=== PATIENT | male | born 1945 | race Caucasian/White ===

== ENCOUNTER → 2024-09-01 15:45 | Outpatient (REF) | payer OTHER, SELFPAY | LOC: RAD 15:45 | PROVIDERS: ATTENDING PHYSICIAN Family Medicine | DX: D47.2 Monoclonal gammopathy (principal); R59.0 Localized enlarged lymph nodes | CPT/HCPCS: 70492; Q9967 ==

== ENCOUNTER → 2024-09-09 10:27 | Outpatient (REF) | payer OTHER, SELFPAY | LOC: RAD 10:27 | PROVIDERS: ATTENDING PHYSICIAN Internal Medicine Hematology & Oncology; FAMILY PHYSICIAN Family Medicine | DX: C90.00 Multiple myeloma not having achieved remission (principal); D68.00 Von Willebrand disease, unspecified; D47.2 Monoclonal gammopathy | CPT/HCPCS: 71260; 74177; Q9967 ==

== ENCOUNTER → 2024-10-01 10:03 | Outpatient (REF) | payer OTHER, SELFPAY | LOC: PET 10:03 | PROVIDERS: ATTENDING PHYSICIAN Internal Medicine Hematology & Oncology | DX: C90.00 Multiple myeloma not having achieved remission (principal); R91.1 Solitary pulmonary nodule | CPT/HCPCS: 78816; A9552 ==

== ENCOUNTER 2024-10-03 20:55 | Inpatient (IN) | payer OTHER, SELFPAY ==
[2024-10-03] VITALS (7 sets, daily range): BP systolic 125–148; BP diastolic 70–89; BMI 28.6
--- NOTE | 2024-10-03 17:17 | ED.GENMED ---
History of Present Illness
General
Chief Complaint: Swelling
Source: patient and family
Exam Limitations: none
Time Seen by Provider: 10/03/24 16:44
Nursing documentation reviewed up to this point in time: agreed with
History of Present Illness
History of Present Illness:
Patient with history of multiple myeloma, receiving treatment as outpatient, currently being evaluated for neck swelling along with pulmonary nodule, presents to ED secondary to progressively worsening generalized weakness over the past 1 month.
Weakness has reached to a point where, patient is unable to support his weight and ambulate. Denies fever or chills. Denies coughing. Denies vomiting or diarrhea. Denies abdominal pain. Denies loss of appetite. Denies weight loss. Denies leg
pain. Denies headache. Denies dizziness. Denies difficulty with speech. 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
Review of Systems
Review of Systems
Allergies reviewed?: Yes
All Other Systems: ROS reviewed and negative except as documented in HPI and ROS
Constitutional: Reports no symptoms; Denies fever
Respiratory: Reports no symptoms; Denies cough
Cardiac: Reports no symptoms
ABD/GI: Reports no symptoms; Denies vomiting or diarrhea
Musculoskeletal: Reports no symptoms
Skin: Reports no symptoms
Neurological: Reports weakness; Denies dizzy or headache
Phy Exam
Physical Exam
Physical Exam:
Physical Exam
General: no apparent distress, not acutely ill. afebrile
Head: nc/at. eomi
Neck: supple. normal range of motion.
Heart: s1/s2 regular rate and rhythm
Lungs: no acute respiratory distress. clear bilaterally
Abdomen: normal bowel sounds. not tender.
Neuro: alert and oriented x 3. no focal neurological deficits
Skin: no rash
Psychiatric: well kept. interactive and cooperative
Extremities: LE b/l nonpitting edema. no calf tenderness.
Scores
Heart Failure Risk
Heart Failure Risk Score: Not Applicable
Course
Orders/Labs/Results
Orders:
Orders
10/03/24 Breakfast
Regular
Fluid Restriction: 1440 mL/day (48 oz)
10/03/24 16:10
ECG [Electrocardiogram (*1)] Urgent
Reason for Study: Fatigue / Weakness
10/03/24 16:11
EKG- Treatment ONCE
10/03/24 17:37
Complete Blood Count/With Diff Urgent
Comprehensive Metabolic Panel Urgent
D-Dimer Urgent
Free T4 Urgent
Comment: ADD ON
Glycohemoglobin (HgbA1c) Urgent
Magnesium Urgent
NT-proBNP Urgent
Serum Osmolality Urgent
Comment: ADD ON
TSH Urgent
10/03/24 18:28
Add On- LAB Urgent
Tests Added?: serum osm
10/03/24 18:33
CT Head W/o Iv Contrast Urgent
Comment:
Reason For Exam: weakness w ataxia
10/03/24 18:59
Add On- LAB Urgent
Tests Added?: Free T4
10/03/24 19:19
Periph Venous Lwr Ext Left US [US Periph Venous LOWER Ext LT] Urgent
Comment:
Reason For Exam: leg swelling w elevated d-dimer
10/03/24 20:13
Admit/Transfer Patient As Directed
Co-Sign Provider:
Level of Care: Inpatient admission
Assign to:: IMU- Intermediate Care
Physician / Group: Guy
Diagnosis: Hypothyroidism, Weakness
Reason for Hospitalization: Hypothyroidism, Weakness
Expected length of stay greater than two midnights?: Yes
ELOS- Estimated Length of Stay in days: 3
I certify the patient meets the requirements for IP care: Yes
PRN Pain Medication Management As Directed
May give lesser potent ordered pain med per pt: Yes
preference::
Protocol:: Medication orders for pain may be administered in a
manner that supports deferring to patient preference
when the pt is:
- Requesting an ordered lesser potent pain medication.
Least to most potent pain medications are defined
as: acetaminophen < NSAID < tramadol < opioids
(morphine, oxycodone, hydromorphone).
- Requesting a lesser dose of the same medication IF
ORDERED.
- Requesting a less intrusive route of administration
if both routes are prescribed by the provider (PO <
IV).
10/03/24 20:14
Code Status As Directed
Resuscitation Status: Full Code
10/03/24 20:19
Osmolality, Random Urine Urgent
Date Specimen was Collected: 10/03/24
Time Specimen was Collected: 18:30
Urinalysis Reflex To Culture Urgent
Date Specimen was Collected: 10/03/24
Time Specimen was Collected: 18:30
Urine Sodium Urgent
Date Specimen was Collected: 10/03/24
Time Specimen was Collected: 18:30
10/03/24 20:58
COVID-19 Antigen Urgent
Source: Nasal Swab
Blood Culture Q30M
CANDIS Source: Blood/Venous
Specimen Description:
10/03/24 21:18
Blood Culture Q30M
CANDIS Source: Blood/Venous
Specimen Description:
10/03/24 23:08
Acetaminophen [Tylenol] 650 mg PO Q4HPRN PRN
Albuterol Nebs [Ventolin Nebules] 2.5 mg INH R Q4HPRN PRN
Doxazosin Mesylate [Cardura] 2 mg PO HS
10/03/24 23:08
Echo 2D MMode Doppler [Echo 2D MMode Color/Doppler] Routine
Reason for Study: Edema, Weakness
VTE Contraindication Routine
VTE Mechanical Device Contraindication: Suspected DVT
Pharmocologic Contraindication: Low platelet count
Activity As Directed
Activity Level: Ambulate
With Assistance
EKG with chest pain [ECG as needed] As Directed
ECG as needed for:: Chest Pain
I/O [Intake/ Output] As Directed
Frequency: Per unit guidelines
Neurological Checks As Directed
Frequency: q4h
Records Request [Obtain Records] As Directed
Dates of Information to be Released: Most Recent
Type of Information Requested: Progress Notes
Obtain Records from: [facility] - Dr. Potts
Vital Signs As Directed
Frequency: Per unit guidelines
Weight As Directed
Frequency: Daily
Oxygen Therapy [O2 Therapy] [RESP] Routine
Titrate/Wean O2 to maintain O2 sat greater than (%): 94
Ot Eval And Treat Routine
PT Consult [Pt Eval And Treat] Routine
Activity Level: Ambulate
With Assistance
10/03/24 23:30
Levothyroxine [Levothroid] 100 mcg IV ONCE ONE
Patient requires IV dosing to begin now?: Yes
Reason to begin IV dosing now:: TSH greater than 10
10/04/24 00:00
CefTRIAXone [Rocephin] 1,000 mg IV Q24H
10/04/24 06:00
Basic Metabolic Panel IN AM
Cardiovascular Evaluation IN AM
Complete Blood Count/No Diff IN AM
Cortisol, Random IN AM
Magnesium IN AM
Phosphorus IN AM
MR Brain W/o & With Contrast IN AM
Comment:
Reason For Exam: L Weakness, Malignancy History
Recent pill cam endoscopy?: No
Levothyroxine [Synthroid] 200 mcg PO DAILY @ 0600
10/04/24 08:00
Amlodipine [Norvasc] 5 mg PO DAILY
Doxycycline [Vibramycin] 100 mg PO Q12
Pantoprazole [Protonix] 40 mg PO DAILY
Abnormal Lab Results
10/03/24
17:37
RBC 4.14 L 10^6/uL
(4.70-6.10)
Hct 38.9 L %
(39.0-52.0)
MCH 34.1 H pg
(27.0-31.0)
RDW 15.4 H %
(11.5-14.5)
Plt Count 109 L 10^3/uL
(130-400)
Abs Immat Gran (auto) 0.1 H 10^3/uL
(0-0.05)
Absolute Lymphs (auto) 1.0 L 10^3/uL
(1.2-3.4)
Immature Gran % 1.6 H %
(0-0.5)
Neutrophils % 75.4 H %
(42.2-75.2)
Lymphocytes % 14.6 L %
(20.5-51.1)
D-Dimer 1.30 H ug/mlFEU
(0.00-0.50)
Sodium 131 L mmol/L
(135-145)
Glucose 145 H mg/dl
(70-99)
Calcium 8.2 L mg/dl
(8.4-10.2)
Total Bilirubin 1.4 H mg/dl
(0.2-1.3)
TSH 16.80 H uIU/ml
(0.47-4.68)
Free T4 0.39 L ng/dl
(0.78-2.19)
10/03/24 17:37
10/03/24 17:37
Vital Signs
Initial and Last Documented VS:
Initial Vital Signs
Temp Pulse Resp BP Pulse Ox
99.4 F 98 19 135/82 96
10/03/24 16:08 10/03/24 16:08 10/03/24 16:08 10/03/24 16:08 10/03/24 16:08
Last Documented Vital Signs
Temp Pulse Resp BP Pulse Ox
99.4 F 90 30 125/84 91
10/03/24 16:08 10/03/24 22:30 10/03/24 22:30 10/03/24 22:01 10/03/24 22:30
MDM/Problems Addressed
MDM/Problems Addressed:
Blood work significant for hyponatremia. In addition, when ambulating, patient noted to be ataxic with unsteady gait, raising concern for potential fall/injury. As such, patient will be admitted for further evaluation and treatment.
*Pulse Oximetry
SaO2: 96
Oxygen Mode of Delivery: Room air
Patient hypoxic: no
*Critical Care Note
Total Time (30-74mins, 75-104mins- exclusive of procedures): Not Applicable
ED Attending Note
-
Portions of this chart may have been created with voice recognition software.� Occasional wrong word or��sound alike� substitutions may have occurred due to the inherent limitations of voice recognition software.
Discharge Plan
Departure
Patient Disposition: Admit
Date of Disposition: 10/03/24
Time of Disposition: 19:34
Admit to: Med/Surg
Presentation/result/management discussed w/ accepting MD/DO: Hospitalist
Discharge Problem:
Weakness, Hyponatremia
Interventions
Interventions:
*Risk Screen - Suicide Last Done: 10/03/24 16:08
*General Assessment Last Done: 10/03/24 17:34
*Neglect/Abuse Screening Last Done: 10/03/24 16:08
*ED- Fall Risk Assessment Last Done: 10/03/24 17:34
*ED COVID-19 Vaccine History Last Done: 10/03/24 17:34
ED- Cardiac Assessment Last Done: 10/03/24 17:34
ED- Pulmonary Assessment Last Done: 10/03/24 17:34
ED-Skin Assessment Last Done: 10/03/24 17:34
[2024-10-03 17:50] LABS: Hematocrit 38.9 % (39.0-52.0); Hemoglobin 14.1 g/dL (13.0-18.0); Mean Corp Hgb Conc. 36.2 g/dL (33.0-37.0); Mean Corpuscular Volume 94.0 fL (80.0-94.0); Nucleated Red Blood Cells % 0.3 % (-); Platelet Count 109 10^3/uL (130-400); Red Cell Dist. Width 15.4 % (11.5-14.5)
[2024-10-03 18:04] LABS: D-Dimer 1.30 ug/mlFEU (0.00-0.50)
[2024-10-03 18:06] LABS: ALT (SGPT) 37 U/L (0-50); AST (SGOT) 28 U/L (17-59); Albumin 3.6 g/dl (3.5-5.0); Alkaline Phosphatase 62 U/L (38-126); Blood Urea Nitrogen 16 mg/dl (9-20); Calcium 8.2 mg/dl (8.4-10.2); Carbon Dioxide 23 mmol/L (22-30); Chloride 104 mmol/L (98-107); Estimated Creatinine Clearance 83 ml/min; Glucose 145 mg/dl (70-99); Magnesium 1.8 mg/dl (1.6-2.3); Potassium 3.7 mmol/L (3.5-5.1); Sodium 131 mmol/L (135-145); Total Protein 6.5 g/dl (6.3-8.2); eGFR > 60.00
[2024-10-03 18:47] LABS: TSH 16.80 uIU/ml (0.47-4.68)
--- NOTE | 2024-10-03 20:28 | HPS.HSE ---
Family Physician
-
Family Physician: Beronica Cantu
Chief Complaint
-
Weakness, Ataxia
History of Present Illness
Patient is an 79y M with PMH significant for hypothyroidism, hypertension and von Willebrand's disease who presents to ED complaining of weakness. History obtained from patient and his family at the bedside. Patient was in his usual states of
good health until about 3-4 weeks ago when he began to become more weak / fatigued. He was still able to complete his ADLs until this past 24-48 hours when his symptoms markedly worsened. Patient is followed by [facility] for vWF. He
receives monthly IVIG. There is some question of multiple myeloma - though history there is not clear and patient does not appear to be on any treatment for this.
Patient developed fullness / swelling in the throat several weeks ago. He was evaluated by ENT. CT scan showed tonsillar hypertrophy but was otherwise unremarkable.
He was treated briefly with antifungal medication - but this was stopped after fungal smear was negative.
CT neck also showed incidental RUL nodule and patient has had CT C/A/P and PET-CT since that time for further evaluation. These revealed mildly FDG-avid (3.3) KADEN nodule (1.6cm). No other areas of FDG-avidity. No other abnormal findings.
Over the past 48 hours, patient has remained seated at home and has not left his chair. He reports shaking chills. He denies sore throat, cough or SOB.
Family has noted swelling in the legs - L > R - which is unusual for him.
He had gross hematuria on Friday - but this cleared by the next AM. No further hematuria noted. No dysuria, frequency or incontinence.
Family noted that he seemed somewhat confused as well. 911 was called to the home this afternoon when patient was unable to get up. He decline ED evaluation at that time.
Later in the afternoon family convinced him to present to the ED for further evaluation.
Patient is quiet unsteady on his feet here in the ED.
He drove himself to his radiology appointments as recently as 2 days ago and had no significant issues.
Medical History
Past Medical History
Past Medical History: Reports Other
Additional Past Medical History:
von Willebrand's Disease
Hypertension
Hypothyroidism
Obesity
Dyslipidemia
Past Surgical History: Reports Other
Additional Past Surgical History:
Hemorrhoidectomy
Social History
Tobacco: Former Smoker (Quit smoking 40 years ago. Approx 20 pack years total use.)
Alcohol: None
Drug: None
Living: With Family
Family History
Family History: Other (Father: Prostate Cancer)
Allergies / Home Medications
Allergies reflects when Allergies were last updated in [facility].
Home Medications with original date entered in [facility]
Allergy/Medication List:
Allergies
Allergy/AdvReac Type Severity Reaction Status Date / Time
Penicillins Allergy Unknown Verified 10/03/24 16:07
Home Medications
Ivig 1 dose SC MONTHLY 10/03/24
amlodipine 5 mg tablet 5 mg PO DAILY 10/03/24
doxazosin 2 mg tablet 2 mg PO HS 10/03/24
levothyroxine 125 mcg tablet (Synthroid) 125 mcg PO DAILY 10/03/24
metoprolol succinate 25 mg tablet,extended release 24 hr (Toprol XL) 25 mg PO DAILY 10/03/24
pantoprazole 40 mg tablet,delayed release (Protonix) 40 mg PO DAILY 10/03/24
therapeutic multivitamin 1 tab PO DAILY 10/03/24
zolpidem 10 mg tablet (Ambien) 10 mg PO HSPRN PRN sleep 10/03/24
Review of Systems
-
History Source: Patient and Family
A 12 point ROS was completed and negative except as noted: Yes
Constitutional: Reports Fatigue and Chills; Denies Fever
EENT: Reports Other (Neck swelling / fullness.); Denies Sore Throat
Respiratory: Denies Cough or Trouble Breathing
Cardiac: Denies Chest Pain or Palpitations
Abdomen/GI: Denies Abdominal Pain, Nausea, Vomiting, Diarrhea, Bloody Stools or Black Stools
: Reports Bleeding; Denies Dysuria, Frequency or Flank Pain
Musculoskeletal: Reports Edema; Denies Joint Pain
Neurological: Reports Weakness; Denies Dizzy, Headache or Numbness
Psych: Denies Depression or Anxiety
Physical Exam
Vital Signs
Vital Signs
Temp Pulse Resp BP Pulse Ox
99.4 F 98 19 135/82 96
10/03/24 16:08 10/03/24 16:08 10/03/24 16:08 10/03/24 16:08 10/03/24 17:17
Physical Exam
General: Other (79y M in no acute distress. Somewhat sluggish - but answers all questions / follows commands / etc.)
HEENT: Other (Thick neck. Not tender, no induration, erythema, palpable masses, etc. Fullness is new per patient / family.)
Respiratory: Other (Expiratory squeaks / wheezes scattered throughout - more prominent in KADEN.)
Cardiac: S1/S2 and Regular Rhythm; No Murmur
GI: Soft, Non Tender, Non Distended, Normal Bowel Sounds and Other (Obese.)
Musculoskeletal: No Clubbing, No Cyanosis and Other (2+ pitting edema b/l LEs - L/R. No calf tenderness / cords.)
Neuro: AO x 3 and Other (Mild L sided weakness in the UE and LE. Finger to nose is intact.)
Laboratory Results
-
10/03/24 17:37
10/03/24 17:37
Laboratory Results
Total Bilirubin 1.4 mg/dl (0.2-1.3) H 10/03/24 17:37
AST 28 U/L (17-59) 10/03/24 17:37
ALT 37 U/L (0-50) 10/03/24 17:37
Alkaline Phosphatase 62 U/L (38-126) 10/03/24 17:37
Impression/Plan
-
A/P: Patient is an 79y M with PMH significant for vWF, hypertension and hypothyroidism who presents to ED for evaluation of weakness and unsteady gait.
Weakness / Ataxia / Confusion
- Admit for further evaluation and treatment.
- Differential is extensive at this time and includes hypothyroidism, infectious process, stroke, etc.
- Address individual issues below and follow for any new / worsening symptoms.
- CT head in the ED was unremarkable.
- Check MRI brain in the AM for further evaluation.
- PT / OT evaluations.
Symptomatic Hypothyroidism
- Significantly under-replaced T4 with TSH = 16.8 and Free T4 = 0.39.
- Some confusion, weakness, ataxia, edema, etc - possible early myxedema. Not somnolent, hypothermic, hypoglycemic, etc.
- Give IV dose of levothyroxine now and increased PO dose in AM to 200mcg daily.
- Check cortisol to rule out component of adrenal insufficiency.
- Follow for clinical improvement and change / continue IV replacement if any new or worsening symptoms.
Pulmonary Nodule
- 1.6cm KADEN nodule seen on multiple recent images. Mildly FDG-avid without significant delayed uptake.
- Possible infectious component with 'low-grade' temp (99 here in the ED), chills, etc.
- Cover with abx for now with ceftriaxone / doxycycline.
- Check cultures, COVID assay, etc.
- Follow temperature curve and monitor for any new / worsening symptoms.
- May benefit from biopsy for further evaluation if no improvement / resolution with antibiotics.
Mild Hyponatremia
- Na = 131. Possibly secondary to hypothyroidism (see above) or SIADH due to pulmonary nodule.
- Fluid restriction for now. Correct hypothyroidism / check cortisol.
- Follow for improvement.
Benign Hypertension
- Stable. Hold metoprolol acutely to avoid exacerbating hypothyroidism symptoms.
- Continue other medications with holding parameters.
vonWillebrand's Disease
- Stable. Patient maintained on IVIG monthly - last injection was last Friday.
- Patient / family unclear on multiple myeloma history - not clear if this is formal diagnosis.
- Family notes that he is being treated for vWF to 'prevent multiple myeloma'.
- Not on any specific agents other than IVIG.
- Note that recent PET-CT was entirely unremarkable excepting KADEN nodule.
- Will obtain outpatient records from [facility] / Dr. Potts for clarification.
Edema
- LE swelling is likely due to hypothyroidism, immobility x 48 hours, etc.
- US ordered to rule out DVT.
DVT Prophylaxis
- No pharmacologic prophylaxis given vWF.
- Can use SCDs after LE dopplers completed / normal.
Code Status: Full
[2024-10-03 21:26] LABS: COVID-19 Antigen Negative (Negative)
[2024-10-03] MEDS: VENTOLIN NEBULES 2.5 MG INH (23:38)
[2024-10-04] VITALS (13 sets, daily range): BP systolic 91–140; BP diastolic 51–86; BMI 28.6
[2024-10-04] MEDS: CARDURA 2 MG PO (00:04)
[2024-10-04] MEDS: ROCEPHIN 1000 MG IV (00:04)
[2024-10-04] MEDS: STERILE WATER FOR INJECTION 10 ML IV (00:04)
[2024-10-04] MEDS: LEVOTHROID 100 MCG IV (00:05)
--- NOTE | 2024-10-04 01:07 | PTCARENOTE ---
Received verbal report from YIN Carson. Pt arrived to floor via stretcher. Pt ox3, forgetful and [place]. neuro checks ongoing q4 (see worklist). NSR on monitor with PACs. 96% on 4L NC. Pt was 87% on RA when he first arrived to floor. Pt denies SOB.
Expiratory wheezing auscultated and RT notified. Pt received nebulizer tx. Admission completed. Vitals and assessment as documented. Pt resting in bed with daughter at bedside, bed alarm on and cell topete in reach.
[2024-10-04] MEDS: SYNTHROID 200 MCG PO (05:33)
[2024-10-04 05:57] LABS: Hematocrit 35.6 % (39.0-52.0); Hemoglobin 13.1 g/dL (13.0-18.0); Mean Corp Hgb Conc. 36.8 g/dL (33.0-37.0); Mean Corpuscular Volume 94.2 fL (80.0-94.0); Platelet Count 85 10^3/uL (130-400); Red Cell Dist. Width 15.2 % (11.5-14.5)
[2024-10-04 06:13] LABS: Blood Urea Nitrogen 16 mg/dl (9-20); Calcium 8.1 mg/dl (8.4-10.2); Carbon Dioxide 22 mmol/L (22-30); Chloride 103 mmol/L (98-107); Estimated Creatinine Clearance 84 ml/min; Glucose 136 mg/dl (70-99); HDL Cholesterol 57 mg/dl; LDL Cholesterol, Calculated 148 mg/dl; Magnesium 1.8 mg/dl (1.6-2.3); Potassium 3.7 mmol/L (3.5-5.1); Sodium 129 mmol/L (135-145); Very Low Density Lipoprotein 31 mg/dl (0-30); eGFR > 60.00
[2024-10-04 06:41] LABS: Cortisol, Random 26.7 ug/dl
[2024-10-04] MEDS: VENTOLIN NEBULES 2.5 MG INH (06:44)
--- NOTE | 2024-10-04 07:05 | W.PN.UPDATE ---
Update Note
Progress Note Update
~0645 pt with complaints of coarseness and dyspnea this morning. recently increased to 4L NC from RA on arrival to the floor.- moist nonproductive cough noted. on assessment lung sounds are course throughout with ex. wheezing scattered. PRN Neb
given. CXR ordered. Mucinex and acapella ordered.�BNP was only 428 on admission.
--- NOTE | 2024-10-04 07:23 | W.PN.HOSP.TC ---
Today's Communication/Plan
-
See plan
Assessment / Plan
Assessment / Plan
Physical Exam
General: Other (79y M in no acute distress. Somewhat sluggish - but answers all questions / follows commands / etc.)
HEENT: Other (Thick neck. Not tender, no induration, erythema, palpable masses, etc. Fullness is new per patient / family.)
Respiratory: Other (Expiratory squeaks / wheezes scattered throughout - more prominent in KADEN.)
Cardiac: S1/S2 and Regular Rhythm; No Murmur
GI: Soft, Tender, Non Distended, Normal Bowel Sounds and Other (Obese.)
Musculoskeletal: No Clubbing, No Cyanosis and Other (2+ pitting edema b/l LEs - L/R. No calf tenderness / cords.)
Neuro: AO x 3 and Other (Mild L sided weakness in the UE and LE. Finger to nose is intact.)
Assessment/Plan
79y M with PMH significant for hypothyroidism, hypertension and von Willebrand's disease who presents to ED complaining of weakness. History obtained from patient and his family at the bedside. Patient was in his usual states of good health
until about 3-4 weeks ago when he began to become more weak / fatigued. He was still able to complete his ADLs until this past 24-48 hours when his symptoms markedly worsened. Patient is followed by [facility] for v[facility]. He receives monthly
IVIG (last dose 09/29). There is some question of multiple myeloma - though history there is not clear and patient does not appear to be on any treatment for this (records show MGUS). Patient developed fullness / swelling in the throat several
weeks ago. He was evaluated by ENT in their office Dr. Hicks. CT scan showed tonsillar hypertrophy but was otherwise unremarkable. He was treated briefly with antifungal medication for thrush (patient was having a sore throat) - but this was
stopped after fungal smear was negative. CT neck also showed incidental RUL nodule and patient has had CT C/A/P and PET-CT since that time for further evaluation. These revealed mildly FDG-avid (3.3) KADEN nodule (1.6cm). No other areas of
FDG-avidity. No other abnormal findings. Over the 48 hours prior to presentation, patient remained seated at home and has not left his chair. He reports shaking chills.
Family has noted swelling in the legs - L > R - which is unusual for him. Family noted that he seemed somewhat confused as well since 10/02/24 evening. 911 was called to the home this afternoon when patient was unable to get up. He decline ED
evaluation at that time. Later in the afternoon family convinced him to present to the ED for further evaluation. Patient was noted to be quite unsteady on his feet in the emergency department. He drove himself to his radiology appointments as
recently as 2 days ago and had no significant issues.
Weakness / Ataxia / Confusion -- suspected Acute Toxic Metabolic Encephalopathy
- Differential is extensive at this time and includes hypothyroidism, infectious process, stroke, etc.
- Address individual issues below and follow for any new / worsening symptoms.
- CT head in the ED was unremarkable.
- MRI brain pending
- PT / OT evaluations.
- Appreciate neurology
Diarrhea, Abdominal Pain and Nausea reported on 10/04/24 morning
Mild fluid right inguinal canal -- postsurgical change versus incarcerated/strangulated hernia? -- seen on CT Imaging
-Stool studies
-Requested surgery evaluation since patient is symptomatic, appreciate surgery evaluation
Gross Hematuria
-Significant blood in urine on 09/24/24 -- self resolved
Symptomatic Hypothyroidism
- Significantly under-replaced T4 with TSH = 16.8 and Free T4 = 0.39.
- Some confusion, weakness, ataxia, edema, etc - possible early myxedema. Not somnolent, hypothermic, hypoglycemic, etc.
- IV dose of levothyroxine given.
- PO Levothyroxine dose increased in AM to 175 mcg daily.
- Cortisol level 26.7
- Follow for clinical improvement and change / continue IV replacement if any new or worsening symptoms.
Acute Hypoxic Respiratory Insufficiency
Cough Again on 10/04/24
Mild left lower lobe airspace disease suggesting pneumonia
-Continue Rocephin and Doxycycline
-Pulmonary toilet
-Follow cultures
Right Upper Lobe Pulmonary Nodule
- Saw Dr. Rider outpatient
- 1.6cm KADEN nodule seen on multiple recent images. Mildly FDG-avid without significant delayed uptake.
- Possible infectious component with 'low-grade' temp (99 here in the ED), chills, etc.
- Cover with antibiotics for now with ceftriaxone / doxycycline.
- Follow temperature curve and monitor for any new / worsening symptoms.
- May benefit from biopsy for further evaluation if no improvement / resolution with antibiotics.
Mild Hyponatremia
- Na = 131. Possibly secondary to hypothyroidism (see above) or SIADH due to pulmonary nodule.
- Fluid restriction for now. Correct hypothyroidism -- home Synthroid dose increased.
- Cortisol 26.7
- Follow for improvement.
Benign Hypertension
- Stable. Hold metoprolol acutely to avoid exacerbating hypothyroidism symptoms.
- Continue other medications with holding parameters.
Acquired vonWillebrand's Disease (started at age 49 y/o)
- Stable. Patient maintained on IVIG monthly - last injection was 09/29/24.
- Patient / family unclear on multiple myeloma history - not clear if this is formal diagnosis - was taking radioactive med per family until 6 months ago
- Family noted that he is being treated for vWF to 'prevent multiple myeloma'.
- Not on any specific agents other than IVIG.
- Note that recent PET-CT was entirely unremarkable excepting KADEN nodule.
- Consulted hematology since patient getting IVIG, question of whether patient's IVIG treatment and vonWillebrand's related to this
Edema
- LE swelling is likely due to hypothyroidism, immobility x 48 hours, etc.
- No DVT on LLE or RLE
Tiny Pericardial Effusion on CT Imaging
-Check echocardiogram
Tiny Bilateral Pleural Effusions on CT Imaging
Moderate prostate hypertrophy on CT Imaging
-Continue bladder scans protocol
Simple bilateral renal cysts
Appendicoliths
DVT Prophylaxis: No pharmacologic prophylaxis given vWF; use SCDs
Code Status: Full Code
On 10/04/24, I spoke with patient's daughter Jacqueline and answered all her questions and concerns to satisfaction.
Anticipated Discharge: > 48 hours
Subjective/Interval History
-
Date of Service: October 04, 2024
Patient was seen and examined. He reported not feeling well, cough, abdominal pain and nausea.
Objective Data
-
Labs:
Laboratory Results
10/04/24
05:43
WBC 5.6
Hgb 13.1
Hct 35.6 L
Plt Count 85 L D
Sodium 129 L
Potassium 3.7
Chloride 103
Carbon Dioxide 22
BUN 16
Creatinine 0.7
Glucose 136 H
Calcium 8.1 L
Vital Signs:
Vital Signs
Temp Pulse Resp BP Pulse Ox
100.1 F 86 15 116/69 92
10/04/24 04:10 10/04/24 06:46 10/04/24 06:46 10/04/24 04:00 10/04/24 06:46
--- NOTE | 2024-10-04 07:26 | PTCARENOTE ---
Pt with new onset of coarse crackles throughout lungs. Pt 94% on 4L NC. Pt c/o SOB. AYSHA Tenorio notified. CXR ordered. RT notified and pt received neb tx.
[2024-10-04 07:57] LABS: Glycohemoglobin (HgbA1c) 7.6 % (4.0-5.6)
[2024-10-04] MEDS: STERILE WATER FOR INJECTION IV (08:04)
[2024-10-04] MEDS: NORVASC 5 MG PO (08:07)
[2024-10-04] MEDS: VIBRAMYCIN 100 MG PO ×2 (08:08→21:07)
[2024-10-04] MEDS: PROTONIX 40 MG PO (08:08)
[2024-10-04] MEDS: MUCINEX 600 MG PO ×2 (08:08→21:07)
[2024-10-04] MEDS: TYLENOL 650 MG PO ×2 (08:08→12:14)
[2024-10-04 09:35] LABS: Urine Character Cloudy (Clear)
[2024-10-04 09:47] LABS: B.E. 0 mmol/L; HCO3 23.8 mmol/L (21-28); O2 Saturation % 98.6 % (94-98); PCO2 35 mmHg (35-48); PO2 84 mmHg (83-108)
[2024-10-04 09:47] LABS: Urine Squamous Cell 0-2 /LPF (Few)
[2024-10-04 09:48] LABS: Urine Red Blood Cell >100 /HPF (0-2)
[2024-10-04] MEDS: OMNIPAQUE 50 ML PO (10:45)
[2024-10-04] MEDS: ZOFRAN 4 MG IV ×2 (10:45→17:54)
--- NOTE | 2024-10-04 13:10 | CON.NEURO ---
Neuro Assessment/Plan
Assessment
head CT imgs rev'd, NAD, moderate atrophy, white matter changes
toxic metabolic encephalopathy, in the setting of abdominal pain/nausea. also found to have hypothyroid, pulmonary nodule, mild hyponatremia.
does not appear any focal neuro findings, agree brain MRI but doubt it'll be revealing
Consultation
Order
Date of Consultation: 10/04/24
Requesting Provider: Rafiq Weber
Reason for Consult: weakness
Subjective/Objective
Subjective Data
Date of Service: October 04, 2024
from h&p:
Patient is an 79y M with PMH significant for hypothyroidism, hypertension and von Willebrand's disease who presents to ED complaining of weakness. History obtained from patient and his family at the bedside. Patient was in his usual states of
good health until about 3-4 weeks ago when he began to become more weak / fatigued. He was still able to complete his ADLs until this past 24-48 hours when his symptoms markedly worsened. Patient is followed by [facility] for vWF. He
receives monthly IVIG. There is some question of multiple myeloma - though history there is not clear and patient does not appear to be on any treatment for this.
Patient developed fullness / swelling in the throat several weeks ago. He was evaluated by ENT. CT scan showed tonsillar hypertrophy but was otherwise unremarkable.
He was treated briefly with antifungal medication - but this was stopped after fungal smear was negative.
CT neck also showed incidental RUL nodule and patient has had CT C/A/P and PET-CT since that time for further evaluation. These revealed mildly FDG-avid (3.3) KADEN nodule (1.6cm). No other areas of FDG-avidity. No other abnormal findings.
Over the past 48 hours, patient has remained seated at home and has not left his chair. He reports shaking chills. He denies sore throat, cough or SOB.
Family has noted swelling in the legs - L > R - which is unusual for him.
He had gross hematuria on Ean - but this cleared by the next AM. No further hematuria noted. No dysuria, frequency or incontinence.
Family noted that he seemed somewhat confused as well. 911 was called to the home this afternoon when patient was unable to get up. He decline ED evaluation at that time.
Later in the afternoon family convinced him to present to the ED for further evaluation.
Patient is quiet unsteady on his feet here in the ED.
He drove himself to his radiology appointments as recently as 2 days ago and had no significant issues.
spoke with Dtr who confirms the above, clarifies h/o acquired/autoimmune von Willebrand's disease presented in his 50s, was getting IVIG before surgery/dental procedures; 1 year ago intraocular hemorrhage prompted monthly IVIG and intravitreal
injections.
Today patient complaining of abdominal pain and nausea worse than yesterday. Dtr feels mentation improving compared to yesterday though not back to baseline, and persisting weakness
Objective Data
Vital Signs
Temp Pulse Resp BP Pulse Ox
37.2 C 90 15 115/59 95
10/04/24 07:05 10/04/24 08:07 10/04/24 06:46 10/04/24 08:07 10/04/24 08:39
Lab Results
10/04/24 05:43
10/04/24 05:43
Sodium 129 mmol/L (135-145) L 10/04/24 05:43
Potassium 3.7 mmol/L (3.5-5.1) 10/04/24 05:43
BUN 16 mg/dl (9-20) 10/04/24 05:43
Glucose 136 mg/dl (70-99) H 10/04/24 05:43
Calcium 8.1 mg/dl (8.4-10.2) L 10/04/24 05:43
Phosphorus 3.2 mg/dl (2.5-4.5) 10/04/24 05:43
Kiz-J-Twpnvyzfual Pept 428 pg/ml 10/03/24 17:37
LDL Cholesterol, Calc 148 mg/dl 10/04/24 05:43
Patient Allergies
Penicillins Allergy (Verified 10/04/24 10:57)
Unknown- tolerated ceftriaxone 09/2024
Physical Exam
-
Awake and alert, oriented to age, place but not month/date; slow to process, difficulty comprehending simple commands, cooperative
VFF, EOMI, face symmetric
grossly full strength b/l UE, b/l LE some antigravity
left leg edema
coordination distal 1/3 dysmetria bilateral
Medications
-
Active Medications
Generic Name Dose Route Start Last Admin
Trade Name Freq PRN Reason Stop Dose Admin
Acetaminophen 650 mg 10/03/24 23:08 10/04/24 12:14
Acetaminophen 325 Mg Tablet PO 10/31/24 23:07 650 mg
Q4HPRN PRN Administration
Mild Pain / Temp > 101
Albuterol Sulfate 2.5 mg 10/03/24 23:08 10/04/24 06:44
Albuterol Nebs 2.5 Mg/3 Ml Ampul INH 2.5 mg
R Q4HPRN PRN Administration
SOB
Protocol
Amlodipine Besylate 5 mg 10/04/24 08:00 10/04/24 08:07
Amlodipine 5 Mg Tablet PO 11/01/24 07:59 5 mg
DAILY SHEREE Administration
Ceftriaxone Sodium 1,000 mg 10/04/24 00:00 10/04/24 00:04
Ceftriaxone 1000 Mg / 10 Ml Vial IV 1,000 mg
Q24H SHEREE Administration
Doxazosin Mesylate 2 mg 10/03/24 23:08 10/04/24 00:04
Doxazosin 2 Mg Tablet PO 10/31/24 23:07 2 mg
HS SHEREE Administration
Doxycycline Hyclate 100 mg 10/04/24 08:00 10/04/24 08:08
Doxycycline 100 Mg Capsule PO 100 mg
Q12 SHEREE Administration
Guaifenesin 600 mg 10/04/24 08:00 10/04/24 08:08
Guaifenesin 600 Mg Extended Release Tablet PO 11/01/24 07:59 600 mg
Q12 SHEREE Administration
Levothyroxine Sodium 200 mcg 10/04/24 06:00 10/04/24 05:33
Levothyroxine 200 Mcg Tablet PO 11/01/24 05:59 200 mcg
DAILY @ 0600 SHEREE Administration
Ondansetron HCl 4 mg 10/04/24 09:19 10/04/24 10:45
Ondansetron 4 Mg/2 Ml Vial IV 4 mg
Q6HPRN PRN Administration
NAUSEA/VOMITING
Pantoprazole Sodium 40 mg 10/04/24 08:00 10/04/24 08:08
Pantoprazole 40 Mg Delayed Release Tablet PO 11/01/24 07:59 40 mg
DAILY SHEREE Administration
Sodium Chloride 0 flush 10/03/24 22:00
Sodium Chloride 0.9% (Flush) Syringe IV 10/31/24 21:59
PER PROTOCOL SHEREE
Sterile Water 10 ml 10/03/24 05:00 10/04/24 08:04
Sterile Water For Injection 10 Ml Vial IV 10/31/24 04:59 Not Given
Q24H SHEREE
Home Medications
�Medication �Instructions �Recorded
Ivig 1 dose SC MONTHLY hematologic 10/03/24
condition
amlodipine 5 mg tablet 5 mg PO DAILY Blood Pressure 10/03/24
doxazosin 2 mg tablet 2 mg PO HS Blood Pressure 10/03/24
levothyroxine 125 mcg tablet 125 mcg PO DAILY Thyroid 10/03/24
(Synthroid)
metoprolol succinate 25 mg 25 mg PO DAILY Blood Pressure 10/03/24
tablet,extended release 24 hr
(Toprol XL)
pantoprazole 40 mg tablet,delayed 40 mg PO DAILY Gastrointestinal 10/03/24
release (Protonix) Issue
therapeutic multivitamin 1 tab PO DAILY Supplement 10/03/24
zolpidem 10 mg tablet (Ambien) 10 mg PO HSPRN PRN sleep 10/03/24
--- NOTE | 2024-10-04 14:00 | PTCARENOTE ---
Assumed care of pt from sand cleaning machine operator RN. AAOx3. Pt is forgetful and CANTWELL. Bed alarm in place. NSR on tele, HRs 90s. SpO2 93% on 2L NC. Assessment documented. Pt off floor for MRI at this time.
--- NOTE | 2024-10-04 14:02 | CON.ONC ---
Consultation
-
Date Consultation Requested: 10/04/24
Date Consultation Performed: 10/04/24
Performing Provider: Dr. Miryam Alvarez
Impression
Impression
Patient is an 79 year old male with PMH of HTN, GERD, hypothyroidism who is followed for history of IgG kappa monoclonal gammopathy diagnosed in 2006 and acquired von Willebrand disorder who presented to the ED with weakness and ataxia.
Weakness / Ataxia / Confusion
- Etiology unclear
- Addressing individual issues including symptomatic hypothyroidism, hyponatremia
Pulmonary Nodule
- 1.6cm KADEN nodule seen on multiple recent images. Mildly FDG-avid without significant delayed uptake.
Acquired vonWillebrand's Disease
- Patient maintained on IVIG and Darzalex monthly - last injection was 09/22/2024
- Last coagulation panel was normal, last von Willebrand panel was in February 2024
Plan
Plan
Reviewed Merkel notes and labs from Dr. Potts. Patient appears to be stable from a hematologic standpoint. It is unlikely that the patient's current symptoms are from the IVIG or the Darzalex. Will continue to follow at this time.
Patient History
History of Present Illness
Patient is an 79 year old male with PMH of HTN, GERD, hypothyroidism who is followed for history of IgG kappa monoclonal gammopathy diagnosed in 2006 and acquired von Willebrand disorder who presented to the ED with weakness and ataxia.
Patient was in usual state of health until August when the patient started feeling fatigued and noticed swelling in his neck. Patient was worked up for pneumonia at which point he was treated with doxycycline and an antifungal for what was believed to
be thrush. He also saw ENT Dr. Hicks who completed a CT of neck 09/01/2024 that revealed significant symmetric enlargement of bilateral tonsillar tissue. A CT CAP 09/09/2024 showed a posteromedial right apex pulmonary nodule measuring 1.6cm. Patient
then followed up with pulmonology. Patient has continued to feel weaker and fatigued. This weekend the patients family members found him on the couch, having urinated and defecated on himself, very confused with limited ability to communicate.
Family also noted swelling in b/l lower extremities L > R, which is abnormal for him. Patient noted that he had gross hematuria last week, but only noticed one time.
Family convinced him to present to the ED for further evaluation.
In the ED, CT head was unremarkable, CT abdomen unremarkable. Abnormal labs seen below. Notably, TSH elevated at 16.80, Na 129, Ca 8.1. Platelets were 109 at admission and 85 on repeat draw.
Patient is followed by [facility] for MGUS and acquired von Willebrand disorder, and gets monthly IVIG. Patient was first diagnosed in 2006 after experiencing hemorrhaging due to hemorrhoidectomy. Work up at that time confirmed von Willebrand
disorder type II-B. Patient subsequently failed a trial of DDAVP. Patient has no family history of von Willebrand disorder. Patient denies history of bleeding or diathesis when he was younger, indicating a possible acquired von Willebrand disorder.
Patient also reported night sweats and constitutional symptoms. A work up for plasma dyscrasia showed IgG kappa monoclonal protein measuring 0.8g/dL. Patient also has a history of autoimmune thyroiditis. In 2009, patient was treated for a possible
autoimmune etiology of von Willebrand disorder with prednisone, with no improvement.
His IgG kappa monoclonal gammopathy remained stable under surveillance.
In May 2019, patient was offered a trial of IVIG. Treatment led to improvement of factor VIII levels. After 90 days, levels returned to baseline. Patient was given another round of IVIG in April of 2022 with good response. In June 2022,
decision was made to treat his MGUS with a myeloma regimen with goal of achieving remission. Patient was initiated treatment directed at plasma cell dyscrasia with induction therapy daratumumab, bortezomib, Revlimid plus Decadron. He had significant
issue with Revlimid which was held after the first cycle. Bone marrow biopsy on 02/28/23 showed normocellular marrow (30%) with trilineage hematopoiesis. No evidence of plasma cell neoplasm. Patient has continued on Darzalex and IVIG, most recent
doses on 09/22/2024.
Patient has had mild headaches for the last two months. Patient has had one episode of watery diarrhea today. Patient states that his abdomen is distended more than normal. Patient states that the swelling in his neck and legs are worse than normal.
Patient states that he is not as his baseline for walking or getting around. Patient notes increase in urinary frequency.
Patient denies changes in vision, dizziness, chest pain or cough.
Past-Medical/Surgical History
Past Medical History
von Willebrand's Disease
Hypertension
Hypothyroidism
Obesity
Dyslipidemia
Past Surgical History
Hemorrhoidectomy
Patient Medication
�Medication �Instructions �Recorded �Confirmed �Last Taken �Type
Ivig 1 dose SC MONTHLY hematologic 10/03/24 10/03/24 Unknown History
condition
amlodipine 5 mg tablet 5 mg PO DAILY Blood Pressure 10/03/24 10/03/24 10/03/24 History
doxazosin 2 mg tablet 2 mg PO HS Blood Pressure 10/03/24 10/03/24 10/02/24 History
levothyroxine 125 mcg tablet 125 mcg PO DAILY Thyroid 10/03/24 10/03/24 10/03/24 History
(Synthroid)
metoprolol succinate 25 mg 25 mg PO DAILY Blood Pressure 10/03/24 10/03/24 10/03/24 History
tablet,extended release 24 hr
(Toprol XL)
pantoprazole 40 mg tablet,delayed 40 mg PO DAILY Gastrointestinal 10/03/24 10/03/24 10/02/24 History
release (Protonix) Issue
therapeutic multivitamin 1 tab PO DAILY Supplement 10/03/24 10/03/24 10/03/24 History
zolpidem 10 mg tablet (Ambien) 10 mg PO HSPRN PRN sleep 10/03/24 10/03/24 Unknown History
Active Medications
Generic Name Dose Route Start Last Admin
Trade Name Freq PRN Reason Stop Dose Admin
Acetaminophen 650 mg 10/03/24 23:08 10/04/24 12:14
Acetaminophen 325 Mg Tablet PO 10/31/24 23:07 650 mg
Q4HPRN PRN Administration
Mild Pain / Temp > 101
Albuterol Sulfate 2.5 mg 10/03/24 23:08 10/04/24 06:44
Albuterol Nebs 2.5 Mg/3 Ml Ampul INH 2.5 mg
R Q4HPRN PRN Administration
SOB
Protocol
Amlodipine Besylate 5 mg 10/04/24 08:00 10/04/24 08:07
Amlodipine 5 Mg Tablet PO 11/01/24 07:59 5 mg
DAILY SHEREE Administration
Ceftriaxone Sodium 1,000 mg 10/04/24 00:00 10/04/24 00:04
Ceftriaxone 1000 Mg / 10 Ml Vial IV 1,000 mg
Q24H SHEREE Administration
Doxazosin Mesylate 2 mg 10/03/24 23:08 10/04/24 00:04
Doxazosin 2 Mg Tablet PO 10/31/24 23:07 2 mg
HS SHEREE Administration
Doxycycline Hyclate 100 mg 10/04/24 08:00 10/04/24 08:08
Doxycycline 100 Mg Capsule PO 100 mg
Q12 SHEREE Administration
Guaifenesin 600 mg 10/04/24 08:00 10/04/24 08:08
Guaifenesin 600 Mg Extended Release Tablet PO 11/01/24 07:59 600 mg
Q12 SHEREE Administration
Levothyroxine Sodium 200 mcg 10/04/24 06:00 10/04/24 05:33
Levothyroxine 200 Mcg Tablet PO 11/01/24 05:59 200 mcg
DAILY @ 0600 SHEREE Administration
Ondansetron HCl 4 mg 10/04/24 09:19 10/04/24 10:45
Ondansetron 4 Mg/2 Ml Vial IV 4 mg
Q6HPRN PRN Administration
NAUSEA/VOMITING
Pantoprazole Sodium 40 mg 10/04/24 08:00 10/04/24 08:08
Pantoprazole 40 Mg Delayed Release Tablet PO 11/01/24 07:59 40 mg
DAILY SHEREE Administration
Sodium Chloride 0 flush 10/03/24 22:00
Sodium Chloride 0.9% (Flush) Syringe IV 10/31/24 21:59
PER PROTOCOL SHEREE
Sterile Water 10 ml 10/03/24 05:00 10/04/24 08:04
Sterile Water For Injection 10 Ml Vial IV 10/31/24 04:59 Not Given
Q24H SHEREE
Review of Systems
-
History Source: Patient and Family (at the bedside)
Constitutional: Reports Fatigue and Weakness
EENT: Reports Sore Throat and Other (neck swelling)
Respiratory: Reports No Symptoms
Cardiac: Reports No Symptoms
GI: Reports Nausea and Diarrhea
: Reports Frequency and Bleeding
Musculoskeletal: Reports Edema (b/l lower extremeties L>R)
Skin: Reports No Symptoms
Neuro: Reports Headache (mild, whole head)
Physical Exam
-
General: No Apparent Distress and Comfortable
Cardiology: Normal Sinus Rhythm
Pulmonary: Clear
GI: Distended and Other (tender to palpation in all four quadrants)
Musculoskeletal: Edema, Left Lower Extrem (edema appreciated in left foot, wearing bilateral SCDs)
Extremities: Pulses Present
Neurology: Non Focal
Skin: Warm and Dry
Psych: Calm
Labs
Lab Results
WBC 5.6 10^3/uL (4.8-10.8) 10/04/24 05:43
RBC 3.78 10^6/uL (4.70-6.10) L 10/04/24 05:43
Hgb 13.1 g/dL (13.0-18.0) 10/04/24 05:43
Hct 35.6 % (39.0-52.0) L 10/04/24 05:43
MCV 94.2 fL (80.0-94.0) H 10/04/24 05:43
MCH 34.7 pg (27.0-31.0) H 10/04/24 05:43
MCHC 36.8 g/dL (33.0-37.0) 10/04/24 05:43
RDW 15.2 % (11.5-14.5) H 10/04/24 05:43
Plt Count 85 10^3/uL (130-400) L D 10/04/24 05:43
MPV 9.0 fL (7.4-10.4) 10/04/24 05:43
Abs Immat Gran (auto) 0.1 10^3/uL (0-0.05) H 10/03/24 17:37
Absolute Neuts (auto) 5.3 10^3/uL (1.4-6.5) 10/03/24 17:37
Absolute Lymphs (auto) 1.0 10^3/uL (1.2-3.4) L 10/03/24 17:37
Absolute Monos (auto) 0.6 10^3/uL (0.1-0.6) 10/03/24 17:37
Absolute Eos (auto) 0.0 10^3/uL (0-0.7) 10/03/24 17:37
Absolute Basos (auto) 0.0 10^3/uL (0-0.2) 10/03/24 17:37
Immature Gran % 1.6 % (0-0.5) H 10/03/24 17:37
Neutrophils % 75.4 % (42.2-75.2) H 10/03/24 17:37
Lymphocytes % 14.6 % (20.5-51.1) L 10/03/24 17:37
Monocytes % 8.3 % (1.7-9.3) 10/03/24 17:37
Eosinophils % 0.0 % (0-6) 10/03/24 17:37
Basophils % 0.1 % (0-2) 10/03/24 17:37
Creatinine 0.7 mg/dL (0.7-1.3) 10/04/24 05:43
Vital Signs
Vital Signs
Temp Pulse Resp BP Pulse Ox
99 F 91 21 120/71 92
10/04/24 07:05 10/04/24 12:00 10/04/24 12:00 10/04/24 12:00 10/04/24 12:00
--- NOTE | 2024-10-04 16:27 | CM ---
Patient with Hx von Willebrand's disease on IVIG with Dx Weakness / Ataxia / Confusion. MRI Brain, Peripheral Vasc U/S, Abd xray & CT Abd/pelvis today. O2 4L. Receiving IV & PO Abx. Per nurse; forgetful. PT/OT Evals pending.
Spoke with patient's daughter Jacqueline;
the patient resides with his daughter Jacqueline, son in law & grand-daughter in a 3 story townhouse with 6 + 6 steps to enter, and 2 flights stairs up to bedroom.
The patient was independent in ADLs and ambulation without any assistive device, was active, driving, running 3 miles/day and went to the [employer] on Sat 10/02.
Daughter says patient was on the couch for 1 1/2 days before coming to the hospital. He was seen by family on Sat around 5pm and was ok, then at 1am was very confused, incontinent bowel & bladder, unable to walk and initially refused to go to
hospital.
The patient has no DME, no prior VN or SNF.
PCP - Beronica Cantu
Pharmacy - [facility]
Plan follow up after seen by PT/OT.
--- NOTE | 2024-10-04 17:11 | CON.GS ---
Addendum entered and electronically signed by Gavin Craven MD 10/04/24 17:36:
I saw and examined the patient independently.
The resident's documentation was reviewed and I agree with the note, assessment and plan except where noted below.
Comment: See separately dictated update note.
Original Note:
Consultation
-
Date/Time Consultation Requested: 10/04/24, 4:15pm
Date/Time Consultation Performed: 10/04/24, 4:35pm
Requesting Provider: Rafiq Weber
Performing Provider: Gavin Craven
Reason for Consultation: eval for R inguinal hernia identified on axial CT
Medical History
-
Chief Complaint: Presenting complaint general weakness; current complaint abdominal pain
History of Present Illness:
Patient is an 79y M with PMH significant for bilateral inguinal hernias (repaired in childhood), hypothyroidism, hypertension, & von Willebrand's disease who presented on 10/03 with generalized weakness, now being worked up for hyponatremia, with
incidental finding c/f right inguinal hernia on 10/04 axial abdominal/pelvic CT scan. Surgical team consulted on on 10/04 for eval of potential right inguinal hernia. Patient not complaining of any pain or discomfort in R inguinal region. Patient
endorses prior bilateral inguinal hernia repair during childhood, no issues since then. No nausea or vomiting. Endorses moderate diffuse abdominal pain and distention.
Past Medical History
Past Medical History: HTN, Hypothyroidism and Other (history of bilateral inguinal hernias in childhood; Von Willebrand disease)
Past Surgical History: Hernia Repair (bilateral inguinal hernia repair in childhood) and Other (hemorrhoidectomy)
Social History
Tobacco: Former Smoker
Alcohol: None
Drug: None
Living: With Family
Family History
Family History: Reviewed & Not Pertinent
Allergies / Home Medications
Allergy/AdvReac Type Severity Reaction Status Date / Time
Penicillins Allergy Unknown- Verified 10/04/24 10:57
tolerated
ceftriaxone
09/2024
�Medication �Instructions �Recorded �Confirmed �Type
Ivig 1 dose SC MONTHLY hematologic 10/03/24 10/03/24 History
condition
amlodipine 5 mg tablet 5 mg PO DAILY Blood Pressure 10/03/24 10/03/24 History
doxazosin 2 mg tablet 2 mg PO HS Blood Pressure 10/03/24 10/03/24 History
levothyroxine 125 mcg tablet 125 mcg PO DAILY Thyroid 10/03/24 10/03/24 History
(Synthroid)
metoprolol succinate 25 mg 25 mg PO DAILY Blood Pressure 10/03/24 10/03/24 History
tablet,extended release 24 hr
(Toprol XL)
pantoprazole 40 mg tablet,delayed 40 mg PO DAILY Gastrointestinal 10/03/24 10/03/24 History
release (Protonix) Issue
therapeutic multivitamin 1 tab PO DAILY Supplement 10/03/24 10/03/24 History
zolpidem 10 mg tablet (Ambien) 10 mg PO HSPRN PRN sleep 10/03/24 10/03/24 History
Review of Systems
-
History Source: Patient and Family (daughter at bedside)
Constitutional: Other (weakness)
Abdomen/GI: Abdominal Pain (generalized abdominal pain)
: Other (reports difficulty urinating; denies inguinal pain)
A 10 point review of systems was completed, and was negative except as per HPI.
Physical Exam
Vital Signs
Temp Pulse Resp BP Pulse Ox
99 F 84 30 120/74 93
10/04/24 07:05 10/04/24 16:00 10/04/24 16:00 10/04/24 16:00 10/04/24 16:00
10/03/24 10/04/24 10/05/24
06:59 06:59 06:59
Actual Weight 87.7 kg
Body Mass Index (BMI) 28.6
Lab Results
10/04/24 05:43
10/04/24 05:43
WBC 5.6 10^3/uL (4.8-10.8) 10/04/24 05:43
Hgb 13.1 g/dL (13.0-18.0) 10/04/24 05:43
Hct 35.6 % (39.0-52.0) L 10/04/24 05:43
Plt Count 85 10^3/uL (130-400) L D 10/04/24 05:43
Abs Immat Gran (auto) 0.1 10^3/uL (0-0.05) H 10/03/24 17:37
Neutrophils % 75.4 % (42.2-75.2) H 10/03/24 17:37
Physical Exam
General: Well Nourished, No Apparent Distress and Other (mild swelling of face/neck)
HEENT: Normocephalic and Atraumatic
Respiratory: Non Labored Respirations
GI: Soft, Tender (mild generalized tenderness to palpation, no rebound or focal tenderness) and Distended
Genito-urinary: Inguinal Hernia (small palpable R inguinal hernia, reducible, non-tender; bilateral scars from prior inguinal hernia repairs)
Neuro: Awake and Other (mild confusion)
Psych: Calm
Data Reviewed
-
CT Scan: Image Personally Visualized and interpreted, Report Reviewed by me, Discussed with Physician, Discussed with Patient and Discussed with Family
Ultrasound: Image Personally Visualized and interpreted and Report Reviewed by me
Critical Care Time (in minutes): 50
Total Time Spent with Patient (in minutes): 15
Assessment / Plan
-
Patient is an 79y M with PMH significant for bilateral inguinal hernias (repaired in childhood), hypothyroidism, hypertension, & von Willebrand's disease who presented on 10/03 with generalized weakness, now being worked up for hyponatremia, seen by
general surgery team to evaluate incidental finding c/f right inguinal hernia on axial abdominal/pelvic CT scan.
Assessment:
Patient exam consistent with recurrent R inguinal hernia without involvement of intestine and with mild amt fluid. Supported by CT scan on 10/04 demonstrating no bowel distention or decompression. Pt asymptomatic, no pain on exam, no overlying
erythema, & small size of reducible hernia r/o c/f strangulation or incarceration. Given this, no need for intervention at this point in time.
Plan:
- Do not recommend surgical intervention for R inguinal hernia at this point in time
- Continue recs per primary team & external consultants; surgical team signing off
--- NOTE | 2024-10-04 17:13 | W.PN.UPDATE ---
Update Note
Progress Note Update
Brief General Surgery note:
Full H&P to follow
This is an 79-year-old male who presents with abdominal pain and altered mental status of unclear etiology. CT scan demonstrated a fluid-filled right inguinal hernia for which general surgery was consulted. Patient reports no pain in this area.
He did have bilateral open inguinal hernia repairs as a child. Reviewed his CT scan which does demonstrate bilateral fat-containing inguinal hernias right greater than left and there is fluid in the right, which appears to be slightly increased
compared to his CT scan from earlier this month. No other gross abnormalities noted. His exam is completely benign from an abdominal perspective.
No acute surgical intervention warranted at this time.
Patient can follow-up as an outpatient.
Surgery will sign off, please call with any questions or concerns.
[2024-10-04] MEDS: DUONEB 3 ML INH (19:28)
[2024-10-04] MEDS: CARDURA PO (21:08)
[2024-10-04 22:10] LABS: INR 0.98; PT 13.3 Sec (11.4-14.6)
[2024-10-04 22:11] LABS: APTT 31.0 Sec (23.4-35.0)
--- NOTE | 2024-10-04 23:32 | PTCARENOTE ---
Assumed care for patient overnight, received report from dayshift RN. Pt able to answer all orientation questions correctly, however slow to answer and is confused at times. Pt is forgetful. Q4H neurochecks. No notable deficits. PERRLA. Pt slightly
agitated and states 'I would rather be at home'. Son present at the bedside. NSR on the monitor w/ PVCs. Pt on 2L NC SpO2 94%. Pt denies any SOB or increase WOB. Pt has a non-productive moist cough. Coarse b/l and fine crackles at the L base. Pt
appears to be resting comfortably, call topete within reach.
[2024-10-05] VITALS (16 sets, daily range): BP systolic 93–135; BP diastolic 54–74; PULSE 96–105; O2SAT 93; BMI 28.7
[2024-10-05] MEDS: ROCEPHIN 1000 MG IV (01:01)
[2024-10-05] MEDS: STERILE WATER FOR INJECTION 10 ML IV (01:01)
--- NOTE | 2024-10-05 04:46 | PTCARENOTE ---
Patient woke up very confused, was taking of his gown, and attempting to get his legs off the bed. Pt disoriented to place saying he is 'in the apartment'. Pt oriented to time and person. With some redirection and reassurance pt laying comfortably
back in bed.
[2024-10-05 04:48] LABS: INR 1.01; PT 13.7 Sec (11.4-14.6)
[2024-10-05 04:49] LABS: APTT 32.2 Sec (23.4-35.0)
[2024-10-05 04:50] LABS: Hematocrit 33.1 % (39.0-52.0); Hemoglobin 11.9 g/dL (13.0-18.0); Mean Corp Hgb Conc. 36.0 g/dL (33.0-37.0); Mean Corpuscular Volume 94.3 fL (80.0-94.0); Nucleated Red Blood Cells % 0 % (-); Platelet Count 78 10^3/uL (130-400); Red Cell Dist. Width 14.6 % (11.5-14.5)
[2024-10-05 05:01] LABS: ALT (SGPT) 29 U/L (0-50); AST (SGOT) 23 U/L (17-59); Albumin 3.3 g/dl (3.5-5.0); Alkaline Phosphatase 57 U/L (38-126); Blood Urea Nitrogen 16 mg/dl (9-20); Calcium 8.0 mg/dl (8.4-10.2); Carbon Dioxide 27 mmol/L (22-30); Chloride 98 mmol/L (98-107); Estimated Creatinine Clearance 84 ml/min; Glucose 120 mg/dl (70-99); Magnesium 1.8 mg/dl (1.6-2.3); Potassium 3.5 mmol/L (3.5-5.1); Sodium 129 mmol/L (135-145); Total Protein 6.1 g/dl (6.3-8.2); eGFR > 60.00
[2024-10-05] MEDS: SYNTHROID 175 MCG PO (06:24)
[2024-10-05] MEDS: DUONEB 3 ML INH ×3 (08:10→15:22)
--- NOTE | 2024-10-05 08:15 | W.PN.HOSP.TC ---
Today's Communication/Plan
-
IR consult for LP given suspected encephalitis
Acyclovir
Antibiotics
Assessment / Plan
Assessment / Plan
Physical Exam
General: Other (79y M in no acute distress. Somewhat sluggish - but answers all questions / follows commands / etc.)
HEENT: Other (Thick neck. Not tender, no induration, erythema, palpable masses, etc. Fullness is new per patient / family.)
Respiratory: Other (Expiratory squeaks / wheezes scattered throughout - more prominent in KADEN.)
Cardiac: S1/S2 and Regular Rhythm; No Murmur
GI: Soft, Mildly Tender, Non Distended, Normal Bowel Sounds and Other (Obese.)
Musculoskeletal: No Clubbing, No Cyanosis and Other (2+ pitting edema b/l LEs - L/R. No calf tenderness / cords.)
Neuro: AO x 3 and Other (Mild L sided weakness in the UE and LE. Finger to nose is intact.)
Assessment/Plan
79y M with PMH significant for hypothyroidism, hypertension and von Willebrand's disease who presents to ED complaining of weakness. History obtained from patient and his family at the bedside. Patient was in his usual states of good health
until about 3-4 weeks ago when he began to become more weak / fatigued. He was still able to complete his ADLs until this past 24-48 hours when his symptoms markedly worsened. Patient is followed by Nicko Mims for vWF. He receives monthly
IVIG (last dose 09/29). There is some question of multiple myeloma - though history there is not clear and patient does not appear to be on any treatment for this (records show MGUS). Patient developed fullness / swelling in the throat several
weeks ago. He was evaluated by ENT in their office Dr. Hicks. CT scan showed tonsillar hypertrophy but was otherwise unremarkable. He was treated briefly with antifungal medication for thrush (patient was having a sore throat) - but this was
stopped after fungal smear was negative. CT neck also showed incidental RUL nodule and patient has had CT C/A/P and PET-CT since that time for further evaluation. These revealed mildly FDG-avid (3.3) KADEN nodule (1.6cm). No other areas of
FDG-avidity. No other abnormal findings. Over the 48 hours prior to presentation, patient remained seated at home and has not left his chair. He reports shaking chills.
Family has noted swelling in the legs - L > R - which is unusual for him. Family noted that he seemed somewhat confused as well since 10/02/24 evening. 911 was called to the home this afternoon when patient was unable to get up. He decline ED
evaluation at that time. Later in the afternoon family convinced him to present to the ED for further evaluation. Patient was noted to be quite unsteady on his feet in the emergency department. He drove himself to his radiology appointments as
recently as 2 days ago and had no significant issues.
Weakness / Ataxia / Confusion -- suspected Acute Toxic Metabolic Encephalopathy
Suspected Encephalitis
- Differential is extensive at this time and includes hypothyroidism, infectious process, stroke, etc.
- Address individual issues below and follow for any new / worsening symptoms.
- CT head in the ED was unremarkable.
- MRI brain with suspected encephalitis, with infectious encephalitis being in the differential -- consulted ID, appreciate their evaluation and recommendations
- IR consult for LP
- Start empiric Acyclovir
- Check EBV serology panel, HIV and Syphilis
- PT / OT evaluations.
- Appreciate neurology
Diarrhea, Abdominal Pain and Nausea
Mild fluid right inguinal canal -- postsurgical change versus incarcerated/strangulated hernia? -- seen on CT Imaging
-Stool studies
-Requested surgery evaluation since patient is symptomatic, appreciate surgery evaluation -- no concerns from their standpoint
Gross Hematuria
-Significant blood in urine on 09/24/24 -- self resolved
Symptomatic Hypothyroidism
- Significantly under-replaced T4 with TSH = 16.8 and Free T4 = 0.39.
- I spoke with patient's PCP, Dr. Cantu, who said that patient's TFTs on 09/05/24 were: TSH = 10 and Free T4 = 0.58
- Some confusion, weakness, ataxia, edema, etc - hypothyroidism contributing? Not somnolent, hypothermic, hypoglycemic, etc.
- IV dose of levothyroxine given.
- PO Levothyroxine dose increased in AM to 150 mcg daily (not drastic increase from previous dose given patient's CAD).
- Cortisol level 26.7
- Follow for clinical improvement and change / continue IV replacement if any new or worsening symptoms.
Acute Hypoxic Respiratory Insufficiency
Cough Again on 10/04/24
History of Recurrent Colds
Mild left lower lobe airspace disease suggesting pneumonia
History of Recent Pneumonia on CT Neck (treated outpatient with PCP in late August 2024 to early September 2024)
-Continue Rocephin and Doxycycline
-ID onboard
-Pulmonary toilet
-Follow cultures
Recent Tonsillar Hypertrophy
Recent Thrush
-Was seen outpatient by Dr. Anna Hicks (ENT) -- I communicated on 10/05/[address] via [facility] Text with [address] Anna Hicks who reported that she saw patient around mid to late September 2024, and at that time, patient had returned back to normal according to Dr.
Kurt
Right Upper Lobe Pulmonary Nodule
- Saw Dr. Rider outpatient
- 1.6cm KADEN nodule seen on multiple recent images. Mildly FDG-avid without significant delayed uptake.
- Possible infectious component with 'low-grade' temp (99 here in the ED), chills, etc.
- Cover with antibiotics for now with ceftriaxone / doxycycline.
- Follow temperature curve and monitor for any new / worsening symptoms.
- May benefit from biopsy for further evaluation if no improvement / resolution with antibiotics.
Mild Hyponatremia
- Secondary to significant SIADH state based on lab results and clinical picture
- Oral fluid restriction for now.
- Cortisol 26.7
- Follow for improvement.
- Consulted nephrology for consideration of Samsca, but they recommended holding off for now given patient's mental status
Benign Hypertension
- Stable. Hold metoprolol acutely to avoid exacerbating hypothyroidism symptoms.
- Continue other medications with holding parameters.
Acquired vonWillebrand's Disease (started at age 49 y/o)
- Stable. Patient maintained on IVIG monthly - last injection was 09/29/24.
- Patient / family unclear on multiple myeloma history - not clear if this is formal diagnosis - was taking radioactive med per family until 6 months ago
- Family noted that he is being treated for vWF to 'prevent multiple myeloma'.
- Not on any specific agents other than IVIG.
- Note that recent PET-CT was entirely unremarkable excepting KADEN nodule.
- Consulted hematology since patient getting IVIG, question of whether patient's IVIG treatment and vonWillebrand's related to this
MGUS
- Has been on Decadron, Darzalex, and IVIG -- sees Dr. Lucio
Edema
- LE swelling is likely due to hypothyroidism, immobility x 48 hours, etc.
- No DVT on LLE or RLE
Tiny Pericardial Effusion on CT Imaging
-Check echocardiogram
Tiny Bilateral Pleural Effusions on CT Imaging
Moderate prostate hypertrophy on CT Imaging
-Continue bladder scans protocol
Coronary Artery Disease
-Per Dr. Beronica Cantu
Simple bilateral renal cysts
Appendicoliths
Speech/Diet: Speech evaluation completed on this patient. Recommended to downgrade to IDDSI level four (puree) and thin liquids. Significant pocketing of food. Also completed cognitive evaluation with score of 7/30 on [facility] mental
status (SLUMS) examination.
DVT Prophylaxis: No pharmacologic prophylaxis given vWF; use SCDs
Code Status: Full Code
On 10/04/24, I spoke with patient's daughter Jacqueline and answered all her questions and concerns to satisfaction.
Anticipated Discharge: > 48 hours
Subjective/Interval History
-
Date of Service: October 05, 2024
Patient was seen and examined. Overnight he was more confused, daughter reported he is not doing well.
Objective Data
-
Labs:
Laboratory Results
10/04/24 10/05/24
21:53 04:24
WBC 5.2
Hgb 11.9 L
Hct 33.1 L
Plt Count 78 L
PT 13.3 13.7
INR 0.98 1.01
APTT 31.0 32.2
Sodium 129 L
Potassium 3.5
Chloride 98
Carbon Dioxide 27
BUN 16
Creatinine 0.7
Glucose 120 H
Calcium 8.0 L
Total Bilirubin 1.1
AST 23
ALT 29
Alkaline Phosphatase 57
Vital Signs:
Vital Signs
Temp Pulse Resp BP Pulse Ox
98.1 F 83 19 122/68 94
10/05/24 03:19 10/05/24 06:30 10/05/24 06:30 10/05/24 06:30 10/05/24 06:30
I&O
10/04/24 10/05/24 10/06/24
06:59 06:59 06:59
Intake Total 360 / 360
Output Total 870 / 870
Balance -510 / -510
[2024-10-05] MEDS: NORVASC 5 MG PO (08:49)
[2024-10-05] MEDS: VIBRAMYCIN 100 MG PO ×2 (08:49→20:50)
[2024-10-05] MEDS: MUCINEX 600 MG PO ×2 (08:49→20:50)
[2024-10-05] MEDS: PROTONIX 40 MG PO (08:50)
--- NOTE | 2024-10-05 09:00 | PTCARENOTE ---
Assumed care of pt from nightshift RN. Pt answering all orientation questions appropriately however, offers poor insight as to why hospitalized. Pt needs frequent reminders regarding plan of care including that he is unable to go home at this time.
Daughter is at bedside. Q4 neurochecks completed as ordered. Pt incontinent of bowel and bladder. While completing assessment, pt eating breakfast and noted to have pocketing of food in left cheek. Speech to see patient. Pt able to take all oral
medications however whole w/ water. Suction available at bedside d/t pocketing. Pt w/ non productive moist cough occasionally. Bed alarm activated for pt safety, call topete within reach.
--- NOTE | 2024-10-05 10:08 | CON.ID ---
Consultation
-
Date/Time Consultation Requested: October 05, 2024 0839
Date/Time Consultation Performed: October 05, 2024 1010
Requesting Provider: Dr. Rafiq Weber
Performing Provider: Dr. Melani Rossi
Reason for Consultation: Thrombocytopenia on ceftriaxone and doxycycline
Chief Complaint / Past History
Chief Complaint
Weakness
History of Present Illness
History obtained from daughter at bedside and from the patient. He is an 79-year-old male with history of acquired von Willebrand's disease on monthly IVIG and Darzalex who presented to the hospital October 03 due to weakness and change in mental
status. Patient was doing well until approximately 8 weeks ago when he developed significant neck swelling and throat pain. He saw his PCP and was tested negative for group A strep. PCP prescribed steroid and an antibiotic. 09/01 CT of the neck
showed significant enlargement of bilateral tonsillar soft tissue with secondary narrowing of the oropharynx and hypopharynx, incidental finding of 1.6 cm solid pulmonary nodule right upper lobe, bilateral pulmonary parenchymal opacities. He was
referred to ENT and was told he had Liyah esophagitis. He was treated with 2 courses of fluconazole x 16 days each. He states that he had follow-up with ENT which showed resolution of the candidiasis. His throat pain also resolved. However he
continues to have neck swelling to the state. In the meantime he underwent CAT scan of the chest abdomen and pelvis which was unremarkable except for the right upper lobe nodule. PET scan on October 01 showed mild activity of the right upper lobe
nodule. Since neck swelling, patient has slowly declined per daughter. He was getting weaker. He also has been having chills for the past month despite it being very hot outside. Temps in the 99's. He had an episode of gross hematuria which he
did not tell his doctor. Positive mild headache for about a week. On Friday, October 02, patient acute acutely confused, found sitting on his own feces. When EMT arrived, patient refused going to the ER. Patient continued to feel weak with ataxia
and finally agreed to come to the ER on October 03. Afebrile. Platelet count low 109. Had episode of gross hematuria yesterday. Also diarrhea rat yesterday. Stool for C. difficile negative. Patient complaining of lower abdominal pain. CT of the
chest abdomen pelvis showed left lower lobe pneumonia. MRI of the brain showed changes concerning for infectious/inflammatory encephalitis, status epilepticus or acute infarct. Patient has been on ceftriaxone and doxycycline. He reports mild
cough, nonproductive. No odynophagia or dysphagia. No sinus congestion. No visual changes. No nausea or vomiting. Appetite is poor. No dysuria or urinary urgency. No flank pain. He had history of cold sores. No ill contacts. However
granddaughter who lives with him, did have sore throat after the patient's neck swelling. No travel history. No known tick exposure. He does not bishop. Per daughter, he remains intermittently confused.
Past History
Additional Past Medical History:
Hypertension
Hypothyroidism
HLD
Acquired Von Willebrand's disease on monthly IVIG and Darzalex
Additional Past Surgical History:
Hemorrhoidectomy
Bilateral hernia repair, childhood
Allergy History:
Penicillins Allergy (Verified 10/04/24 10:57)
Unknown- tolerated ceftriaxone 09/2024
Medications Reviewed: Yes
Current Antibiotics:
Ceftriaxone day 3
Doxycycline day 2
Social History
Tobacco: Non-Smoker
Alcohol: None
Drug: None
Living: With Family (grand-daughter)
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
Family History
Family History: Not Pertinent
Review of Systems
Review of Systems
General: Change in Appetite
HEENT: Headache and Other (enlarged neck )
Cardiovascular: Edema; Negative Chest Pain
Respiratory: Cough (Mild)
Gasteroenterology: Diarrhea; Negative Nausea or Vomiting
Genital / Urological: Negative Dysuria or Flank Pain
Endocrine: Weakness and Fatigue
Musculoskeletal: Negative Arthralgias
Skin / Hair / Nails: Negative Rash
Neurological: Negative Dizziness
All systems: All other systems were reviewed and were negative
Vital Signs
Temp Pulse Resp BP Pulse Ox
98.5 F 84 18 122/68 92
10/05/24 07:51 10/05/24 08:15 10/05/24 08:15 10/05/24 06:30 10/05/24 08:51
Physical Exam
Physical Exam
Constitutional: Comfortable and Non-toxic
Head: Other (No frontal or max or sinus tenderness)
Eyes: No Conjunctival Hemorrhage and Sclera Anicteric
Pharynx: Other (Unable to visualize posterior pharynx )
Oral: No Thrush and No Ulcers
Lymph Nodes: Other (Enlarged bilateral tonsils, nontender, with enlarged neck swelling)
Cardiovascular: Regular Rate and S1/S2
Pulmonary: Rales (Bibasilar)
Gastrointestinal: Soft, Non Tender, Non Distended and Normal Bowel Sounds
Genito-Urinary: Negron and Clear Urine; Negative CVA Tenderness
Extremities: Edema (2+ BLE)
Musculoskeletal: Negative Spinal Tenderness
Neurological: Awake and Alert
Lab / Diagnostic Study Results
10/05/24 04:24
10/05/24 04:24
Abs Immat Gran (auto) 0.1 10^3/uL (0-0.05) H 10/05/24 04:24
Absolute Neuts (auto) 4.4 10^3/uL (1.4-6.5) 10/05/24 04:24
Absolute Lymphs (auto) 0.5 10^3/uL (1.2-3.4) L 10/05/24 04:24
Absolute Monos (auto) 0.3 10^3/uL (0.1-0.6) 10/05/24 04:24
Absolute Basos (auto) 0.0 10^3/uL (0-0.2) 10/05/24 04:24
Immature Gran % 1.3 % (0-0.5) H 10/05/24 04:24
Neutrophils % 83.7 % (42.2-75.2) H 10/05/24 04:24
Lymphocytes % 9.2 % (20.5-51.1) L 10/05/24 04:24
Monocytes % 5.6 % (1.7-9.3) 10/05/24 04:24
Eosinophils % 0.0 % (0-6) 10/05/24 04:24
Basophils % 0.2 % (0-2) 10/05/24 04:24
PT 13.7 Sec (11.4-14.6) 10/05/24 04:24
INR 1.01 10/05/24 04:24
Ur Squamous Epith Cells 0-2 /LPF (Few) 10/04/24 09:20
Microbiology Results
Micro:
10/03/24 21:18 Blood Culture - Preliminary
Blood/Venous No Growth in 24 hours- Final report to follow
10/03/24 20:58 Blood Culture - Preliminary
Blood/Venous No Growth in 24 hours- Final report to follow
10/04/24 17:36 Influenza Types A & B (RADHA) - Final
Nasal Swab Negative for Influenza A & B, NAAT
Negative results must be combined with clinical observations
and patient history.
Nucleic Acid Amplification test (NAAT)performed on the
[employer] platform.
10/04/24 17:36 Legionella Urinary Antigen - Final
Urine Negative for Legionella pneumophila Serogroup 1 antigen.
A negative result does not rule out the possiblity of
Legionella infection due to other serogroups or species of
Legionella. Clinical correlation is recommended.
Streptococcus pneumoniae Antigen (M - Final
Negative for Streptococcus pneumoniae antigen.
A negative result does not exclude infection with
Streptococcus pneumoniae. Clinical correlation is
recommended.
10/04/24 08:16 - Final
Feces/Stool Negative for Norovirus GI and GII.
10/04/24 09:20 Urine Culture - Pending
Urine
10/04/24 09:20 MRSA Screen - Pending
Nose
10/04/24 08:16 Salmonella/Shigella Culture - Pending
Feces/Stool Campylobacter Culture - Pending
Shiga Toxin Test - Pending
Stool Leukocytes - Final
10/04/24 08:16 C. difficile GDH Antigen & Toxins - Final
Feces/Stool Negative for toxigenic C.difficile
10/04/24 Brain MRI: There is predominant cortical restricted diffusion involving the anterior right frontal lobe extending into the hippocampus and right insular cortex. There is additional foci of diffusion hyperintense signal within the posterior
aspect of the right thalamus. This constellation of findings can be seen in encephalitis (herpes or limbic), status epilepticus or acute infarction. Additionally Creutzfeld Christiano disease is considered unlikely, however cannot be excluded. Consider
correlation with CSF studies.
10/04/24 CXR: New minimal left lower lobe atelectasis versus scarring
10/04/24 CT Pe/abd/pel W: Mild left lower lobe airspace disease suggesting pneumonia. New
No acute pathology of the abdomen or pelvis identified
10/01/24 PET: Stable solitary right upper lobe pulmonary nodule which demonstrates mild FDG activity (with only minimal further increase on delayed imaging). This remains indeterminate with differential including infectious/inflammatory nodule or low
metabolic rate neoplasm.
09/01/[address]: Significant symmetric enlargement of the bilateral tonsillar soft tissues, which could be secondary to tonsillar hypertrophy or tonsillitis, with secondary narrowing of the oropharynx and hypopharynx. Bilateral pulmonary parenchymal
opacities suggesting pneumonia. 1.6 cm solid pulmonary nodule in the right upper lobe.
Assessment / Plan
# Acute Mental status change
# Probable LLL PNA
# Thrombocytopenia
# Persistent neck swelling/enlarged tonsils since 09/01, (recently tx'd with 30d Fluconazole)
# Von Willibrand's disease on IVIG, Darzalex
# RUL lung nodule, indeterminate PET scan
- Blood cx's neg to date
- C. diff neg
- CT a/p unremarkable
-MRI brain: cortical restricted diffusion involving the anterior right frontal lobe extending into the hippocampus and right insular cortex. There is additional foci of diffusion hyperintense signal within the posterior aspect of the right thalamus
- Recommend LP
From ID standpoint: check cell count with diff, glu, protein, meningitis panel, VDRL, culture, fungal cx, cryptococcus antigen, CMV PCR (Darzalex risk) -> Orders placed.
- Start empiric Acyclovir 700mg IV q8h to cover for possible herpes encephalitis, pending CSF reult.
- Continue ceftriaxone and doxycycline for CAP.
Thrombocytopenia may be due to Darzalex.
Monitor plt count.
- Check EBV serology panel (enlarged tonsils and fatigue)
- Pt agreeable to HIV and syphilis screen.
Care Review
Plan reviewed with: Physician (Dr. Weber)
--- NOTE | 2024-10-05 11:05 | PTOTSP ---
Speech Language Pathology
Pt seen for cognitive-linguistic evaluation via the [facility] Mental Status ([facility]) Examination. Pt with a score of 7/30 where normal range is 27-30. When asked to point to the largest of a group of objects, pt pointed to a blank part
of page. He denied any double or blurry vision. Daughter reported he appeared to be hallucinating yesterday.
Pt also seen for clinical bedside swallow evaluation. Pt has full upper denture plate, location currently unknown. Lower partial in place. P.O. trials of puree, regular solids, minced/moist solids, and thin liquids provided. With regular solids,
minimal actual mastication noted with pt sucking on bolus. Oral holding noted at times with verbal cueing to clear oral cavity. Pocketing noted on L with minced/moist solids. Trace diffuse oral residue with puree. Residue suctioned from oral
cavity by LUGGAGE [employer]ER. No overt signs of aspiration.
Recommend:
(1) Downgrade to IDDSI Level 4 (Puree) and thin liquids
(2) Aspiration precautions: suction oral cavity post P.O. intake, partial supervision, slow rate
(3) Meds as best tolerated
(4) [employer] to continue to follow for cognitive and dysphagia tx
[2024-10-05] MEDS: DUONEB INH (11:18)
--- NOTE | 2024-10-05 12:18 | PTCARENOTE ---
seen by speech, SLT updated RN on pt continuing to pocket food, subsequently diet is to be changed to pureed.
--- NOTE | 2024-10-05 12:27 | W.PN.ONC ---
Today's Communication / Plan
-
Coagulation panel is within normal limits
vonWillebrand factor antigen pending
Will continue to follow
Impression
Impression
Patient is an 79 year old male with PMH of HTN, GERD, hypothyroidism who is followed for history of IgG kappa monoclonal gammopathy diagnosed in 2006 and acquired von Willebrand disorder who presented to the ED with weakness and ataxia.
Weakness / Ataxia / Confusion
- Etiology unclear, likely of neuro origin
- Primary team addressing individual issues including symptomatic hypothyroidism, hyponatremia
Pulmonary Nodule
- 1.6cm KADEN nodule seen on multiple recent images. Mildly FDG-avid without significant delayed uptake.
Acquired vonWillebrand's Disease
- Patient maintained on IVIG and Darzalex monthly - last injection was 09/22/2024
- Coagulation panel within normal range, last von Willebrand panel was in January 2024
Plan
Plan
Given normal coag panel patient appears to be stable from a hematologic standpoint. It is unlikely that the patient's current symptoms are from the IVIG or the Darzalex. Will continue to follow at this time.
Subjective/Objective
Subjective/Objective
Patient seen at bedside with the daughter present. Patient is more confused than yesterday, knowing his name and that he's in the hospital, but asking his daughter to get him cereal from the kitchen and to put on the [employer] game. Overnight patient
had another episode of gross hematuria. Patient still is having some abdominal discomfort and distention. Last bowel movement was yesterday. Patient denies headaches, sore throat, SOB, chest pain, dysuria.
Physical Exam:
General: not in acute distress
HEENT: appreciable swelling in the neck, no palpable LNs or masses
Cardiovascular: regular rate and rhythm
Respiratory: Normal breath sounds
Abdomen: mildly tender in all four quadrants, distended
Extremities: Lower extremity swelling resolving, SCDs on b/l
Vital Signs:
Vital Signs
Temp Pulse Resp BP Pulse Ox
98.5 F 92 20 97/66 90
10/05/24 07:51 10/05/24 11:45 10/05/24 11:45 10/05/24 10:00 10/05/24 11:45
Lab Results:
Laboratory Data
WBC 5.2 10^3/uL (4.8-10.8) 10/05/24 04:24
Hgb 11.9 g/dL (13.0-18.0) L 10/05/24 04:24
Plt Count 78 10^3/uL (130-400) L 10/05/24 04:24
PT 13.7 Sec (11.4-14.6) 10/05/24 04:24
INR 1.01 10/05/24 04:24
APTT 32.2 Sec (23.4-35.0) 10/05/24 04:24
eGFR > 60.00 10/05/24 04:24
--- NOTE | 2024-10-05 13:12 | RESPNOTE ---
discussed with Dr. Weber via TT regarding SPO2 when napping/sleeping, SpO2 dips below 88% on RA. nocturnal trending ordering for tonight.
[2024-10-05 13:14] LABS: Uric Acid 2.3 mg/dl (3.5-8.5)
--- NOTE | 2024-10-05 13:34 | W.CON.NEPH ---
Consultation
-
Date/Time Consultation Requested: 10/05/2024 10 AM
Date/Time Consultation Performed: 10/05/2024 1 PM
Requesting Provider: Dr. Weber
Performing Provider: Dr. Wise
Reason for Consultation: Hyponatremia
Medical History
-
Chief Complaint: Hyponatremia
History of Present Illness:
This is an 79-year-old gentleman who has acquired von Willebrand's disease for 18 years. He has failed DDAVP in the past. He is currently treated with routine monthly infusions of IVIG, Octagam. His last infusion was on September 22. He also receives
Darzalex for MGUS. He has hypothyroidism on Synthroid therapy which based on more recent results he still remains hypothyroid. He has hypertension controlled on a multidrug regimen. According to his daughter he had developed facial and neck
swelling 2 months ago. This had persisted and he had seen his primary care physician at the end of August. Blood work was performed at that time was unremarkable. He was initially treated with antibiotics and steroids but then saw ENT who noticed
thrush. His regimen was changed to an antifungal regimen. Imaging study for the swelling disclosed an incidental right upper lobe pulmonary nodule. According to the daughter he has been eating and drinking well and taking his medications without
problems. This changed 3 days prior to admission when he became increasingly confused with hallucinations. He stopped eating and drinking as well. He then developed severe nausea and abdominal discomfort. He had refused EMT taking him to the ""hospital and so the daughter had the patient's son (her brother), to take the patient to the emergency room.
Also the daughter reports that the patient told her he had gross hematuria prior to admission. Negron catheter now placed shows clear urine.
The daughter does believe that he may have had some confusion beginning at least 2 months ago.
Past Medical History
von Willebrand's Disease, acquired
Hypertension
Hypothyroidism
Obesity
Dyslipidemia
pulmonary nodule
Hemorrhoidectomy
Social History
Tobacco: Former Smoker
Alcohol: None
Family History
Family History: Not Pertinent
Allergies / Home Medications
Allergy/AdvReac Type Severity Reaction Status Date / Time
Penicillins Allergy Unknown- Verified 10/04/24 10:57
tolerated
ceftriaxone
09/2024
�Medication �Instructions �Recorded �Confirmed �Type
Ivig 1 dose SC MONTHLY hematologic 10/03/24 10/03/24 History
condition
amlodipine 5 mg tablet 5 mg PO DAILY Blood Pressure 10/03/24 10/03/24 History
doxazosin 2 mg tablet 2 mg PO HS Blood Pressure 10/03/24 10/03/24 History
levothyroxine 125 mcg tablet 125 mcg PO DAILY Thyroid 10/03/24 10/03/24 History
(Synthroid)
metoprolol succinate 25 mg 25 mg PO DAILY Blood Pressure 10/03/24 10/03/24 History
tablet,extended release 24 hr
(Toprol XL)
pantoprazole 40 mg tablet,delayed 40 mg PO DAILY Gastrointestinal 10/03/24 10/03/24 History
release (Protonix) Issue
therapeutic multivitamin 1 tab PO DAILY Supplement 10/03/24 10/03/24 History
zolpidem 10 mg tablet (Ambien) 10 mg PO HSPRN PRN sleep 10/03/24 10/03/24 History
Review of Systems
-
Nausea improved, no current pain. No hunger or thirst. Hematuria reported by family. No diarrhea. Poor appetite since Friday
All other systems: Negative unless noted
Physical Exam
Vital Signs
Vital Signs
Temp Pulse Resp BP Pulse Ox
97.7 F 92 20 97/66 90
10/05/24 11:10 10/05/24 11:45 10/05/24 11:45 10/05/24 10:00 10/05/24 11:45
Lab Results
WBC 5.2 10^3/uL (4.8-10.8) 10/05/24 04:24
RBC 3.51 10^6/uL (4.70-6.10) L 10/05/24 04:24
Hgb 11.9 g/dL (13.0-18.0) L 10/05/24 04:24
Hct 33.1 % (39.0-52.0) L 10/05/24 04:24
Plt Count 78 10^3/uL (130-400) L 10/05/24 04:24
Sodium 129 mmol/L (135-145) L 10/05/24 04:24
Potassium 3.5 mmol/L (3.5-5.1) 10/05/24 04:24
Chloride 98 mmol/L (98-107) 10/05/24 04:24
Carbon Dioxide 27 mmol/L (22-30) 10/05/24 04:24
BUN 16 mg/dl (9-20) 10/05/24 04:24
Creatinine 0.7 mg/dL (0.7-1.3) 10/05/24 04:24
eGFR > 60.00 10/05/24 04:24
Glucose 120 mg/dl (70-99) H 10/05/24 04:24
Calcium 8.0 mg/dl (8.4-10.2) L 10/05/24 04:24
Phosphorus 3.2 mg/dl (2.5-4.5) 10/04/24 05:43
Guf-V-Vqqkjbucgxm Pept 428 pg/ml 10/03/24 17:37
Albumin 3.3 g/dl (3.5-5.0) L 10/05/24 04:24
brain MRI 10/04/2024
IMPRESSION:
There is predominant cortical restricted diffusion involving the anterior right frontal lobe extending into the hippocampus and right insular cortex. There is additional foci of diffusion hyperintense signal within the posterior aspect of the right
thalamus. This constellation of findings can be seen in encephalitis (herpes or limbic), status epilepticus or acute infarction. Additionally Creutzfeld Christiano disease is considered unlikely, however cannot be excluded. Consider correlation with CSF
studies.
CT abdomen pelvis with and without oral/IV contrast
IMPRESSION:
Mild left lower lobe airspace disease suggesting pneumonia. New
No pulmonary embolus.
Tiny bilateral pleural effusions. Stable
Tiny pericardial effusion. Stable
Right upper lobe pulmonary nodule. Stable. Indeterminate by PET imaging.
Older laboratory values
04/24/2023 sodium 142
04/29/2024 Sodium 144
08/31/2024 sodium 136, creatinine 1.1, bicarbonate 17, potassium 4.4, TSH 10.6, free T40.58
Physical Exam
Patient is awake alert oriented and in no distress. Mood and affect were pleasant, insight and judgment were poor. Pupils are equal round and reactive to light, extraocular movements are intact, sclera were anicteric. Hearing was normal, ears and
nose are intact. Oropharynx was clear. Neck was supple with trachea midline and no thyromegaly. Heart was regular rate and rhythm without rubs. Lower extremities without edema. Lungs were clear to auscultation bilaterally and with normal
excursion. Abdomen was soft, nontender, with normal active bowel sounds, and no hepatosplenomegaly. Skin was without rash and with normal turgor.
Data Reviewed
-
Radiology: Image Personally Visualized and interpreted (Chest x-ray 10/04/2024 by my reading shows left lower lobe atelectasis)
CT Scan: Report Reviewed by me
MRI: Report Reviewed by me
Medical Tests (Nuc Med, Echo etc): Image Personally Visualized and interpreted (EKG 10/03/2024 by my reading normal sinus rhythm left axis deviation) and Report Reviewed by me (Echocardiogram 10/04/2024 EF 65% no valvular disease)
Labs: Labs Reviewed by me
Old Records: Reviewed
Assessment/Plan
-
Assessment
Von Willebrand's disease, acquired
Nausea
Right upper lobe pulmonary nodule
Hyponatremia acute
Hypertension
Confusion
MGUS
Possible encephalitis
Plan
His presentation is suggestive of excess ADH state, given the high urine osmolality as well as MRI brain findings and severe nausea. However, the serum osmolality is normal.
I would repeat his labs at this time.
No intervention will be performed currently for his hyponatremia and is otherwise mild and stable.
If the serum sodium drops further, hypertonic saline may be considered pending his repeat urine osmolality. Tolvaptan could be considered if his urine osmolality remains quite elevated with dropping serum sodium, but his mental state is otherwise
unreliable and this would make use of tolvaptan challenging.
Neurologic evaluation pending, including spinal tap
Fluid restriction at this time
Discussed with daughter
[2024-10-05] MEDS: ZOVIRAX INJECTION 264 MG IV ×2 (14:24→22:23)
[2024-10-05] MEDS: TYLENOL 650 MG PO (16:54)
--- NOTE | 2024-10-05 16:57 | EEG.RPT ---
Electroencephalogram Report
Recording
Date of EE10/05/24
Type of EEG: Routine
Length of EEG recordin mins
Patient Status: Inpatient
Recording Conditions: Awake, Confused and Combative
Hyperventilation Performed: No
Photic Stimulation Performed: Yes
Report
Clinical Background:�Altered mental status, concern for encephalitis
Introduction: A routine bedside EEG was done using International 10-20 electrode placement protocol.
Background: In the most alert state, there is continuous generalized slowing polymorphic delta and theta activity. There is spontaneous variability and reactivity.�patient agitated/constantly moving/turning head resulting in excessive muscle
artifact which obscures much of the record
Sleep: No sleep is seen.�
Focal/epileptiform: lateralized periodic discharges F8 max negativity with a field, every 1-1.5 seconds abundantly. No clinical or electrographic seizures occurred during this recording.
Photic stimulation: resulted in no background change. There was no photo myogenic or photoparoxysmal response.�
Impression: Lateralized periodic discharge right hemisphere
Clinical correlation: highly epileptogenic focus in the right hemisphere
--- NOTE | 2024-10-05 18:34 | W.PN.NEURO.1 ---
Today's Communication / Plan
-
agree LP
Neuro Assessment/Plan
Assessment
head CT imgs rev'd, NAD, moderate atrophy, white matter changes
brain MRI 10/04 imgs rev'd with patient/family cortical ribbon diffusion restriction anterior right frontal/hippocampus/insular cortex, posterior right thalamus. no contrast enhancement agree most likely viral encephalitis given the apparent rapid
cognitive decline; autoimmune encephalitis and CJD being less likely
EEG 10/05 showing LPD right hemisphere indicating the above area highly epileptogenic
agree with ID that he needs LP, with testing for viral/atypical infections and acyclovir. will hold off on testing for autoimmune encephalitis and CJD pending initial CSF studies
with MRI and EEG finding, suspect index event was a seizure, will start Keppra 500 BID
Subjective/Objective
Subjective Data
Date of Service: October 05, 2024
spoke with patient, dtr. overnight confused, wanted to leave the hospital. mentation substantially worsened compared to yesterday. visual hallucination new today of a cat on his bed.
they clarify that when he was found, he was unresponsive, appeared 'catatonic'
Objective Data
Vital Signs
Temp Pulse Resp BP Pulse Ox
36.8 C 106 20 132/73 93
10/05/24 15:05 10/05/24 15:26 10/05/24 15:26 10/05/24 12:14 10/05/24 15:26
Lab Results
10/05/24 04:24
10/05/24 04:24
PT 13.7 Sec (11.4-14.6) 10/05/24 04:24
INR 1.01 10/05/24 04:24
APTT 32.2 Sec (23.4-35.0) 10/05/24 04:24
Sodium 129 mmol/L (135-145) L 10/05/24 04:24
Potassium 3.5 mmol/L (3.5-5.1) 10/05/24 04:24
BUN 16 mg/dl (9-20) 10/05/24 04:24
Glucose 120 mg/dl (70-99) H 10/05/24 04:24
Calcium 8.0 mg/dl (8.4-10.2) L 10/05/24 04:24
Phosphorus 3.2 mg/dl (2.5-4.5) 10/04/24 05:43
Ixq-F-Rlzqzzizkpd Pept 428 pg/ml 10/03/24 17:37
LDL Cholesterol, Calc 148 mg/dl 10/04/24 05:43
Patient Allergies
Penicillins Allergy (Verified 10/04/24 10:57)
Unknown- tolerated ceftriaxone 09/2024
[2024-10-05] MEDS: VENTOLIN NEBULES 1.25 MG INH (20:02)
[2024-10-05] MEDS: KEPPRA 500 MG PO (20:50)
[2024-10-05] MEDS: CARDURA PO (22:23)
--- NOTE | 2024-10-05 22:30 | RESPNOTE ---
PT was ordered to have a Nocturnal Pulse Oximetry test, and it was started at this time. The test is being started on room air, will continue to monitor to see if the PT needs to be placed on oxygen. HR-88/RR-18/SpO2-90%.
[2024-10-06] VITALS (15 sets, daily range): BP systolic 94–141; BP diastolic 52–96; BMI 28.9
--- NOTE | 2024-10-06 03:57 | PTCARENOTE ---
Assumed care for patient overnight. Pt oriented to time and person but disoriented to place. Pt states 'I am at home, I need to go upstairs'. Pt much more drowsy than the night prior. Pt started on PO Keppra see JUN. Q4H neurochecks see worklist. RT
doing nocturnal O2 study. SpO2 90% on room air. NSR to ST on the monitor. IV acyclovir. Call topete is within reach, bed alarm is on.
[2024-10-06] MEDS: ZOVIRAX INJECTION 264 MG IV ×2 (05:01→18:01)
[2024-10-06] MEDS: VENTOLIN NEBULES 2.5 MG INH (05:12)
[2024-10-06 05:31] LABS: Hematocrit 30.4 % (39.0-52.0); Hemoglobin 11.1 g/dL (13.0-18.0); Mean Corp Hgb Conc. 36.5 g/dL (33.0-37.0); Mean Corpuscular Volume 91.8 fL (80.0-94.0); Nucleated Red Blood Cells % 0 % (-); Platelet Count 79 10^3/uL (130-400); Red Cell Dist. Width 14.7 % (11.5-14.5)
[2024-10-06] MEDS: SYNTHROID 150 MCG PO (05:32)
[2024-10-06 05:50] LABS: ALT (SGPT) 23 U/L (0-50); AST (SGOT) 29 U/L (17-59); Albumin 2.9 g/dl (3.5-5.0); Alkaline Phosphatase 53 U/L (38-126); Blood Urea Nitrogen 19 mg/dl (9-20); Calcium 8.0 mg/dl (8.4-10.2); Carbon Dioxide 27 mmol/L (22-30); Chloride 100 mmol/L (98-107); Estimated Creatinine Clearance 37 ml/min; Glucose 113 mg/dl (70-99); Magnesium 1.6 mg/dl (1.6-2.3); Potassium 3.5 mmol/L (3.5-5.1); Sodium 127 mmol/L (135-145); Total Protein 5.4 g/dl (6.3-8.2); eGFR 43.29
[2024-10-06] MEDS: VENTOLIN NEBULES 1.25 MG INH ×2 (07:10→11:43)
--- NOTE | 2024-10-06 07:44 | W.PN.HOSP.TC ---
Today's Communication/Plan
-
See plan
Assessment / Plan
Assessment / Plan
Physical Exam
General: Other (79y M in no acute distress. Somewhat sluggish - but answers all questions / follows commands / etc.)
HEENT: Other (Thick neck. Not tender, no induration, erythema, palpable masses, etc. Fullness is new per patient / family.)
Respiratory: Other (Expiratory squeaks / wheezes scattered throughout - more prominent in KADEN.)
Cardiac: S1/S2 and Regular Rhythm; No Murmur
GI: Soft, Mildly Tender, Non Distended, Normal Bowel Sounds and Other (Obese.)
Musculoskeletal: No Clubbing, No Cyanosis and Other (2+ pitting edema b/l LEs - L/R. No calf tenderness / cords.)
Neuro: AO x 3 and Other (Mild L sided weakness in the UE and LE. Finger to nose is intact.)
Assessment/Plan
79y M with PMH significant for hypothyroidism, hypertension and von Willebrand's disease who presents to ED complaining of weakness. History obtained from patient and his family at the bedside. Patient was in his usual states of good health
until about 3-4 weeks ago when he began to become more weak / fatigued. He was still able to complete his ADLs until this past 24-48 hours when his symptoms markedly worsened. Patient is followed by Nicko Mims for vWF. He receives monthly
IVIG (last dose 09/29). There is some question of multiple myeloma - though history there is not clear and patient does not appear to be on any treatment for this (records show MGUS). Patient developed fullness / swelling in the throat several
weeks ago. He was evaluated by ENT in their office Dr. Hicks. CT scan showed tonsillar hypertrophy but was otherwise unremarkable. He was treated briefly with antifungal medication for thrush (patient was having a sore throat) - but this was
stopped after fungal smear was negative. CT neck also showed incidental RUL nodule and patient has had CT C/A/P and PET-CT since that time for further evaluation. These revealed mildly FDG-avid (3.3) KADEN nodule (1.6cm). No other areas of
FDG-avidity. No other abnormal findings. Over the 48 hours prior to presentation, patient remained seated at home and has not left his chair. He reported shaking chills. Family has noted swelling in the legs - L > R - which is unusual for him.
Family noted that he seemed somewhat confused as well since 10/02/24 evening. 911 was called to the home this afternoon when patient was unable to get up. He decline ED evaluation at that time. Later in the afternoon family convinced him to
present to the ED for further evaluation. Patient was noted to be quite unsteady on his feet in the emergency department. He drove himself to his radiology appointments as recently as 2 days ago and had no significant issues.
Weakness / Ataxia / Confusion
Acute Toxic Metabolic Encephalopathy Likely Secondary to Encephalitis and Possibly Pneumonia
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
- Differential is extensive at this time and includes hypothyroidism, infectious process, stroke, etc.
- Address individual issues below and follow for any new / worsening symptoms.
- CT head in the ED was unremarkable.
- MRI brain with suspected encephalitis, with infectious encephalitis being in the differential -- consulted ID, appreciate their evaluation and recommendations
- IR consult for LP -- performed on 10/06/24 -- high protein, low glucose
- Continue Keppra -- newly started this admission
- Continue empiric Acyclovir -- monitor renal function closely
- Since patient's Darzalex can be associated with CMV infection; CMV PCR included in meningitis/encephalitis PCR panel.
- Check EBV serology panel (he has had recently enlarged tonsils+fatigue)
- HIV and Syphilis
- PT / OT evaluations.
- Appreciate neurology
Diarrhea, Abdominal Pain and Nausea
Mild fluid right inguinal canal -- postsurgical change versus incarcerated/strangulated hernia? -- seen on CT Imaging
-Stool studies
-Requested surgery evaluation since patient is symptomatic, appreciate surgery evaluation -- no concerns from their standpoint
Gross Hematuria
-Significant blood in urine on 09/24/24 -- self resolved
-Recurrence during this hospitalization
-Continue to monitor; urology evaluation inpatient vs. outpatient
Symptomatic Hypothyroidism
- Significantly under-replaced T4 with TSH = 16.8 and Free T4 = 0.39 this hospitalization
- I spoke on 10/05/24 with patient's PCP, Dr. Cantu, who said that patient's TFTs on 09/05/24 were: TSH = 10 and Free T4 = 0.58
- Some confusion, weakness, ataxia, edema, etc - hypothyroidism contributing?
- IV dose of levothyroxine given initially
- PO Levothyroxine dose increased in AM to 150 mcg daily (not drastic increase from previous dose of 125 mcg daily, given patient's CAD).
- Cortisol level 26.7
- Follow for clinical improvement and change
Acute Hypoxic Respiratory Insufficiency - RESOLVED
Likely LLL Pneumonia
Nocturnal O2 Desaturation (see nocturnal O2 saturation report from 10/06/24 morning)
Cough Again on 10/04/24
History of Recurrent Colds
History of Recent Pneumonia on CT Neck (treated outpatient with PCP in late August 2024 to early September 2024)
-Continue Rocephin and Doxycycline
-ID onboard
-Pulmonary toilet -- but stop Duonebs since patient is sensitive to albuterol with symptomatic mild tachycardia and cannot tolerate it
-Changed bronchodilators to Atrovent PRN given intolerance to Albuterol
-Repeat CXR tomorrow AM
-Follow cultures
Persistent neck swelling/enlarged tonsils since 09/01/24, (recently treated with 30 day course of Fluconazole)
Recent Tonsillar Hypertrophy
Recent Thrush
-Was seen outpatient by Dr. Anna Hicks (ENT) -- I communicated on 10/05/[address] [facility] Text [address] Anna Hicks who reported that she saw patient around mid to late September 2024, and at that time, patient had returned back to normal according to Dr.
Kurt
-Checking EBV panel as above
Right Upper Lobe Pulmonary Nodule -- indeterminate PET scan
- Saw Dr. Rider outpatient
- 1.6cm KADEN nodule seen on multiple recent images. Mildly FDG-avid without significant delayed uptake.
- Possible infectious component with 'low-grade' temp (99 here in the ED), chills, etc.
- Cover with antibiotics for now with ceftriaxone / doxycycline.
- Follow temperature curve and monitor for any new / worsening symptoms.
- May benefit from biopsy for further evaluation if no improvement / resolution with antibiotics.
- Will Nemo Text Dr. Rider
Mild Hyponatremia
- Secondary to significant SIADH state based on lab results and clinical picture
- Oral fluid restriction for now.
- Cortisol 26.7
- Follow for improvement.
- 3% Saline as per nephrology
Acute Kidney Injury
- IV fluids with 3% saline as per nephrology
- Recheck BMP
- Continue to monitor renal function given patient is on Acyclovir
Hypertension
- Stable. Hold metoprolol acutely to avoid exacerbating hypothyroidism symptoms.
- Continue other medications with holding parameters.
Acquired vonWillebrand's Disease (started at age 49 y/o) on monthly IVIG, Darzalex
- Stable. Patient maintained on IVIG monthly - last injection was 09/29/24.
- Patient / family unclear on multiple myeloma history - not clear if this is formal diagnosis - was taking radioactive med per family until 6 months ago
- Family noted that he is being treated for vWF to 'prevent multiple myeloma'.
- Consulted hematology since patient getting IVIG, question of whether patient's IVIG treatment related to this
- Coagulation panel within normal limits, last von Willebrand panel was in January 2024
MGUS
- Has been on Decadron, Darzalex, and IVIG -- sees Dr. Lucio outpatient
Thrombocytopenia
- possibly due to Darzalex
Edema
- LE swelling is likely due to hypothyroidism, immobility x 48 hours, etc.
- Now improved
- No DVT on LLE or RLE on imaging
Tiny Pericardial Effusion on CT Imaging
-On echo, there is no pericardial effusion
Tiny Bilateral Pleural Effusions on CT Imaging
-But on echo study, there was no pericardial effusion
Moderate prostate hypertrophy on CT Imaging
-Continue bladder scans protocol
Coronary Artery Disease
-Per Dr. Beronica Cantu and patient's daughter, patient has a history of this
Simple bilateral renal cysts
Appendicoliths
Speech/Diet: Speech evaluation completed on this patient. Recommended to downgrade to IDDSI level four (puree) and thin liquids. Significant pocketing of food. Also completed cognitive evaluation with score of 11/03 on [facility] mental
status (SLUMS) examination.
DVT Prophylaxis: No pharmacologic prophylaxis given vWF; use SCDs
Code Status: Full Code
On 10/04/24, 10/05/24 and 10/06/24, I spoke with patient's daughter Jacqueline and answered all her questions and concerns to satisfaction.
Encephalitis, vonWillebrands Disease, hyponatremia and MAGNOLIA is a high risk encounter. Total time spent today on caring for patient including speaking with patient's daughter was 55 minutes.
Anticipated Discharge: > 48 hours
Subjective/Interval History
-
Date of Service: October 06, 2024
Objective Data
-
Labs:
Laboratory Results
10/06/24
04:55
WBC 4.1 L
Hgb 11.1 L
Hct 30.4 L
Plt Count 79 L
Sodium 127 L
Potassium 3.5
Chloride 100
Carbon Dioxide 27
BUN 19
Creatinine 1.6 H
Glucose 113 H
Calcium 8.0 L
Total Bilirubin 0.9
AST 29
ALT 23
Alkaline Phosphatase 53
Vital Signs:
Vital Signs
Temp Pulse Resp BP Pulse Ox
98.5 F 90 17 101/62 92
10/06/24 02:54 10/06/24 07:12 10/06/24 07:12 10/06/24 04:00 10/06/24 07:12
I&O
10/05/24 10/06/24 10/07/24
06:59 06:59 06:59
Intake Total 360 / 360 980 / 980
Output Total 870 / 870 550 / 550
Balance -510 / -510 430 / 430
[2024-10-06] MEDS: ROCEPHIN 2000 MG IV (08:22)
[2024-10-06] MEDS: KEPPRA 500 MG PO ×2 (08:25→20:57)
[2024-10-06] MEDS: PROTONIX 40 MG PO (08:25)
[2024-10-06] MEDS: MUCINEX 600 MG PO ×2 (08:25→20:57)
[2024-10-06] MEDS: NORVASC 5 MG PO (08:25)
[2024-10-06] MEDS: STERILE WATER FOR INJECTION 20 ML IV (08:25)
[2024-10-06] MEDS: VIBRAMYCIN 100 MG PO ×2 (08:25→20:57)
--- NOTE | 2024-10-06 11:38 | W.PN.ID1 ---
Date of Service
Date of Service: October 06, 2024
Today's Communication
For LP.
Continue Acyclovir.
Assessment / Plan
# Acute Mental status change
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
# Probable LLL PNA
# Persistent neck swelling/enlarged tonsils since 09/01, (recently tx'd with 30d Fluconazole)
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
# Thrombocytopenia stable, possibly due to Darzalex
# Recent finding of RUL lung nodule, indeterminate PET scan
- Blood cx's neg to date
- C. diff neg, stool cx neg
- CT a/p unremarkable
-MRI brain: cortical restricted diffusion involving the anterior right frontal lobe extending into the hippocampus and right insular cortex. There is additional foci of diffusion hyperintense signal within the posterior aspect of the right thalamus
- 10/05 EEG: EEG 10/05 showing epileptogenic right frontal lobe
-For LP
Check cell count with diff, glu, protein, meningitis/encephaltis panel, VDRL, culture, fungal cx, cryptococcus antigen,-> Orders placed.
Of note, darzalex can be associated with CMV infection. CMV PCR included in meningitis/encephalitis PCR panel.
---- Continue empiric Acyclovir 700mg IV q8h (d2) to cover for probable herpes encephalitis. Monitor renal function closely.
---- Continue ceftriaxone and doxycycline for CAP.
- EBV serology panel (enlarged tonsils and fatigue)
- Pt agreeable to HIV and syphilis screen, pending
Chief Complaint
-: Other (Change in mental status)
Subjective / Review of Systems
daughter a bedside.
Pt still confused today and more agitated.
Vital Signs / Physical Exam
Vital Signs
Vital Signs
Temp Pulse Resp BP Pulse Ox
99.6 F 92 23 113/67 89
10/06/24 07:10 10/06/24 08:25 10/06/24 08:00 10/06/24 08:25 10/06/24 08:00
Physical Exam
Constitutional: Acutely Ill
Head: Other (No frontal or maxillary sinus tenderness.)
Eyes: No Conjunctival Hemorrhage and Sclera Anicteric
Lymph Nodes: Other (Bilateral enlarged tonsils)
Cardiovascular: Regular Rate and S1/S2
Pulmonary: Rales (bibase)
Gastrointestinal: Soft, Non Tender, Non Distended and Normal Bowel Sounds
Genito-Urinary: Negron and Clear Urine
Extremities: Edema
Neurological: Other (Lethargic); Negative Meningeal Signs
Objective Data
Lab Data
Lab Results
10/06/24 04:55
10/06/24 04:55
PT 13.7 Sec (11.4-14.6) 10/05/24 04:24
INR 1.01 10/05/24 04:24
APTT 32.2 Sec (23.4-35.0) 10/05/24 04:24
Estimated Creat Clear 37 ml/min 10/06/24 04:55
Total Bilirubin 0.9 mg/dl (0.2-1.3) 10/06/24 04:55
AST 29 U/L (17-59) 10/06/24 04:55
ALT 23 U/L (0-50) 10/06/24 04:55
Alkaline Phosphatase 53 U/L (38-126) 10/06/24 04:55
Most recent labs reviewed.
Micro Results:
10/03/24 21:18 Blood Culture - Preliminary
Blood/Venous No Growth in 48 hours- Final report to follow
10/03/24 20:58 Blood Culture - Preliminary
Blood/Venous No Growth in 48 hours- Final report to follow
10/04/24 09:20 MRSA Screen - Final
Nose No Methicillin Resistant Staphylococcus aureus isolated.
10/04/24 08:16 Salmonella/Shigella Culture - Preliminary
Feces/Stool Culture in Progress
Campylobacter Culture - Preliminary
Culture in Progress
Shiga Toxin Test - Pending
Stool Leukocytes - Final
10/04/24 09:20 Urine Culture - Final
Urine NO GROWTH
10/04/24 17:36 Influenza Types A & B (RADHA) - Final
Nasal Swab Negative for Influenza A & B, NAAT
Negative results must be combined with clinical observations
and patient history.
Nucleic Acid Amplification test (NAAT)performed on the
APJeT platform.
10/04/24 17:36 Legionella Urinary Antigen - Final
Urine Negative for Legionella pneumophila Serogroup 1 antigen.
A negative result does not rule out the possiblity of
Legionella infection due to other serogroups or species of
Legionella. Clinical correlation is recommended.
Streptococcus pneumoniae Antigen (M - Final
Negative for Streptococcus pneumoniae antigen.
A negative result does not exclude infection with
Streptococcus pneumoniae. Clinical correlation is
recommended.
10/04/24 08:16 - Final
Feces/Stool Negative for Norovirus GI and GII.
10/04/24 08:16 C. difficile GDH Antigen & Toxins - Final
Feces/Stool Negative for toxigenic C.difficile
10/04/24 Brain MRI: There is predominant cortical restricted diffusion involving the anterior right frontal lobe extending into the hippocampus and right insular cortex. There is additional foci of diffusion hyperintense signal within the posterior
aspect of the right thalamus. This constellation of findings can be seen in encephalitis (herpes or limbic), status epilepticus or acute infarction. Additionally Creutzfeld Christiano disease is considered unlikely, however cannot be excluded. Consider
correlation with CSF studies.
10/04/24 CXR: New minimal left lower lobe atelectasis versus scarring
10/04/24 CT Pe/abd/pel W: Mild left lower lobe airspace disease suggesting pneumonia. New
No acute pathology of the abdomen or pelvis identified
10/01/24 PET: Stable solitary right upper lobe pulmonary nodule which demonstrates mild FDG activity (with only minimal further increase on delayed imaging). This remains indeterminate with differential including infectious/inflammatory nodule or low
metabolic rate neoplasm.
09/01/[address]: Significant symmetric enlargement of the bilateral tonsillar soft tissues, which could be secondary to tonsillar hypertrophy or tonsillitis, with secondary narrowing of the oropharynx and hypopharynx. Bilateral pulmonary parenchymal
opacities suggesting pneumonia. 1.6 cm solid pulmonary nodule in the right upper lobe.
Care Review
Plan reviewed with: Physician (Dr. Weber)
--- NOTE | 2024-10-06 11:42 | W.PN.NEPH.PH ---
Today's Communication / Plan
-
3% saline
Assessment/Plan
-
Assessment
Von Willebrand's disease, acquired
Nausea
Right upper lobe pulmonary nodule
Hyponatremia acute
Hypertension
Confusion
MGUS
Possible encephalitis
Plan
His presentation is suggestive of excess ADH state, given the high urine osmolality as well as MRI brain findings and severe nausea. However, the serum osmolality is normal.
Sodium down to 127 with MAGNOLIA creatinine 1.6 with episodes of hypotension
CAT scan on 10/04 no obstructive pathology though normal creatinine
check bladder scan
Recheck urine studies
LP pending
Will start on 3% saline
-
-
Date of Service: October 06, 2024
CC / HPI / ROS
-
Chief Complaint:
Altered mental status
History of Present Illness:
Presents with altered mental status hyponatremia
Review of Systems:
Patient remains altered mental status
Complaining of abdominal pain
No shortness of breath
Labs
-
Labs:
WBC 4.1 10^3/uL (4.8-10.8) L 10/06/24 04:55
RBC 3.31 10^6/uL (4.70-6.10) L 10/06/24 04:55
Hgb 11.1 g/dL (13.0-18.0) L 10/06/24 04:55
Hct 30.4 % (39.0-52.0) L 10/06/24 04:55
Plt Count 79 10^3/uL (130-400) L 10/06/24 04:55
Sodium 127 mmol/L (135-145) L 10/06/24 04:55
Potassium 3.5 mmol/L (3.5-5.1) 10/06/24 04:55
Chloride 100 mmol/L (98-107) 10/06/24 04:55
Carbon Dioxide 27 mmol/L (22-30) 10/06/24 04:55
BUN 19 mg/dl (9-20) 10/06/24 04:55
Creatinine 1.6 mg/dL (0.7-1.3) H 10/06/24 04:55
eGFR 43.29 10/06/24 04:55
Glucose 113 mg/dl (70-99) H 10/06/24 04:55
Calcium 8.0 mg/dl (8.4-10.2) L 10/06/24 04:55
Phosphorus 3.2 mg/dl (2.5-4.5) 10/04/24 05:43
Msb-C-Mcoxpozqhqq Pept 428 pg/ml 10/03/24 17:37
Albumin 2.9 g/dl (3.5-5.0) L 10/06/24 04:55
Physical Exam
-
Vital Signs:
Vital Signs
Temp Pulse Resp BP Pulse Ox
99.6 F 92 23 113/67 89
10/06/24 07:10 10/06/24 08:25 10/06/24 08:00 10/06/24 08:25 10/06/24 08:00
Respiratory:: Bilateral: Coarse
Lung Excursion:: Normal
Abdomen:: Distended
Bowel Sounds:: Normal
Extremity Edema:: None: Bilateral:
Negron Catheter: No
--- NOTE | 2024-10-06 12:25 | PTCARENOTE ---
During neb treatment, pt became agitated, anxious, yelling out that he was dying, saying he felt his heart slowing down and that he would be soon. RN notified MD who arrived at bedside to assess pt. Pt now tells MD that the feeling has passed.
Remains confused.
--- NOTE | 2024-10-06 13:18 | W.PN.ONC ---
Documented by User: Kyara Rodriguez DO, Resident 10/06/24 13:29
Today's Communication / Plan
-
Coagulation panel is within normal limits
vonWillebrand factor antigen pending
Will continue to follow
Await further input from ID and neuro
Impression
Impression
Patient is an 79 year old male with PMH of HTN, GERD, hypothyroidism who is followed for history of IgG kappa monoclonal gammopathy diagnosed in 2006 and acquired von Willebrand disorder who presented to the ED with weakness and ataxia.
Weakness / Ataxia / Confusion
- Etiology unclear, likely of neuro origin
- Primary team addressing individual issues including symptomatic hypothyroidism, hyponatremia
Pulmonary Nodule
- 1.6cm KADEN nodule seen on multiple recent images. Mildly FDG-avid without significant delayed uptake.
Acquired vonWillebrand's Disease
- Patient maintained on IVIG and Darzalex monthly - last injection was 09/22/2024
- Coagulation panel within normal limits, last von Willebrand panel was in January 2024
Plan
Plan
Given normal coag panel patient appears to be stable from a hematologic standpoint. It is unlikely that the patient's current symptoms are from the IVIG or the Darzalex. Will continue to follow at this time.
Subjective/Objective
Subjective/Objective
Patient was seen at the bedside with daughter present. Patient seemed more confused today. Patient still is having some abdominal discomfort and distention. Patient also notes headaches. Patient denies sore throat, SOB, chest pain, dysuria.
Physical Exam:
General: Not in acute distress
HEENT: appreciable swelling around the neck
Abdomen: mildly tender in all four quadrants, distended
Extremities: Lower extremity swelling resolving, SCDs on b/l
Vital Signs:
Vital Signs
Temp Pulse Resp BP Pulse Ox
97.6 F 97 18 116/74 92
10/06/24 11:11 10/06/24 12:00 10/06/24 12:00 10/06/24 12:00 10/06/24 12:00
Lab Results:
Laboratory Data
WBC 4.1 10^3/uL (4.8-10.8) L 10/06/24 04:55
Hgb 11.1 g/dL (13.0-18.0) L 10/06/24 04:55
Plt Count 79 10^3/uL (130-400) L 10/06/24 04:55
PT 13.7 Sec (11.4-14.6) 10/05/24 04:24
INR 1.01 10/05/24 04:24
APTT 32.2 Sec (23.4-35.0) 10/05/24 04:24
eGFR 43.29 10/06/24 04:55

Documented by User: Chucky Bryan MD 10/06/24 13:55
Plan
Plan
Given normal coag panel patient appears to be stable from a hematologic standpoint. Will continue to follow at this time.
Hematology Addendum:
Patient seen and evaluated and agree w/ resident note and plan as outlined
-IgG kappa monoclonal gammopathy w/ acquired von Willebrands disease - followed by Dr. Potts
-now w/ acute mental status changes - possible encephalitis on MRI
-neurology following w/ w/u ongoing - for LP
-ID following viral titers/ studies pending
-had been on Darzalex /IVIG w/ Dr. Potts - last 09/22
-darzalex has been rarely associated w/ leukoencephalitis - which per case studies has had some variable response to steroids as well as IVIG
-will discuss w/ neurology
Will continue to follow with you.
--- NOTE | 2024-10-06 13:19 | PTCARENOTE ---
Pt transported to [facility] for LP
[2024-10-06] MEDS: SODIUM CHLORIDE 3% 250 IV (14:40)
[2024-10-06 14:45] LABS: CSF Color Colorless; CSF Tube # Clarity Clear
[2024-10-06 15:15] LABS: Red Cell Count/CSF 14 mm^3; White Blood Cell Count/CSF 4 mm^3 (0-5)
--- NOTE | 2024-10-06 18:16 | PTCARENOTE ---
Pt remains disoriented. daughter at bedside. vital signs stable.
[2024-10-06] MEDS: CARDURA 2 MG PO (20:57)
[2024-10-07] VITALS (12 sets, daily range): BP systolic 98–153; BP diastolic 61–95; BMI 29.3
--- NOTE | 2024-10-07 02:08 | PTCARENOTE ---
assumed care of pt from love RN. Pt aaox3 but frequently forgetful. Pt 95% RA. NSR on monitor. Hygiene completed. condom cath in place draining christiane urine, hematuria at times. Pt resting in bed with bed alarm on and call topete in reach.
[2024-10-07] MEDS: SYNTHROID 150 MCG PO (04:21)
[2024-10-07 04:43] LABS: Hematocrit 30.8 % (39.0-52.0); Hemoglobin 11.6 g/dL (13.0-18.0); Mean Corp Hgb Conc. 37.7 g/dL (33.0-37.0); Mean Corpuscular Volume 91.1 fL (80.0-94.0); Nucleated Red Blood Cells % 0.5 % (-); Platelet Count 87 10^3/uL (130-400); Red Cell Dist. Width 15.1 % (11.5-14.5)
[2024-10-07 05:04] LABS: ALT (SGPT) 23 U/L (0-50); AST (SGOT) 35 U/L (17-59); Albumin 2.7 g/dl (3.5-5.0); Alkaline Phosphatase 56 U/L (38-126); Blood Urea Nitrogen 23 mg/dl (9-20); Calcium 7.7 mg/dl (8.4-10.2); Carbon Dioxide 21 mmol/L (22-30); Chloride 104 mmol/L (98-107); Estimated Creatinine Clearance 27 ml/min; Glucose 120 mg/dl (70-99); Magnesium 1.7 mg/dl (1.6-2.3); Potassium 3.1 mmol/L (3.5-5.1); Sodium 128 mmol/L (135-145); Total Protein 5.1 g/dl (6.3-8.2); eGFR 29.54
[2024-10-07] MEDS: ZOVIRAX INJECTION 264 MG IV ×2 (05:11→18:08)
--- NOTE | 2024-10-07 05:38 | PTCARENOTE ---
Patient's K is 3.1 and AYSHA Candelario made aware. Rx received for IV KCl (see MAR).
[2024-10-07] MEDS: KCL 270 MEQ IV (05:58)
--- NOTE | 2024-10-07 07:27 | W.PN.HOSP.TC ---
Today's Communication/Plan
-
See plan
Assessment / Plan
Assessment / Plan
Physical Exam
General: Not in acute distress
HEENT: Thick neck. Not tender, no induration, erythema, palpable masses, etc. Fullness is new per patient / family.
Respiratory: CTAB with some decreased lower left sided breath sounds
Cardiac: S1/S2 and Regular Rhythm
GI: Soft, Mildly Tender, Non Distended, Normal Bowel Sounds and Other (Obese.)
Musculoskeletal: No Cyanosis and Other (Trace pitting edema at the bilateral lower extremities)
Neuro: AAO x 3 and Other (Mild left-sided weakness in the UE and LE. Finger to nose is intact.)
Assessment/Plan
79y M with PMH significant for hypothyroidism, hypertension and von Willebrand's disease who presents to ED complaining of weakness. History obtained from patient and his family at the bedside. Patient was in his usual states of good health
until about 3-4 weeks ago when he began to become more weak / fatigued. He was still able to complete his ADLs until this past 24-48 hours when his symptoms markedly worsened. Patient is followed by Nicko Mims for vWF. He receives monthly
IVIG (last dose 09/29). There is some question of multiple myeloma - though history there is not clear and patient does not appear to be on any treatment for this (records show MGUS). Patient developed fullness / swelling in the throat several
weeks ago. He was evaluated by ENT in their office Dr. Hicks. CT scan showed tonsillar hypertrophy but was otherwise unremarkable. He was treated briefly with antifungal medication for thrush (patient was having a sore throat) - but this was
stopped after fungal smear was negative. CT neck also showed incidental RUL nodule and patient has had CT C/A/P and PET-CT since that time for further evaluation. These revealed mildly FDG-avid (3.3) KADEN nodule (1.6cm). No other areas of
FDG-avidity. No other abnormal findings. Over the 48 hours prior to presentation, patient remained seated at home and has not left his chair. He reported shaking chills. Family has noted swelling in the legs - L > R - which is unusual for him.
Family noted that he seemed somewhat confused as well since 10/02/24 evening. 911 was called to the home this afternoon when patient was unable to get up. He decline ED evaluation at that time. Later in the afternoon family convinced him to
present to the ED for further evaluation. Patient was noted to be quite unsteady on his feet in the emergency department. He drove himself to his radiology appointments as recently as 2 days ago and had no significant issues.
Weakness / Ataxia / Confusion
Acute Toxic Metabolic Encephalopathy Likely Secondary to Encephalitis and Possibly Pneumonia
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
Likely immunosuppressed from Daratumumab and Dex
- Differential is extensive at this time and includes hypothyroidism, infectious process, stroke, etc.
- Address individual issues below and follow for any new / worsening symptoms.
- CT head in the ED was unremarkable.
- MRI brain with suspected encephalitis, with infectious encephalitis being in the differential -- consulted ID, appreciate their evaluation and recommendations
- IR consult for LP -- performed on 10/06/24 -- high protein, low glucose
- Continue Keppra -- newly started this admission
- Continue Acyclovir -- monitor renal function closely
- Since patient's Darzalex can be associated with CMV infection; CMV PCR included in meningitis/encephalitis PCR panel.
- Check EBV serology panel (he has had recently enlarged tonsils+fatigue)
- HIV negative
- Syphilis pending
- PT / OT evaluations.
- Appreciate neurology
Diarrhea, Abdominal Pain and Nausea
Mild fluid right inguinal canal -- postsurgical change versus incarcerated/strangulated hernia? -- seen on CT Imaging
-Stool studies
-Requested surgery evaluation since patient is symptomatic, appreciate surgery evaluation -- no concerns from their standpoint
Gross Hematuria
Urinary Retention
-Significant blood in urine on 09/24/24 -- self resolved
-Recurrence during this hospitalization
-Patient still having frequent hematuria
-CT without contrast with no obstructive uropathy or stones
-Consulted urology -- recommendation to continue bladder scans -- if PVR rising significantly, then place beltre
Concern for Symptomatic Hypothyroidism
- Significantly under-replaced T4 with TSH = 16.8 and Free T4 = 0.39 this hospitalization
- I spoke on 10/05/24 with patient's PCP, Dr. Cantu, who said that patient's TFTs on 09/05/24 were: TSH = 10 and Free T4 = 0.58
- Some confusion, weakness, ataxia, edema, etc - hypothyroidism contributing?
- IV dose of levothyroxine given initially
- PO Levothyroxine dose increased in AM to 150 mcg daily (not drastic increase from previous dose of 125 mcg daily, given patient's CAD).
- Cortisol level 26.7
- Follow for clinical improvement and change
Acute Hypoxic Respiratory Insufficiency - RESOLVED
Likely LLL Pneumonia
Nocturnal O2 Desaturation (see nocturnal O2 saturation report from 10/06/24 morning)
Cough Again on 10/04/24
History of Recurrent Colds
History of Recent Pneumonia on CT Neck (treated outpatient with PCP in late August 2024 to early September 2024)
-Continue Rocephin and Doxycycline
-ID onboard
-Pulmonary toilet -- but stopped Duonebs since patient is sensitive to albuterol with symptomatic mild tachycardia and cannot tolerate it
-Changed bronchodilators to Atrovent PRN given intolerance to Albuterol
-CT Abdomen/Pelvis from 10/07/24 showed bibasilar opacification -- most likely representing subsegmental atelectasis as well as tiny bilateral pleural effusions, left greater than right
-Follow cultures
Persistent neck swelling/enlarged tonsils since 09/01/24, (recently treated with 30 day course of Fluconazole)
Recent Tonsillar Hypertrophy
Recent Thrush
-Was seen outpatient by Dr. Anna Hicks (ENT) -- I communicated on 10/05/[address] [place] Text [address] Anna Hicks who reported that she saw patient around mid to late September 2024, and at that time, patient had returned back
to normal according to Dr. Hicks
-Checking EBV panel as above
Right Upper Lobe Pulmonary Nodule -- indeterminate PET scan
- Saw Dr. Rider outpatient
- 1.6cm KADEN nodule seen on multiple recent images. Mildly FDG-avid without significant delayed uptake.
- Possible infectious component with 'low-grade' temp (99 here in the ED), chills, etc.
- Cover with antibiotics for now with ceftriaxone / doxycycline.
- Follow temperature curve and monitor for any new / worsening symptoms.
- May benefit from biopsy for further evaluation if no improvement / resolution with antibiotics.
- Will [place] Text Dr. Rider
Mild Hyponatremia
- Secondary to significant SIADH state based on lab results and clinical picture
- Oral fluid restriction for now.
- Cortisol 26.7
- Follow for improvement.
- 3% Saline with no significant improvement in sodium from 10/06/24 to 10/07/24
- Start Normal Saline IV Fluids 150 cc/h on 10/07/24 as per nephrology
Acute Kidney Injury
- IV fluids with Normal Saline IV Fluids 150 cc/h as per nephrology
- Recheck BMP
- Continue to monitor renal function given patient is on Acyclovir
- CT Abdomen Pelvis 10/07/24 with no stone or obstructive process
Hypokalemia
- Replaced
- Monitor BMP
Mild Bilateral Perinephric Stranding on CT Imaging
Hypertension
- Stable. Hold metoprolol acutely to avoid exacerbating hypothyroidism symptoms.
- Continue other medications with holding parameters.
Acquired vonWillebrand's Disease (started at age 49 y/o) on monthly IVIG, Darzalex
- Stable. Patient maintained on IVIG monthly - last injection was 09/29/24.
- Patient / family unclear on multiple myeloma history - not clear if this is formal diagnosis - was taking radioactive med per family until 6 months ago
- Family noted that he is being treated for vWF to 'prevent multiple myeloma'.
- Consulted hematology since patient getting IVIG, question of whether patient's IVIG treatment related to this
- Coagulation panel within normal limits, last von Willebrand panel was in January 2024 -- current vonWillebrand panel is pending
MGUS
- Has been on Decadron, Darzalex, and IVIG -- sees Dr. Lucio outpatient
Thrombocytopenia
- Improving
- possibly due to Darzalex
Edema
- LE swelling is likely due to hypothyroidism, immobility x 48 hours, etc.
- Now improved
- No DVT on LLE or RLE on imaging
Tiny Pericardial Effusion on CT Imaging
-On echo, there is no pericardial effusion
Tiny Bilateral Pleural Effusions on CT Imaging
-But on echo study, there was no pericardial effusion
Moderate prostate hypertrophy on CT Imaging
-Continue bladder scans protocol
Coronary Artery Disease
-Per Dr. Beronica Cantu and patient's daughter, patient has a history of this
Simple bilateral renal cysts
Appendicoliths
Speech/Diet: Speech evaluation completed on this patient. Recommended to downgrade to IDDSI level four (puree) and thin liquids. Significant pocketing of food. Also completed cognitive evaluation with score of 7/[address] [facility] mental
status (SLUMS) examination.
Morning. Just saw this pt. He looks worse than 2 days ago. L facial droop now with dysarthria. Decreased orientation. Resident (on this thread) noted decreased offender employment specialist strength on . Also had a cough x1 with P.O. intake. I wasn't concerned for
aspiration on Friday (more oral issues), but now will monitor for that as well. He just went off floor for CT of abdomen/pelvis.
DVT Prophylaxis: No pharmacologic prophylaxis given vWF; use SCDs
Code Status: Full Code
On 10/04/24, 10/05/24 and 10/06/24, I spoke with patient's daughter Jacqueline and answered all her questions and concerns to satisfaction.
Encephalitis, vonWillebrands Disease, hyponatremia and MAGNOLIA is a high risk encounter. Total time spent today on caring for patient including speaking with patient's daughter was 51 minutes.
Anticipated Discharge: > 48 hours
Subjective/Interval History
-
Date of Service: October 07, 2024
Patient was seen and examined. He remained with episodes of confusion.
Objective Data
-
Labs:
Laboratory Results
10/07/24
04:19
WBC 4.4 L
Hgb 11.6 L
Hct 30.8 L
Plt Count 87 L
Sodium 128 L
Potassium 3.1 L
Chloride 104
Carbon Dioxide 21 L
BUN 23 H
Creatinine 2.2 H
Glucose 120 H
Calcium 7.7 L
Total Bilirubin 0.8
AST 35
ALT 23
Alkaline Phosphatase 56
Vital Signs:
Vital Signs
Temp Pulse Resp BP Pulse Ox
97.9 F 96 26 118/77 97
10/07/24 04:18 10/07/24 06:00 10/07/24 06:00 10/07/24 06:00 10/07/24 02:02
I&O
10/06/24 10/07/24 10/08/24
06:59 06:59 06:59
Intake Total 980 / 980
Output Total 550 / 550 600 / 600
Balance 430 / 430 -600 / -600
--- NOTE | 2024-10-07 08:45 | PTOTSP ---
Speech Language Pathology
Pt seen for cognitive-linguistic tx. New L facial droop and dysarthria noted this date. Medical team notified. Slow and incoordinated diadochokinetic (DDK) rates noted. Decreased respiration phonation coordination also noted and pt appeared to
have increased WOB although Sp02 stable and pt denied any increased WOB. Pt oriented to name, , and being in hospital. Not oriented to which hospital given 2 options or the month, stating it was April. Able to recall correct location and
month after a 3 minute delay. Flat affect continues with poor awareness of deficits/situation.
Pt also seen for dysphagia tx. Daughter fed pt breakfast prior to PUBLIC ADMINISTRATION PROFESSOR arrival, and pt ate 100%. Daughter stated wet cough with last bite of breakfast, but no other coughing noted. She also reported trace residue, which would clear with a liquid
wash. Seen with med pass with meds whole in puree with RN. Able to swallow effectively this way. Given sip of water following with wet cough noted. Question aspiration. No other coughing noted with 3 other sips of thin liquid. Pt declined any
further P.O. trials.
Recommend:
(1) Continue IDDSI Level 4 (Puree) and thin liquids
(2) Aspiration precautions: suction oral cavity post P.O. intake, partial supervision, slow rate
(3) Meds as best tolerated
(4) PUBLIC ADMINISTRATION PROFESSOR to continue to follow for cognitive and dysphagia tx
[2024-10-07] MEDS: KEPPRA 500 MG PO ×2 (08:49→20:50)
[2024-10-07] MEDS: STERILE WATER FOR INJECTION 20 ML IV (08:49)
[2024-10-07] MEDS: ROCEPHIN 2000 MG IV (08:49)
[2024-10-07] MEDS: MUCINEX 600 MG PO ×2 (08:49→20:50)
[2024-10-07] MEDS: PROTONIX 40 MG PO (08:49)
[2024-10-07] MEDS: VIBRAMYCIN 100 MG PO ×2 (08:49→20:50)
[2024-10-07] MEDS: FLUSH (NSS) 1 FLUSH IV (08:50)
[2024-10-07] MEDS: NORVASC 5 MG PO (08:50)
--- NOTE | 2024-10-07 09:33 | W.PN.ONC ---
Today's Communication / Plan
-
Given normal coagulation panel patient appears to be stable from a hematologic standpoint.
Will continue to follow at this time.
Impression
Impression
Patient is an 79 year old male with PMH of HTN, GERD, hypothyroidism who is followed for history of IgG kappa monoclonal gammopathy diagnosed in 2006 and acquired von Willebrand disorder who presented to the ED with weakness and ataxia.
Weakness / Ataxia / Confusion
- Etiology unclear, likely of neuro origin - CSF detected HSV 1 on preliminary report
- Primary team addressing individual issues including symptomatic hypothyroidism, hyponatremia
Pulmonary Nodule
- 1.6cm KADEN nodule seen on multiple recent images. Mildly FDG-avid without significant delayed uptake.
Acquired vonWillebrand's Disease
- Patient maintained on IVIG and Darzalex monthly - last injection was 09/22/2024
- Coagulation panel within normal limits, last von Willebrand panel was in January 2024
Plan
Plan
Given normal coag panel patient appears to be stable from a hematologic standpoint. Will continue to follow at this time.
Will continue to follow
Subjective/Objective
Subjective/Objective
Patient seen lying in bed with daughter at the bedside. Speech present. Patient was not very talkative today and seemed very disorientated. Speech seems to be worse than yesterday. Trouble following commands. New left facial droop noted, primary
team aware. Daughter denies gross hematuria over night.
General: disoriented
HEENT: appreciable swelling still present, slight L facial droop appreciated
Cardio: RRR
Respiratory: normal breath sounds
Vital Signs:
Vital Signs
Temp Pulse Resp BP Pulse Ox
97.7 F 96 26 118/77 97
10/07/24 07:10 10/07/24 06:00 10/07/24 06:00 10/07/24 06:00 10/07/24 02:02
Lab Results:
Laboratory Data
WBC 4.4 10^3/uL (4.8-10.8) L 10/07/24 04:19
Hgb 11.6 g/dL (13.0-18.0) L 10/07/24 04:19
Plt Count 87 10^3/uL (130-400) L 10/07/24 04:19
PT 13.7 Sec (11.4-14.6) 10/05/24 04:24
INR 1.01 10/05/24 04:24
APTT 32.2 Sec (23.4-35.0) 10/05/24 04:24
eGFR 29.54 10/07/24 04:19
--- NOTE | 2024-10-07 10:26 | W.PN.ID1 ---
Date of Service
Date of Service: October 07, 2024
Today's Communication
Current antibiotics.
Assessment / Plan
# Acute Mental status change
# HSV-1 encephalitis
# Probable LLL PNA
# Persistent neck swelling/enlarged tonsils since 09/01, (recently tx'd with 30d Fluconazole)
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
# Thrombocytopenia stable, possibly due to Darzalex
# Recent finding of RUL lung nodule, indeterminate PET scan
- Blood cx's neg to date
- C. diff neg, stool cx neg
- CT a/p unremarkable
-MRI brain: cortical restricted diffusion involving the anterior right frontal lobe extending into the hippocampus and right insular cortex. There is additional foci of diffusion hyperintense signal within the posterior aspect of the right thalamus
- 10/05 EEG: EEG 10/05 showing epileptogenic right frontal lobe
Continue Acyclovir 700mg IV q8h (d#3)
- Monitor renal function closely.
Continue ceftriaxone and doxycycline for CAP.
- EBV serology panel (enlarged tonsils and fatigue)
- HIV negative. Syphilis screen : pending
Chief Complaint
-: Other (Change in mental status; HSV 1 encephalitis)
Subjective / Review of Systems
Patient denies pain.
Review of Systems: No Fever
Vital Signs / Physical Exam
Vital Signs
Vital Signs
Temp Pulse Resp BP Pulse Ox
97.7 F 96 26 118/77 97
10/07/24 07:10 10/07/24 06:00 10/07/24 06:00 10/07/24 06:00 10/07/24 02:02
Physical Exam
Constitutional: Acutely Ill
Head: Other (No frontal or maxillary sinus tenderness.)
Eyes: No Conjunctival Hemorrhage and Sclera Anicteric
Cardiovascular: Regular Rate and S1/S2
Pulmonary: Rales (bibase)
Gastrointestinal: Soft, Non Tender, Non Distended and Normal Bowel Sounds
Genito-Urinary: Negron and Clear Urine
Extremities: Edema
Neurological: Other (Lethargic but arousable. Answers simple questions appropriately.); Negative Meningeal Signs (No nuchal rigidity)
Psychological: Calm
Objective Data
Lab Data
Lab Results
10/07/24 04:19
10/07/24 04:19
PT 13.7 Sec (11.4-14.6) 10/05/24 04:24
INR 1.01 10/05/24 04:24
APTT 32.2 Sec (23.4-35.0) 10/05/24 04:24
Estimated Creat Clear 27 ml/min 10/07/24 04:19
Total Bilirubin 0.8 mg/dl (0.2-1.3) 10/07/24 04:19
AST 35 U/L (17-59) 10/07/24 04:19
ALT 23 U/L (0-50) 10/07/24 04:19
Alkaline Phosphatase 56 U/L (38-126) 10/07/24 04:19
Most recent labs reviewed.
Micro Results:
10/04/24 08:16 Salmonella/Shigella Culture - Final
Feces/Stool No Salmonella, Shigella, Aeromonas or Plesiomonas species
isolated.
Campylobacter Culture - Final
No Campylobacter species isolated.
Shiga Toxin Test - Final
No E. coli Shiga Toxin 1 or 2 detected.
Stool Leukocytes - Final
10/06/24 14:08 CSF Culture - Preliminary
Csf No Growth After 18-24 Hours
Gram Stain - Preliminary
10/03/24 21:18 Blood Culture - Preliminary
Blood/Venous No Growth in 72 hours- Final report to follow
10/03/24 20:58 Blood Culture - Preliminary
Blood/Venous No Growth in 72 hours- Final report to follow
10/06/24 14:08 Meningitis/Encephalitis Panel (PCR) - Final
Csf
10/06/24 14:08 Fungal Smear - Pending
Csf Fungal Culture - Preliminary
Culture in progress.
Positive cultures are reported as soon as detected.
Final report to follow in four to five weeks.
10/04/24 09:20 MRSA Screen - Final
Nose No Methicillin Resistant Staphylococcus aureus isolated.
10/04/24 09:20 Urine Culture - Final
Urine NO GROWTH
10/04/24 17:36 Influenza Types A & B (RADHA) - Final
Nasal Swab Negative for Influenza A & B, NAAT
Negative results must be combined with clinical observations
and patient history.
Nucleic Acid Amplification test (NAAT)performed on the
[email or web address] platform.
10/04/24 17:36 Legionella Urinary Antigen - Final
Urine Negative for Legionella pneumophila Serogroup 1 antigen.
A negative result does not rule out the possiblity of
Legionella infection due to other serogroups or species of
Legionella. Clinical correlation is recommended.
Streptococcus pneumoniae Antigen (M - Final
Negative for Streptococcus pneumoniae antigen.
A negative result does not exclude infection with
Streptococcus pneumoniae. Clinical correlation is
recommended.
10/04/24 08:16 - Final
Feces/Stool Negative for Norovirus GI and GII.
10/04/24 08:16 C. difficile GDH Antigen & Toxins - Final
Feces/Stool Negative for toxigenic C.difficile
Meningitis Panel, CSF by PCR Final 10/06/24-1609
Escherichia coli K1 Not Detected
Haemophilus influenzae Not Detected
Listeria monocytogenes Not Detected
Neisseria meningitidis Not Detected
Cytomegalovirus (CMV) Not Detected
Streptococcus agalactiae Not Detected
Streptococcus pneumoniae Not Detected
Enterovirus Not Detected
--> Herpes simplex virus 1 DETECTED <--
Herpes simplex virus 2 Not Detected
Human herpesvirus 6 Not Detected
Human parechovirus Not Detected
Varicella zoster virus Not Detected
C. neoformans/gattii Not Detected
10/04/24 Brain MRI: There is predominant cortical restricted diffusion involving the anterior right frontal lobe extending into the hippocampus and right insular cortex. There is additional foci of diffusion hyperintense signal within the posterior
aspect of the right thalamus. This constellation of findings can be seen in encephalitis (herpes or limbic), status epilepticus or acute infarction. Additionally Creutzfeld Christiano disease is considered unlikely, however cannot be excluded. Consider
correlation with CSF studies.
10/04/24 CXR: New minimal left lower lobe atelectasis versus scarring
10/04/24 CT Pe/abd/pel W: Mild left lower lobe airspace disease suggesting pneumonia. New
No acute pathology of the abdomen or pelvis identified
10/01/24 PET: Stable solitary right upper lobe pulmonary nodule which demonstrates mild FDG activity (with only minimal further increase on delayed imaging). This remains indeterminate with differential including infectious/inflammatory nodule or low
metabolic rate neoplasm.
09/01/[address]: Significant symmetric enlargement of the bilateral tonsillar soft tissues, which could be secondary to tonsillar hypertrophy or tonsillitis, with secondary narrowing of the oropharynx and hypopharynx. Bilateral pulmonary parenchymal
opacities suggesting pneumonia. 1.6 cm solid pulmonary nodule in the right upper lobe.
[2024-10-07] MEDS: NSS 1000 IV ×2 (11:24→21:57)
[2024-10-07 12:10] LABS: Urine Character Clear (Clear)
--- NOTE | 2024-10-07 12:49 | W.PN.NEPH.PH ---
Today's Communication / Plan
-
Normal saline
Assessment/Plan
-
Assessment
Von Willebrand's disease, acquired
Nausea
Right upper lobe pulmonary nodule
Hyponatremia acute
Hypertension
Confusion
MGUS
HSV encephalitis
Plan
CAT scan on 10/04 no obstructive pathology though normal creatinine
No residual bladder scan
Negron catheter placed
Status post 3%
Patient not eating or drinking repeat urine shows low sodium despite 3% saline
Will start normal saline 150 cc/h
Hematuria= serologies ordered
Quantify proteinuria
Repeat urinalysis pending
Discussed with his daughter at length

32 minutes critical care time spent
-
-
Date of Service: October 07, 2024
CC / HPI / ROS
-
Chief Complaint:
Altered mental status
History of Present Illness:
Presents with altered mental status hyponatremia
Review of Systems:
Patient remains altered mental status
Decreased p.o. intake
Labs
-
Labs:
WBC 4.4 10^3/uL (4.8-10.8) L 10/07/24 04:19
RBC 3.38 10^6/uL (4.70-6.10) L 10/07/24 04:19
Hgb 11.6 g/dL (13.0-18.0) L 10/07/24 04:19
Hct 30.8 % (39.0-52.0) L 10/07/24 04:19
Plt Count 87 10^3/uL (130-400) L 10/07/24 04:19
Sodium 128 mmol/L (135-145) L 10/07/24 04:19
Potassium 3.1 mmol/L (3.5-5.1) L 10/07/24 04:19
Chloride 104 mmol/L (98-107) 10/07/24 04:19
Carbon Dioxide 21 mmol/L (22-30) L 10/07/24 04:19
BUN 23 mg/dl (9-20) H 10/07/24 04:19
Creatinine 2.2 mg/dL (0.7-1.3) H 10/07/24 04:19
eGFR 29.54 10/07/24 04:19
Glucose 120 mg/dl (70-99) H 10/07/24 04:19
Calcium 7.7 mg/dl (8.4-10.2) L 10/07/24 04:19
Phosphorus 3.2 mg/dl (2.5-4.5) 10/04/24 05:43
Uvs-A-Etapakvjajr Pept 428 pg/ml 10/03/24 17:37
Albumin 2.7 g/dl (3.5-5.0) L 10/07/24 04:19
Physical Exam
-
Vital Signs:
Vital Signs
Temp Pulse Resp BP Pulse Ox
97.2 F 96 26 118/77 97
10/07/24 11:00 10/07/24 06:00 10/07/24 06:00 10/07/24 06:00 10/07/24 02:02
[2024-10-07 12:55] LABS: Urine Red Blood Cell 26-30 /HPF (0-2)
[2024-10-07 14:28] LABS: Syphilis/T. pallidum Ab Reflex Positive (Negative)
--- NOTE | 2024-10-07 15:03 | W.PN.URO.CBU ---
Today's Communication / Plan
-
BLADDER SCAN SAT AM
Assessment / Plan
-
HEMATUER A STOPPED MAGNOLIA POSSIBLE RETETION PVR 250 = 350 NO HYRO BUT RISK OF BLLED WILL OBSRERVE CREARTINIE AN MONITOR PVR IF RISING SIGNIFIANTLY TRHEN RUIZ BUT IF STABLE CHIKI NOT INSTRUMENT
Diagnosis
-
Date of Service: October 07, 2024
-
Patient Diagnosis:HEMATURIA IN PT WITH INCTINCE AND VON WILLEBRANDS AND CREAT 1.6 TO [address]AN WITH AND W/OUT IV CONTAST G PROSTAE NO HYDT=RO N STOES
Post Op Day:
Subjective
-
POOR HISTRIAN NO COLIC FEELS, LIKE VOIDING IS SL IMPAIRED
Objective
-
Vital Signs
Temp Pulse Resp BP Pulse Ox
97.2 F 102 22 142/85 83
10/07/24 11:00 10/07/24 14:00 10/07/24 14:00 10/07/24 14:00 10/07/24 14:00
Intake and Output
10/06/24 10/07/24 10/08/24
06:59 06:59 06:59
Intake Total 980 / 980 270 / 270
Output Total 550 / 550 600 / 600 350 / 350
Balance 430 / 430 -600 / -600 -80 / -80
Intake:
Oral fluids 480 / 480
IV piggybacks 500 / 500 270 / 270
Output:
Urine, Voided 550 / 550 600 / 600 350 / 350
Other:
How many times incontinent 2
SATURATED amount urine
Laboratory Results
10/07/24 04:19
10/07/24 04:19
Review of Systems
-
: Incontinence and Bleeding
Physical Exam
-
General - well developed, well nourished, no acute distress
Chest - clear bilaterally
Abdomen - soft, non-tender, positive bowel sounds, no CVAT, no incisional pain or distention
Genitalia - normal
Rectal - normal
Skin - warm & dry with no rash
Neuro - AOx3, no motor deficits
Extremities - no clubbing, no cyanosis, no edema
Incision - clean, dry
Dressing - clean, dry, intact
Care Review
Data Reviewed
Discussed with: Hospitalist, Nursing and Family ()
CT Scan: Image Pers Reviewed
[2024-10-07 15:19] LABS: RPR, Progressive Reactive (NonReactive)
--- NOTE | 2024-10-07 15:42 | PTCARENOTE ---
Patient drowsy and confused. Daughter in room at bedside assisting in care. Patient is on aspiration precautions, pureed diet. Daughter is feeding him his meals today. Appetite poor. IV fluids ordered today. Monitoring urine output and
residuals as per urology. Patient had hematuria. Urine yellow and clear today. Bed alarm on. VS stable.
--- NOTE | 2024-10-07 15:47 | CM ---
Patient with Hx von Willebrand's disease on IVIG with Dx Acute Mental status change, HSV-1 encephalitis, Probable LLL PNA. Room air. Receiving IV Acyclovir, PO Abx, IVF. ST - Dysphagia diet. PT recommends skilled rehab. OT recommends acute vs
SNF. Per nurse; confused, lethargic.
Spoke with patient' daughter Jacqueline; she has been at bedside for the past few days and is helping feed her father. Daughter expressing distress seeing her father so confused that he does not even recognize her. Offered cushion spring assembler for support and she
declined. She says she would not be able to care for him at home in this condition and is hoping for improvement. Daughter says MD told her patient would need 3 weeks of IV Abx. Discussed that patient may need [facility] vs SNF for rehab when ready for
d/c.
Plan watch for IV Abx needs.
Plan follow patient's mentation, mobility.
Plan TBD.
[2024-10-07] MEDS: CARDURA 2 MG PO (20:50)
[2024-10-08] VITALS (10 sets, daily range): BP systolic 105–140; BP diastolic 63–79; BMI 29.3
--- NOTE | 2024-10-08 01:27 | PTCARENOTE ---
assumed care of pt from dayshift RN. Pt ox3, drowsy, and forgetful. NSR on monitor. Pt is 94% on 2L NC. Hygiene completed. Pt resting in bed with bed alarm on and call topete in reach.
[2024-10-08 04:43] LABS: EBV-EA (D) Ab IgG 10.9 U/mL (0.0-10.9); EBV-NA IgG >600.0 U/mL (0.0-21.9); EBV-VCA IgG Antibodies 411.0 U/mL (0.0-21.9); EBV-VCA IgM Antibodies <10.0 U/mL (0.0-43.9)
[2024-10-08] MEDS: NSS 1000 IV ×2 (05:33→20:40)
[2024-10-08] MEDS: ZOVIRAX INJECTION 264 MG IV ×2 (05:33→17:17)
[2024-10-08] MEDS: SYNTHROID 150 MCG PO (05:33)
[2024-10-08 06:09] LABS: Hematocrit 29.5 % (39.0-52.0); Hemoglobin 10.5 g/dL (13.0-18.0); Mean Corp Hgb Conc. 35.6 g/dL (33.0-37.0); Mean Corpuscular Volume 94.2 fL (80.0-94.0); Nucleated Red Blood Cells % 0 % (-); Platelet Count 88 10^3/uL (130-400); Red Cell Dist. Width 15.6 % (11.5-14.5)
[2024-10-08 06:26] LABS: ALT (SGPT) 20 U/L (0-50); AST (SGOT) 26 U/L (17-59); Albumin 2.5 g/dl (3.5-5.0); Alkaline Phosphatase 54 U/L (38-126); Blood Urea Nitrogen 23 mg/dl (9-20); Calcium 7.8 mg/dl (8.4-10.2); Carbon Dioxide 24 mmol/L (22-30); Chloride 111 mmol/L (98-107); Estimated Creatinine Clearance 39 ml/min; Glucose 100 mg/dl (70-99); Magnesium 1.7 mg/dl (1.6-2.3); Potassium 2.9 mmol/L (3.5-5.1); Sodium 136 mmol/L (135-145); Total Protein 4.9 g/dl (6.3-8.2); eGFR 46.77
--- NOTE | 2024-10-08 07:25 | PTCARENOTE ---
Pt's K 2.9 this am and PATIENT SERVICES REPRESENTATIVE made aware
--- NOTE | 2024-10-08 08:44 | W.PN.ID1 ---
Date of Service
Date of Service: October 08, 2024
Today's Communication
Continue current antibiotics.
Assessment / Plan
# Acute Mental status change
# HSV-1 encephalitis
# Probable LLL PNA
# Persistent neck swelling/enlarged tonsils since 09/01, (recently tx'd with 30d Fluconazole)
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
# Thrombocytopenia stable, possibly due to Darzalex
# Recent finding of RUL lung nodule, indeterminate PET scan
- Blood cx's neg to date
- C. diff neg, stool cx neg
- CT a/p unremarkable
-MRI brain: cortical restricted diffusion involving the anterior right frontal lobe extending into the hippocampus and right insular cortex. There is additional foci of diffusion hyperintense signal within the posterior aspect of the right thalamus
- 10/05 EEG: EEG 10/05 showing epileptogenic right frontal lobe
Continue Acyclovir 700mg IV q8h (d#4)
- Monitor renal function closely. Creatinine = 1.5
Continue ceftriaxone and doxycycline for CAP.
- EBV serology panel (given enlarged tonsils and fatigue) significant for prior infection. No apparent reactivation.
- HIV negative.
Syphilis screen : Positive. RPR 1:256. Pt reports prior Hx of PCN desensitization and treatment at [facility]. Will attempt to get old records. CSF VDRL pending.
Chief Complaint
-: Other (Change in mental status; HSV 1 encephalitis)
Subjective / Review of Systems
Review of Systems: No Fever
Vital Signs / Physical Exam
Vital Signs
Vital Signs
Temp Pulse Resp BP Pulse Ox
97.9 F 84 21 126/72 96
10/08/24 07:27 10/08/24 06:02 10/08/24 06:02 10/08/24 04:00 10/08/24 06:02
Physical Exam
Constitutional: Comfortable and Non-toxic
Cardiovascular: Regular Rate and S1/S2
Pulmonary: Rales (bibase)
Gastrointestinal: Soft, Non Tender, Non Distended and Normal Bowel Sounds
Extremities: Edema
Neurological: Other (Lethargic but arousable.); Negative Meningeal Signs (No nuchal rigidity)
Psychological: Calm
Objective Data
Lab Data
Lab Results
10/08/24 05:34
10/08/24 05:34
PT 13.7 Sec (11.4-14.6) 10/05/24 04:24
INR 1.01 10/05/24 04:24
APTT 32.2 Sec (23.4-35.0) 10/05/24 04:24
Estimated Creat Clear 39 ml/min 10/08/24 05:34
Total Bilirubin 0.6 mg/dl (0.2-1.3) 10/08/24 05:34
AST 26 U/L (17-59) 10/08/24 05:34
ALT 20 U/L (0-50) 10/08/24 05:34
Alkaline Phosphatase 54 U/L (38-126) 10/08/24 05:34
Most recent labs reviewed.
Micro Results:
10/03/24 21:18 Blood Culture - Preliminary
Blood/Venous No Growth in 4 days- Final report to follow
10/03/24 20:58 Blood Culture - Preliminary
Blood/Venous No Growth in 4 days- Final report to follow
10/04/24 08:16 Salmonella/Shigella Culture - Final
Feces/Stool No Salmonella, Shigella, Aeromonas or Plesiomonas species
isolated.
Campylobacter Culture - Final
No Campylobacter species isolated.
Shiga Toxin Test - Final
No E. coli Shiga Toxin 1 or 2 detected.
Stool Leukocytes - Final
10/06/24 14:08 CSF Culture - Preliminary
Csf No Growth After 18-24 Hours
Gram Stain - Preliminary
10/06/24 14:08 Meningitis/Encephalitis Panel (PCR) - Final
Csf
10/06/24 14:08 Fungal Smear - Pending
Csf Fungal Culture - Preliminary
Culture in progress.
Positive cultures are reported as soon as detected.
Final report to follow in four to five weeks.
10/04/24 09:20 MRSA Screen - Final
Nose No Methicillin Resistant Staphylococcus aureus isolated.
10/04/24 09:20 Urine Culture - Final
Urine NO GROWTH
10/04/24 17:36 Influenza Types A & B (RADHA) - Final
Nasal Swab Negative for Influenza A & B, NAAT
Negative results must be combined with clinical observations
and patient history.
Nucleic Acid Amplification test (NAAT)performed on the
[employer] platform.
10/04/24 17:36 Legionella Urinary Antigen - Final
Urine Negative for Legionella pneumophila Serogroup 1 antigen.
A negative result does not rule out the possiblity of
Legionella infection due to other serogroups or species of
Legionella. Clinical correlation is recommended.
Streptococcus pneumoniae Antigen (M - Final
Negative for Streptococcus pneumoniae antigen.
A negative result does not exclude infection with
Streptococcus pneumoniae. Clinical correlation is
recommended.
10/04/24 08:16 - Final
Feces/Stool Negative for Norovirus GI and GII.
10/04/24 08:16 C. difficile GDH Antigen & Toxins - Final
Feces/Stool Negative for toxigenic C.difficile
Meningitis Panel, CSF by PCR Final 10/06/24-1609
Escherichia coli K1 Not Detected
Haemophilus influenzae Not Detected
Listeria monocytogenes Not Detected
Neisseria meningitidis Not Detected
Cytomegalovirus (CMV) Not Detected
Streptococcus agalactiae Not Detected
Streptococcus pneumoniae Not Detected
Enterovirus Not Detected
--> Herpes simplex virus 1 DETECTED <--
Herpes simplex virus 2 Not Detected
Human herpesvirus 6 Not Detected
Human parechovirus Not Detected
Varicella zoster virus Not Detected
C. neoformans/gattii Not Detected
10/04/24 Brain MRI: There is predominant cortical restricted diffusion involving the anterior right frontal lobe extending into the hippocampus and right insular cortex. There is additional foci of diffusion hyperintense signal within the posterior
aspect of the right thalamus. This constellation of findings can be seen in encephalitis (herpes or limbic), status epilepticus or acute infarction. Additionally Creutzfeld Christiano disease is considered unlikely, however cannot be excluded. Consider
correlation with CSF studies.
10/04/24 CXR: New minimal left lower lobe atelectasis versus scarring
10/04/24 CT Pe/abd/pel W: Mild left lower lobe airspace disease suggesting pneumonia. New
No acute pathology of the abdomen or pelvis identified
10/01/24 PET: Stable solitary right upper lobe pulmonary nodule which demonstrates mild FDG activity (with only minimal further increase on delayed imaging). This remains indeterminate with differential including infectious/inflammatory nodule or low
metabolic rate neoplasm.
09/01/[address]: Significant symmetric enlargement of the bilateral tonsillar soft tissues, which could be secondary to tonsillar hypertrophy or tonsillitis, with secondary narrowing of the oropharynx and hypopharynx. Bilateral pulmonary parenchymal
opacities suggesting pneumonia. 1.6 cm solid pulmonary nodule in the right upper lobe.
--- NOTE | 2024-10-08 08:55 | W.PN.HOSP.TC ---
Today's Communication/Plan
-
See plan
Assessment / Plan
Assessment / Plan
Physical Exam
General: Not in acute distress
HEENT: Thick neck. Not tender, no induration, erythema, palpable masses, etc. Fullness is new per patient / family.
Respiratory: CTAB with some decreased lower left sided breath sounds
Cardiac: S1/S2 and Regular Rhythm
GI: Soft, Mildly Tender, Non Distended, Normal Bowel Sounds and Other (Obese.)
Musculoskeletal: No Cyanosis and Other (Trace pitting edema at the bilateral lower extremities)
Neuro: AAO x 3 and Other (Mild left-sided weakness in the UE and LE. Finger to nose is intact.)
Assessment/Plan
79y M with PMH significant for hypothyroidism, hypertension and von Willebrand's disease who presents to ED complaining of weakness. History obtained from patient and his family at the bedside. Patient was in his usual states of good health
until about 3-4 weeks ago when he began to become more weak / fatigued. He was still able to complete his ADLs until this past 24-48 hours when his symptoms markedly worsened. Patient is followed by Nicko Mims for vWF. He receives monthly
IVIG (last dose 09/29). There is some question of multiple myeloma - though history there is not clear and patient does not appear to be on any treatment for this (records show MGUS). Patient developed fullness / swelling in the throat several
weeks ago. He was evaluated by ENT in their office Dr. Hicks. CT scan showed tonsillar hypertrophy but was otherwise unremarkable. He was treated briefly with antifungal medication for thrush (patient was having a sore throat) - but this was
stopped after fungal smear was negative. CT neck also showed incidental RUL nodule and patient has had CT C/A/P and PET-CT since that time for further evaluation. These revealed mildly FDG-avid (3.3) KADEN nodule (1.6cm). No other areas of
FDG-avidity. No other abnormal findings. Over the 48 hours prior to presentation, patient remained seated at home and has not left his chair. He reported shaking chills. Family has noted swelling in the legs - L > R - which is unusual for him.
Family noted that he seemed somewhat confused as well since 10/02/24 evening. 911 was called to the home this afternoon when patient was unable to get up. He decline ED evaluation at that time. Later in the afternoon family convinced him to
present to the ED for further evaluation. Patient was noted to be quite unsteady on his feet in the emergency department. He drove himself to his radiology appointments as recently as 2 days ago and had no significant issues.
Weakness / Ataxia / Confusion
Acute Toxic Metabolic Encephalopathy Likely Secondary to Encephalitis and Possibly Pneumonia
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
Likely immunosuppressed from Daratumumab and Dex
- Differential is extensive at this time and includes hypothyroidism, infectious process, stroke, etc.
- Address individual issues below and follow for any new / worsening symptoms.
- CT head in the ED was unremarkable.
- MRI brain with suspected encephalitis, with infectious encephalitis being in the differential -- consulted ID, appreciate their evaluation and recommendations
- IR consult for LP -- performed on 10/06/24 -- high protein, low glucose
- Continue Keppra -- newly started this admission
- Continue Acyclovir -- monitor renal function closely
- Since patient's Darzalex can be associated with CMV infection; CMV PCR included in meningitis/encephalitis PCR panel.
- Check EBV serology panel (he has had recently enlarged tonsils+fatigue) -- significant for prior infection with no apparent reactivation.
- HIV negative
- Syphilis screen positive
- PT / OT evaluations.
- Appreciate neurology
- Seroquel for agitation
Diarrhea, Abdominal Pain and Nausea
Mild fluid right inguinal canal -- postsurgical change versus incarcerated/strangulated hernia? -- seen on CT Imaging
-Stool studies unremarkable
-Requested surgery evaluation since patient is symptomatic, appreciate surgery evaluation -- no concerns from their standpoint
Gross Hematuria
Urinary Retention
-Significant blood in urine on 09/24/24 -- self resolved
-Recurrence during this hospitalization
-Patient still having frequent hematuria
-CT without contrast with no obstructive uropathy or stones
-Consulted urology -- recommendation to continue bladder scans -- if PVR rising significantly, then place beltre -- but no interventions at this time as per urology
Concern for Symptomatic Hypothyroidism
- Significantly under-replaced T4 with TSH = 16.8 and Free T4 = 0.39 this hospitalization
- I spoke on 10/05/24 with patient's PCP, Dr. Cantu, who said that patient's TFTs on 09/05/24 were: TSH = 10 and Free T4 = 0.58
- Some confusion, weakness, ataxia, edema, etc - hypothyroidism contributing?
- IV dose of levothyroxine given initially
- PO Levothyroxine dose increased in AM to 150 mcg daily (not drastic increase from previous dose of 125 mcg daily, given patient's CAD).
- Cortisol level 26.7
- Follow for clinical improvement and change
Acute Hypoxic Respiratory Insufficiency - RESOLVED
Likely LLL Pneumonia
Nocturnal O2 Desaturation (see nocturnal O2 saturation report from 10/06/24 morning)
Cough Again on 10/04/24
History of Recurrent Colds
History of Recent Pneumonia on CT Neck (treated outpatient with PCP in late August 2024 to early September 2024)
-Continue Rocephin and Doxycycline
-ID onboard
-Pulmonary toilet -- but stopped Duonebs since patient is sensitive to albuterol with symptomatic mild tachycardia and cannot tolerate it
-Changed bronchodilators to Atrovent PRN given intolerance to Albuterol
-CT Abdomen/Pelvis from 10/07/24 showed bibasilar opacification -- most likely representing subsegmental atelectasis as well as tiny bilateral pleural effusions, left greater than right
-Follow cultures
Persistent neck swelling/enlarged tonsils since 09/01/24, (recently treated with 30 day course of Fluconazole)
Recent Tonsillar Hypertrophy
Recent Thrush
-Was seen outpatient by Dr. Anna Hicks (ENT) -- I communicated on 10/05/[address] [facility] [employer] [address] Anna Hicks who reported that she saw patient around mid to late September 2024, and at that time, patient had returned back
to normal according to Dr. Hicks
-Checking EBV panel as above
Right Upper Lobe Pulmonary Nodule -- indeterminate PET scan
- Saw Dr. Rider outpatient
- 1.6cm KADEN nodule seen on multiple recent images. Mildly FDG-avid without significant delayed uptake.
- Possible infectious component with 'low-grade' temp (99 here in the ED), chills, etc.
- Cover with antibiotics for now with ceftriaxone / doxycycline.
- Follow temperature curve and monitor for any new / worsening symptoms.
- May benefit from biopsy for further evaluation if no improvement / resolution with antibiotics.
- Will [place] [employer] Dr. Rider
Mild Hyponatremia
- Secondary to significant SIADH state based on lab results and clinical picture
- Oral fluid restriction for now.
- Cortisol 26.7
- Follow for improvement.
- 3% Saline with no significant improvement in sodium from 10/06/24 to 10/07/24
- Continue current IV fluids
Acute Kidney Injury
- Improving
- IV fluids with Normal Saline IV Fluids 150 cc/h as per nephrology
- Recheck BMP
- Continue to monitor renal function given patient is on Acyclovir
- CT Abdomen Pelvis 10/07/24 with no stone or obstructive process
Hypokalemia
- Replaced
- Monitor BMP
Mild Bilateral Perinephric Stranding on CT Imaging
Hypertension
- Stable. Hold metoprolol acutely to avoid exacerbating hypothyroidism symptoms.
- Continue other medications with holding parameters.
Acquired vonWillebrand's Disease (started at age 49 y/o) on monthly IVIG, Darzalex
- Stable. Patient maintained on IVIG monthly - last injection was 09/29/24.
- Patient / family unclear on multiple myeloma history - not clear if this is formal diagnosis - was taking radioactive med per family until 6 months ago
- Family noted that he is being treated for vWF to 'prevent multiple myeloma'.
- Consulted hematology since patient getting IVIG, question of whether patient's IVIG treatment related to this
- Coagulation panel within normal limits, last von Willebrand panel was in January 2024 -- current vonWillebrand panel is pending
MGUS
- Has been on Decadron, Darzalex, and IVIG -- sees Dr. Lucio outpatient
Thrombocytopenia
- Improving
- possibly due to Darzalex
Edema
- LE swelling is likely due to hypothyroidism, immobility x 48 hours, etc.
- Now improved
- No DVT on LLE or RLE on imaging
Tiny Pericardial Effusion on CT Imaging
-On echo, there is no pericardial effusion
Tiny Bilateral Pleural Effusions on CT Imaging
-But on echo study, there was no pericardial effusion
Moderate prostate hypertrophy on CT Imaging
-Continue bladder scans protocol
Coronary Artery Disease
-Per Dr. Beronica Cantu and patient's daughter, patient has a history of this
Simple bilateral renal cysts
Appendicoliths
Speech/Diet: Speech evaluation completed on this patient. Recommended to downgrade to IDDSI level four (puree) and thin liquids. Significant pocketing of food. Also completed cognitive evaluation with score of 7/30 on [facility] mental
status (SLUMS) examination.
Morning. Just saw this pt. He looks worse than 2 days ago. L facial droop now with dysarthria. Decreased orientation. 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 Also had a cough x1 with P.O. intake. I wasn't concerned for
aspiration on Friday (more oral issues), but now will monitor for that as well. He just went off floor for CT of abdomen/pelvis.
DVT Prophylaxis: No pharmacologic prophylaxis given vWF; use SCDs
Code Status: Full Code
On 10/04/24, 10/05/24 and 10/06/24, I spoke with patient's daughter Jacqueline and answered all her questions and concerns to satisfaction.
Encephalitis, vonWillebrands Disease, hyponatremia and MAGNOLIA is a high risk encounter. Total time spent today on caring for patient including speaking with patient's daughter was 51 minutes.
Anticipated Discharge: > 48 hours
Subjective/Interval History
-
Date of Service: October 08, 2024
Patient was seen and examined. Overnight he took his wires off including pulse oximetry wire connection. He appeared to be sleeping comfortably.
Objective Data
-
Labs:
Laboratory Results
10/08/24
05:34
WBC 4.4 L
Hgb 10.5 L
Hct 29.5 L
Plt Count 88 L
Sodium 136 D
Potassium 2.9 L
Chloride 111 H
Carbon Dioxide 24
BUN 23 H
Creatinine 1.5 H
Glucose 100 H
Calcium 7.8 L
Total Bilirubin 0.6
AST 26
ALT 20
Alkaline Phosphatase 54
Vital Signs:
Vital Signs
Temp Pulse Resp BP Pulse Ox
97.9 F 84 21 126/72 96
10/08/24 07:27 10/08/24 06:02 10/08/24 06:02 10/08/24 04:00 10/08/24 06:02
I&O
10/07/24 10/08/24 10/09/24
06:59 06:59 06:59
Intake Total 4325 / 4325
Output Total 600 / 600 1650 / 1650
Balance -600 / -600 2675 / 2675
[2024-10-08] MEDS: KCL 40 MEQ PO (08:58)
[2024-10-08] MEDS: VIBRAMYCIN 100 MG PO ×2 (08:58→20:40)
[2024-10-08] MEDS: NORVASC 5 MG PO (09:01)
[2024-10-08] MEDS: KEPPRA 500 MG PO ×2 (09:02→20:41)
[2024-10-08] MEDS: PROTONIX 40 MG PO (09:03)
[2024-10-08] MEDS: MUCINEX 600 MG PO ×2 (09:03→20:40)
[2024-10-08] MEDS: ROCEPHIN 2000 MG IV (09:06)
[2024-10-08] MEDS: STERILE WATER FOR INJECTION 20 ML IV (09:07)
[2024-10-08] MEDS: FLUSH (NSS) 1 FLUSH IV (09:08)
[2024-10-08] MEDS: KCL 260 MEQ IV (09:22)
--- NOTE | 2024-10-08 11:04 | PTCARENOTE ---
Patient more alert today. Speech more clear, less garbled. Oriented conversations. Daughter in room at bedside. IV fluids infusing as ordered. SR on monitor with PVC's with HR 70-80's. Sp02 94%-96% on room air. Condom catheter currently in use
urine yellow/christiane. Will monitor.
--- NOTE | 2024-10-08 11:31 | W.PN.URO.CBU ---
Today's Communication / Plan
-
NO PVR NO RUIZ
Assessment / Plan
-
HEMATUURIA PT HAS VON WILEBRANDS BUT NO LESIONS AD CREATINIE RETURNED TO BASELINE NO INTEFRVENTIONS AT THIS TIME
Diagnosis
-
Date of Service: October 08, 2024
-
Patient Diagnosis:
Post Op Day:
Patient Diagnosis:HEMATURIA IN PT WITH INCTINCE AND VON WILLEBRANDS AND CREAT 1.6 TO [address] WITH AND W/OUT IV CONTAST PROSTATE NO HYDRO N STONES
Post Op Day:
Subjective
-
poor historian
Objective
-
Vital Signs
Temp Pulse Resp BP Pulse Ox
98.3 F 101 23 128/79 94
10/08/24 11:10 10/08/24 10:00 10/08/24 10:00 10/08/24 10:00 10/08/24 10:00
Intake and Output
10/07/24 10/08/24 10/09/24
06:59 06:59 06:59
Intake Total 4325 / 4325
Output Total 600 / 600 1650 / 1650
Balance -600 / -600 2675 / 2675
Intake:
Oral fluids 1380 / 1380
IV fluids (Total) 2400 / 2400
IV piggybacks 545 / 545
Output:
Urine, Voided 600 / 600 1650 / 1650
Other:
How many times incontinent 1
MODERATE amount urine
How many times incontinent 1
SATURATED amount urine
Laboratory Results
10/08/24 05:34
Review of Systems
-
: Incontinence
Physical Exam
-
General - well developed, well nourished, no acute distress
Chest - clear bilaterally
Abdomen - soft, non-tender, positive bowel sounds, no CVAT, no incisional pain or distention
Genitalia - normal
Rectal - normal
Skin - warm & dry with no rash
Neuro - AOx3, no motor deficits
Extremities - no clubbing, no cyanosis, no edema
Incision - clean, dry
Dressing - clean, dry, intact
Care Review
Data Reviewed
Discussed with: Nursing
CT Scan: Image Pers Reviewed
[2024-10-08 12:27] LABS: CMV Qnt NAAT Plasma Log IU/mL Not Detected log IU/mL; CMV Quant NAAT Plasma Interp Not Detected (Not Detected); CMV Quant by NAAT Plasma IU/mL Not Detected
--- NOTE | 2024-10-08 15:40 | W.PN.NEPH.PH ---
Today's Communication / Plan
-
Follow BMP
Assessment/Plan
-
Assessment
Von Willebrand's disease, acquired
Nausea
Right upper lobe pulmonary nodule
Hyponatremia acute
Hypertension
Confusion
MGUS
HSV encephalitis
+RPR 1:256 (syphilis)
Plan
Follow BMP
Continue IV fluids, reduce rate
He may not require IV fluids if he has enough oral intake though I suspect this will be variable
Antibiotics for syphilis
Antiviral for HSV encephalitis
Replete potassium follow-up blood work
If sodium falls, repeat urine studies
Discussed with daughter
-
-
Date of Service: October 08, 2024
CC / HPI / ROS
-
Chief Complaint:
Altered mental status
History of Present Illness:
Presents with altered mental status hyponatremia
Remains pancytopenic
Potassium low 2.9
MAGNOLIA/creatinine down to 1.5
BP stable
On acyclovir for HSV encephalitis
Review of Systems:
Patient remains altered mental status
Decreased p.o. intake but will eat if fed
Labs
-
Labs:
WBC 4.4 10^3/uL (4.8-10.8) L 10/08/24 05:34
RBC 3.13 10^6/uL (4.70-6.10) L 10/08/24 05:34
Hgb 10.5 g/dL (13.0-18.0) L 10/08/24 05:34
Hct 29.5 % (39.0-52.0) L 10/08/24 05:34
Plt Count 88 10^3/uL (130-400) L 10/08/24 05:34
eGFR 46.77 10/08/24 05:34
Phosphorus 3.2 mg/dl (2.5-4.5) 10/04/24 05:43
Fft-W-Vkkojievpcp Pept 428 pg/ml 10/03/24 17:37
Albumin 2.5 g/dl (3.5-5.0) L 10/08/24 05:34
Physical Exam
-
Vital Signs:
Vital Signs
Temp Pulse Resp BP Pulse Ox
98.3 F 95 26 128/79 94
10/08/24 11:10 10/08/24 14:00 10/08/24 14:00 10/08/24 10:00 10/08/24 14:00
Cardiovascular:: Regular rate and rhythm
Respiratory:: Bilateral: Coarse
Lung Excursion:: Normal
Abdomen:: Nontender and Soft
Bowel Sounds:: Normal
Extremity Edema:: None: Bilateral:
[2024-10-08] MEDS: NSS IV (17:17)
[2024-10-08] MEDS: SEROQUEL 25 MG PO (20:41)
[2024-10-08] MEDS: CARDURA 2 MG PO (20:42)
[2024-10-08 21:06] LABS: C.neoformans Antigen Negative (Negative)
[2024-10-08 22:01] LABS: Blood Urea Nitrogen 22 mg/dl (9-20); Calcium 8.0 mg/dl (8.4-10.2); Carbon Dioxide 21 mmol/L (22-30); Chloride 113 mmol/L (98-107); Estimated Creatinine Clearance 45 ml/min; Glucose 141 mg/dl (70-99); Potassium 3.4 mmol/L (3.5-5.1); Sodium 136 mmol/L (135-145); eGFR 55.53
[2024-10-09] VITALS (10 sets, daily range): BP systolic 97–148; BP diastolic 55–86; PULSE 108; O2SAT 99; BMI 29.5
[2024-10-09 04:28] LABS: Hematocrit 30.0 % (39.0-52.0); Hemoglobin 10.7 g/dL (13.0-18.0); Mean Corp Hgb Conc. 35.7 g/dL (33.0-37.0); Mean Corpuscular Volume 94.9 fL (80.0-94.0); Platelet Count 105 10^3/uL (130-400); Red Cell Dist. Width 15.8 % (11.5-14.5)
[2024-10-09 04:35] LABS: ALT (SGPT) 19 U/L (0-50); AST (SGOT) 27 U/L (17-59); Albumin 2.7 g/dl (3.5-5.0); Alkaline Phosphatase 52 U/L (38-126); Blood Urea Nitrogen 21 mg/dl (9-20); Calcium 8.0 mg/dl (8.4-10.2); Carbon Dioxide 23 mmol/L (22-30); Chloride 114 mmol/L (98-107); Estimated Creatinine Clearance 49 ml/min; Glucose 90 mg/dl (70-99); Magnesium 1.5 mg/dl (1.6-2.3); Potassium 3.4 mmol/L (3.5-5.1); Sodium 138 mmol/L (135-145); Total Protein 5.1 g/dl (6.3-8.2); eGFR > 60.00
[2024-10-09 05:26] LABS: Nucleated Red Blood Cells % 0.5 % (-)
[2024-10-09] MEDS: NSS 1000 IV ×2 (05:35→20:18)
[2024-10-09] MEDS: KCL 40 MEQ PO ×2 (05:35→22:23)
[2024-10-09] MEDS: SYNTHROID 150 MCG PO (05:35)
[2024-10-09] MEDS: ZOVIRAX INJECTION 264 MG IV (05:35)
[2024-10-09] MEDS: MAGNESIUM SULFATE 102 GRAMS IV (05:46)
--- NOTE | 2024-10-09 06:19 | PTCARENOTE ---
No acute events overnight. Remained on room air. Neuro checks WNL. Drowsy but oriented. Family at bedside. AM k 3.4, mag 1.5. wrist closer provider made aware and ordered repletion.
--- NOTE | 2024-10-09 08:04 | W.PN.HOSP.TC ---
Today's Communication/Plan
-
See plan
Assessment / Plan
Assessment / Plan
Physical Exam
General: Not in acute distress
HEENT: Thick neck. Not tender, no induration, erythema, palpable masses, etc. Fullness is new per patient / family.
Respiratory: CTAB with some decreased lower left sided breath sounds
Cardiac: S1/S2 and Regular Rhythm
GI: Soft, Mildly Tender, Non Distended, Normal Bowel Sounds and Other (Obese.)
Musculoskeletal: No Cyanosis and Other (Trace pitting edema at the bilateral lower extremities)
Neuro: AAO x 3 and Other (Mild left-sided weakness in the UE and LE. Finger to nose is intact.)
Assessment/Plan
79y M with PMH significant for hypothyroidism, hypertension and von Willebrand's disease who presents to ED complaining of weakness. History obtained from patient and his family at the bedside. Patient was in his usual states of good health
until about 3-4 weeks ago when he began to become more weak / fatigued. He was still able to complete his ADLs until this past 24-48 hours when his symptoms markedly worsened. Patient is followed by Nicko Mims for vWF. He receives monthly
IVIG (last dose 09/29). There is some question of multiple myeloma - though history there is not clear and patient does not appear to be on any treatment for this (records show MGUS). Patient developed fullness / swelling in the throat several
weeks ago. He was evaluated by ENT in their office Dr. Hicks. CT scan showed tonsillar hypertrophy but was otherwise unremarkable. He was treated briefly with antifungal medication for thrush (patient was having a sore throat) - but this was
stopped after fungal smear was negative. CT neck also showed incidental RUL nodule and patient has had CT C/A/P and PET-CT since that time for further evaluation. These revealed mildly FDG-avid (3.3) KADEN nodule (1.6cm). No other areas of
FDG-avidity. No other abnormal findings. Over the 48 hours prior to presentation, patient remained seated at home and has not left his chair. He reported shaking chills. Family has noted swelling in the legs - L > R - which is unusual for him.
Family noted that he seemed somewhat confused as well since 10/02/24 evening. 911 was called to the home this afternoon when patient was unable to get up. He decline ED evaluation at that time. Later in the afternoon family convinced him to
present to the ED for further evaluation. Patient was noted to be quite unsteady on his feet in the emergency department. He drove himself to his radiology appointments as recently as 2 days ago and had no significant issues.
Weakness / Ataxia / Confusion
Acute Toxic Metabolic Encephalopathy Likely Secondary to Encephalitis and Possibly Pneumonia
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
Likely immunosuppressed from Daratumumab and Dex
- Differential is extensive at this time and includes hypothyroidism, infectious process, stroke, etc.
- Address individual issues below and follow for any new / worsening symptoms.
- CT head in the ED was unremarkable.
- MRI brain with suspected encephalitis, with infectious encephalitis being in the differential -- consulted ID, appreciate their evaluation and recommendations
- IR consult for LP -- performed on 10/06/24 -- high protein, low glucose
- Continue Keppra -- newly started this admission
- Continue Acyclovir -- monitor renal function closely
- Since patient's Darzalex can be associated with CMV infection; CMV PCR included in meningitis/encephalitis PCR panel.
- Check EBV serology panel (he has had recently enlarged tonsils+fatigue) -- significant for prior infection with no apparent reactivation.
- HIV negative
- Syphilis screen positive
- PT / OT evaluations.
- Appreciate neurology
- Seroquel for agitation
Diarrhea, Abdominal Pain and Nausea
Mild fluid right inguinal canal -- postsurgical change versus incarcerated/strangulated hernia? -- seen on CT Imaging
Constipation
-Stool studies unremarkable
-Requested surgery evaluation since patient is symptomatic, appreciate surgery evaluation -- no concerns from their standpoint
-Initially had diarrhea, but as of 10/09/24, patient had not had a bowel movement for several days; AXR suggests moderate amount of stool within the rectum
-Will start Miralax
Gross Hematuria
Urinary Retention
-Significant blood in urine on 09/24/24 -- self resolved
-Recurrence during this hospitalization
-Patient was still having frequent hematuria -- urology mentions expected with von Willebrands but Hgb stable and vital stable
-CT without contrast with no obstructive uropathy or stones
-Consulted urology -- recommendation to continue bladder scans -- if PVR rising significantly, then place Negron -- but no interventions at this time as per urology
Concern for Symptomatic Hypothyroidism
- Significantly under-replaced T4 with TSH = 16.8 and Free T4 = 0.39 this hospitalization
- I spoke on 10/05/24 with patient's PCP, Dr. Cantu, who said that patient's TFTs on 09/05/24 were: TSH = 10 and Free T4 = 0.58
- Some confusion, weakness, ataxia, edema, etc - hypothyroidism contributing?
- IV dose of levothyroxine given initially
- PO Levothyroxine dose increased in AM to 150 mcg daily (not drastic increase from previous dose of 125 mcg daily, given patient's CAD).
- Cortisol level 26.7
- Follow for clinical improvement and change
Acute Hypoxic Respiratory Insufficiency - RESOLVED
Likely LLL Pneumonia
Small Right Pleural Effusion on AXR from 10/09/24
Nocturnal O2 Desaturation (see nocturnal O2 saturation report from 10/06/24 morning)
Cough Again on 10/04/24
History of Recurrent Colds
History of Recent Pneumonia on CT Neck (treated outpatient with PCP in late August 2024 to early September 2024)
-Continue Rocephin and Doxycycline
-ID onboard
-Pulmonary toilet -- but stopped Duonebs since patient is sensitive to albuterol with symptomatic mild tachycardia and cannot tolerate it
-Changed bronchodilators to Atrovent PRN given intolerance to Albuterol
-CT Abdomen/Pelvis from 10/07/24 showed bibasilar opacification -- most likely representing subsegmental atelectasis as well as tiny bilateral pleural effusions, left greater than right
-Follow cultures
Persistent neck swelling/enlarged tonsils since 09/01/24, (recently treated with 30 day course of Fluconazole)
Recent Tonsillar Hypertrophy
Recent Thrush
-Was seen outpatient by Dr. Anna Hicks (ENT) -- I communicated on 10/05/[address] [facility] Text [address] Anna Hicks who reported that she saw patient around mid to late September 2024, and at that time, patient had returned back
to normal according to Dr. Hicks
-Checking EBV panel as above
Right Upper Lobe Pulmonary Nodule -- indeterminate PET scan
- Saw Dr. Rider outpatient
- 1.6cm KADEN nodule seen on multiple recent images. Mildly FDG-avid without significant delayed uptake.
- Possible infectious component with 'low-grade' temp (99 here in the ED), chills, etc.
- Cover with antibiotics for now with ceftriaxone / doxycycline.
- Follow temperature curve and monitor for any new / worsening symptoms.
- May benefit from biopsy for further evaluation if no improvement / resolution with antibiotics.
- Will [facility] Text Dr. Rider
Mild Hyponatremia
- Secondary to significant SIADH state based on lab results and clinical picture
- Oral fluid restriction for now.
- Cortisol 26.7
- Follow for improvement.
- 3% Saline with no significant improvement in sodium from 10/06/24 to 10/07/24
- Continue current IV fluids
Acute Kidney Injury - RESOLVED
- Improving
- IV fluids with Normal Saline IV Fluids 80 cc/hr as per nephrology
- Recheck BMP
- Continue to monitor renal function given patient is on Acyclovir
- CT Abdomen Pelvis 10/07/24 with no stone or obstructive process
Hypokalemia
- Replaced
- Monitor BMP
Hypomagnesemia
- Replaced
- Monitor Magnesium
Mild Bilateral Perinephric Stranding on CT Imaging
Hypertension
- Stable. Hold metoprolol acutely to avoid exacerbating hypothyroidism symptoms.
- Continue other medications with holding parameters.
Acquired vonWillebrand's Disease (started at age 49 y/o) on monthly IVIG, Darzalex
- Stable. Patient maintained on IVIG monthly - last injection was 09/29/24.
- Patient / family unclear on multiple myeloma history - not clear if this is formal diagnosis - was taking radioactive med per family until 6 months ago
- Family noted that he is being treated for vWF to 'prevent multiple myeloma'.
- Consulted hematology since patient getting IVIG, question of whether patient's IVIG treatment related to this
- Coagulation panel within normal limits, last von Willebrand panel was in January 2024 -- current vonWillebrand panel is pending
MGUS
- Has been on Decadron, Darzalex, and IVIG -- sees Dr. Lucio outpatient
Thrombocytopenia
- Improving
- possibly due to Darzalex
Edema
- LE swelling is likely due to hypothyroidism, immobility x 48 hours, etc.
- Now improved
- No DVT on LLE or RLE on imaging
Tiny Pericardial Effusion on CT Imaging
-On echo, there is no pericardial effusion
Tiny Bilateral Pleural Effusions on CT Imaging
-But on echo study, there was no pericardial effusion
Moderate prostate hypertrophy on CT Imaging
-Continue bladder scans protocol
Coronary Artery Disease
-Per Dr. Beronica Cantu and patient's daughter, patient has a history of this
Simple bilateral renal cysts
Appendicoliths
Speech/Diet: Speech evaluation completed on this patient. Recommended to downgrade to IDDSI level four (puree) and thin liquids. Significant pocketing of food. Also completed cognitive evaluation with score of 7/30 on [facility] mental
status (SLUMS) examination.
Morning. Just saw this pt. He looks worse than 2 days ago. L facial droop now with dysarthria. Decreased orientation. 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 Also had a cough x1 with P.O. intake. I wasn't concerned for
aspiration on Friday (more oral issues), but now will monitor for that as well. He just went off floor for CT of abdomen/pelvis.
DVT Prophylaxis: No pharmacologic prophylaxis given vWF; use SCDs
Code Status: Full Code
On 10/04/24, 10/05/24 and 10/06/24, I spoke with patient's daughter Jacqueline and answered all her questions and concerns to satisfaction.
Anticipated Discharge: > 48 hours
Subjective/Interval History
-
Date of Service: October 09, 2024
Patient was seen and examined. He was lying in bed comfortably.
Objective Data
-
Labs:
Laboratory Results
10/08/24 10/09/24
21:29 03:35
WBC 4.0 L
Hgb 10.7 L
Hct 30.0 L
Plt Count 105 L
Sodium 136 138
Potassium 3.4 L 3.4 L
Chloride 113 H 114 H
Carbon Dioxide 21 L 23
BUN 22 H 21 H
Creatinine 1.3 1.2
Glucose 141 H 90
Calcium 8.0 L 8.0 L
Total Bilirubin 0.6
AST 27
ALT 19
Alkaline Phosphatase 52
Vital Signs:
Vital Signs
Temp Pulse Resp BP Pulse Ox
97.9 F 82 18 125/75 96
10/09/24 07:05 10/09/24 06:02 10/09/24 06:02 10/09/24 06:02 10/09/24 06:02
I&O
10/08/24 10/09/24 10/10/24
06:59 06:59 06:59
Intake Total 4325 / 4325 3465 / 3465
Output Total 1650 / 1650 3490 / 3490
Balance 2675 / 2675 - /
[2024-10-09] MEDS: PROTONIX 40 MG PO (08:54)
[2024-10-09] MEDS: VIBRAMYCIN 100 MG PO ×2 (08:54→20:19)
[2024-10-09] MEDS: KEPPRA 500 MG PO ×2 (08:54→20:19)
[2024-10-09] MEDS: MUCINEX 600 MG PO ×2 (08:54→20:19)
[2024-10-09] MEDS: NORVASC 5 MG PO (08:55)
[2024-10-09] MEDS: STERILE WATER FOR INJECTION 20 ML IV (08:55)
[2024-10-09] MEDS: ROCEPHIN 2000 MG IV (08:56)
--- NOTE | 2024-10-09 09:01 | W.PN.ID1 ---
Date of Service
Date of Service: October 09, 2024
Today's Communication
Continue antibiotics.
Assessment / Plan
# Acute Mental status change
# HSV-1 encephalitis
# Suspected LLL PNA
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
# Persistent neck swelling/enlarged tonsils since 09/01, (recently tx'd with 30d Fluconazole)
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
# Thrombocytopenia stable, possibly due to Darzalex
# Recent finding of RUL lung nodule, indeterminate PET scan
- Blood cx's neg to date
- C. diff neg, stool cx neg
- CT a/p unremarkable
-MRI brain: cortical restricted diffusion involving the anterior right frontal lobe extending into the hippocampus and right insular cortex. There is additional foci of diffusion hyperintense signal within the posterior aspect of the right thalamus
- 10/05 EEG: EEG 10/05 showing epileptogenic right frontal lobe
Renal function improving. Increase acyclovir to 800 mg IV q8h.
- Monitor renal function closely. Creatinine = 1.2
Continue ceftriaxone and doxycycline for CAP.
- EBV serology panel (given enlarged tonsils and fatigue) significant for prior infection. No apparent reactivation.
- HIV negative.
Syphilis screen : Positive. RPR 1:256. Per daughter, reported history of prior PCN desensitization may be an error. CSF VDRL pending.
Chief Complaint
-: Other (Change in mental status; HSV 1 encephalitis; Positive RPR)
Subjective / Review of Systems
Patient seen and examined. Daughter present at bedside. Reports patient is sleeping a lot, but is conversant when awake.
Vital Signs / Physical Exam
Vital Signs
Vital Signs
Temp Pulse Resp BP Pulse Ox
97.9 F 82 18 122/55 96
10/09/24 07:05 10/09/24 06:02 10/09/24 06:02 10/09/24 08:55 10/09/24 06:02
Physical Exam
Constitutional: Comfortable and Non-toxic
Cardiovascular: Regular Rate and S1/S2
Pulmonary: Rales (bibase)
Gastrointestinal: Soft, Non Tender, Non Distended and Normal Bowel Sounds
Extremities: Edema
Neurological: Other (Lethargic but arousable.); Negative Meningeal Signs (No nuchal rigidity)
Psychological: Calm
Objective Data
Lab Data
Lab Results
10/09/24 03:35
10/09/24 03:35
PT 13.7 Sec (11.4-14.6) 10/05/24 04:24
INR 1.01 10/05/24 04:24
APTT 32.2 Sec (23.4-35.0) 10/05/24 04:24
Estimated Creat Clear 49 ml/min 10/09/24 03:35
Total Bilirubin 0.6 mg/dl (0.2-1.3) 10/09/24 03:35
AST 27 U/L (17-59) 10/09/24 03:35
ALT 19 U/L (0-50) 10/09/24 03:35
Alkaline Phosphatase 52 U/L (38-126) 10/09/24 03:35
Most recent labs reviewed.
Micro Results:
10/03/24 21:18 Blood Culture - Final
Blood/Venous No Growth - Final Report
10/03/24 20:58 Blood Culture - Final
Blood/Venous No Growth - Final Report
10/06/24 14:08 CSF Culture - Preliminary
Csf No Growth After 48 Hours
Gram Stain - Preliminary
10/04/24 08:16 Salmonella/Shigella Culture - Final
Feces/Stool No Salmonella, Shigella, Aeromonas or Plesiomonas species
isolated.
Campylobacter Culture - Final
No Campylobacter species isolated.
Shiga Toxin Test - Final
No E. coli Shiga Toxin 1 or 2 detected.
Stool Leukocytes - Final
10/06/24 14:08 Meningitis/Encephalitis Panel (PCR) - Final
Csf
10/06/24 14:08 Fungal Smear - Pending
Csf Fungal Culture - Preliminary
Culture in progress.
Positive cultures are reported as soon as detected.
Final report to follow in four to five weeks.
10/04/24 09:20 MRSA Screen - Final
Nose No Methicillin Resistant Staphylococcus aureus isolated.
10/04/24 09:20 Urine Culture - Final
Urine NO GROWTH
10/04/24 17:36 Influenza Types A & B (RADHA) - Final
Nasal Swab Negative for Influenza A & B, NAAT
Negative results must be combined with clinical observations
and patient history.
Nucleic Acid Amplification test (NAAT)performed on the
[employer] platform.
10/04/24 17:36 Legionella Urinary Antigen - Final
Urine Negative for Legionella pneumophila Serogroup 1 antigen.
A negative result does not rule out the possiblity of
Legionella infection due to other serogroups or species of
Legionella. Clinical correlation is recommended.
Streptococcus pneumoniae Antigen (M - Final
Negative for Streptococcus pneumoniae antigen.
A negative result does not exclude infection with
Streptococcus pneumoniae. Clinical correlation is
recommended.
10/04/24 08:16 - Final
Feces/Stool Negative for Norovirus GI and GII.
10/04/24 08:16 C. difficile GDH Antigen & Toxins - Final
Feces/Stool Negative for toxigenic C.difficile
Meningitis Panel, CSF by PCR Final 10/06/24-1609
Escherichia coli K1 Not Detected
Haemophilus influenzae Not Detected
Listeria monocytogenes Not Detected
Neisseria meningitidis Not Detected
Cytomegalovirus (CMV) Not Detected
Streptococcus agalactiae Not Detected
Streptococcus pneumoniae Not Detected
Enterovirus Not Detected
--> Herpes simplex virus 1 DETECTED <--
Herpes simplex virus 2 Not Detected
Human herpesvirus 6 Not Detected
Human parechovirus Not Detected
Varicella zoster virus Not Detected
C. neoformans/gattii Not Detected
10/04/24 Brain MRI: There is predominant cortical restricted diffusion involving the anterior right frontal lobe extending into the hippocampus and right insular cortex. There is additional foci of diffusion hyperintense signal within the posterior
aspect of the right thalamus. This constellation of findings can be seen in encephalitis (herpes or limbic), status epilepticus or acute infarction. Additionally Creutzfeld Christiano disease is considered unlikely, however cannot be excluded. Consider
correlation with CSF studies.
10/04/24 CXR: New minimal left lower lobe atelectasis versus scarring
10/04/24 CT Pe/abd/pel W: Mild left lower lobe airspace disease suggesting pneumonia. New
No acute pathology of the abdomen or pelvis identified
10/01/24 PET: Stable solitary right upper lobe pulmonary nodule which demonstrates mild FDG activity (with only minimal further increase on delayed imaging). This remains indeterminate with differential including infectious/inflammatory nodule or low
metabolic rate neoplasm.
09/01/[address]: Significant symmetric enlargement of the bilateral tonsillar soft tissues, which could be secondary to tonsillar hypertrophy or tonsillitis, with secondary narrowing of the oropharynx and hypopharynx. Bilateral pulmonary parenchymal
opacities suggesting pneumonia. 1.6 cm solid pulmonary nodule in the right upper lobe.
Care Review
Plan reviewed with: Physician (Nephrology)
--- NOTE | 2024-10-09 09:46 | W.PN.NEPH.PH ---
Today's Communication / Plan
-
IVF
Assessment/Plan
-
Assessment
Von Willebrand's disease, acquired
Nausea
Right upper lobe pulmonary nodule
Hyponatremia acute
Hypertension
Confusion
MGUS
HSV encephalitis
+RPR 1:256 (syphilis)
Plan
Follow BMP
Continue IV fluids
Antibiotics for syphilis, VDRL pending
Antiviral for HSV encephalitis
Replete potassium and magnesium
-
-
Date of Service: October 09, 2024
CC / HPI / ROS
-
Chief Complaint:
Altered mental status
History of Present Illness:
Presents with altered mental status hyponatremia
Remains pancytopenic
Potassium low 3.4
Mag low 1.5
MAGNOLIA/creatinine down to 1.2
BP stable
On acyclovir for HSV encephalitis
Review of Systems:
Patient remains altered mental status
Decreased p.o. intake but will eat if fed by daughter
Labs
-
Labs:
WBC 4.0 10^3/uL (4.8-10.8) L 10/09/24 03:35
RBC 3.16 10^6/uL (4.70-6.10) L 10/09/24 03:35
Hgb 10.7 g/dL (13.0-18.0) L 10/09/24 03:35
Hct 30.0 % (39.0-52.0) L 10/09/24 03:35
Plt Count 105 10^3/uL (130-400) L 10/09/24 03:35
Sodium 138 mmol/L (135-145) 10/09/24 03:35
Potassium 3.4 mmol/L (3.5-5.1) L 10/09/24 03:35
Chloride 114 mmol/L (98-107) H 10/09/24 03:35
Carbon Dioxide 23 mmol/L (22-30) 10/09/24 03:35
BUN 21 mg/dl (9-20) H 10/09/24 03:35
Creatinine 1.2 mg/dL (0.7-1.3) 10/09/24 03:35
eGFR > 60.00 10/09/24 03:35
Glucose 90 mg/dl (70-99) 10/09/24 03:35
Calcium 8.0 mg/dl (8.4-10.2) L 10/09/24 03:35
Phosphorus 3.2 mg/dl (2.5-4.5) 10/04/24 05:43
Ucy-S-Yfglfktfxwt Pept 428 pg/ml 10/03/24 17:37
Albumin 2.7 g/dl (3.5-5.0) L 10/09/24 03:35
Physical Exam
-
Vital Signs:
Vital Signs
Temp Pulse Resp BP Pulse Ox
97.9 F 82 18 122/55 96
10/09/24 07:05 10/09/24 06:02 10/09/24 06:02 10/09/24 08:55 10/09/24 06:02
Cardiovascular:: Regular rate and rhythm
Respiratory:: Bilateral: Coarse
Lung Excursion:: Normal
Abdomen:: Nontender and Soft
Bowel Sounds:: Normal
Extremity Edema:: None: Bilateral:
--- NOTE | 2024-10-09 10:14 | W.PN.URO.CBU ---
Today's Communication / Plan
-
no gu interventions
Assessment / Plan
-
HEMATUURIA PT HAS VON WILEBRANDS BUT NO LESIONS AD CREATINIE RETURNED TO BASELINE NO INTEFRVENTIONS AT THIS TIME
Diagnosis
-
Date of Service: October 09, 2024
-
Patient Diagnosis:
Post Op Day:
Patient Diagnosis:
Post Op Day:
Patient Diagnosis:HEMATURIA IN PT WITH INCTINCE AND VON WILLEBRANDS AND CREAT 1.6 TO [address]AN WITH AND W/OUT IV CONTAST PROSTATE NO HYDRO N STONES
Post Op Day:
Subjective
-
incontinent but no hematuroia
Objective
-
Vital Signs
Temp Pulse Resp BP Pulse Ox
97.9 F 82 18 122/55 96
10/09/24 07:05 10/09/24 06:02 10/09/24 06:02 10/09/24 08:55 10/09/24 06:02
Intake and Output
10/08/24 10/09/24 10/10/24
06:59 06:59 06:59
Intake Total 4325 / 4325 3465 / 3465
Output Total 1650 / 1650 3490 / 3490
Balance 2675 / 2675 -25 / -25
Intake:
Oral fluids 1380 / 1380 900 / 900
IV fluids (Total) 2400 / 2400 1760 / 1760
IV piggybacks 545 / 545 805 / 805
Output:
Urine, Voided 1650 / 1650 3490 / 3490
Other:
How many times incontinent 1
MODERATE amount urine
How many times incontinent 1
SATURATED amount urine
Laboratory Results
10/09/24 03:35
10/09/24 03:35
Review of Systems
-
: Incontinence
Physical Exam
-
General - well developed, well nourished, no acute distress
Chest - clear bilaterally
Abdomen - soft, non-tender, positive bowel sounds, no CVAT, no incisional pain or distention
Genitalia - normal
Rectal - normal
Skin - warm & dry with no rash
Neuro - AOx3, no motor deficits
Extremities - no clubbing, no cyanosis, no edema
Incision - clean, dry
Dressing - clean, dry, intact
Care Review
Data Reviewed
Discussed with: Family
[2024-10-09 11:35] LABS: ANA, IgG Reflex to HEp-2 None Detected (None Detected)
[2024-10-09] MEDS: ZOVIRAX INJECTION 266 MG IV ×2 (14:19→22:23)
--- NOTE | 2024-10-09 16:29 | PTCARENOTE ---
pt noted to have red macular rash to penis when going to apply new condom catheter. aware.
[2024-10-09 16:53] LABS: CSF VDRL (T. pallidum) Non Reactive (Non Reactive)
[2024-10-09] MEDS: SEROQUEL 25 MG PO (20:19)
[2024-10-09] MEDS: CARDURA 2 MG PO (20:19)
[2024-10-09 21:19] LABS: Blood Urea Nitrogen 21 mg/dl (9-20); Calcium 8.3 mg/dl (8.4-10.2); Carbon Dioxide 25 mmol/L (22-30); Chloride 112 mmol/L (98-107); Estimated Creatinine Clearance 54 ml/min; Glucose 127 mg/dl (70-99); Potassium 3.3 mmol/L (3.5-5.1); Sodium 138 mmol/L (135-145); eGFR > 60.00
[2024-10-10] VITALS (12 sets, daily range): BP systolic 115–172; BP diastolic 63–95; BMI 30.2
[2024-10-10 05:26] LABS: Hematocrit 29.0 % (39.0-52.0); Hemoglobin 10.4 g/dL (13.0-18.0); Mean Corp Hgb Conc. 35.9 g/dL (33.0-37.0); Mean Corpuscular Volume 95.1 fL (80.0-94.0); Platelet Count 103 10^3/uL (130-400); Red Cell Dist. Width 15.9 % (11.5-14.5)
[2024-10-10 05:32] LABS: ALT (SGPT) 19 U/L (0-50); AST (SGOT) 27 U/L (17-59); Albumin 2.6 g/dl (3.5-5.0); Alkaline Phosphatase 50 U/L (38-126); Blood Urea Nitrogen 17 mg/dl (9-20); Calcium 8.1 mg/dl (8.4-10.2); Carbon Dioxide 24 mmol/L (22-30); Chloride 115 mmol/L (98-107); Estimated Creatinine Clearance 74 ml/min; Glucose 94 mg/dl (70-99); Magnesium 1.5 mg/dl (1.6-2.3); Potassium 3.7 mmol/L (3.5-5.1); Sodium 139 mmol/L (135-145); Total Protein 4.9 g/dl (6.3-8.2); eGFR > 60.00
[2024-10-10] MEDS: NSS 1000 IV ×2 (05:45→17:28)
[2024-10-10] MEDS: ZOVIRAX INJECTION 266 MG IV ×3 (05:45→21:11)
[2024-10-10] MEDS: SYNTHROID 150 MCG PO (05:45)
--- NOTE | 2024-10-10 06:10 | PTCARENOTE ---
No acute events overnight. Grandson at bedside. Condom cath replaced for HS per daughters request.
[2024-10-10] MEDS: MAGNESIUM SULFATE 102 GRAMS IV (06:27)
--- NOTE | 2024-10-10 07:33 | W.PN.ID1 ---
Date of Service
Date of Service: October 10, 2024
Today's Communication
Continue antibiotics.
Assessment / Plan
# Acute Mental status change
# HSV-1 encephalitis
# Suspected LLL PNA
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
# Persistent neck swelling/enlarged tonsils since 09/01, (recently tx'd with 30d Fluconazole)
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
# Thrombocytopenia stable, possibly due to Darzalex
# Recent finding of RUL lung nodule, indeterminate PET scan
- Blood cx's neg to date
- C. diff neg, stool cx neg
- CT a/p unremarkable
-MRI brain: cortical restricted diffusion involving the anterior right frontal lobe extending into the hippocampus and right insular cortex. There is additional foci of diffusion hyperintense signal within the posterior aspect of the right thalamus
- 10/05 EEG: EEG 10/05 showing epileptogenic right frontal lobe
Renal function improving. Acyclovir increased to 800 mg IV q8h. (d#6)
- Monitor renal function closely. Creatinine = 0.9
Continue ceftriaxone 2 gm IV q24h (d#8) and doxycycline (d#7) for CAP.
- EBV serology panel (given enlarged tonsils and fatigue) significant for prior infection. No apparent reactivation.
- HIV negative.
Syphilis screen : Positive. RPR 1:256. CSF VDRL negative.
- Given reported allergy to penicillin, may be able to complete a 14-day course of ceftriaxone with subsequent following of RPR titer to assess effect.
Chief Complaint
-: Other (Change in mental status; HSV 1 encephalitis; Positive RPR)
Subjective / Review of Systems
Patient seen and examined. No specific complaints overnight. Contacted by nursing late yesterday about penile irritation and rash.
Review of Systems: No Fever and No Chills
Vital Signs / Physical Exam
Vital Signs
Vital Signs
Temp Pulse Resp BP Pulse Ox
97.5 F 86 20 171/91 95
10/10/24 03:00 10/10/24 06:00 10/10/24 06:00 10/10/24 06:00 10/10/24 06:00
Physical Exam
Constitutional: Comfortable and Non-toxic
Cardiovascular: Regular Rate and S1/S2; Negative S3/S4
Pulmonary: Coarse and Non Labored
Gastrointestinal: Soft, Non Tender, Non Distended and Normal Bowel Sounds
Genito-Urinary: Other (Condom catheter in place. No penile rash noted. No lesions.)
Extremities: Edema
Neurological: Awake, Alert, Oriented (Person and place) and Other (Easily arousable.); Negative Meningeal Signs (No nuchal rigidity)
Psychological: Calm
Objective Data
Lab Data
Lab Results
10/10/24 04:44
10/10/24 04:44
PT 13.7 Sec (11.4-14.6) 10/05/24 04:24
INR 1.01 10/05/24 04:24
APTT 32.2 Sec (23.4-35.0) 10/05/24 04:24
Estimated Creat Clear 74 ml/min 10/10/24 04:44
Total Bilirubin 0.6 mg/dl (0.2-1.3) 10/10/24 04:44
AST 27 U/L (17-59) 10/10/24 04:44
ALT 19 U/L (0-50) 10/10/24 04:44
Alkaline Phosphatase 50 U/L (38-126) 10/10/24 04:44
Most recent labs reviewed.
Micro Results:
10/06/24 14:08 CSF Culture - Preliminary
Csf No Growth After 72 Hours
Gram Stain - Preliminary
10/03/24 21:18 Blood Culture - Final
Blood/Venous No Growth - Final Report
10/03/24 20:58 Blood Culture - Final
Blood/Venous No Growth - Final Report
10/04/24 08:16 Salmonella/Shigella Culture - Final
Feces/Stool No Salmonella, Shigella, Aeromonas or Plesiomonas species
isolated.
Campylobacter Culture - Final
No Campylobacter species isolated.
Shiga Toxin Test - Final
No E. coli Shiga Toxin 1 or 2 detected.
Stool Leukocytes - Final
10/06/24 14:08 Meningitis/Encephalitis Panel (PCR) - Final
Csf
10/06/24 14:08 Fungal Smear - Pending
Csf Fungal Culture - Preliminary
Culture in progress.
Positive cultures are reported as soon as detected.
Final report to follow in four to five weeks.
10/04/24 09:20 MRSA Screen - Final
Nose No Methicillin Resistant Staphylococcus aureus isolated.
10/04/24 09:20 Urine Culture - Final
Urine NO GROWTH
10/04/24 17:36 Influenza Types A & B (RADHA) - Final
Nasal Swab Negative for Influenza A & B, NAAT
Negative results must be combined with clinical observations
and patient history.
Nucleic Acid Amplification test (NAAT)performed on the
[employer] platform.
10/04/24 17:36 Legionella Urinary Antigen - Final
Urine Negative for Legionella pneumophila Serogroup 1 antigen.
A negative result does not rule out the possiblity of
Legionella infection due to other serogroups or species of
Legionella. Clinical correlation is recommended.
Streptococcus pneumoniae Antigen (M - Final
Negative for Streptococcus pneumoniae antigen.
A negative result does not exclude infection with
Streptococcus pneumoniae. Clinical correlation is
recommended.
10/04/24 08:16 - Final
Feces/Stool Negative for Norovirus GI and GII.
10/04/24 08:16 C. difficile GDH Antigen & Toxins - Final
Feces/Stool Negative for toxigenic C.difficile
Meningitis Panel, CSF by PCR Final 10/06/24-1609
Escherichia coli K1 Not Detected
Haemophilus influenzae Not Detected
Listeria monocytogenes Not Detected
Neisseria meningitidis Not Detected
Cytomegalovirus (CMV) Not Detected
Streptococcus agalactiae Not Detected
Streptococcus pneumoniae Not Detected
Enterovirus Not Detected
--> Herpes simplex virus 1 DETECTED <--
Herpes simplex virus 2 Not Detected
Human herpesvirus 6 Not Detected
Human parechovirus Not Detected
Varicella zoster virus Not Detected
C. neoformans/gattii Not Detected
CSF
10/06/24 10/06/24
14:08 14:09
CSF Appearance Clear
CSF Color Colorless
CSF WBC 4
CSF RBC 14
CSF Cell Count Tube # 2
CSF Glucose 72 H
CSF Total Protein 217 H
CSF VDRL Non reactive
10/06/24
04:55
Syphilis Serology Positive
RPR Titer 1:256
RPR Reactive
HIV Ag/Ab Combo Qual Negative
10/04/24 Brain MRI: There is predominant cortical restricted diffusion involving the anterior right frontal lobe extending into the hippocampus and right insular cortex. There is additional foci of diffusion hyperintense signal within the posterior
aspect of the right thalamus. This constellation of findings can be seen in encephalitis (herpes or limbic), status epilepticus or acute infarction. Additionally Creutzfeld Christiano disease is considered unlikely, however cannot be excluded. Consider
correlation with CSF studies.
10/04/24 CXR: New minimal left lower lobe atelectasis versus scarring
10/04/24 CT Pe/abd/pel W: Mild left lower lobe airspace disease suggesting pneumonia. New
No acute pathology of the abdomen or pelvis identified
10/01/24 PET: Stable solitary right upper lobe pulmonary nodule which demonstrates mild FDG activity (with only minimal further increase on delayed imaging). This remains indeterminate with differential including infectious/inflammatory nodule or low
metabolic rate neoplasm.
09/01/[address]: Significant symmetric enlargement of the bilateral tonsillar soft tissues, which could be secondary to tonsillar hypertrophy or tonsillitis, with secondary narrowing of the oropharynx and hypopharynx. Bilateral pulmonary parenchymal
opacities suggesting pneumonia. 1.6 cm solid pulmonary nodule in the right upper lobe.
--- NOTE | 2024-10-10 07:42 | W.PN.HOSP.TC ---
Today's Communication/Plan
-
Continue Acyclovir and antibiotics
Bowel regimen
Hold Seroquel given drowsiness
Patient overall has improved, able to ambulate
Transfer to telemetry
Assessment / Plan
Assessment / Plan
Physical Exam
General: Not in acute distress
HEENT: Thick neck. Not tender, no induration, erythema, palpable masses, etc. Fullness is new per patient / family.
Respiratory: CTAB with some decreased lower left sided breath sounds
Cardiac: S1/S2 and Regular Rhythm
GI: Soft, Mildly Tender, Non Distended, Normal Bowel Sounds and Other (Obese.)
Musculoskeletal: No Cyanosis and Other (Trace pitting edema at the bilateral lower extremities)
Neuro: AAO x 3 and Other (Mild left-sided weakness in the UE and LE. Finger to nose is intact.)
Assessment/Plan
79y M with PMH significant for hypothyroidism, hypertension and von Willebrand's disease who presents to ED complaining of weakness. History obtained from patient and his family at the bedside. Patient was in his usual states of good health
until about 3-4 weeks ago when he began to become more weak / fatigued. He was still able to complete his ADLs until this past 24-48 hours when his symptoms markedly worsened. Patient is followed by Nicko Mims for vWF. He receives monthly
IVIG (last dose 09/29). There is some question of multiple myeloma - though history there is not clear and patient does not appear to be on any treatment for this (records show MGUS). Patient developed fullness / swelling in the throat several
weeks ago. He was evaluated by ENT in their office Dr. Hicks. CT scan showed tonsillar hypertrophy but was otherwise unremarkable. He was treated briefly with antifungal medication for thrush (patient was having a sore throat) - but this was
stopped after fungal smear was negative. CT neck also showed incidental RUL nodule and patient has had CT C/A/P and PET-CT since that time for further evaluation. These revealed mildly FDG-avid (3.3) KADEN nodule (1.6cm). No other areas of
FDG-avidity. No other abnormal findings. Over the 48 hours prior to presentation, patient remained seated at home and has not left his chair. He reported shaking chills. Family has noted swelling in the legs - L > R - which is unusual for him.
Family noted that he seemed somewhat confused as well since 10/02/24 evening. 911 was called to the home this afternoon when patient was unable to get up. He decline ED evaluation at that time. Later in the afternoon family convinced him to
present to the ED for further evaluation. Patient was noted to be quite unsteady on his feet in the emergency department. He drove himself to his radiology appointments as recently as 2 days ago and had no significant issues.
Weakness / Ataxia / Confusion
Acute Toxic Metabolic Encephalopathy Likely Secondary to Encephalitis and Possibly From Pneumonia
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
Likely immunosuppressed from Daratumumab and Dex
- Differential is extensive at this time and includes hypothyroidism, infectious process, stroke, etc.
- Address individual issues below and follow for any new / worsening symptoms.
- CT head in the ED was unremarkable.
- MRI brain with suspected encephalitis, with infectious encephalitis being in the differential -- consulted ID, appreciate their evaluation and recommendations
- IR performed LP on 10/06/24 -- high protein, low glucose
- Continue Keppra -- newly started this admission
- Continue Acyclovir -- monitor renal function closely
- Since patient's Darzalex can be associated with CMV infection; CMV PCR included in meningitis/encephalitis PCR panel.
- Check EBV serology panel (he has had recently enlarged tonsils+fatigue) -- significant for prior infection with no apparent reactivation.
- HIV negative
- Syphilis screen positive
- PT / OT evaluations.
- Appreciate neurology
- Patient's agitation behaviors improved with Seroquel -- but today he is drowsy, spoke with daughter who agreed that holding off on Seroquel is a good idea
Syphilis screen : Positive. RPR 1:256. CSF VDRL negative.
- As per ID, given reported allergy to penicillin, may be able to complete a 14-day course of ceftriaxone with subsequent following of RPR titer to assess effect.
Diarrhea, Abdominal Pain and Nausea
Mild fluid right inguinal canal -- postsurgical change versus incarcerated/strangulated hernia? -- seen on CT Imaging
Constipation
-Stool studies unremarkable
-Requested surgery evaluation since patient is symptomatic, appreciate surgery evaluation -- no concerns from their standpoint
-Initially had diarrhea, but as of 10/09/24, patient had not had a bowel movement for several days; AXR suggests moderate amount of stool within the rectum
-Start Miralax and Senokot-S
Gross Hematuria
Urinary Retention
-Recurrence during this hospitalization
-Patient was still having frequent hematuria -- urology mentions expected with von Willebrands but Hgb stable and vital stable
-CT without contrast with no obstructive uropathy or stones
-Consulted urology -- recommendation to continue bladder scans -- if PVR rising significantly, then place Negron -- but no interventions at this time as per urology
Concern for Symptomatic Hypothyroidism
- Significantly under-replaced T4 with TSH = 16.8 and Free T4 = 0.39 this hospitalization
- I spoke on 10/05/24 with patient's PCP, Dr. Cantu, who said that patient's TFTs on 09/05/24 were: TSH = 10 and Free T4 = 0.58
- Some confusion, weakness, ataxia, edema, etc - hypothyroidism contributing?
- IV dose of levothyroxine given initially
- PO Levothyroxine dose increased in AM to 150 mcg daily (not drastic increase from previous dose of 125 mcg daily, given patient's CAD).
- Cortisol level 26.7
- Follow for clinical improvement and change
Acute Hypoxic Respiratory Insufficiency - RESOLVED
Likely LLL Pneumonia
Small Right Pleural Effusion on AXR from 10/09/24
Nocturnal O2 Desaturation (see nocturnal O2 saturation report from 10/06/24 morning)
Cough Again on 10/04/24
History of Recurrent Colds
History of Recent Pneumonia on CT Neck (treated outpatient with PCP in late August 2024 to early September 2024)
-Continue Rocephin and Doxycycline
-ID onboard
-Pulmonary toilet -- but stopped Duonebs since patient is sensitive to albuterol with symptomatic mild tachycardia and cannot tolerate it
-Changed bronchodilators to Atrovent PRN given intolerance to Albuterol
-CT Abdomen/Pelvis from 10/07/24 showed bibasilar opacification -- most likely representing subsegmental atelectasis as well as tiny bilateral pleural effusions, left greater than right
-Follow cultures
Persistent neck swelling/enlarged tonsils since 09/01/24, (recently treated with 30 day course of Fluconazole)
Recent Tonsillar Hypertrophy
Recent Thrush
-Was seen outpatient by Dr. Anna Hicks (ENT) -- I communicated on 10/05/[address] [facility] [employer] with [address] Anna Hicks who reported that she saw patient around mid to late September 2024, and at that time, patient had returned back
to normal according to Dr. Hicks
-EBV serology panel (he has had recently enlarged tonsils+fatigue) -- significant for prior infection with no apparent reactivation.
Right Upper Lobe Pulmonary Nodule -- indeterminate PET scan
- Saw Dr. Rider outpatient
- 1.6cm KADEN nodule seen on multiple recent images. Mildly FDG-avid without significant delayed uptake.
- Possible infectious component with 'low-grade' temp (99 here in the ED), chills, etc.
- Cover with antibiotics for now with ceftriaxone / doxycycline.
- Follow temperature curve and monitor for any new / worsening symptoms.
- May benefit from biopsy for further evaluation if no improvement / resolution with antibiotics.
Mild Hyponatremia
- Secondary to significant SIADH state based on lab results and clinical picture
- Oral fluid restriction for now.
- Cortisol 26.7
- Follow for improvement.
- 3% Saline with no significant improvement in sodium from 10/06/24 to 10/07/24
- Continue current IV fluids
Acute Kidney Injury - RESOLVED
- Improving
- IV fluids with Normal Saline IV Fluids 70 cc/hr as per nephrology
- Recheck BMP
- Continue to monitor renal function given patient is on Acyclovir
- CT Abdomen Pelvis 10/07/24 with no stone or obstructive process
Hypokalemia
- Replaced
- Monitor BMP
Hypomagnesemia
- Replaced
- Monitor Magnesium
Mild Bilateral Perinephric Stranding on CT Imaging
Hypertension
- Stable. Hold metoprolol acutely to avoid exacerbating hypothyroidism symptoms.
- Continue other medications with holding parameters.
Acquired vonWillebrand's Disease (started at age 49 y/o) on monthly IVIG, Darzalex
- Stable. Patient maintained on IVIG monthly - last injection was 09/29/24.
- Patient / family unclear on multiple myeloma history - not clear if this is formal diagnosis - was taking radioactive med per family until 6 months ago
- Family noted that he is being treated for vWF to 'prevent multiple myeloma'.
- Consulted hematology since patient getting IVIG, question of whether patient's IVIG treatment related to this
- Coagulation panel within normal limits, last von Willebrand panel was in January 2024 -- follow-up vonWillebrand panel
MGUS
- Has been on Decadron, Darzalex, and IVIG -- sees Dr. Lucio outpatient
Thrombocytopenia
- Improving
- possibly due to Darzalex
Edema
- LE swelling is likely due to hypothyroidism, immobility x 48 hours, etc.
- Now improved
- No DVT on LLE or RLE on imaging
Tiny Pericardial Effusion on CT Imaging
-On echo, there is no pericardial effusion
Tiny Bilateral Pleural Effusions on CT Imaging
-But on echo study, there was no pericardial effusion
Moderate prostate hypertrophy on CT Imaging
-Continue bladder scans protocol
Coronary Artery Disease
-Per Dr. Beronica Cantu and patient's daughter, patient has a history of this
Simple bilateral renal cysts
Appendicoliths
Speech/Diet: Speech evaluation completed on this patient. Recommended to downgrade to IDDSI level four (puree) and thin liquids. Significant pocketing of food. Also completed cognitive evaluation with score of 7/30 on [facility] mental
status (SLUMS) examination.
DVT Prophylaxis: No pharmacologic prophylaxis given vWF; use SCDs
Code Status: Full Code
I spoke with patient's daughter Jacqueline and answered all her questions and concerns to satisfaction on a daily basis (except on 10/08/24) this past week.
Anticipated Discharge: > 48 hours
Subjective/Interval History
-
Date of Service: October 10, 2024
Patient was seen and examined. He is improving overall, yesterday, he got up and walked around his room pretty well. This morning he seemed sleepy.
Objective Data
-
Labs:
Laboratory Results
10/09/24 10/10/24
20:50 04:44
WBC 3.4 L
Hgb 10.4 L
Hct 29.0 L
Plt Count 103 L
Sodium 138 139
Potassium 3.3 L 3.7
Chloride 112 H 115 H
Carbon Dioxide 25 24
BUN 21 H 17
Creatinine 1.1 0.9
Glucose 127 H 94
Calcium 8.3 L 8.1 L
Total Bilirubin 0.6
AST 27
ALT 19
Alkaline Phosphatase 50
Vital Signs:
Vital Signs
Temp Pulse Resp BP Pulse Ox
97.5 F 86 20 171/91 95
10/10/24 03:00 10/10/24 06:00 10/10/24 06:00 10/10/24 06:00 10/10/24 06:00
I&O
10/09/24 10/10/24 10/11/24
06:59 06:59 06:59
Intake Total 3465 / 3465 2089 / 2089
Output Total 3490 / 3490 2099
Balance -25 / -25 -10 / -10
[2024-10-10 07:54] LABS: Glomerular Base Membrane Ab 0 AU/mL (0-19); Serine Protease-3, IgG 1 AU/mL (0-19)
[2024-10-10 08:40] LABS: Nucleated Red Blood Cells % 0 % (-)
[2024-10-10] MEDS: ROCEPHIN 2000 MG IV (09:04)
[2024-10-10] MEDS: MUCINEX 600 MG PO ×2 (09:04→19:44)
[2024-10-10] MEDS: PROTONIX 40 MG PO (09:04)
[2024-10-10] MEDS: NORVASC 5 MG PO (09:04)
[2024-10-10] MEDS: KEPPRA 500 MG PO ×2 (09:04→19:44)
[2024-10-10] MEDS: VIBRAMYCIN 100 MG PO ×2 (09:04→19:44)
[2024-10-10] MEDS: STERILE WATER FOR INJECTION 20 ML IV (09:05)
--- NOTE | 2024-10-10 10:43 | W.PN.NEPH.PH ---
Today's Communication / Plan
-
reduce IVF
Assessment/Plan
-
Assessment
Von Willebrand's disease, acquired
Nausea
Right upper lobe pulmonary nodule
Hyponatremia acute
Hypertension
Confusion
MGUS
HSV encephalitis
+RPR 1:256 (syphilis)
Plan
Follow BMP
Continue IV fluids, reduce to 70ml/hr
Antibiotics for syphilis, VDRL neg
Antiviral for HSV encephalitis
Replete magnesium
-
-
Date of Service: October 10, 2024
CC / HPI / ROS
-
Chief Complaint:
Altered mental status
History of Present Illness:
Presents with altered mental status hyponatremia
Remains pancytopenic
Potassium normal
Mag low 1.5
MAGNOLIA/creatinine down to 0.9
BP stable
On acyclovir for HSV encephalitis
mental status slightly improved
Review of Systems:
Patient remains altered mental status
Decreased p.o. intake but will eat if fed by daughter
Labs
-
Labs:
WBC 3.4 10^3/uL (4.8-10.8) L 10/10/24 04:44
RBC 3.05 10^6/uL (4.70-6.10) L 10/10/24 04:44
Hgb 10.4 g/dL (13.0-18.0) L 10/10/24 04:44
Hct 29.0 % (39.0-52.0) L 10/10/24 04:44
Plt Count 103 10^3/uL (130-400) L 10/10/24 04:44
Sodium 139 mmol/L (135-145) 10/10/24 04:44
Potassium 3.7 mmol/L (3.5-5.1) 10/10/24 04:44
Chloride 115 mmol/L (98-107) H 10/10/24 04:44
Carbon Dioxide 24 mmol/L (22-30) 10/10/24 04:44
BUN 17 mg/dl (9-20) 10/10/24 04:44
Creatinine 0.9 mg/dL (0.7-1.3) 10/10/24 04:44
eGFR > 60.00 10/10/24 04:44
Glucose 94 mg/dl (70-99) 10/10/24 04:44
Calcium 8.1 mg/dl (8.4-10.2) L 10/10/24 04:44
Phosphorus 3.2 mg/dl (2.5-4.5) 10/04/24 05:43
Mdy-T-Ilcedcrpuch Pept 428 pg/ml 10/03/24 17:37
Albumin 2.6 g/dl (3.5-5.0) L 10/10/24 04:44
Physical Exam
-
Vital Signs:
Vital Signs
Temp Pulse Resp BP Pulse Ox
97.5 F 86 20 171/91 95
10/10/24 03:00 10/10/24 06:00 10/10/24 06:00 10/10/24 06:00 10/10/24 06:00
Cardiovascular:: Regular rate and rhythm
Respiratory:: Bilateral: CTA
Lung Excursion:: Normal
Abdomen:: Nontender and Soft
Bowel Sounds:: Normal
Extremity Edema:: None: Bilateral:
[2024-10-10] MEDS: MAGNESIUM SULFATE 50 IV (11:18)
--- NOTE | 2024-10-10 13:55 | W.PN.URO.CBU ---
Today's Communication / Plan
-
no new gu changes
Assessment / Plan
-
HEMATUURIA PT HAS VON WILEBRANDS BUT NO LESIONS AD CREATINIE RETURNED TO BASELINE NO INTEFRVENTIONS AT THIS TIME
Diagnosis
-
Date of Service: October 10, 2024
-
Patient Diagnosis:
Post Op Day:
Patient Diagnosis:
Post Op Day:
Patient Diagnosis:
Post Op Day:
Patient Diagnosis:HEMATURIA IN PT WITH INCTINCE AND VON WILLEBRANDS AND CREAT 1.6 TO [address]AN WITH AND W/OUT IV CONTAST PROSTATE NO HYDRO N STONES
Post Op Day:
Subjective
-
no new gu sxs
Objective
-
Vital Signs
Temp Pulse Resp BP Pulse Ox
97.5 F 86 20 171/91 95
10/10/24 03:00 10/10/24 06:00 10/10/24 06:00 10/10/24 06:00 10/10/24 06:00
Intake and Output
10/09/24 10/10/24 10/11/24
06:59 06:59 06:59
Intake Total 3465 / 3465 2089
Output Total 3490 / 3490 2099
Balance -25 / -25 -10 / -10
Intake:
Oral fluids 900 / 900 600 / 600
IV fluids (Total) 1760 / 1760 960 / 960
IV piggybacks 805 / 805 530 / 530
Output:
Urine, Voided 3490 / 3490 2099 / 2099
Other:
How many times incontinent 1
SATURATED amount urine
Laboratory Results
10/10/24 04:44
10/10/24 04:44
Review of Systems
-
: Incontinence and Bleeding
Physical Exam
-
General - well developed, well nourished, no acute distress
Chest - clear bilaterally
Abdomen - soft, non-tender, positive bowel sounds, no CVAT, no incisional pain or distention
Genitalia - normal
Rectal - normal
Skin - warm & dry with no rash
Neuro - AOx3, no motor deficits
Extremities - no clubbing, no cyanosis, no edema
Incision - clean, dry
Dressing - clean, dry, intact
Care Review
Data Reviewed
Discussed with: Family
--- NOTE | 2024-10-10 14:15 | PTCARENOTE ---
pt noted to have blister to upper right flank area while completing complete bed bath. Pt does not complain of any discomfort. Silicone boarder foam applied to area.
[2024-10-10] MEDS: MIRALAX PO (17:33)
[2024-10-10] MEDS: SENOKOT-S 1 TABLET PO (19:44)
[2024-10-10] MEDS: CARDURA 2 MG PO (21:13)
[2024-10-11] VITALS (8 sets, daily range): BP systolic 112–157; BP diastolic 64–86; PULSE 87; O2SAT 96; BMI 29.9
[2024-10-11] MEDS: NSS 1000 IV ×2 (04:16→21:28)
[2024-10-11] MEDS: ZOVIRAX INJECTION 266 MG IV ×3 (05:57→22:09)
[2024-10-11] MEDS: SYNTHROID 150 MCG PO (05:57)
--- NOTE | 2024-10-11 07:41 | W.PN.HOSP.TC ---
Today's Communication/Plan
-
see a/p
Assessment / Plan
Assessment / Plan
Physical Exam
General: Not in acute distress, appears comfortable at this time
HEENT: Thick neck. Not tender, no induration, erythema, palpable masses, etc.
Respiratory: CTAB
Cardiac: S1/S2 and Regular Rhythm
GI: Soft, Mildly Tender, Non Distended, Normal Bowel Sounds. Obese
Musculoskeletal: No Cyanosis and Trace pitting edema at the bilateral lower extremities
Neuro: AAO x 3 conversant coherent, Mild left-sided weakness in the UE and LE, Finger to nose is intact. Intact delayed recall and immediate recall
Assessment/Plan
79y M with PMH significant for hypothyroidism, hypertension and von Willebrand's disease who presents to ED complaining of weakness. History obtained from patient and his family at the bedside. Patient was in his usual states of good health
until about 3-4 weeks ago when he began to become more weak / fatigued. He was still able to complete his ADLs until this past 24-48 hours when his symptoms markedly worsened. Patient is followed by Nicko Mims for vWF. He receives monthly
IVIG (last dose 09/29). There is some question of multiple myeloma - though history there is not clear and patient does not appear to be on any treatment for this (records show MGUS). Patient developed fullness / swelling in the throat several
weeks ago. He was evaluated by ENT in their office Dr. Hicks. CT scan showed tonsillar hypertrophy but was otherwise unremarkable. He was treated briefly with antifungal medication for thrush (patient was having a sore throat) - but this was
stopped after fungal smear was negative. CT neck also showed incidental RUL nodule and patient has had CT C/A/P and PET-CT since that time for further evaluation. These revealed mildly FDG-avid (3.3) KADEN nodule (1.6cm). No other areas of
FDG-avidity. No other abnormal findings. Over the 48 hours prior to presentation, patient remained seated at home and has not left his chair. He reported shaking chills. Family has noted swelling in the legs - L > R - which is unusual for him.
Family noted that he seemed somewhat confused as well since 10/02/24 evening. 911 was called to the home this afternoon when patient was unable to get up. He decline ED evaluation at that time. Later in the afternoon family convinced him to
present to the ED for further evaluation. Patient was noted to be quite unsteady on his feet in the emergency department. He drove himself to his radiology appointments as recently as 2 days ago and had no significant issues.
Weakness / Ataxia / Confusion
Acute Toxic Metabolic Encephalopathy Likely Secondary to Encephalitis and Possibly From Pneumonia
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
Likely immunosuppressed from Daratumumab and Dex
- Differential is extensive at this time and includes hypothyroidism, infectious process, stroke, etc.
- Address individual issues below and follow for any new / worsening symptoms.
- CT head in the ED was unremarkable.
- MRI brain with suspected encephalitis, with infectious encephalitis being in the differential -- consulted ID, appreciate their evaluation and recommendations
- IR performed LP on 10/06/24 -- high protein, low glucose
- Continue Keppra -- newly started this admission
- Continue Acyclovir -- monitor renal function closely
- Since patient's Darzalex can be associated with CMV infection; CMV PCR included in meningitis/encephalitis PCR panel.
- Check EBV serology panel (he has had recently enlarged tonsils+fatigue) -- significant for prior infection with no apparent reactivation.
- HIV negative
- Syphilis screen positive
- PT / OT evaluations.
- Appreciate neurology
- Patient's agitation behaviors improved with Seroquel since discontinued d/t sedation
Syphilis screen : Positive. RPR 1:256. CSF VDRL negative.
- As per ID, given reported allergy to penicillin, may be able to complete a 14-day course of ceftriaxone with subsequent following of RPR titer to assess effect.
Diarrhea, Abdominal Pain and Nausea
Mild fluid right inguinal canal -- postsurgical change more likely versus unlikely incarcerated/strangulated hernia, no significant pain at this time -- seen on CT Imaging
Constipation
-Stool studies unremarkable
-Requested surgery evaluation since patient is symptomatic, appreciate surgery evaluation -- no concerns from their standpoint
-Initially had diarrhea, but as of 10/09/24, patient had not had a bowel movement for several days; AXR suggests moderate amount of stool within the rectum
-Start Miralax and Senokot-S
Gross Hematuria
Urinary Retention
-Recurrence during this hospitalization
-Patient was still having frequent hematuria -- urology mentions expected with von Willebrands but Hgb stable and vital stable
-CT without contrast with no obstructive uropathy or stones
-Consulted urology -- recommendation to continue bladder scans -- if PVR rising significantly, then place Negron -- but no interventions at this time as per urology
Concern for Symptomatic Hypothyroidism
- TSH = 16.8 and Free T4 = 0.39 this hospitalization
- Some confusion, weakness, ataxia, edema, questionable contribution hypothyroidism
- IV dose of levothyroxine given initially
- PO Levothyroxine dose increased to 150 mcg daily
- repeat TFTs in 1 month
Acute Hypoxic Respiratory Insufficiency - RESOLVED
Likely LLL Pneumonia
Small Right Pleural Effusion on AXR from 10/09/24
Nocturnal O2 Desaturation (see nocturnal O2 saturation report from 10/06/24 morning)
Cough Again on 10/04/24
History of Recurrent Colds
History of Recent Pneumonia on CT Neck (treated outpatient with PCP in late August 2024 to early September 2024)
-Continue Rocephin and Doxycycline
-ID onboard
-Pulmonary toilet -- but stopped Duonebs since patient is sensitive to albuterol with symptomatic mild tachycardia and cannot tolerate it
-Changed bronchodilators to Atrovent PRN given intolerance to Albuterol
-CT Abdomen/Pelvis from 10/07/24 showed bibasilar opacification -- most likely representing subsegmental atelectasis as well as tiny bilateral pleural effusions, left greater than right
-Follow cultures
Persistent neck swelling/enlarged tonsils since 09/01/24, (recently treated with 30 day course of Fluconazole)
Recent Tonsillar Hypertrophy
Recent Thrush
-Was seen outpatient by Dr. Anna Hicks (ENT) -- I communicated on 10/05/[address] [employer] [employer] [address] Anna Hicks who reported that she saw patient around mid to late September 2024, and at that time, patient had returned back
to normal according to Dr. Hicks
-EBV serology panel (he has had recently enlarged tonsils+fatigue) -- significant for prior infection with no apparent reactivation.
Right Upper Lobe Pulmonary Nodule -- indeterminate PET scan
- Saw Dr. Rider outpatient
- 1.6cm KADEN nodule seen on multiple recent images. Mildly FDG-avid without significant delayed uptake.
- Possible infectious component with 'low-grade' temp (99 here in the ED), chills, etc.
- Cover with antibiotics for now with ceftriaxone / doxycycline.
- Follow temperature curve and monitor for any new / worsening symptoms.
- May benefit from biopsy for further evaluation if no improvement / resolution with antibiotics.
Mild Hyponatremia
- Secondary to significant SIADH state based on lab results and clinical picture
- Oral fluid restriction for now.
- Cortisol 26.7
- Follow for improvement.
- 3% Saline with no significant improvement in sodium from 10/06/24 to 10/07/24
- Continue current IV fluids
Acute Kidney Injury - RESOLVED
- Improving
- IV fluids with Normal Saline IV Fluids 70 cc/hr as per nephrology
- Recheck BMP
- Continue to monitor renal function given patient is on Acyclovir
- CT Abdomen Pelvis 10/07/24 with no stone or obstructive process
Hypokalemia
- Replaced
- Monitor BMP
Hypomagnesemia
- Replaced
- Monitor Magnesium
Mild Bilateral Perinephric Stranding on CT Imaging
Hypertension
- Stable. Hold metoprolol acutely to avoid exacerbating hypothyroidism symptoms.
- Continue other medications with holding parameters.
Acquired vonWillebrand's Disease (started at age 49 y/o) on monthly IVIG, Darzalex
- Stable. Patient maintained on IVIG monthly - last injection was 09/29/24.
- Patient / family unclear on multiple myeloma history - not clear if this is formal diagnosis - was taking radioactive med per family until 6 months ago
- Family noted that he is being treated for vWF to 'prevent multiple myeloma'.
- Consulted hematology since patient getting IVIG, question of whether patient's IVIG treatment related to this
- Coagulation panel within normal limits, last von Willebrand panel was in January 2024 -- follow-up vonWillebrand panel
MGUS
- Has been on Decadron, Darzalex, and IVIG -- sees Dr. Lucio outpatient
Thrombocytopenia
- Improving
- possibly due to Darzalex
Edema
- LE swelling is likely due to hypothyroidism, immobility x 48 hours, etc.
- Now improved
- No DVT on LLE or RLE on imaging
Tiny Pericardial Effusion on CT Imaging
-On echo, there is no pericardial effusion
Tiny Bilateral Pleural Effusions on CT Imaging
-But on echo study, there was no pericardial effusion
Moderate prostate hypertrophy on CT Imaging
-Continue bladder scans protocol
Coronary Artery Disease
-Per Dr. Beronica Cantu and patient's daughter, patient has a history of this
Simple bilateral renal cysts
Appendicoliths
Speech/Diet: Speech evaluation completed on this patient. Recommended to downgrade to IDDSI level four (puree) and thin liquids. Significant pocketing of food. Also completed cognitive evaluation with score of 7/30 on [facility] mental
status (SLUMS) examination.
DVT Prophylaxis: No pharmacologic prophylaxis given vWF; use SCDs
Code Status: Full Code
discussed with patient and patient's daughter Jacqueline
I spent a total of 45 minutes with the patient or on the floor. More than 50% of this time involved counseling and coordination of care.
Anticipated Discharge: 24 - 48 hours
Subjective/Interval History
-
Date of Service: October 11, 2024
No acute distress sitting up comfortably in chair. Daughter Jacqueline present during evaluation. Mental status improving as per family at bedside. AOx3 conversant and coherent.
Objective Data
-
Labs:
Laboratory Results
10/11/24
07:25
WBC Pending
Hgb Pending
Hct Pending
Plt Count Pending
Sodium Pending
Potassium Pending
Chloride Pending
Carbon Dioxide Pending
BUN Pending
Creatinine Pending
Glucose Pending
Calcium Pending
Total Bilirubin Pending
AST Pending
ALT Pending
Alkaline Phosphatase Pending
Vital Signs:
Vital Signs
Temp Pulse Resp BP Pulse Ox
98.1 F 90 17 142/85 95
10/11/24 03:19 10/11/24 03:19 10/11/24 03:19 10/11/24 03:19 10/11/24 03:19
I&O
10/10/24 10/11/24 10/12/24
06:59 06:59 06:59
Intake Total 2089 / 2089 2500 / 2500
Output Total 2099 / 2099 2700 / 2700
Balance -10 / -10 -200 / -200
[2024-10-11 07:59] LABS: Hematocrit 28.7 % (39.0-52.0); Hemoglobin 10.2 g/dL (13.0-18.0); Mean Corp Hgb Conc. 35.5 g/dL (33.0-37.0); Mean Corpuscular Volume 95.7 fL (80.0-94.0); Platelet Count 110 10^3/uL (130-400); Red Cell Dist. Width 15.7 % (11.5-14.5)
[2024-10-11 08:41] LABS: ALT (SGPT) 19 U/L (0-50); AST (SGOT) 28 U/L (17-59); Albumin 2.8 g/dl (3.5-5.0); Alkaline Phosphatase 57 U/L (38-126); Blood Urea Nitrogen 14 mg/dl (9-20); Calcium 8.1 mg/dl (8.4-10.2); Carbon Dioxide 24 mmol/L (22-30); Chloride 111 mmol/L (98-107); Estimated Creatinine Clearance 65 ml/min; Glucose 97 mg/dl (70-99); Magnesium 1.7 mg/dl (1.6-2.3); Potassium 3.4 mmol/L (3.5-5.1); Sodium 137 mmol/L (135-145); Total Protein 5.1 g/dl (6.3-8.2); eGFR > 60.00
[2024-10-11 09:02] LABS: West Nile Virus, IgM, CSF 0.00 IV (<=0.89)
[2024-10-11] MEDS: SENOKOT-S 1 TABLET PO ×2 (09:20→21:05)
[2024-10-11] MEDS: MUCINEX 600 MG PO ×2 (09:21→21:05)
[2024-10-11] MEDS: PROTONIX 40 MG PO (09:21)
[2024-10-11] MEDS: NORVASC 5 MG PO (09:21)
[2024-10-11] MEDS: MIRALAX PO (09:21)
[2024-10-11] MEDS: STERILE WATER FOR INJECTION 20 ML IV (09:21)
[2024-10-11] MEDS: VIBRAMYCIN 100 MG PO ×2 (09:21→21:05)
[2024-10-11] MEDS: ROCEPHIN 2000 MG IV (09:22)
[2024-10-11 09:26] LABS: Nucleated Red Blood Cells % 0 % (-)
[2024-10-11] MEDS: KEPPRA 500 MG PO ×2 (09:32→21:05)
--- NOTE | 2024-10-11 09:32 | W.PN.ONC ---
Today's Communication / Plan
-
Given normal coagulation panel, patient is hematologically stable. von Willebrand panel results still pending. Consult from urology for hematuria stated no further actions at this time.
Will continue to follow
Impression
Impression
Patient is an 79 year old male with PMH of HTN, GERD, hypothyroidism who is followed for history of IgG kappa monoclonal gammopathy diagnosed in 2006 and acquired von Willebrand disorder who presented to the ED with weakness and ataxia.
Weakness / Ataxia / Confusion
- Etiology unclear, likely of neuro origin - CSF detected HSV1, started on acyclovir
- Primary team addressing individual issues including symptomatic hypothyroidism, hyponatremia
Pulmonary Nodule
- 1.6cm KADEN nodule seen on multiple recent images. Mildly FDG-avid without significant delayed uptake.
Acquired vonWillebrand's Disease
- Patient maintained on IVIG and Darzalex monthly - last injection was 09/22/2024
- Coagulation panel within normal limits, last von Willebrand panel was in January 2024, new von Willebrand panel still pending
Plan
Plan
Normal coagulation panel, von Willebrand panel results still pending.
Will continue to follow
Subjective/Objective
Subjective/Objective
Patient seen sitting up in chair this morning with daughter at the bedside. Patient is much more aware and conversational today. Patient states that he 'worked out this morning' with PT and is feeling better. Daughter states that patient was very
forgetful yesterday, not remembering his son staying with him or if he used the bathroom. Negative ROS.
Phyiscal Exam:
General: not in acute distress
HEENT: appreciable neck swelling b/l
Cardiovascularlar: RRR
Respiratory: normal breath sounds
Abdomen: No tenderness, mild distention
Extremeties: No swelling appreciated b/l, not wearing SCDs
Vital Signs:
Vital Signs
Temp Pulse Resp BP Pulse Ox
98.4 F 88 18 142/86 94
10/11/24 07:39 10/11/24 07:39 10/11/24 07:39 10/11/24 07:39 10/11/24 07:39
Lab Results:
Laboratory Data
WBC 4.0 10^3/uL (4.8-10.8) L 10/11/24 07:25
Hgb 10.2 g/dL (13.0-18.0) L 10/11/24 07:25
Plt Count 110 10^3/uL (130-400) L 10/11/24 07:25
PT 13.7 Sec (11.4-14.6) 10/05/24 04:24
INR 1.01 10/05/24 04:24
APTT 32.2 Sec (23.4-35.0) 10/05/24 04:24
eGFR > 60.00 10/11/24 07:25
[2024-10-11] MEDS: KCL 40 MEQ PO (10:28)
[2024-10-11] MEDS: MAGNESIUM SULFATE 50 IV (10:31)
--- NOTE | 2024-10-11 11:06 | W.PN.NEPH.PH ---
Today's Communication / Plan
-
cont IVF while on IV antiviral
could reduce rate to 50cc/hr if needed
Assessment/Plan
-
Assessment
Von Willebrand's disease, acquired
Nausea
Right upper lobe pulmonary nodule
Hyponatremia acute
Hypertension
Confusion
MGUS
HSV encephalitis
+RPR 1:256 (syphilis)
Plan
normal renal function cr at 0.9
replace k
cotn IVF NS while on IV acyclovir
Antibiotics for syphilis, VDRL neg
Antiviral for HSV encephalitis
will s/o call with ?s
-
-
Date of Service: October 11, 2024
CC / HPI / ROS
-
Chief Complaint:
Altered mental status
History of Present Illness:
Presents with altered mental status hyponatremia
Remains pancytopenic
Potassium low a 3.4, sodium normal
Mag better at 1.6
MAGNOLIA/creatinine stbale at 0.9
BP stable
On acyclovir for HSV encephalitis
mental status slightly improved
Review of Systems:
Patient more awake but family reports pt has no recollection of yesterday events
fever last night
non oliguric
Labs
-
Labs:
WBC 4.0 10^3/uL (4.8-10.8) L 10/11/24 07:25
RBC 3.00 10^6/uL (4.70-6.10) L 10/11/24 07:25
Hgb 10.2 g/dL (13.0-18.0) L 10/11/24 07:25
Hct 28.7 % (39.0-52.0) L 10/11/24 07:25
Plt Count 110 10^3/uL (130-400) L 10/11/24 07:25
Sodium 137 mmol/L (135-145) 10/11/24 07:25
Potassium 3.4 mmol/L (3.5-5.1) L 10/11/24 07:25
Chloride 111 mmol/L (98-107) H 10/11/24 07:25
Carbon Dioxide 24 mmol/L (22-30) 10/11/24 07:25
BUN 14 mg/dl (9-20) 10/11/24 07:25
Creatinine 0.9 mg/dL (0.7-1.3) 10/11/24 07:25
eGFR > 60.00 10/11/24 07:25
Glucose 97 mg/dl (70-99) 10/11/24 07:25
Calcium 8.1 mg/dl (8.4-10.2) L 10/11/24 07:25
Phosphorus 3.2 mg/dl (2.5-4.5) 10/04/24 05:43
Wyi-E-Xqapdvtwrys Pept 428 pg/ml 10/03/24 17:37
Albumin 2.8 g/dl (3.5-5.0) L 10/11/24 07:25
Physical Exam
-
Vital Signs:
Vital Signs
Temp Pulse Resp BP Pulse Ox
98.4 F 88 18 142/86 94
10/11/24 07:39 10/11/24 07:39 10/11/24 07:39 10/11/24 09:21 10/11/24 07:39
Cardiovascular:: Regular rate and rhythm
Respiratory:: Bilateral: CTA
Lung Excursion:: Normal
Abdomen:: Nontender and Soft
Bowel Sounds:: Normal
Extremity Edema:: None: Bilateral:
Negron Catheter: No
--- NOTE | 2024-10-11 12:32 | W.PN.ID1 ---
Date of Service
Date of Service: October 11, 2024
Today's Communication
Continue acyclovir and ceftriaxone.
Assessment / Plan
# HSV-1 encephalitis
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
# Possible CAP
# PCN allergy
# Persistent neck swelling/enlarged tonsils since 09/01, (recently tx'd with clotrimazole by ENT)
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
# Thrombocytopenia stable, possibly due to Darzalex
- Blood cx's neg to date
- C. diff neg, stool cx neg
- CT a/p unremarkable
-MRI brain: cortical restricted diffusion involving the anterior right frontal lobe extending into the hippocampus and right insular cortex. There is additional foci of diffusion hyperintense signal within the posterior aspect of the right thalamus
- 10/05 EEG: EEG 10/05 showing epileptogenic right frontal lobe
- Continue Acyclovir 800 mg IV q8h. (d#7 )
- Monitor renal function closely. Creatinine = 0.9
- Syphilis RPR 1:256, Of note RPR negative in 2021 base on review of [facility] labs.
Unlikely neurosyphilis as CSF only 4 WBC. CSF VDRL neg
Continue ceftriaxone 2 gm IV q24h (d#9). Trend RPR titer in 3 months after completion of tx.
- DC doxycycline (d#8) for CAP.
- HIV negative.
Chief Complaint
-: Other (Change in mental status; HSV 1 encephalitis; Positive RPR)
Subjective / Review of Systems
Daughter at bedside. Patient was very confused yesterday. Today, some what better.
Vital Signs / Physical Exam
Vital Signs
Vital Signs
Temp Pulse Resp BP Pulse Ox
97.6 F 91 16 139/85 97
10/11/24 11:10 10/11/24 11:10 10/11/24 11:10 10/11/24 11:10 10/11/24 11:10
Physical Exam
Constitutional: No Acute Distress and Comfortable
Cardiovascular: Regular Rate and S1/S2
Pulmonary: Clear
Gastrointestinal: Soft, Non Tender, Non Distended and Normal Bowel Sounds
Neurological: Other (drowsy)
Objective Data
Lab Data
Lab Results
10/11/24 07:25
10/11/24 07:25
PT 13.7 Sec (11.4-14.6) 10/05/24 04:24
INR 1.01 10/05/24 04:24
APTT 32.2 Sec (23.4-35.0) 10/05/24 04:24
Estimated Creat Clear 65 ml/min 10/11/24 07:25
Total Bilirubin 0.8 mg/dl (0.2-1.3) 10/11/24 07:25
AST 28 U/L (17-59) 10/11/24 07:25
ALT 19 U/L (0-50) 10/11/24 07:25
Alkaline Phosphatase 57 U/L (38-126) 10/11/24 07:25
Most recent labs reviewed.
Micro Results:
10/06/24 14:08 CSF Culture - Final
Csf No Growth After 5 Days - Final Report
Gram Stain - Final
10/03/24 21:18 Blood Culture - Final
Blood/Venous No Growth - Final Report
10/03/24 20:58 Blood Culture - Final
Blood/Venous No Growth - Final Report
10/04/24 08:16 Salmonella/Shigella Culture - Final
Feces/Stool No Salmonella, Shigella, Aeromonas or Plesiomonas species
isolated.
Campylobacter Culture - Final
No Campylobacter species isolated.
Shiga Toxin Test - Final
No E. coli Shiga Toxin 1 or 2 detected.
Stool Leukocytes - Final
10/06/24 14:08 Meningitis/Encephalitis Panel (PCR) - Final
Csf
10/06/24 14:08 Fungal Smear - Pending
Csf Fungal Culture - Preliminary
Culture in progress.
Positive cultures are reported as soon as detected.
Final report to follow in four to five weeks.
10/04/24 09:20 MRSA Screen - Final
Nose No Methicillin Resistant Staphylococcus aureus isolated.
10/04/24 09:20 Urine Culture - Final
Urine NO GROWTH
10/04/24 17:36 Influenza Types A & B (RDAHA) - Final
Nasal Swab Negative for Influenza A & B, NAAT
Negative results must be combined with clinical observations
and patient history.
Nucleic Acid Amplification test (NAAT)performed on the
[employer] platform.
10/04/24 17:36 Legionella Urinary Antigen - Final
Urine Negative for Legionella pneumophila Serogroup 1 antigen.
A negative result does not rule out the possiblity of
Legionella infection due to other serogroups or species of
Legionella. Clinical correlation is recommended.
Streptococcus pneumoniae Antigen (M - Final
Negative for Streptococcus pneumoniae antigen.
A negative result does not exclude infection with
Streptococcus pneumoniae. Clinical correlation is
recommended.
10/04/24 08:16 - Final
Feces/Stool Negative for Norovirus GI and GII.
10/04/24 08:16 C. difficile GDH Antigen & Toxins - Final
Feces/Stool Negative for toxigenic C.difficile
Meningitis Panel, CSF by PCR Final 10/06/24-1609
Escherichia coli K1 Not Detected
Haemophilus influenzae Not Detected
Listeria monocytogenes Not Detected
Neisseria meningitidis Not Detected
Cytomegalovirus (CMV) Not Detected
Streptococcus agalactiae Not Detected
Streptococcus pneumoniae Not Detected
Enterovirus Not Detected
--> Herpes simplex virus 1 DETECTED <--
Herpes simplex virus 2 Not Detected
Human herpesvirus 6 Not Detected
Human parechovirus Not Detected
Varicella zoster virus Not Detected
C. neoformans/gattii Not Detected
CSF
10/06/24 10/06/24
14:08 14:09
CSF Appearance Clear
CSF Color Colorless
CSF WBC 4
CSF RBC 14
CSF Cell Count Tube # 2
CSF Glucose 72 H
CSF Total Protein 217 H
CSF VDRL Non reactive
10/06/24
04:55
Syphilis Serology Positive
RPR Titer 1:256
RPR Reactive
HIV Ag/Ab Combo Qual Negative
10/04/24 Brain MRI: There is predominant cortical restricted diffusion involving the anterior right frontal lobe extending into the hippocampus and right insular cortex. There is additional foci of diffusion hyperintense signal within the posterior
aspect of the right thalamus. This constellation of findings can be seen in encephalitis (herpes or limbic), status epilepticus or acute infarction. Additionally Creutzfeld Christiano disease is considered unlikely, however cannot be excluded. Consider
correlation with CSF studies.
10/04/24 CXR: New minimal left lower lobe atelectasis versus scarring
10/04/24 CT Pe/abd/pel W: Mild left lower lobe airspace disease suggesting pneumonia. New
No acute pathology of the abdomen or pelvis identified
10/01/24 PET: Stable solitary right upper lobe pulmonary nodule which demonstrates mild FDG activity (with only minimal further increase on delayed imaging). This remains indeterminate with differential including infectious/inflammatory nodule or low
metabolic rate neoplasm.
09/01/[address]: Significant symmetric enlargement of the bilateral tonsillar soft tissues, which could be secondary to tonsillar hypertrophy or tonsillitis, with secondary narrowing of the oropharynx and hypopharynx. Bilateral pulmonary parenchymal
opacities suggesting pneumonia. 1.6 cm solid pulmonary nodule in the right upper lobe.
--- NOTE | 2024-10-11 14:50 | PTOTSP ---
Speech Language Pathology
Pt seen for dysphagia tx. Taking meds whole with water per RN without difficulty. Continues on IDDSI Level 4 solids/thin liquids. Daughter present at bedside. She has been feeding pt meals. She denied any coughing or pocketing with meals. Seen
with P.O. trials of puree, regular solids, and thin liquids. Adequate mastication, bolus formation, and A-P transit noted with no pocketing. Only trace residual on lingual surface, which cleared with a liquid wash. No overt signs of aspiration.
Recommend:
(1) Upgrade to regular solids/thin liquids
(2) Aspiration precautions: ensure oral cavity clear post P.O. intake, sit upright, full supervision
(3) Meds as tolerated
(4) ENGINE CLEANER to continue to follow
--- NOTE | 2024-10-11 15:59 | CM ---
CM met with pt and dtr bedside- pt slept through meeting
[place] and pt resides with his granddtr who works out of the home
Acute recs by therapy
Dtr in agreement- PAC lists provided
Referral to [facility] via [facility]
Encouraged dtr to consider SNF backup choices- she will review and provide chooice
Role of PMR and auth reviewed with dtr
Dtr noted pt receives outpt IVIG either Q2 weeks vs monthly through [facility] in [place]?
She will provide further details
PMR eval requested TT/Dr Garza
Discharge Disposition- acute pending auth
[2024-10-11 17:19] LABS: Von Willebrands Factor Antigen 471 % (52-214)
[2024-10-11] MEDS: CARDURA 2 MG PO (22:09)
[2024-10-12] VITALS (7 sets, daily range): BP systolic 112–148; BP diastolic 72–85; BMI 30.2
[2024-10-12] MEDS: SYNTHROID 150 MCG PO (05:09)
[2024-10-12] MEDS: ZOVIRAX INJECTION 266 MG IV ×3 (05:09→21:20)
[2024-10-12 06:56] LABS: Hematocrit 29.1 % (39.0-52.0); Hemoglobin 10.3 g/dL (13.0-18.0); Mean Corp Hgb Conc. 35.4 g/dL (33.0-37.0); Mean Corpuscular Volume 95.7 fL (80.0-94.0); Platelet Count 110 10^3/uL (130-400); Red Cell Dist. Width 15.8 % (11.5-14.5)
[2024-10-12 07:05] LABS: ALT (SGPT) 18 U/L (0-50); AST (SGOT) 26 U/L (17-59); Albumin 2.7 g/dl (3.5-5.0); Alkaline Phosphatase 57 U/L (38-126); Blood Urea Nitrogen 13 mg/dl (9-20); Calcium 8.0 mg/dl (8.4-10.2); Carbon Dioxide 25 mmol/L (22-30); Chloride 109 mmol/L (98-107); Estimated Creatinine Clearance 74 ml/min; Glucose 95 mg/dl (70-99); Potassium 3.5 mmol/L (3.5-5.1); Sodium 135 mmol/L (135-145); Total Protein 5.1 g/dl (6.3-8.2); eGFR > 60.00
[2024-10-12] MEDS: NSS IV (07:33)
[2024-10-12 07:39] LABS: Nucleated Red Blood Cells % 0 % (-)
--- NOTE | 2024-10-12 08:27 | W.PN.UPDATE ---
Update Note
Progress Note Update
von willebrand panel reviewed. Levels above normal (as can be seen in acute inflammation).
Acquired von willebrand disease is fully controlled w/ outpatient treatment, therefore, unrelated to any bleeding issues.
Heme will sign off. Patient will need to f/u with his outpatient [employer].
[2024-10-12] MEDS: VIBRAMYCIN 100 MG PO (08:30)
[2024-10-12] MEDS: MUCINEX 600 MG PO ×2 (08:30→19:47)
[2024-10-12] MEDS: ROCEPHIN 2000 MG IV (08:30)
[2024-10-12] MEDS: SENOKOT-S 1 TABLET PO ×2 (08:30→19:47)
[2024-10-12] MEDS: STERILE WATER FOR INJECTION 20 ML IV (08:30)
[2024-10-12] MEDS: KEPPRA 500 MG PO ×2 (08:31→19:47)
[2024-10-12] MEDS: PROTONIX 40 MG PO (08:31)
[2024-10-12] MEDS: NORVASC 5 MG PO (08:31)
[2024-10-12] MEDS: MIRALAX 17 GRAMS PO (08:32)
--- NOTE | 2024-10-12 09:52 | W.PN.HOSP.TC ---
Today's Communication/Plan
-
cont abx and antiviral
discharge planning Acute Rehab
bowel regimen
PT/OT
Assessment / Plan
Assessment / Plan
Physical Exam
General: Not in acute distress, appears comfortable at this time
HEENT: Thick neck. Not tender, no induration, erythema, palpable masses, etc.
Respiratory: CTAB
Cardiac: S1/S2 and Regular Rhythm
GI: Soft, Mildly Tender, Non Distended, Normal Bowel Sounds. Obese
Musculoskeletal: No Cyanosis and Trace pitting edema at the bilateral lower extremities
Neuro: AAO x 3 conversant coherent
Assessment/Plan
79y M with PMH significant for hypothyroidism, hypertension and von Willebrand's disease who presents to ED complaining of weakness. History obtained from patient and his family at the bedside. Patient was in his usual states of good health
until about 3-4 weeks ago when he began to become more weak / fatigued. He was still able to complete his ADLs until this past 24-48 hours when his symptoms markedly worsened. Patient is followed by Nicko Mims for vWF. He receives monthly
IVIG (last dose 09/29). There is some question of multiple myeloma - though history there is not clear and patient does not appear to be on any treatment for this (records show MGUS). Patient developed fullness / swelling in the throat several
weeks ago. He was evaluated by ENT in their office Dr. Hicks. CT scan showed tonsillar hypertrophy but was otherwise unremarkable. He was treated briefly with antifungal medication for thrush (patient was having a sore throat) - but this was
stopped after fungal smear was negative. CT neck also showed incidental RUL nodule and patient has had CT C/A/P and PET-CT since that time for further evaluation. These revealed mildly FDG-avid (3.3) KADEN nodule (1.6cm). No other areas of
FDG-avidity. No other abnormal findings. Over the 48 hours prior to presentation, patient remained seated at home and has not left his chair. He reported shaking chills. Family has noted swelling in the legs - L > R - which is unusual for him.
Family noted that he seemed somewhat confused as well since 10/02/24 evening. 911 was called to the home this afternoon when patient was unable to get up. He decline ED evaluation at that time. Later in the afternoon family convinced him to
present to the ED for further evaluation. Patient was noted to be quite unsteady on his feet in the emergency department. He drove himself to his radiology appointments as recently as 2 days ago and had no significant issues.
Weakness / Ataxia / Confusion
Acute Toxic Metabolic Encephalopathy Likely Secondary to Encephalitis and Possibly From Pneumonia
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
Likely immunosuppressed from Daratumumab and Dex
- Differential is extensive at this time and includes hypothyroidism, infectious process, stroke, etc.
- Address individual issues below and follow for any new / worsening symptoms.
- CT head in the ED was unremarkable.
- MRI brain with suspected encephalitis, with infectious encephalitis being in the differential -- consulted ID, appreciate their evaluation and recommendations
- IR performed LP on 10/06/24 -- high protein, low glucose
- Continue Keppra -- newly started this admission
- Continue Acyclovir as per ID 21 day course through 10/25/24
- Since patient's Darzalex can be associated with CMV infection; CMV PCR included in meningitis/encephalitis PCR panel.
- Check EBV serology panel (he has had recently enlarged tonsils+fatigue) -- significant for prior infection with no apparent reactivation.
- HIV negative
- Syphilis screen positive
- PT / OT evaluations.
- Appreciate neurology
- Patient's agitation behaviors improved with Seroquel since discontinued d/t sedation, agitation remains resolved at this time
Syphilis screen : Positive. RPR 1:256. CSF VDRL negative.
- As per ID, given reported allergy to penicillin, may be able to complete a 14-day course of ceftriaxone with subsequent following of RPR titer to assess effect.
Diarrhea, Abdominal Pain and Nausea
Mild fluid right inguinal canal -- postsurgical change more likely versus unlikely incarcerated/strangulated hernia, no significant pain at this time -- seen on CT Imaging
Constipation
-Stool studies unremarkable
-Requested surgery evaluation since patient is symptomatic, appreciate surgery evaluation -- no concerns from their standpoint
-Initially had diarrhea, but as of 10/09/24, patient had not had a bowel movement for several days; AXR suggests moderate amount of stool within the rectum
-Start Miralax and Senokot-S
Gross Hematuria
Urinary Retention
-Recurrence during this hospitalization
-Patient was still having frequent hematuria -- urology mentions expected with von Willebrands but Hgb stable and vital stable
-CT without contrast with no obstructive uropathy or stones
-Consulted urology -- recommendation to continue bladder scans -- if PVR rising significantly, then place Negron -- but no interventions at this time as per urology
Concern for Symptomatic Hypothyroidism
- TSH = 16.8 and Free T4 = 0.39 this hospitalization
- Some confusion, weakness, ataxia, edema, questionable contribution hypothyroidism
- IV dose of levothyroxine given initially
- PO Levothyroxine dose increased to 150 mcg daily
- repeat TFTs in 1 month
Acute Hypoxic Respiratory Insufficiency - RESOLVED
Likely LLL Pneumonia
Small Right Pleural Effusion on AXR from 10/09/24
Nocturnal O2 Desaturation (see nocturnal O2 saturation report from 10/06/24 morning)
Cough Again on 10/04/24
History of Recurrent Colds
History of Recent Pneumonia on CT Neck (treated outpatient with PCP in late August 2024 to early September 2024)
-Continue Rocephin and Doxycycline
-ID onboard
-Pulmonary toilet -- but stopped Duonebs since patient is sensitive to albuterol with symptomatic mild tachycardia and cannot tolerate it
-Changed bronchodilators to Atrovent PRN given intolerance to Albuterol
-CT Abdomen/Pelvis from 10/07/24 showed bibasilar opacification -- most likely representing subsegmental atelectasis as well as tiny bilateral pleural effusions, left greater than right
-Follow cultures
Persistent neck swelling/enlarged tonsils since 09/01/24, (recently treated with 30 day course of Fluconazole)
Recent Tonsillar Hypertrophy
Recent Thrush
-Was seen outpatient by Dr. Anna Hicks (ENT) -- I communicated on 10/05/[address] [facility] [employer] [address] Anna Hicks who reported that she saw patient around mid to late September 2024, and at that time, patient had returned back
to normal according to Dr. Hicks
-EBV serology panel (he has had recently enlarged tonsils+fatigue) -- significant for prior infection with no apparent reactivation.
Right Upper Lobe Pulmonary Nodule -- indeterminate PET scan
- follows Dr. Rider outpatient
- 1.6cm KADEN nodule seen on multiple recent images. Mildly FDG-avid without significant delayed uptake.
- Cover with abx ceftriaxone / doxycycline.
- May benefit from biopsy for further evaluation if no improvement / resolution with antibiotics.
Mild Hyponatremia
- fluid restriction
- improved/resolved at this time
Acute Kidney Injury - RESOLVED
- IV fluids with Normal Saline IV Fluids 70 cc/hr as per nephrology
- Continue to monitor renal function given patient is on Acyclovir
- CT Abdomen Pelvis 10/07/24 with no stone or obstructive process
Hypokalemia
Hypomagnesemia
-monitor and replete as necessary
Mild Bilateral Perinephric Stranding on CT Imaging
Hypertension
- Stable
-Cont antihypertensives
Acquired vonWillebrand's Disease (started at age 49 y/o) on monthly IVIG, Darzalex
- Stable. Patient maintained on IVIG monthly - last injection was 09/29/24.
- Hematology eval appreciated Acquired von willebrand disease fully controlled at this time, continued outpt hematology follow up recommended
MGUS
- Has been on Decadron, Darzalex, and IVIG -- sees Dr. Lucio outpatient
Thrombocytopenia
- Mild, stable
Edema
- LE swelling is likely due to hypothyroidism, immobility x 48 hours, etc.
- Improved
- No DVT on LLE or RLE on imaging
Moderate prostate hypertrophy on CT Imaging
-Continue bladder scans protocol
Coronary Artery Disease
Simple bilateral renal cysts
Appendicoliths
Speech/Diet: Speech evaluation completed on this patient. Recommended to downgrade to IDDSI level four (puree) and thin liquids. Significant pocketing of food. Also completed cognitive evaluation with score of 7/30 on [facility] mental
status (SLUMS) examination. Later evaluation noted improvement in swallow, diet since upgraded to regular
DVT Prophylaxis: SCDs
Code Status: Full Code
discussed with patient and patient's daughter Jacqueline
I spent a total of 45 minutes with the patient or on the floor. More than 50% of this time involved counseling and coordination of care.
Anticipated Discharge: 24 - 48 hours
Subjective/Interval History
-
Date of Service: October 12, 2024
Seen and examined at bedside in no acute distress resting comfortably in bed. AOx3 conversant coherent. Endorses fatigue. Daughter Jacqueline at bedside also notes persistent memory issues- not remembering family visiting overnight. Patient also
noted constipation.
Objective Data
-
Labs:
Laboratory Results
10/12/24
06:00
WBC 4.5 L
Hgb 10.3 L
Hct 29.1 L
Plt Count 110 L
Sodium 135
Potassium 3.5
Chloride 109 H
Carbon Dioxide 25
BUN 13
Creatinine 0.9
Glucose 95
Calcium 8.0 L
Total Bilirubin 0.8
AST 26
ALT 18
Alkaline Phosphatase 57
Vital Signs:
Vital Signs
Temp Pulse Resp BP Pulse Ox
97.6 F 87 16 139/85 96
10/12/24 07:45 10/12/24 08:31 10/12/24 07:45 10/12/24 08:31 10/12/24 07:45
I&O
10/11/24 10/12/24 10/13/24
06:59 06:59 06:59
Intake Total 2500 / 2500 3086 / 3086
Output Total 2700 / 2700 2250 / 2250
Balance -200 / -200 836 / 836
[2024-10-12] MEDS: NSS 1000 IV (13:05)
--- NOTE | 2024-10-12 13:44 | W.PN.ID1 ---
Date of Service
Date of Service: October 12, 2024
Today's Communication
See below.
Assessment / Plan
# HSV-1 encephalitis
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
# PCN allergy
# Persistent neck swelling/enlarged tonsils since 09/01, (recently tx'd with clotrimazole by ENT)
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
# Thrombocytopenia stable, possibly due to Darzalex
- Blood cx's neg to date
- C. diff neg, stool cx neg
- CT a/p unremarkable
-MRI brain: cortical restricted diffusion involving the anterior right frontal lobe extending into the hippocampus and right insular cortex. There is additional foci of diffusion hyperintense signal within the posterior aspect of the right thalamus
- 10/05 EEG: EEG 10/05 showing epileptogenic right frontal lobe
- Continue Acyclovir 800 mg IV q8h. (d#8 )
Plan to treat with IV acyclovir x 21d through 10/25/24 as pt mental status slow to improve.
- Monitor renal function 3x/week while in IV acyclovir. Creatinine = 0.9
- Syphilis RPR 1:256.
Of note RPR negative in 2021 base on review of [facility] labs.
Unlikely neurosyphilis as CSF only 4 WBC. CSF VDRL neg
Continue ceftriaxone 2 gm IV q24h (d#9 of ).
Trend RPR titer in 3 months after completion of tx until at least 4 fold decrease in titer.
- HIV negative.
- Infusion sheet submitted to special education case manager.
Chief Complaint
-: Other (Change in mental status; HSV 1 encephalitis; Positive RPR)
Subjective / Review of Systems
Per daughter, patient with poor recall of recent events.
Pt reports feeling better.
Vital Signs / Physical Exam
Vital Signs
Vital Signs
Temp Pulse Resp BP Pulse Ox
98.4 F 84 18 145/85 96
10/12/24 11:35 10/12/24 11:35 10/12/24 11:35 10/12/24 11:35 10/12/24 11:35
Physical Exam
Constitutional: Non-toxic
Eyes: No Conjunctival Hemorrhage and Sclera Anicteric
Cardiovascular: Regular Rate and S1/S2
Pulmonary: Clear
Gastrointestinal: Soft, Non Tender, Non Distended and Normal Bowel Sounds
Neurological: Awake and Alert
Objective Data
Lab Data
Lab Results
10/12/24 06:00
10/12/24 06:00
PT 13.7 Sec (11.4-14.6) 10/05/24 04:24
INR 1.01 10/05/24 04:24
APTT 32.2 Sec (23.4-35.0) 10/05/24 04:24
Estimated Creat Clear 74 ml/min 10/12/24 06:00
Total Bilirubin 0.8 mg/dl (0.2-1.3) 10/12/24 06:00
AST 26 U/L (17-59) 10/12/24 06:00
ALT 18 U/L (0-50) 10/12/24 06:00
Alkaline Phosphatase 57 U/L (38-126) 10/12/24 06:00
Most recent labs reviewed.
Micro Results:
10/06/24 14:08 Fungal Smear - Final
Csf No yeast or fungal elements seen.
Fungal Culture - Preliminary
Culture in progress.
Positive cultures are reported as soon as detected.
Final report to follow in four to five weeks.
10/06/24 14:08 CSF Culture - Final
Csf No Growth After 5 Days - Final Report
Gram Stain - Final
10/03/24 21:18 Blood Culture - Final
Blood/Venous No Growth - Final Report
10/03/24 20:58 Blood Culture - Final
Blood/Venous No Growth - Final Report
10/04/24 08:16 Salmonella/Shigella Culture - Final
Feces/Stool No Salmonella, Shigella, Aeromonas or Plesiomonas species
isolated.
Campylobacter Culture - Final
No Campylobacter species isolated.
Shiga Toxin Test - Final
No E. coli Shiga Toxin 1 or 2 detected.
Stool Leukocytes - Final
10/06/24 14:08 Meningitis/Encephalitis Panel (PCR) - Final
Csf
10/04/24 09:20 MRSA Screen - Final
Nose No Methicillin Resistant Staphylococcus aureus isolated.
10/04/24 09:20 Urine Culture - Final
Urine NO GROWTH
10/04/24 17:36 Influenza Types A & B (RADHA) - Final
Nasal Swab Negative for Influenza A & B, NAAT
Negative results must be combined with clinical observations
and patient history.
Nucleic Acid Amplification test (NAAT)performed on the
[employer] platform.
10/04/24 17:36 Legionella Urinary Antigen - Final
Urine Negative for Legionella pneumophila Serogroup 1 antigen.
A negative result does not rule out the possiblity of
Legionella infection due to other serogroups or species of
Legionella. Clinical correlation is recommended.
Streptococcus pneumoniae Antigen (M - Final
Negative for Streptococcus pneumoniae antigen.
A negative result does not exclude infection with
Streptococcus pneumoniae. Clinical correlation is
recommended.
10/04/24 08:16 - Final
Feces/Stool Negative for Norovirus GI and GII.
10/04/24 08:16 C. difficile GDH Antigen & Toxins - Final
Feces/Stool Negative for toxigenic C.difficile
Meningitis Panel, CSF by PCR Final 10/06/24-1609
Escherichia coli K1 Not Detected
Haemophilus influenzae Not Detected
Listeria monocytogenes Not Detected
Neisseria meningitidis Not Detected
Cytomegalovirus (CMV) Not Detected
Streptococcus agalactiae Not Detected
Streptococcus pneumoniae Not Detected
Enterovirus Not Detected
--> Herpes simplex virus 1 DETECTED <--
Herpes simplex virus 2 Not Detected
Human herpesvirus 6 Not Detected
Human parechovirus Not Detected
Varicella zoster virus Not Detected
C. neoformans/gattii Not Detected
CSF
10/06/24 10/06/24
14:08 14:09
CSF Appearance Clear
CSF Color Colorless
CSF WBC 4
CSF RBC 14
CSF Cell Count Tube # 2
CSF Glucose 72 H
CSF Total Protein 217 H
CSF VDRL Non reactive
10/06/24
04:55
Syphilis Serology Positive
RPR Titer 1:256
RPR Reactive
HIV Ag/Ab Combo Qual Negative
10/04/24 Brain MRI: There is predominant cortical restricted diffusion involving the anterior right frontal lobe extending into the hippocampus and right insular cortex. There is additional foci of diffusion hyperintense signal within the posterior
aspect of the right thalamus. This constellation of findings can be seen in encephalitis (herpes or limbic), status epilepticus or acute infarction. Additionally Creutzfeld Christiano disease is considered unlikely, however cannot be excluded. Consider
correlation with CSF studies.
10/04/24 CXR: New minimal left lower lobe atelectasis versus scarring
10/04/24 CT Pe/abd/pel W: Mild left lower lobe airspace disease suggesting pneumonia. New
No acute pathology of the abdomen or pelvis identified
10/01/24 PET: Stable solitary right upper lobe pulmonary nodule which demonstrates mild FDG activity (with only minimal further increase on delayed imaging). This remains indeterminate with differential including infectious/inflammatory nodule or low
metabolic rate neoplasm.
09/01/[address]: Significant symmetric enlargement of the bilateral tonsillar soft tissues, which could be secondary to tonsillar hypertrophy or tonsillitis, with secondary narrowing of the oropharynx and hypopharynx. Bilateral pulmonary parenchymal
opacities suggesting pneumonia. 1.6 cm solid pulmonary nodule in the right upper lobe.
--- NOTE | 2024-10-12 14:09 | CM ---
Reviewed the chart notes. Script for IV abx received via TT and attached in Care Port. PMR evaluation pending. Referral sent to [facility] via [facility] previously. CM continues to be available to patient/family and is monitoring medical plan for
needs at discharge.
Plan: Discharge to Acute Rehab if appropriate vs SNF.
[2024-10-12] MEDS: CARDURA 2 MG PO (21:20)
[2024-10-13] VITALS (7 sets, daily range): BP systolic 108–152; BP diastolic 50–88; BMI 29.8
[2024-10-13] MEDS: SYNTHROID 150 MCG PO (06:01)
[2024-10-13] MEDS: ZOVIRAX INJECTION 266 MG IV ×3 (06:03→21:51)
[2024-10-13 06:56] LABS: Hematocrit 28.4 % (39.0-52.0); Hemoglobin 10.2 g/dL (13.0-18.0); Mean Corp Hgb Conc. 35.9 g/dL (33.0-37.0); Mean Corpuscular Volume 95.9 fL (80.0-94.0); Platelet Count 114 10^3/uL (130-400); Red Cell Dist. Width 15.6 % (11.5-14.5)
[2024-10-13] MEDS: NSS IV ×2 (07:11→07:26)
[2024-10-13] MEDS: NSS 1000 IV ×2 (07:25→21:51)
[2024-10-13 07:30] LABS: Blood Urea Nitrogen 11 mg/dl (9-20); Estimated Creatinine Clearance 74 ml/min; Glucose 89 mg/dl (70-99)
[2024-10-13 07:31] LABS: Calcium 8.0 mg/dl (8.4-10.2); Carbon Dioxide 25 mmol/L (22-30); Chloride 109 mmol/L (98-107); Magnesium 1.6 mg/dl (1.6-2.3); Potassium 3.8 mmol/L (3.5-5.1); Sodium 134 mmol/L (135-145); eGFR > 60.00
[2024-10-13] MEDS: ROCEPHIN 2000 MG IV (08:33)
[2024-10-13] MEDS: KEPPRA 500 MG PO ×2 (08:34→20:06)
[2024-10-13] MEDS: STERILE WATER FOR INJECTION 20 ML IV (08:34)
[2024-10-13] MEDS: SENOKOT-S 1 TABLET PO ×2 (08:34→20:06)
[2024-10-13] MEDS: MIRALAX 17 GRAMS PO (08:34)
[2024-10-13] MEDS: MUCINEX 600 MG PO ×2 (08:34→20:06)
[2024-10-13] MEDS: NORVASC 5 MG PO (08:34)
[2024-10-13] MEDS: PROTONIX 40 MG PO (08:34)
[2024-10-13] MEDS: TOPROL XL 25 MG PO (08:38)
--- NOTE | 2024-10-13 08:57 | W.PN.HOSP.TC ---
Today's Communication/Plan
-
see a/p
Assessment / Plan
Assessment / Plan
Physical Exam
General: Not in acute distress, appears comfortable at this time
HEENT: Thick neck. Not tender, no induration, erythema, palpable masses, etc.
Respiratory: CTAB
Cardiac: S1/S2 and Regular Rhythm
GI: Soft, Mildly Tender, Non Distended, Normal Bowel Sounds. Obese
Musculoskeletal: No Cyanosis and Trace pitting edema at the bilateral lower extremities
Neuro: AAO x 3 conversant coherent
Psych: flat affect paucity of speech calm
Assessment/Plan
79y M with PMH significant for hypothyroidism, hypertension and von Willebrand's disease who presents to ED complaining of weakness. History obtained from patient and his family at the bedside. Patient was in his usual states of good health
until about 3-4 weeks ago when he began to become more weak / fatigued. He was still able to complete his ADLs until this past 24-48 hours when his symptoms markedly worsened. Patient is followed by Nicko Mims for vWF. He receives monthly
IVIG (last dose 09/29). There is some question of multiple myeloma - though history there is not clear and patient does not appear to be on any treatment for this (records show MGUS). Patient developed fullness / swelling in the throat several
weeks ago. He was evaluated by ENT in their office Dr. Hicks. CT scan showed tonsillar hypertrophy but was otherwise unremarkable. He was treated briefly with antifungal medication for thrush (patient was having a sore throat) - but this was
stopped after fungal smear was negative. CT neck also showed incidental RUL nodule and patient has had CT C/A/P and PET-CT since that time for further evaluation. These revealed mildly FDG-avid (3.3) KADEN nodule (1.6cm). No other areas of
FDG-avidity. No other abnormal findings. Over the 48 hours prior to presentation, patient remained seated at home and has not left his chair. He reported shaking chills. Family has noted swelling in the legs - L > R - which is unusual for him.
Family noted that he seemed somewhat confused as well since 10/02/24 evening. 911 was called to the home this afternoon when patient was unable to get up. He decline ED evaluation at that time. Later in the afternoon family convinced him to
present to the ED for further evaluation. Patient was noted to be quite unsteady on his feet in the emergency department. He drove himself to his radiology appointments as recently as 2 days ago and had no significant issues.
Weakness / Ataxia / Confusion
Acute Toxic Metabolic Encephalopathy Likely Secondary to Encephalitis and Possibly From Pneumonia
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
Likely immunosuppressed from Daratumumab and Dex
- Differential is extensive at this time and includes hypothyroidism, infectious process, stroke, etc.
- Address individual issues below and follow for any new / worsening symptoms.
- CT head in the ED was unremarkable.
- MRI brain with suspected encephalitis, with infectious encephalitis being in the differential -- consulted ID, appreciate their evaluation and recommendations
- IR performed LP on 10/06/24 -- high protein, low glucose
- Continue Keppra -- newly started this admission, neuro re-eval requested question if Keppra contributing to cognitive impairment
- Continue Acyclovir as per ID 21 day course through 10/25/24
- Since patient's Darzalex can be associated with CMV infection; CMV PCR included in meningitis/encephalitis PCR panel.
- Check EBV serology panel (he has had recently enlarged tonsils+fatigue) -- significant for prior infection with no apparent reactivation.
- HIV negative
- Syphilis screen positive
- PT / OT evaluations.
- Appreciate neurology
- Patient's agitation behaviors improved with Seroquel since discontinued d/t sedation, agitation remains resolved at this time
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
Syphilis screen : Positive. RPR 1:256. CSF VDRL negative.
- ID eval appreciated, given reported allergy to penicillin, patient was originally planned for 14-day course of ceftriaxone, however given lack of cognitive improvement, patient planned for PCN challenge and subsequent switch if tolerating 10/13
Diarrhea, Abdominal Pain and Nausea
Mild fluid right inguinal canal -- postsurgical change more likely versus unlikely incarcerated/strangulated hernia, no significant pain at this time -- seen on CT Imaging
Constipation
-Stool studies unremarkable
-Surgery eval appreciated no need for intervention
-Initially had diarrhea, but as of 10/09/24, patient had not had a bowel movement for several days; AXR suggests moderate amount of stool within the rectum
-Start Miralax and Senokot-S
Gross Hematuria
Urinary Retention
-Recurrence during this hospitalization
-urology mentions expected with von Willebrands
-Hgb VSS
-CT without contrast with no obstructive uropathy or stones
-Consulted urology -- recommendation to continue bladder scans -- if PVR rising significantly, then place Negron -- but no interventions at this time as per urology
Concern for Symptomatic Hypothyroidism
- TSH = 16.8 and Free T4 = 0.39 this hospitalization
- Some confusion, weakness, ataxia, edema, questionable contribution hypothyroidism
- IV dose of levothyroxine given initially
- PO Levothyroxine dose increased to 150 mcg daily
- repeat TFTs in 1 month
Acute Hypoxic Respiratory Insufficiency - RESOLVED
Likely LLL Pneumonia
Small Right Pleural Effusion on AXR from 10/09/24
Nocturnal O2 Desaturation (see nocturnal O2 saturation report from 10/06/24 morning)
Cough Again on 10/04/24
History of Recurrent Colds
History of Recent Pneumonia on CT Neck (treated outpatient with PCP in late August 2024 to early September 2024)
-Doxycycline completed
-ID eval appreciated ceftriaxone switched to PCN challenge as above
-Atrovent PRN given intolerance to Albuterol
-CT Abdomen/Pelvis from 10/07/24 showed bibasilar opacification -- most likely representing subsegmental atelectasis as well as tiny bilateral pleural effusions, left greater than right
-Follow cultures
Persistent neck swelling/enlarged tonsils since 09/01/24, (recently treated with 30 day course of Fluconazole)
Recent Tonsillar Hypertrophy
Recent Thrush
-Follows Dr. Anna Hicks (ENT) outpt
-EBV serology panel significant for prior infection with no apparent reactivation.
Right Upper Lobe Pulmonary Nodule -- indeterminate PET scan
- follows Dr. Rider outpatient
- 1.6cm KADEN nodule seen on multiple recent images. Mildly FDG-avid without significant delayed uptake.
- Covered with abx ceftriaxone / doxycycline since completed
- May benefit from biopsy for further evaluation if no improvement / resolution with antibiotics.
Mild Hyponatremia
- fluid restriction
- improved/resolved at this time
Acute Kidney Injury - RESOLVED
- IV fluids with Normal Saline IV Fluids 70 cc/hr as per nephrology
- Continue to monitor renal function given patient is on Acyclovir
- CT Abdomen Pelvis 10/07/24 with no stone or obstructive process
Hypokalemia
Hypomagnesemia
-monitor and replete as necessary
Mild Bilateral Perinephric Stranding on CT Imaging
Hypertension
- Stable
-Cont antihypertensives
Acquired vonWillebrand's Disease (started at age 49 y/o) on monthly IVIG, Darzalex
- Stable. Patient maintained on IVIG monthly - last injection was 09/29/24.
- Hematology eval appreciated Acquired von willebrand disease fully controlled at this time, continued outpt hematology follow up recommended
MGUS
- Has been on Decadron, Darzalex, and IVIG -- sees Dr. Lucio outpatient
Thrombocytopenia
- Mild, stable
Edema
- LE swelling is likely due to hypothyroidism, immobility x 48 hours, etc.
- Improved
- No DVT on LLE or RLE on imaging
Moderate prostate hypertrophy on CT Imaging
-Continue bladder scans protocol
Coronary Artery Disease
Simple bilateral renal cysts
Appendicoliths
Speech/Diet: Speech evaluation completed on this patient. Recommended to downgrade to IDDSI level four (puree) and thin liquids. Significant pocketing of food. Also completed cognitive evaluation with score of 7/30 on [facility] mental
status (SLUMS) examination. Later evaluation noted improvement in swallow, diet since upgraded to regular
DVT Prophylaxis: SCDs
Code Status: Full Code
discussed with patient and patient's daughter Jacqueline
I spent a total of 45 minutes with the patient or on the floor. More than 50% of this time involved counseling and coordination of care.
Anticipated Discharge: 24 - 48 hours
Subjective/Interval History
-
Date of Service: October 13, 2024
Paucity of speech, remains AOx3, though flat affect, memory issues persist, not remembering when family visit night/day prior. Daughter Jacqueline present during evaluation.
Objective Data
-
Labs:
Laboratory Results
10/13/24
06:20
WBC 4.5 L
Hgb 10.2 L
Hct 28.4 L
Plt Count 114 L
Sodium 134 L
Potassium 3.8
Chloride 109 H
Carbon Dioxide 25
BUN 11
Creatinine 0.8
Glucose 89
Calcium 8.0 L
Vital Signs:
Vital Signs
Temp Pulse Resp BP Pulse Ox
97.6 F 92 18 137/80 96
10/13/24 08:37 10/13/24 08:38 10/13/24 08:37 10/13/24 08:38 10/13/24 08:37
I&O
10/12/24 10/13/24 10/14/24
06:59 06:59 06:59
Intake Total 3086 / 3086 2876 / 2876
Output Total 2250 / 2250 2510 / 2510
Balance 836 / 836 366 / 366
[2024-10-13] MEDS: DULCOLAX 10 MG RECTAL (11:05)
[2024-10-13 12:39] LABS: Venous Blood Gas B.E. 0.4 mmol/L (-4 to +4); Venous Blood Gas O2 Sat % 98.7 %
--- NOTE | 2024-10-13 12:44 | W.PN.ID1 ---
Date of Service
Date of Service: October 13, 2024
Today's Communication
Replace ceftriaxone with IC PCN after test dose challenge.
Continue Acyclovir.
Assessment / Plan
# Change in mental status, no significant improvement
# HSV-1 encephalitis
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
# Change in mental status, no significant improvement
# PCN allergy - rash/hives
# Recent neck swelling/enlarged tonsils since 09/01, (recently tx'd with clotrimazole by ENT)
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
# Thrombocytopenia improving
- Blood cx's neg
- C. diff neg, stool cx neg
- CT a/p unremarkable
-MRI brain: cortical restricted diffusion involving the anterior right frontal lobe extending into the hippocampus and right insular cortex. There is additional foci of diffusion hyperintense signal within the posterior aspect of the right thalamus
- 10/05 EEG: EEG 10/05 showing epileptogenic right frontal lobe
- Mental status appears worse, possibly side effects from Keppra as per Dr. Garza
- Continue Acyclovir 800 mg IV q8h. (d#9 )
--> Plan to treat with IV acyclovir x 21d through 10/25/24 as pt mental status slow to improve.
- Monitor renal function 3x/week while in IV acyclovir. Creatinine = 0.9
- Keep well-hydrated.
- Syphilis RPR 1:256.
Of note RPR negative in 2021 base on review of [facility] labs.
Unlikely neurosyphilis as CSF only 4 WBC. CSF VDRL neg (not sensitive test)
However, due to worsening mental status, will challenge patient with IV PCN
--> Plan to replace IV ceftriaxone with PCN-G 24MU over 24h continuous infusion x 14d
- Place double lumen PICC.
- Trend RPR titer in 3 months after completion of tx until at least 4 fold decrease in titer.
- HIV negative.
Chief Complaint
-: Other (Change in mental status; HSV 1 encephalitis; Positive RPR)
Subjective / Review of Systems
Per daughter at bedside, patient today is not talking much. He only answers yes or no.
He is not drinking enough fluids either.
Vital Signs / Physical Exam
Vital Signs
Vital Signs
Temp Pulse Resp BP Pulse Ox
97.6 F 83 17 108/50 97
10/13/24 11:19 10/13/24 11:19 10/13/24 11:19 10/13/24 11:19 10/13/24 11:19
Physical Exam
Constitutional: Acutely Ill
Eyes: Sclera Anicteric
Cardiovascular: Regular Rate and S1/S2
Pulmonary: Clear
Gastrointestinal: Soft, Non Tender and Non Distended
Extremities: Negative Edema
Neurological: Other (lethargic)
Objective Data
Lab Data
Lab Results
10/13/24 06:20
10/13/24 06:20
PT 13.7 Sec (11.4-14.6) 10/05/24 04:24
INR 1.01 10/05/24 04:24
APTT 32.2 Sec (23.4-35.0) 10/05/24 04:24
Estimated Creat Clear 74 ml/min 10/13/24 06:20
Total Bilirubin 0.8 mg/dl (0.2-1.3) 10/12/24 06:00
AST 26 U/L (17-59) 10/12/24 06:00
ALT 18 U/L (0-50) 10/12/24 06:00
Alkaline Phosphatase 57 U/L (38-126) 10/12/24 06:00
Most recent labs reviewed.
Micro Results:
10/06/24 14:08 Fungal Smear - Final
Csf No yeast or fungal elements seen.
Fungal Culture - Preliminary
Culture in progress.
Positive cultures are reported as soon as detected.
Final report to follow in four to five weeks.
10/06/24 14:08 CSF Culture - Final
Csf No Growth After 5 Days - Final Report
Gram Stain - Final
10/03/24 21:18 Blood Culture - Final
Blood/Venous No Growth - Final Report
10/03/24 20:58 Blood Culture - Final
Blood/Venous No Growth - Final Report
10/04/24 08:16 Salmonella/Shigella Culture - Final
Feces/Stool No Salmonella, Shigella, Aeromonas or Plesiomonas species
isolated.
Campylobacter Culture - Final
No Campylobacter species isolated.
Shiga Toxin Test - Final
No E. coli Shiga Toxin 1 or 2 detected.
Stool Leukocytes - Final
10/06/24 14:08 Meningitis/Encephalitis Panel (PCR) - Final
Csf
10/04/24 09:20 MRSA Screen - Final
Nose No Methicillin Resistant Staphylococcus aureus isolated.
10/04/24 09:20 Urine Culture - Final
Urine NO GROWTH
10/04/24 17:36 Influenza Types A & B (RADHA) - Final
Nasal Swab Negative for Influenza A & B, NAAT
Negative results must be combined with clinical observations
and patient history.
Nucleic Acid Amplification test (NAAT)performed on the
[place] platform.
10/04/24 17:36 Legionella Urinary Antigen - Final
Urine Negative for Legionella pneumophila Serogroup 1 antigen.
A negative result does not rule out the possiblity of
Legionella infection due to other serogroups or species of
Legionella. Clinical correlation is recommended.
Streptococcus pneumoniae Antigen (M - Final
Negative for Streptococcus pneumoniae antigen.
A negative result does not exclude infection with
Streptococcus pneumoniae. Clinical correlation is
recommended.
10/04/24 08:16 - Final
Feces/Stool Negative for Norovirus GI and GII.
10/04/24 08:16 C. difficile GDH Antigen & Toxins - Final
Feces/Stool Negative for toxigenic C.difficile
Meningitis Panel, CSF by PCR Final 10/06/24-1609
Escherichia coli K1 Not Detected
Haemophilus influenzae Not Detected
Listeria monocytogenes Not Detected
Neisseria meningitidis Not Detected
Cytomegalovirus (CMV) Not Detected
Streptococcus agalactiae Not Detected
Streptococcus pneumoniae Not Detected
Enterovirus Not Detected
--> Herpes simplex virus 1 DETECTED <--
Herpes simplex virus 2 Not Detected
Human herpesvirus 6 Not Detected
Human parechovirus Not Detected
Varicella zoster virus Not Detected
C. neoformans/gattii Not Detected
CSF
10/06/24 10/06/24
14:08 14:09
CSF Appearance Clear
CSF Color Colorless
CSF WBC 4
CSF RBC 14
CSF Cell Count Tube # 2
CSF Glucose 72 H
CSF Total Protein 217 H
CSF VDRL Non reactive
10/06/24
04:55
Syphilis Serology Positive
RPR Titer 1:256
RPR Reactive
HIV Ag/Ab Combo Qual Negative
10/04/24 Brain MRI: There is predominant cortical restricted diffusion involving the anterior right frontal lobe extending into the hippocampus and right insular cortex. There is additional foci of diffusion hyperintense signal within the posterior
aspect of the right thalamus. This constellation of findings can be seen in encephalitis (herpes or limbic), status epilepticus or acute infarction. Additionally Creutzfeld Christiano disease is considered unlikely, however cannot be excluded. Consider
correlation with CSF studies.
10/04/24 CXR: New minimal left lower lobe atelectasis versus scarring
10/04/24 CT Pe/abd/pel W: Mild left lower lobe airspace disease suggesting pneumonia. New
No acute pathology of the abdomen or pelvis identified
10/01/24 PET: Stable solitary right upper lobe pulmonary nodule which demonstrates mild FDG activity (with only minimal further increase on delayed imaging). This remains indeterminate with differential including infectious/inflammatory nodule or low
metabolic rate neoplasm.
09/01/[address]: Significant symmetric enlargement of the bilateral tonsillar soft tissues, which could be secondary to tonsillar hypertrophy or tonsillitis, with secondary narrowing of the oropharynx and hypopharynx. Bilateral pulmonary parenchymal
opacities suggesting pneumonia. 1.6 cm solid pulmonary nodule in the right upper lobe.
Care Review
Plan reviewed with: Physician (Dr. Garza) and Other (Pharmacist Amaury)
[2024-10-13 13:30] LABS: Iron 59 ug/dl (49-181)
[2024-10-13 13:39] LABS: Total Iron Binding Capacity 172 ug/dl (261-462)
[2024-10-13] MEDS: PENICILLIN 50.02 UNITS IV (13:45)
--- NOTE | 2024-10-13 14:40 | PTCARENOTE ---
Patient completed Penicillin Test dose #1 as ordered. Tolerated well. No s/s of distress noted. Plan of care ongoing. Daughter at bedside.
--- NOTE | 2024-10-13 15:14 | CON.MD ---
Consultation - Medical
-
patient seen chart reviewed. discussed with nursing. daughter at bedside . this consult was done today october 13 2024. the patient is an 79 year old who was in his usual state until a couple of days prior to coming to . he is a very positive active
man according to his d. he has never been depressed or anxious. she does not see him as having any cognitive issues other than what might be expected given his age. 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
[place] only five years ago. he came to er at w complaint of severe weakness shaking chills gross hematuria. he was found to have a number of medical issues including herpes encephalitis, syphilis, hypthyroid ( d says he was rx for this in the
past ) acute hypoxic rf now resolved, neck swelling etiology now known, hyponatremia now 134 giuseppe now resolved w nl bun and cr hypokalemia now 3.8 htn anemia hgb 10.2 noted macrocytoisis with b12 folate pending . he is noted to be rather
lethargic and weak still. daughter tells me he is barely eating or drinking although w iv fluids his electrolytes are normalizing. he is still confused . he could tell me he was in a hospital and the year but not where the hospital was. he could
tell me he voted for velma who is the president. he was very pleasant but did not offer much spontaneously but he did answer all my questions eg about his work, his kids, his grandkids (got their ages wrong and told me he has great grands which he
does not)
past med hx see above in addition to the above patient has mgus syndrome rx with meds similar to rx of multiple myeloma. aslo hld
past psych hx none
fh daughter rx for depression
substance abuse denied
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 has friends and supportive ext family. grew up locally.
mse alert and oriented to 'hospital 2024 and self' quiet pleasant non spontaneous but responded to all my ? briefly and to the point. mood is neutral affect constricted no psychosis intelligenc aver insight lacking judgment fair
dx tme secondary to serious underlying medical illness
recommendations d felt that patient is NOT depressed and that this is secondary to medical illness and i tend to agree with her. 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 i have seen herpes
enceph result in permanent cognitive disability and he will need time to recover from all of his maladies. thyroid and syphilis could also be contributing to his mental state not to mention the electrolyte imbalances which have largely been
corrected and anemia etc. he did not appear depressed to me particularly. he seemed more a bit dazed understandable given medical issues. would monitor. if d who seems to know him well feels he is regressing vis a vis mood would be happy to return
to see him. in the meantime do not feel antidep are necessary . psych signing off.
[2024-10-13 15:56] LABS: Ferritin 519.0 ng/ml (17.9-464.0)
--- NOTE | 2024-10-13 16:13 | CM ---
Reviewed the chart notes and spoke with the patient's daughter at the bedside. Explained that [facility] has not beds until midweek next week. Possible beds at one of the other [facility] re[facility]. Daughter will consider. CM continues to be available to
patient/family and is monitoring medical plan for needs at discharge.
Plan: Discharge to acute rehab once medically stable and bed secured. Auth will be required.
[2024-10-13 16:28] LABS: Folate 18.2 ng/ml (2.76-20); Vitamin B12 640 pg/ml (239-931)
[2024-10-13] MEDS: PENICILLIN 50.8 UNITS IV (16:28)
--- NOTE | 2024-10-13 17:16 | PTCARENOTE ---
Patient completed Penicillin Test dose #2 as ordered. Tolerated well. VS documented in JUN. No s/s of distress noted. Plan of care ongoing. Daughter at bedside.
[2024-10-13] MEDS: PENICILLIN 250 UNITS IV (18:31)
[2024-10-13] MEDS: CARDURA 2 MG PO (21:54)
[2024-10-14 03:33] VITALS: BP 138/88
[2024-10-14] MEDS: ZOVIRAX INJECTION 266 MG IV ×3 (05:34→21:48)
[2024-10-14] MEDS: SYNTHROID 150 MCG PO (05:38)
[2024-10-14 05:44] VITALS: BMI 29.8
[2024-10-14 07:40] VITALS: BP 115/63
[2024-10-14 07:44] LABS: Hematocrit 29.7 % (39.0-52.0); Hemoglobin 10.5 g/dL (13.0-18.0); Mean Corp Hgb Conc. 35.4 g/dL (33.0-37.0); Mean Corpuscular Volume 95.8 fL (80.0-94.0); Platelet Count 115 10^3/uL (130-400); Red Cell Dist. Width 15.8 % (11.5-14.5)
[2024-10-14] MEDS: PENICILLIN 250 UNITS IV ×2 (07:45→19:40)
[2024-10-14] MEDS: STERILE WATER FOR INJECTION 20 ML IV (08:04)
[2024-10-14] MEDS: SENOKOT-S 1 TABLET PO ×2 (08:04→19:40)
[2024-10-14] MEDS: MIRALAX PO (08:04)
[2024-10-14] MEDS: TOPROL XL 25 MG PO (08:04)
[2024-10-14] MEDS: KEPPRA 500 MG PO ×2 (08:04→19:40)
[2024-10-14] MEDS: PROTONIX 40 MG PO (08:04)
[2024-10-14] MEDS: MUCINEX 600 MG PO ×2 (08:04→19:40)
[2024-10-14] MEDS: ROCEPHIN 2000 MG IV (08:04)
[2024-10-14] MEDS: NORVASC 5 MG PO (08:04)
[2024-10-14 08:19] LABS: Blood Urea Nitrogen 9 mg/dl (9-20); Calcium 7.9 mg/dl (8.4-10.2); Carbon Dioxide 24 mmol/L (22-30); Chloride 109 mmol/L (98-107); Estimated Creatinine Clearance 74 ml/min; Glucose 89 mg/dl (70-99); Magnesium 1.6 mg/dl (1.6-2.3); Potassium 3.3 mmol/L (3.5-5.1); Sodium 136 mmol/L (135-145); eGFR > 60.00
--- NOTE | 2024-10-14 09:02 | W.PN.HOSP.TC ---
Today's Communication/Plan
-
cont abx as per ID
PT/OT
Fleet enema, bowel regimen
Discharge planning Acute Rehab
Assessment / Plan
Assessment / Plan
Physical Exam
General: Not in acute distress, appears comfortable at this time
HEENT: Thick neck. Not tender, no induration, erythema, palpable masses, etc.
Respiratory: CTAB
Cardiac: S1/S2 and Regular Rhythm
GI: Soft, Nontender, Distended, Normal Bowel Sounds. Obese
Musculoskeletal: No Cyanosis and Trace pitting edema at the bilateral lower extremities
Neuro: AAO x 3 conversant coherent noted memory issues as per daughter at bedside (does not remember family visiting last night)
Psych: flat affect paucity of speech calm
Assessment/Plan
79y M with PMH significant for hypothyroidism, hypertension and von Willebrand's disease who presents to ED complaining of weakness. History obtained from patient and his family at the bedside. Patient was in his usual states of good health
until about 3-4 weeks ago when he began to become more weak / fatigued. He was still able to complete his ADLs until this past 24-48 hours when his symptoms markedly worsened. Patient is followed by Nicko Mims for vWF. He receives monthly
IVIG (last dose 09/29). There is some question of multiple myeloma - though history there is not clear and patient does not appear to be on any treatment for this (records show MGUS). Patient developed fullness / swelling in the throat several
weeks ago. He was evaluated by ENT in their office Dr. Hicks. CT scan showed tonsillar hypertrophy but was otherwise unremarkable. He was treated briefly with antifungal medication for thrush (patient was having a sore throat) - but this was
stopped after fungal smear was negative. CT neck also showed incidental RUL nodule and patient has had CT C/A/P and PET-CT since that time for further evaluation. These revealed mildly FDG-avid (3.3) KADEN nodule (1.6cm). No other areas of
FDG-avidity. No other abnormal findings. Over the 48 hours prior to presentation, patient remained seated at home and has not left his chair. He reported shaking chills. Family has noted swelling in the legs - L > R - which is unusual for him.
Family noted that he seemed somewhat confused as well since 10/02/24 evening. 911 was called to the home this afternoon when patient was unable to get up. He decline ED evaluation at that time. Later in the afternoon family convinced him to
present to the ED for further evaluation. Patient was noted to be quite unsteady on his feet in the emergency department. He drove himself to his radiology appointments as recently as 2 days ago and had no significant issues.
Weakness / Ataxia / Confusion
Acute Toxic Metabolic Encephalopathy Likely Secondary to Encephalitis and Possibly From Pneumonia
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
Likely immunosuppressed from Daratumumab and Dex
- Differential is extensive at this time and includes hypothyroidism, infectious process, stroke, etc.
- Address individual issues below and follow for any new / worsening symptoms.
- CT head in the ED was unremarkable.
- MRI brain with suspected encephalitis, with infectious encephalitis being in the differential -- consulted ID, appreciate their evaluation and recommendations
- IR performed LP on 10/06/24 -- high protein, low glucose
- Continue Keppra -- newly started this admission
- Continue Acyclovir as per ID 21 day course through 10/25/24
- Since patient's Darzalex can be associated with CMV infection; CMV PCR included in meningitis/encephalitis PCR panel.
- EBV serology panel significant for prior infection with no apparent reactivation.
- HIV negative
- Syphilis screen positive
- PT / OT/ PMR eval appreciated Acute Rehab
- Appreciate neurology
- Patient's agitation behaviors improved with Seroquel since discontinued d/t sedation, agitation remains resolved at this time
- persistent cognitive impairment, psych eval appreciated unlikely pseudodementia/depression ruled out
Syphilis screen : Positive. RPR 1:256. CSF VDRL negative.
- ID eval appreciated, given reported allergy to penicillin, patient was originally planned for 14-day course of ceftriaxone, however given lack of cognitive improvement, PCN challenge was attempted and passed, subsequent switch to 14 days course
PCN 10/13.
Diarrhea, Abdominal Pain and Nausea Resolved
Mild fluid right inguinal canal -- postsurgical change more likely versus unlikely incarcerated/strangulated hernia, no significant pain at this time -- seen on CT Imaging
Constipation
- Stool studies unremarkable
- Surgery eval appreciated no need for intervention
- Initially had diarrhea since resolved, developed constipation; AXR suggests moderate amount of stool within the rectum
- Miralax and Senokot-S, given suppository with some improvement noted, fleet enema given 10/14
Gross Hematuria
Urinary Retention
-Recurrence during this hospitalization
-urology mentions expected with von Willebrands
-Hgb VSS
-CT without contrast with no obstructive uropathy or stones
-Consulted urology -- recommendation to continue bladder scans -- if PVR rising significantly, then place Negron -- but no interventions at this time as per urology
Concern for Symptomatic Hypothyroidism
- TSH = 16.8 and Free T4 = 0.39 this hospitalization
- Some confusion, weakness, ataxia, edema, questionable contribution hypothyroidism
- IV dose of levothyroxine given initially
- PO Levothyroxine dose increased to 150 mcg daily
- Follow up TFTs notes improvement in T4 wnl while TSH remains elevated
- repeat TFTs in 1 month
Acute Hypoxic Respiratory Insufficiency - RESOLVED
Likely LLL Pneumonia
Small Right Pleural Effusion on AXR from 10/09/24
Nocturnal O2 Desaturation (see nocturnal O2 saturation report from 10/06/24 morning)
Cough Again on 10/04/24
History of Recurrent Colds
History of Recent Pneumonia on CT Neck (treated outpatient with PCP in late August 2024 to early September 2024)
-Doxycycline completed
-ID eval appreciated ceftriaxone switched to PCN challenge as above
-Atrovent PRN given intolerance to Albuterol
-CT Abdomen/Pelvis from 10/07/24 showed bibasilar opacification -- most likely representing subsegmental atelectasis as well as tiny bilateral pleural effusions, left greater than right
-Follow cultures
Persistent neck swelling/enlarged tonsils since 09/01/24, (recently treated with 30 day course of Fluconazole)
Recent Tonsillar Hypertrophy
Recent Thrush
-Follows Dr. Anna Hicks (ENT) outpt
-EBV serology panel significant for prior infection with no apparent reactivation.
Right Upper Lobe Pulmonary Nodule -- indeterminate PET scan
- follows Dr. Rider outpatient
- 1.6cm KADEN nodule seen on multiple recent images. Mildly FDG-avid without significant delayed uptake.
- Covered with abx ceftriaxone / doxycycline since completed
- May benefit from biopsy for further evaluation if no improvement / resolution with antibiotics.
Mild Hyponatremia
- fluid restriction
- improved/resolved at this time
Acute Kidney Injury - RESOLVED
- IV fluids with Normal Saline IV Fluids 70 cc/hr as per nephrology
- Continue to monitor renal function given patient is on Acyclovir
- CT Abdomen Pelvis 10/07/24 with no stone or obstructive process
Hypokalemia
Hypomagnesemia
-monitor and replete as necessary
Mild Bilateral Perinephric Stranding on CT Imaging
Hypertension
- Stable
-Cont antihypertensives
Acquired vonWillebrand's Disease (started at age 49 y/o) on monthly IVIG, Darzalex
- Stable. Patient maintained on IVIG monthly - last injection was 09/29/24.
- Hematology eval appreciated Acquired von willebrand disease fully controlled at this time, continued outpt hematology follow up recommended
MGUS
- Has been on Decadron, Darzalex, and IVIG -- sees Dr. Lucio outpatient
Thrombocytopenia
- Mild, stable
Edema
- LE swelling is likely due to hypothyroidism, immobility x 48 hours, etc.
- Improved
- No DVT on LLE or RLE on imaging
Moderate prostate hypertrophy on CT Imaging
-Continue bladder scans protocol
Coronary Artery Disease
Simple bilateral renal cysts
Appendicoliths
Speech/Diet: Speech evaluation completed on this patient. Recommended to downgrade to IDDSI level four (puree) and thin liquids. Significant pocketing of food. Also completed cognitive evaluation with score of 7/30 on [facility] mental
status (SLUMS) examination. Later evaluation noted improvement in swallow, diet since upgraded to regular
DVT Prophylaxis: SCDs
Code Status: Full Code
discussed with patient and patient's daughter Jacqueline
I spent a total of 45 minutes with the patient or on the floor. More than 50% of this time involved counseling and coordination of care.
Anticipated Discharge: 24 - 48 hours
Subjective/Interval History
-
Date of Service: October 14, 2024
Appears more vocal today, constipation resolving though appetite remains poor.
Objective Data
-
Labs:
Laboratory Results
10/14/24
06:45
WBC 5.0
Hgb 10.5 L
Hct 29.7 L
Plt Count 115 L
Sodium 136
Potassium 3.3 L
Chloride 109 H
Carbon Dioxide 24
BUN 9
Creatinine 0.8
Glucose 89
Calcium 7.9 L
Vital Signs:
Vital Signs
Temp Pulse Resp BP Pulse Ox
97.8 F 83 16 115/63 96
10/14/24 07:40 10/14/24 08:04 10/14/24 07:40 10/14/24 08:04 10/14/24 07:40
I&O
10/13/24 10/14/24 10/15/24
06:59 06:59 06:59
Intake Total 2876 / 2876 720 / 720
Output Total 2510 / 2510 2750 / 2750
Balance 366 / 366 -2029 / -2029
--- NOTE | 2024-10-14 09:59 | W.PN.ID1 ---
Date of Service
Date of Service: October 14, 2024
Today's Communication
Continue IV acyclovir and PCN.
Assessment / Plan
# Change in mental status, some improvement today
# HSV-1 encephalitis
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
# PCN allergy - rash/hives
# Recent neck swelling/enlarged tonsils since 09/01, (recently tx'd with clotrimazole by ENT)
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
# Thrombocytopenia improving
- Blood cx's neg
- C. diff neg, stool cx neg
- CT a/p unremarkable
- HIV negative.
-MRI brain: cortical restricted diffusion involving the anterior right frontal lobe extending into the hippocampus and right insular cortex. There is additional foci of diffusion hyperintense signal within the posterior aspect of the right thalamus
- 10/05 EEG: EEG 10/05 showing epileptogenic right frontal lobe
- Continue Acyclovir 800 mg IV q8h. (d#) through 10/25/24.
- Monitor renal function 3x/week while in IV acyclovir. Creatinine = 0.9
- Keep well-hydrated.
- Syphilis RPR 1:256.
Of note RPR negative in 2021 base on review of [facility] labs.
Unlikely neurosyphilis as CSF only 4 WBC. CSF VDRL neg (not sensitive test)
s/p 12d ceftriaxone, dc'd
Due to slow improvement of mental status, ceftriaxone replaced with PCN after dose tests.
--> Continue PCN-G 24MU over 24h continuous infusion (d2 )
- Trend RPR titer in 3 months after completion of tx until at least 4 fold decrease in titer.
Chief Complaint
-: Other (Change in mental status; HSV 1 encephalitis; Positive RPR)
Subjective / Review of Systems
Patient more conversant today. He is aware about the PCN challenge.
He remembers that his son visited last evening.
Vital Signs / Physical Exam
Vital Signs
Vital Signs
Temp Pulse Resp BP Pulse Ox
97.8 F 83 16 115/63 96
10/14/24 07:40 10/14/24 08:04 10/14/24 07:40 10/14/24 08:04 10/14/24 07:40
Physical Exam
Constitutional: Comfortable
Eyes: No Conjunctival Hemorrhage and Sclera Anicteric
Cardiovascular: Regular Rate and S1/S2
Pulmonary: Clear
Gastrointestinal: Soft, Non Tender and Non Distended
Genito-Urinary: Negative CVA Tenderness
Neurological: Awake and Alert; Negative Meningeal Signs
Objective Data
Lab Data
Lab Results
10/14/24 06:45
10/14/24 06:45
PT 13.7 Sec (11.4-14.6) 10/05/24 04:24
INR 1.01 10/05/24 04:24
APTT 32.2 Sec (23.4-35.0) 10/05/24 04:24
Estimated Creat Clear 74 ml/min 10/14/24 06:45
Total Bilirubin 0.8 mg/dl (0.2-1.3) 10/12/24 06:00
AST 26 U/L (17-59) 10/12/24 06:00
ALT 18 U/L (0-50) 10/12/24 06:00
Alkaline Phosphatase 57 U/L (38-126) 10/12/24 06:00
Most recent labs reviewed.
Micro Results:
10/06/24 14:08 Fungal Smear - Final
Csf No yeast or fungal elements seen.
Fungal Culture - Preliminary
Culture in progress.
Positive cultures are reported as soon as detected.
Final report to follow in four to five weeks.
10/06/24 14:08 CSF Culture - Final
Csf No Growth After 5 Days - Final Report
Gram Stain - Final
10/03/24 21:18 Blood Culture - Final
Blood/Venous No Growth - Final Report
10/03/24 20:58 Blood Culture - Final
Blood/Venous No Growth - Final Report
10/04/24 08:16 Salmonella/Shigella Culture - Final
Feces/Stool No Salmonella, Shigella, Aeromonas or Plesiomonas species
isolated.
Campylobacter Culture - Final
No Campylobacter species isolated.
Shiga Toxin Test - Final
No E. coli Shiga Toxin 1 or 2 detected.
Stool Leukocytes - Final
10/06/24 14:08 Meningitis/Encephalitis Panel (PCR) - Final
Csf
10/04/24 09:20 MRSA Screen - Final
Nose No Methicillin Resistant Staphylococcus aureus isolated.
10/04/24 09:20 Urine Culture - Final
Urine NO GROWTH
10/04/24 17:36 Influenza Types A & B (RADHA) - Final
Nasal Swab Negative for Influenza A & B, NAAT
Negative results must be combined with clinical observations
and patient history.
Nucleic Acid Amplification test (NAAT)performed on the
[employer] platform.
10/04/24 17:36 Legionella Urinary Antigen - Final
Urine Negative for Legionella pneumophila Serogroup 1 antigen.
A negative result does not rule out the possiblity of
Legionella infection due to other serogroups or species of
Legionella. Clinical correlation is recommended.
Streptococcus pneumoniae Antigen (M - Final
Negative for Streptococcus pneumoniae antigen.
A negative result does not exclude infection with
Streptococcus pneumoniae. Clinical correlation is
recommended.
10/04/24 08:16 - Final
Feces/Stool Negative for Norovirus GI and GII.
10/04/24 08:16 C. difficile GDH Antigen & Toxins - Final
Feces/Stool Negative for toxigenic C.difficile
Meningitis Panel, CSF by PCR Final 10/06/24-1609
Escherichia coli K1 Not Detected
Haemophilus influenzae Not Detected
Listeria monocytogenes Not Detected
Neisseria meningitidis Not Detected
Cytomegalovirus (CMV) Not Detected
Streptococcus agalactiae Not Detected
Streptococcus pneumoniae Not Detected
Enterovirus Not Detected
--> Herpes simplex virus 1 DETECTED <--
Herpes simplex virus 2 Not Detected
Human herpesvirus 6 Not Detected
Human parechovirus Not Detected
Varicella zoster virus Not Detected
C. neoformans/gattii Not Detected
CSF
10/06/24 10/06/24
14:08 14:09
CSF Appearance Clear
CSF Color Colorless
CSF WBC 4
CSF RBC 14
CSF Cell Count Tube # 2
CSF Glucose 72 H
CSF Total Protein 217 H
CSF VDRL Non reactive
10/06/24
04:55
Syphilis Serology Positive
RPR Titer 1:256
RPR Reactive
HIV Ag/Ab Combo Qual Negative
10/04/24 Brain MRI: There is predominant cortical restricted diffusion involving the anterior right frontal lobe extending into the hippocampus and right insular cortex. There is additional foci of diffusion hyperintense signal within the posterior
aspect of the right thalamus. This constellation of findings can be seen in encephalitis (herpes or limbic), status epilepticus or acute infarction. Additionally Creutzfeld Christiano disease is considered unlikely, however cannot be excluded. Consider
correlation with CSF studies.
10/04/24 CXR: New minimal left lower lobe atelectasis versus scarring
10/04/24 CT Pe/abd/pel W: Mild left lower lobe airspace disease suggesting pneumonia. New
No acute pathology of the abdomen or pelvis identified
10/01/24 PET: Stable solitary right upper lobe pulmonary nodule which demonstrates mild FDG activity (with only minimal further increase on delayed imaging). This remains indeterminate with differential including infectious/inflammatory nodule or low
metabolic rate neoplasm.
09/01/[address]: Significant symmetric enlargement of the bilateral tonsillar soft tissues, which could be secondary to tonsillar hypertrophy or tonsillitis, with secondary narrowing of the oropharynx and hypopharynx. Bilateral pulmonary parenchymal
opacities suggesting pneumonia. 1.6 cm solid pulmonary nodule in the right upper lobe.
[2024-10-14] MEDS: KCL ELIXIR 40 MEQ PO (10:51)
[2024-10-14 11:02] VITALS: BP 146/80
--- NOTE | 2024-10-14 11:29 | CON.MD ---
Consultation - Medical
-
Chief Complaint:�HSV 1 encephalitis
�
History of Present Illness:�79-year-old Right handed male with PMH (as below) presented to [facility] on 10/03/2024 with weakness over the past 3 to 4 weeks with significant worsening over the last 24 to 48 hours. [facility] for von Willebrand factor and gets monthly IVIG. Also noted fullness and swelling in throat several weeks ago seen by ENT with tonsillar hypertrophy. He was briefly given antifungal medication which was stopped after the fungal smear
was negative. His CT of the neck also noting an incidental right upper lobe lung nodule who was further evaluated CT chest abdomen pelvis and PET scan with no other areas of concern. Also had development of gross hematuria with more recent
confusion. Had unsteady gait. Last dose of IVIG 09/22
Patient developed abdominal pain nausea and diarrhea CT of the abdomen pelvis with mild fluid in the right inguinal. Seen by surgery with no acute surgical concerns for the right inguinal hernia. Also noted with hyponatremia with increase of home
Synthroid dose. He had an MRI of the brain with suspected encephalitis and concern for infectious encephalitis. His mentation substantially worsened on 10/05 with visual hallucinations. He was given 3% saline for hyponatremia by nephrology.
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 Also placed on doxycycline for community acquired pneumonia and on ceftriaxone for
neurosyphilis although unlikely. Hematuria evaluated by urology with no intervention. LP was performed by interventional radiology with CSF only with 4 WBCs. Plan to treat with acyclovir through 10/25/2024, patient's mental status slowly
improving. Monitoring of renal function 3 times a week while on IV acyclovir continuing with IV fluid. Seen by psychiatry on 10/13 and not felt to have depression. Likely medical concerns for his cognitive concerns possibly from thyroid and
syphilis. Started on a penicillin challenge per infectious disease.
-10/04/24 Brain MRI: There is predominant cortical restricted diffusion involving the anterior right frontal lobe extending into the hippocampus and right insular cortex. There is additional foci of diffusion hyperintense signal within the posterior
aspect of the right thalamus. This constellation of findings can be seen in encephalitis (herpes or limbic), status epilepticus or acute infarction. Additionally Creutzfeld Christiano disease is considered unlikely, however cannot be excluded. Consider
correlation with CSF studies.
- 10/05 EEG: EEG 10/05 showing epileptogenic right frontal lobe
Overall patient is doing fine, answers questions when asked direct questions. Patient's daughter sitting bedside and notes that patient was much more animated trying to get out of bed a couple days ago last couple days he has not been as NC to get
out of bed and move around and has been a little bit more flat. Definitely not near his baseline.
�
Past Medical History:�Von Willebrand's disease, HTN, hypothyroidism, obesity, dyslipidemia, intraocular hemorrhage.
Procedure History:�Hemorrhoidectomy
Family History:�Father with prostate cancer
�
Social History:�
Functional Level Premorbidly:�Independent with all activities�
Functional Level Currently:�Patient had dysphagia and was on a level 4 solid thin liquid diet but was upgraded to a regular solid and thin liquid diet on 10/11. Max assist toileting, min assist bed mobility, min assist transfers, min assist
ambulating 15 feet x 1 with rolling walker with assist needed for IV pole.
�
Tobacco:� Former Smoker (Quit smoking 40 years ago. Approx 20 pack years total use.)�
Alcohol:�Denies�
Drug use:�Denies�
�
Lives with:�Granddaughter
24-hour assistance available:�No
Number of floors:�4 story town home
# steps to enter:�6+6
# steps to second floor: Full flight, full flight to the third floor.
Potential First floor set up:�No
Driving:�Yes
Occupation:�Retired
�
�
Allergies:�
Allergy/AdvReac Type Severity Reaction Status Date / Time
Penicillins Allergy Unknown- Verified 10/04/24 10:57
tolerated
ceftriaxone
09/2024
�
Review of Systems:�
Constitutional: (x) abNormal _fatigue
Eye: (x) Normal _
Ear/Nose/Throat: (x) Normal _
Respiratory: (x) Normal _
Cardiovascular: (x) Normal _
Gastrointestinal: (x) Normal _
Genitourinary: (x) Normal _
Musculoskeletal: (x) Normal _
Integumentary: (x) Normal _
Neurologic: (x) abNormal _impaired cognition
Psychiatric: (x) Normal _
Endocrine: (x) Normal _
Hematologic/Lymphatic: (x) Normal _
Allergic/Immunologic: (x) Normal _
�
Medications:�
Active Current Visit Medication List
Category Date Time Status
0.9% Sodium Chloride 1000 ml [Nss] 1,000 ml Med 10/13/24 07:30 Active
IV 70 mls/hr
0.9% Sodium Chloride [Nss (Preservative Free)] Med 10/13/24 13:00 Active
8 ml IV ONCE PRN PRN
Acetaminophen [Tylenol] Med 10/03/24 23:08 Active
650 mg PO Q4HPRN PRN
Acyclovir [Zovirax Injection] 800 mg Med 10/09/24 14:00 Active
0.9% Sodium Chloride 250 ml [Nss] 250 ml
IV Q8H
Amlodipine [Norvasc] Med 10/04/24 08:00 Active
5 mg PO DAILY
Bisacodyl [Dulcolax] Med 10/12/24 18:04 Active
10 mg RECTAL DAILYPRN PRN
CefTRIAXone [Rocephin] Med 10/06/24 08:00 Active
2,000 mg IV Q24H
Dexamethasone Sod Phosphate [Decadron] Med 10/13/24 12:28 Active
8 mg IV ONCE PRN PRN
Diphenhydramine [Benadryl] Med 10/13/24 13:00 Active
50 mg IV ONCE PRN PRN
Diphenhydramine [Benadryl] Med 10/13/24 13:00 Active
50 mg PO ONCE PRN PRN
Docusate W/Senna [Senokot-S] Med 10/10/24 20:00 Active
1 tablet PO BID
Doxazosin Mesylate [Cardura] Med 10/03/24 23:08 Active
2 mg PO HS
EPINEPHrine PF [Adrenalin] Med 10/13/24 13:00 Active
0.3 mg IM [id number] PRN
Famotidine [Pepcid] Med 10/13/24 13:00 Active
20 mg IV ONCE PRN PRN
Flush (0.9% Sodium Chloride) [Flush (Nss)] Med 10/03/24 22:00 Active
See Dose Instructions IV PER PROTOCOL
Guaifenesin [Mucinex] Med 10/04/24 08:00 Active
600 mg PO Q12
Ipratropium Nebs [Atrovent Nebules] Med 10/06/24 12:36 Active
0.5 mg INH R Q4HPRN PRN
Levetiracetam [Keppra] Med 10/05/24 20:00 Active
500 mg PO BID
Levothyroxine [Synthroid] Med 10/06/24 06:00 Active
150 mcg PO DAILY @ 0600
Metoprolol Xl [Toprol Xl] Med 10/13/24 08:00 Active
25 mg PO DAILY
Ondansetron Injectable [Zofran] Med 10/04/24 09:19 Active
4 mg IV Q6HPRN PRN
Pantoprazole [Protonix] Med 10/04/24 08:00 Active
40 mg PO DAILY
Penicillin G [Penicillin] 12,000,000 units Med 10/13/24 18:00 Active
0.9% Sodium Chloride 250 ml [Nss] 226 ml
IV Q12H
Polyethylene Glycol Powder [Miralax] Med 10/10/24 18:00 Active
17 grams PO DAILY
Quetiapine Fumarate [Seroquel] Med 10/08/24 22:00 Hold
25 mg PO HS
Sterile Water [Sterile Water For Injection] Med 10/06/24 08:00 Active
20 ml IV Q24H
�
Vitals:�
Temp Pulse Resp BP Pulse Ox
98.1 F 84 18 144/78 95
10/13/24 17:17 10/13/24 17:17 10/13/24 17:17 10/13/24 17:17 10/13/24 17:17
Height 5 ft 9 in
Actual Weight 91.399 kg
Body Mass Index (BMI) 29.8
�
Physical Exam:�
General Appearance/Observation: Well-developed, well-nourished male in no apparent distress.�
Pain/Comfort Assessment: Denies�
Mood/Affect: Flat, has general apathy
Integumentary/Operative Site:�No lesions over the course of exam. Does have PICC line right arm.
�
Eyes: Conjunctiva/Lids: normal��� Pupils: pupils equal round and reactive to light and Accommodation
Ears/Nose/Throat: oral mucosa moist, throat clear.������������ Lips/Teeth/Gums: normal
Neck: No muscle spasm or tenderness�
Cardiovascular: Heart: regular, no murmur�
Pulses: dorsalis pedis 2+ bilaterally�
Respiratory: Respiratory Effort/Chest Expansion: normal������ Auscultation: Clear to auscultation bilaterally
Gastrointestinal: abdomen not tender, no distension, normal abdominal bowel sounds
Genitourinary: No Negron�
Rectal Exam: Deferred�
Extremities:�Edema: None�Cyanosis: None�Trophic�changes: None
�
Neurology Exam:
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 Not oriented to the date. Is oriented to the president.
Memory: Impaired
Comprehension: Impaired
Two step command: Impaired
Calculation: Able to count from 20 down to 14 by twos but got stuck there and lost track of the task
Cranial Nerves:
�� CNII:�Pupillary light reflex: Intact���Visual Field: Does not follow command appropriately and moves his eyes
�� CN III, IV, : Extraocular muscles: Intact�
�� CN V:�Facial Sensation�at�Forehead: Intact,�Maxilla: Intact,�Mandible: Intact
�� CN VII:�Facial movement: Symmetric
�� CN VIII:�Hearing: Normal
�� CN IX/X:�Speech & swallow: Normal,�Position of Uvula: Midline
�� CN XI:�Shoulder shrug: Symmetric
�� CN XII:�Tongue protrusion: Midline
Sensory:
�� Light touch: Intact in bilateral upper and lower extremities
�
Reflexes:
�� Biceps: 2+ bilaterally
�� Brachioradialis: 2+ bilaterally
�� Triceps: 2+ bilaterally
�� Patellar: 2+ bilaterally
�� Achilles: 2+ bilaterally
�� Babinski: Down going bilaterally
�� Clonus: None
�� Sterling: Negative bilaterally�
Cerebellar: Dysmetria/Ataxia: None�
Musculoskeletal:Motor: (Manual muscle scale 0-5)�
Muscle SA EF WE EE FF FA HF KE DF EHL PF
Right� 5 5 5 5 4 4 5 5 5
Left 5 5 5 5 4 4 5 5 5
�
Tone: Normal in all extremities�
Range of Motion: Passively within normal limits in all extremities�
�
Lab Results
Laboratory Data
10/13/24 06:20
10/13/24 06:20
PT 13.7 Sec (11.4-14.6) 10/05/24 04:24
INR 1.01 10/05/24 04:24
APTT 32.2 Sec (23.4-35.0) 10/05/24 04:24
Total Bilirubin 0.8 mg/dl (0.2-1.3) 10/12/24 06:00
AST 26 U/L (17-59) 10/12/24 06:00
ALT 18 U/L (0-50) 10/12/24 06:00
Alkaline Phosphatase 57 U/L (38-126) 10/12/24 06:00
Total Protein 5.1 g/dl (6.3-8.2) L 10/12/24 06:00
Albumin 2.7 g/dl (3.5-5.0) L 10/12/24 06:00
�
Diagnostic Results:�as per HPI�
�
Assessment
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
complicated by hematuria, hyponatremia, and community-acquired pneumonia resulting in ADL, ambulatory, and speech/swallow dysfunction.
�
Plan�
PM&R�PT/OT to increase independence with ADLs, improve balance, coordination, endurance, strength, mobility, community reintegration, decreased burden of care on others and family education.�
-Overall patient has generalized apathy and requires [id number] instructions. He is engaging and will answer simple questions. Does not initiate a lot of conversation or movement but will do so when prompted.
�
HSV-1 Encephalitis: Acyclovir as per ID 21 day course through 10/25/24, needs constant IV fluid per discussion with hospitalist.
-Seroquel on hold
Possible neurosyphilis: Was on ceftriaxone, passed a penicillin challenge. Continues on penicillin day 2 of 14 through 10/26.
Acute Toxic Metabolic Encephalopathy: Likely Secondary to Encephalitis and Possibly From Pneumonia�
Dysphagia: speech, oral care protocol, aspiration precautions.� Advanced to regular diet 10/12/24 and multivitamin.
�
HTN: amlodipine 5 mg, Cardura 2 mg at bedtime, metoprolol 25 mg daily monitor closely�
Pneumonia: Completed course of ceftriaxone. guaifenesin for thick secretions.�
Hypothyroidism: Levothyroxine
Von Willebrand disease: IVIG monthly
Psych: Psychology consult.� Monitor mood, medications as needed.�
Skin: monitor for pressure sores/rashes/lesions.�
FEN: Monitor hydration which is being supplemented with IV fluids. Also need to monitor nutritional status as patient does not initiate eating and daughter mentions he has not been eating much. May benefit from a calorie count and from a nutrition
consult for most appropriate supplementation.
Pain: acetaminophen as needed.�
Bowel: Colace and Senna, PRN bisacodyl.�
Hematuria: No intervention per urology. Continue to monitor. Time void, PVRs, PRN straight cath.�
DVT Prophylaxis: mechanical, not on chemoprophylaxis.
Pulmonary: Incentive spirometry��
Safety: Continue to reinforce assistance with all transfers.�
Code Status:� Full code
Dispo�(date/plan/equipment needs): Home with family care.� Social history reviewed.�
Functional and Medical Goals:�Modified Independent with ADL�s, ambulation, transfers�
Discharge Destination:�Acute inpatient rehabilitation. Patient will require penicillin and acyclovir treatment with ongoing IV fluids. Patient will need to be monitored closely for his overall hydration and nutritional intake.
�
�
Thank you for allowing me to care for your patient. Please contact me with any questions or concerns.
Consultation
-
Date/Time Consultation Performed: 10/14/2024
Requesting Provider: Dr. Candace Garza
Performing Provider: Dr. Colton Sandhu
Reason for Consultation: HSV 1 encephalitis
[2024-10-14] MEDS: FLEET MINERAL OIL ENEMA 133 ML RECTAL (12:10)
--- NOTE | 2024-10-14 12:50 | PTCARENOTE ---
fleet enema given per orders this afternoon. daughter and patient educated on process at bedside. pt still receiving IV penicillin through his R PICC line. pt with good appetite. taking pills whole with water.
--- NOTE | 2024-10-14 13:03 | CM ---
Reviewed the chart notes and spoke with the patient's daughter at the bedside. CM continues to be available to patient/family and is monitoring medical plan for needs at discharge.
Plan: Discharge plans will depend on the patient's progress. Acute rehab vs SNF. Auth will be required.
[2024-10-14] MEDS: NSS 1000 IV (15:29)
[2024-10-14 15:44] VITALS: BP 155/90
[2024-10-14] MEDS: KLOR-CON 20 MEQ PO (19:40)
[2024-10-14] MEDS: CARDURA 2 MG PO (21:48)
[2024-10-14 21:56] VITALS: BP 139/82
[2024-10-15 04:57] LABS: Hematocrit 27.4 % (39.0-52.0); Hemoglobin 9.9 g/dL (13.0-18.0); Mean Corp Hgb Conc. 36.1 g/dL (33.0-37.0); Mean Corpuscular Volume 95.1 fL (80.0-94.0); Platelet Count 113 10^3/uL (130-400); Red Cell Dist. Width 15.7 % (11.5-14.5)
[2024-10-15 05:24] LABS: Blood Urea Nitrogen 7 mg/dl (9-20); Calcium 7.7 mg/dl (8.4-10.2); Carbon Dioxide 21 mmol/L (22-30); Chloride 111 mmol/L (98-107); Estimated Creatinine Clearance 84 ml/min; Glucose 89 mg/dl (70-99); Magnesium 1.7 mg/dl (1.6-2.3); Potassium 4.0 mmol/L (3.5-5.1); Sodium 134 mmol/L (135-145); eGFR > 60.00
[2024-10-15] MEDS: ZOVIRAX INJECTION 266 MG IV ×3 (05:29→21:39)
[2024-10-15] MEDS: SYNTHROID 150 MCG PO (05:29)
[2024-10-15 06:00] VITALS: BMI 29.8
[2024-10-15] MEDS: NSS 1000 IV ×2 (06:23→21:39)
[2024-10-15 07:30] VITALS: BP 114/78
[2024-10-15] MEDS: PENICILLIN 250 UNITS IV ×2 (08:00→21:39)
[2024-10-15] MEDS: KLOR-CON 20 MEQ PO ×2 (08:25→20:19)
[2024-10-15] MEDS: MUCINEX 600 MG PO ×2 (08:25→20:19)
[2024-10-15] MEDS: KEPPRA 500 MG PO ×2 (08:25→20:18)
[2024-10-15] MEDS: PROTONIX 40 MG PO (08:25)
[2024-10-15] MEDS: SENOKOT-S 1 TABLET PO ×2 (08:25→20:19)
[2024-10-15] MEDS: MIRALAX 17 GRAMS PO (08:25)
[2024-10-15] MEDS: NORVASC 5 MG PO (08:26)
[2024-10-15] MEDS: TOPROL XL 25 MG PO (08:26)
--- NOTE | 2024-10-15 10:04 | W.PN.HOSP.TC ---
Today's Communication/Plan
-
cont abx as per ID
remove RUE PICC, supportive care superficial thrombosis Ice elevation pain control
PICC LUE
cont bowel regimen
PT/OT
Assessment / Plan
Assessment / Plan
Physical Exam
General: Not in acute distress, appears comfortable at this time
HEENT: Thick neck. Not tender, no induration, erythema, palpable masses, etc.
Respiratory: CTAB
Cardiac: S1/S2 and Regular Rhythm
GI: Soft, Nontender, Distended, Normal Bowel Sounds. Obese
Musculoskeletal: No Cyanosis and Trace pitting edema at the bilateral lower extremities
Neuro: AAO x 3 conversant coherent noted memory issues as per daughter at bedside (does not remember family visiting last night)
Psych: flat affect paucity of speech calm
Assessment/Plan
79y M with PMH significant for hypothyroidism, hypertension and von Willebrand's disease who presents to ED complaining of weakness. History obtained from patient and his family at the bedside. Patient was in his usual states of good health
until about 3-4 weeks ago when he began to become more weak / fatigued. He was still able to complete his ADLs until this past 24-48 hours when his symptoms markedly worsened. Patient is followed by [facility] for vWF. He receives monthly
IVIG (last dose 09/29). There is some question of multiple myeloma - though history there is not clear and patient does not appear to be on any treatment for this (records show MGUS). Patient developed fullness / swelling in the throat several
weeks ago. He was evaluated by ENT in their office Dr. Hicks. CT scan showed tonsillar hypertrophy but was otherwise unremarkable. He was treated briefly with antifungal medication for thrush (patient was having a sore throat) - but this was
stopped after fungal smear was negative. CT neck also showed incidental RUL nodule and patient has had CT C/A/P and PET-CT since that time for further evaluation. These revealed mildly FDG-avid (3.3) KADEN nodule (1.6cm). No other areas of
FDG-avidity. No other abnormal findings. Over the 48 hours prior to presentation, patient remained seated at home and has not left his chair. He reported shaking chills. Family has noted swelling in the legs - L > R - which is unusual for him.
Family noted that he seemed somewhat confused as well since 10/02/24 evening. 911 was called to the home this afternoon when patient was unable to get up. He decline ED evaluation at that time. Later in the afternoon family convinced him to
present to the ED for further evaluation. Patient was noted to be quite unsteady on his feet in the emergency department. He drove himself to his radiology appointments as recently as 2 days ago and had no significant issues.
Weakness / Ataxia / Confusion
Acute Toxic Metabolic Encephalopathy Likely Secondary to Encephalitis and Possibly From Pneumonia
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
Likely immunosuppressed from Daratumumab and Dex
- CT head in ED unremarkable.
- MRI brain with suspected encephalitis
- ID eval appreciated
- IR performed LP on 10/06/24 -- high protein, low glucose
- Continue Keppra -- newly started this admission
- Continue Acyclovir as per ID 21 day course through 10/25/24
- CMV neg
- EBV serology panel significant for prior infection with no apparent reactivation.
- HIV negative
- Syphilis screen positive
- PT/OT/ PMR eval appreciated Acute Rehab
- Appreciate neurology
- Patient's agitation behaviors improved with Seroquel since discontinued d/t sedation, agitation remains resolved at this time
- persistent cognitive impairment, psych eval appreciated unlikely pseudodementia/depression ruled out
Syphilis screen : Positive. RPR 1:256. CSF VDRL negative.
- ID eval appreciated, given reported allergy to penicillin, patient was originally planned for 14-day course of ceftriaxone, however given lack of cognitive improvement, PCN challenge was attempted and passed, subsequently switched to 14 days
course PCN 10/13.
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
Complicated with Superficial Thrombosis noted on RUE US 10/15/24
RUE PICC removed and LUE PICC placed
cont supportive care superficial thrombosis RUE w/ pain control, ice, and elevation
Diarrhea, Abdominal Pain and Nausea Resolved
Mild fluid right inguinal canal -- postsurgical change more likely versus unlikely incarcerated/strangulated hernia, no significant pain at this time -- seen on CT Imaging
Constipation
- Stool studies unremarkable
- Surgery eval appreciated no need for intervention
- Initially had diarrhea since resolved, developed constipation; AXR suggests moderate amount of stool within the rectum
- Miralax and Senokot-S, given suppository with some improvement noted, fleet enema given 10/14
Gross Hematuria
Urinary Retention
-Recurrence during this hospitalization
-urology mentions expected with von Willebrands
-Hgb VSS
-CT without contrast with no obstructive uropathy or stones
-Consulted urology -- recommendation to continue bladder scans -- if PVR rising significantly, then place Negron -- but no interventions at this time as per urology
Hypothyroidism
- TSH = 16.8 and Free T4 = 0.39 this hospitalization
- Some confusion, weakness, ataxia, edema, questionable contribution hypothyroidism
- IV dose of levothyroxine given initially
- PO Levothyroxine dose increased to 150 mcg daily
- Follow up TFTs notes improvement in T4 wnl while TSH remains elevated
- repeat TFTs in 1 month
Acute Hypoxic Respiratory Insufficiency - RESOLVED
Likely LLL Pneumonia
Small Right Pleural Effusion on AXR from 10/09/24
Nocturnal O2 Desaturation (see nocturnal O2 saturation report from 10/06/24 morning)
Cough Again on 10/04/24
History of Recurrent Colds
History of Recent Pneumonia on CT Neck (treated outpatient with PCP in late August 2024 to early September 2024)
-Doxycycline completed
-ID eval appreciated ceftriaxone switched to PCN challenge as above
-Atrovent PRN given intolerance to Albuterol
-CT Abdomen/Pelvis from 10/07/24 showed bibasilar opacification -- most likely representing subsegmental atelectasis as well as tiny bilateral pleural effusions, left greater than right
-Follow cultures
Persistent neck swelling/enlarged tonsils since 09/01/24, (recently treated with 30 day course of Fluconazole)
Recent Tonsillar Hypertrophy
Recent Thrush
-Follows Dr. Anna Hicks (ENT) outpt
-EBV serology panel significant for prior infection with no apparent reactivation.
Right Upper Lobe Pulmonary Nodule -- indeterminate PET scan
- follows Dr. Rider outpatient
- 1.6cm KADEN nodule seen on multiple recent images. Mildly FDG-avid without significant delayed uptake.
- Covered with abx ceftriaxone / doxycycline since completed
- May benefit from biopsy for further evaluation if no improvement / resolution with antibiotics.
Mild Hyponatremia
- fluid restriction
- improved/resolved at this time
Acute Kidney Injury - RESOLVED
- IV fluids with Normal Saline IV Fluids 70 cc/hr as per nephrology
- Continue to monitor renal function given patient is on Acyclovir
- CT Abdomen Pelvis 10/07/24 with no stone or obstructive process
Hypokalemia
Hypomagnesemia
-monitor and replete as necessary
Mild Bilateral Perinephric Stranding on CT Imaging
Hypertension
- Stable
-Cont antihypertensives
Acquired vonWillebrand's Disease (started at age 49 y/o) on monthly IVIG, Darzalex
- Stable. Patient maintained on IVIG monthly - last injection was 09/29/24.
- Hematology eval appreciated Acquired von willebrand disease fully controlled at this time, continued outpt hematology follow up recommended
MGUS
- Has been on Decadron, Darzalex, and IVIG -- sees Dr. Lucio outpatient
Thrombocytopenia
- Mild, stable
Edema
- LE swelling is likely due to hypothyroidism, immobility x 48 hours, etc.
- Improved
- No DVT on LLE or RLE on imaging
Moderate prostate hypertrophy on CT Imaging
-Continue bladder scans protocol
Coronary Artery Disease
Simple bilateral renal cysts
Appendicoliths
Speech/Diet: Speech evaluation completed on this patient. Recommended to downgrade to IDDSI level four (puree) and thin liquids. Significant pocketing of food. Also completed cognitive evaluation with score of 7/30 on [facility] mental
status (SLUMS) examination. Later evaluation noted improvement in swallow, diet since upgraded to regular
DVT Prophylaxis: SCDs
Code Status: Full Code
discussed with patient and patient's daughter Jacqueline
I spent a total of 45 minutes with the patient or on the floor. More than 50% of this time involved counseling and coordination of care.
Anticipated Discharge: > 48 hours
Subjective/Interval History
-
Date of Service: October 15, 2024
No acute distress resting comfortably in bed. Reports significant pain RUE, swelling, tenderness at picc site. Daughter Jacqueline present during evaluation
Objective Data
-
Labs:
Laboratory Results
10/15/24
04:27
WBC 5.4
Hgb 9.9 L
Hct 27.4 L
Plt Count 113 L
Sodium 134 L
Potassium 4.0
Chloride 111 H
Carbon Dioxide 21 L
BUN 7 L
Creatinine 0.7
Glucose 89
Calcium 7.7 L
Vital Signs:
Vital Signs
Temp Pulse Resp BP Pulse Ox
98.2 F 89 16 114/78 94
10/15/24 07:30 10/15/24 08:26 10/15/24 07:30 10/15/24 08:26 10/15/24 07:30
I&O
10/14/24 10/15/24 10/16/24
06:59 06:59 06:59
Intake Total 720 / 720 1985 / 1985
Output Total 2750 / 2750 3500 / 3500 850 / 850
Balance -2029 / -2030 -1514 / -1514 -850 / -850
[2024-10-15] MEDS: MAGNESIUM SULFATE 50 IV (10:08)
--- NOTE | 2024-10-15 10:10 | W.PN.ID1 ---
Date of Service
Date of Service: October 15, 2024
Today's Communication
Continue Acyclovir, PCN-G
Assessment / Plan
# Change in mental status
# HSV-1 encephalitis
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
# PCN allergy - rash/hives
# Recent neck swelling/enlarged tonsils since 09/01, (recently tx'd with clotrimazole by ENT)
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
# Thrombocytopenia improving
- Blood cx's neg
- C. diff neg, stool cx neg
- CT a/p unremarkable
- HIV negative.
-MRI brain: cortical restricted diffusion involving the anterior right frontal lobe extending into the hippocampus and right insular cortex. There is additional foci of diffusion hyperintense signal within the posterior aspect of the right thalamus
- 10/05 EEG: EEG 10/05 showing epileptogenic right frontal lobe
- Continue Acyclovir 800 mg IV q8h. (d#) through 10/25/24.
- Monitor renal function 3x/week while in IV acyclovir. Creatinine = 0.8
- Keep well-hydrated.
- Syphilis RPR 1:256.
Of note RPR negative in 2021 base on review of [facility] labs.
Unlikely neurosyphilis as CSF only 4 WBC. CSF VDRL neg (not sensitive test)
s/p 12d ceftriaxone, dc'd
Due to slow improvement of mental status, ceftriaxone replaced with PCN after dose tests.
--> Continue PCN-G 24MU over 24h continuous infusion (d3 of )
- Trend RPR titer in 3 months after completion of tx until at least 4 fold decrease in titer.
Chief Complaint
-: Other (Change in mental status; HSV 1 encephalitis; Positive RPR)
Subjective / Review of Systems
Per daughter, pt's memory is still poor.
At least he is hungry this am and ate breakfast.
Vital Signs / Physical Exam
Vital Signs
Vital Signs
Temp Pulse Resp BP Pulse Ox
98.2 F 89 16 114/78 94
10/15/24 07:30 10/15/24 08:26 10/15/24 07:30 10/15/24 08:26 10/15/24 07:30
Physical Exam
Constitutional: No Acute Distress and Comfortable
Eyes: No Conjunctival Hemorrhage and Sclera Anicteric
Cardiovascular: Regular Rate and S1/S2
Pulmonary: Clear
Gastrointestinal: Soft, Non Tender and Non Distended
Genito-Urinary: Negative CVA Tenderness
Neurological: Awake and Alert; Negative Meningeal Signs
Objective Data
Lab Data
Lab Results
10/15/24 04:27
10/15/24 04:27
PT 13.7 Sec (11.4-14.6) 10/05/24 04:24
INR 1.01 10/05/24 04:24
APTT 32.2 Sec (23.4-35.0) 10/05/24 04:24
Estimated Creat Clear 84 ml/min 10/15/24 04:27
Total Bilirubin 0.8 mg/dl (0.2-1.3) 10/12/24 06:00
AST 26 U/L (17-59) 10/12/24 06:00
ALT 18 U/L (0-50) 10/12/24 06:00
Alkaline Phosphatase 57 U/L (38-126) 10/12/24 06:00
Most recent labs reviewed.
Micro Results:
10/06/24 14:08 Fungal Smear - Final
Csf No yeast or fungal elements seen.
Fungal Culture - Preliminary
Culture in progress.
Positive cultures are reported as soon as detected.
Final report to follow in four to five weeks.
10/06/24 14:08 CSF Culture - Final
Csf No Growth After 5 Days - Final Report
Gram Stain - Final
10/03/24 21:18 Blood Culture - Final
Blood/Venous No Growth - Final Report
10/03/24 20:58 Blood Culture - Final
Blood/Venous No Growth - Final Report
10/04/24 08:16 Salmonella/Shigella Culture - Final
Feces/Stool No Salmonella, Shigella, Aeromonas or Plesiomonas species
isolated.
Campylobacter Culture - Final
No Campylobacter species isolated.
Shiga Toxin Test - Final
No E. coli Shiga Toxin 1 or 2 detected.
Stool Leukocytes - Final
10/06/24 14:08 Meningitis/Encephalitis Panel (PCR) - Final
Csf
10/04/24 09:20 MRSA Screen - Final
Nose No Methicillin Resistant Staphylococcus aureus isolated.
10/04/24 09:20 Urine Culture - Final
Urine NO GROWTH
10/04/24 17:36 Influenza Types A & B (RADHA) - Final
Nasal Swab Negative for Influenza A & B, NAAT
Negative results must be combined with clinical observations
and patient history.
Nucleic Acid Amplification test (NAAT)performed on the
[employer] platform.
10/04/24 17:36 Legionella Urinary Antigen - Final
Urine Negative for Legionella pneumophila Serogroup 1 antigen.
A negative result does not rule out the possiblity of
Legionella infection due to other serogroups or species of
Legionella. Clinical correlation is recommended.
Streptococcus pneumoniae Antigen (M - Final
Negative for Streptococcus pneumoniae antigen.
A negative result does not exclude infection with
Streptococcus pneumoniae. Clinical correlation is
recommended.
10/04/24 08:16 - Final
Feces/Stool Negative for Norovirus GI and GII.
10/04/24 08:16 C. difficile GDH Antigen & Toxins - Final
Feces/Stool Negative for toxigenic C.difficile
Meningitis Panel, CSF by PCR Final 10/06/24-1609
Escherichia coli K1 Not Detected
Haemophilus influenzae Not Detected
Listeria monocytogenes Not Detected
Neisseria meningitidis Not Detected
Cytomegalovirus (CMV) Not Detected
Streptococcus agalactiae Not Detected
Streptococcus pneumoniae Not Detected
Enterovirus Not Detected
--> Herpes simplex virus 1 DETECTED <--
Herpes simplex virus 2 Not Detected
Human herpesvirus 6 Not Detected
Human parechovirus Not Detected
Varicella zoster virus Not Detected
C. neoformans/gattii Not Detected
CSF
10/06/24 10/06/24
14:08 14:09
CSF Appearance Clear
CSF Color Colorless
CSF WBC 4
CSF RBC 14
CSF Cell Count Tube # 2
CSF Glucose 72 H
CSF Total Protein 217 H
CSF VDRL Non reactive
10/06/24
04:55
Syphilis Serology Positive
RPR Titer 1:256
RPR Reactive
HIV Ag/Ab Combo Qual Negative
10/04/24 Brain MRI: There is predominant cortical restricted diffusion involving the anterior right frontal lobe extending into the hippocampus and right insular cortex. There is additional foci of diffusion hyperintense signal within the posterior
aspect of the right thalamus. This constellation of findings can be seen in encephalitis (herpes or limbic), status epilepticus or acute infarction. Additionally Creutzfeld Christiano disease is considered unlikely, however cannot be excluded. Consider
correlation with CSF studies.
10/04/24 CXR: New minimal left lower lobe atelectasis versus scarring
10/04/24 CT Pe/abd/pel W: Mild left lower lobe airspace disease suggesting pneumonia. New
No acute pathology of the abdomen or pelvis identified
10/01/24 PET: Stable solitary right upper lobe pulmonary nodule which demonstrates mild FDG activity (with only minimal further increase on delayed imaging). This remains indeterminate with differential including infectious/inflammatory nodule or low
metabolic rate neoplasm.
09/01/[address]: Significant symmetric enlargement of the bilateral tonsillar soft tissues, which could be secondary to tonsillar hypertrophy or tonsillitis, with secondary narrowing of the oropharynx and hypopharynx. Bilateral pulmonary parenchymal
opacities suggesting pneumonia. 1.6 cm solid pulmonary nodule in the right upper lobe.
--- NOTE | 2024-10-15 11:30 | CM ---
Reviewed the chart notes. CM continues to be available to patient/family and is monitoring medical plan for needs at discharge.
Plan: Discharge to Acute Rehab vs SNF when medically stable. Precert will be required.
[2024-10-15] MEDS: TYLENOL 650 MG PO (13:28)
--- NOTE | 2024-10-15 14:14 | VATNOTE ---
Right Basilic DL 4Fr PICC dressing changed. Biopatch was saturated with blood and pool of blood noted under the tegaderm dressing. Ultrafoam and 4x4 gauze applied to the insertion site.
[2024-10-15 15:30] VITALS: BP 107/60
[2024-10-15] MEDS: ULTRAM 25 MG PO (17:08)
--- NOTE | 2024-10-15 19:35 | VATNOTE ---
Order received to replace right PICC with Left PICC. Eduard KAMARA placed new PICC on left, awaiting CXR results of new picc. After new picc placement is verified right picc will removed per md order.
--- NOTE | 2024-10-15 20:16 | VATNOTE ---
CXR not completed, contacted XR to request CXR for picc placement.
[2024-10-15] MEDS: CARDURA 2 MG PO (21:40)
[2024-10-15 23:25] VITALS: BP 160/76
[2024-10-16] MEDS: SYNTHROID 150 MCG PO (05:32)
[2024-10-16] MEDS: ZOVIRAX INJECTION 266 MG IV ×3 (05:32→21:17)
[2024-10-16 06:00] VITALS: BMI 29.7
[2024-10-16 06:14] LABS: Hematocrit 28.0 % (39.0-52.0); Hemoglobin 10.1 g/dL (13.0-18.0); Mean Corp Hgb Conc. 36.1 g/dL (33.0-37.0); Mean Corpuscular Volume 94.3 fL (80.0-94.0); Platelet Count 120 10^3/uL (130-400); Red Cell Dist. Width 15.9 % (11.5-14.5)
[2024-10-16 06:37] LABS: Blood Urea Nitrogen 5 mg/dl (9-20); Calcium 7.7 mg/dl (8.4-10.2); Carbon Dioxide 22 mmol/L (22-30); Chloride 113 mmol/L (98-107); Estimated Creatinine Clearance 84 ml/min; Glucose 87 mg/dl (70-99); Magnesium 2.0 mg/dl (1.6-2.3); Potassium 3.9 mmol/L (3.5-5.1); Sodium 136 mmol/L (135-145); eGFR > 60.00
[2024-10-16 07:20] VITALS: BP 181/82
--- NOTE | 2024-10-16 08:26 | W.PN.HOSP.TC ---
Today's Communication/Plan
-
cont abx antiviral as per ID
PT/OT
discharge planning Acute Rehab
cont bowel regimen
Calf measurements falsely elevated, treat only if symptomatic hypertension
Assessment / Plan
Assessment / Plan
Physical Exam
General: Not in acute distress, appears comfortable at this time
HEENT: Thick neck. Not tender, no induration, erythema, palpable masses, etc.
Respiratory: CTAB
Cardiac: S1/S2 and Regular Rhythm
GI: Soft, Nontender, Distended, Normal Bowel Sounds. Obese
Musculoskeletal: No Cyanosis and Trace pitting edema at the bilateral lower extremities
Neuro: AAO x 3 conversant coherent noted memory issues as per daughter at bedside (consistently doesn't remember family visiting night prior)
Psych: flat affect paucity of speech calm
Assessment/Plan
79y M with PMH significant for hypothyroidism, hypertension and von Willebrand's disease who presents to ED complaining of weakness. History obtained from patient and his family at the bedside. Patient was in his usual states of good health
until about 3-4 weeks ago when he began to become more weak / fatigued. He was still able to complete his ADLs until this past 24-48 hours when his symptoms markedly worsened. Patient is followed by Nicko Mims for vWF. He receives monthly
IVIG (last dose 09/29). There is some question of multiple myeloma - though history there is not clear and patient does not appear to be on any treatment for this (records show MGUS). Patient developed fullness / swelling in the throat several
weeks ago. He was evaluated by ENT in their office Dr. Hicks. CT scan showed tonsillar hypertrophy but was otherwise unremarkable. He was treated briefly with antifungal medication for thrush (patient was having a sore throat) - but this was
stopped after fungal smear was negative. CT neck also showed incidental RUL nodule and patient has had CT C/A/P and PET-CT since that time for further evaluation. These revealed mildly FDG-avid (3.3) KADEN nodule (1.6cm). No other areas of
FDG-avidity. No other abnormal findings. Over the 48 hours prior to presentation, patient remained seated at home and has not left his chair. He reported shaking chills. Family has noted swelling in the legs - L > R - which is unusual for him.
Family noted that he seemed somewhat confused as well since 10/02/24 evening. 911 was called to the home this afternoon when patient was unable to get up. He decline ED evaluation at that time. Later in the afternoon family convinced him to
present to the ED for further evaluation. Patient was noted to be quite unsteady on his feet in the emergency department. He drove himself to his radiology appointments as recently as 2 days ago and had no significant issues.
Weakness / Ataxia / Confusion
Acute Toxic Metabolic Encephalopathy Likely Secondary to Encephalitis and Possibly From Pneumonia
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
Likely immunosuppressed from Daratumumab and Dex
- CT head in ED unremarkable.
- MRI brain with suspected encephalitis
- ID eval appreciated
- IR performed LP on 10/06/24 -- high protein, low glucose
- Continue Keppra -- newly started this admission
- Continue Acyclovir as per ID 21 day course through 10/25/24
- CMV neg
- EBV serology panel significant for prior infection with no apparent reactivation.
- HIV negative
- Syphilis screen positive
- PT/OT/ PMR eval appreciated Acute Rehab
- Appreciate neurology
- Patient's agitation behaviors improved with Seroquel since discontinued d/t sedation, agitation remains resolved at this time
- persistent cognitive impairment, psych eval appreciated unlikely pseudodementia/depression ruled out
Syphilis screen : Positive. RPR 1:256. CSF VDRL negative.
- ID eval appreciated, given reported allergy to penicillin, patient was originally planned for 14-day course of ceftriaxone, however given lack of cognitive improvement, PCN challenge was attempted and passed, subsequently switched to 14 days
course PCN 10/13.
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
Complicated with Superficial Thrombosis noted on RUE US 10/15/24
RUE PICC removed and LUE PICC placed
cont supportive care superficial thrombosis RUE w/ pain control, ice, and elevation
Diarrhea, Abdominal Pain and Nausea Resolved
Mild fluid right inguinal canal -- postsurgical change more likely versus unlikely incarcerated/strangulated hernia, no significant pain at this time -- seen on CT Imaging
Constipation
- Stool studies unremarkable
- Surgery eval appreciated no need for intervention
- Initially had diarrhea since resolved, developed constipation; AXR suggests moderate amount of stool within the rectum
- Miralax and Senokot-S, given suppository with some improvement noted, fleet enema given 10/14
Gross Hematuria
Urinary Retention
-Recurrence during this hospitalization
-urology mentions expected with von Willebrands
-Hgb VSS
-CT without contrast with no obstructive uropathy or stones
-Consulted urology -- recommendation to continue bladder scans -- if PVR rising significantly, then place Negron -- but no interventions at this time as per urology
Hypothyroidism
- TSH = 16.8 and Free T4 = 0.39 this hospitalization
- Some confusion, weakness, ataxia, edema, questionable contribution hypothyroidism
- IV dose of levothyroxine given initially
- PO Levothyroxine dose increased to 150 mcg daily
- Follow up TFTs notes improvement in T4 wnl while TSH remains elevated
- repeat TFTs in 1 month
Acute Hypoxic Respiratory Insufficiency - RESOLVED
Likely LLL Pneumonia
Small Right Pleural Effusion on AXR from 10/09/24
Nocturnal O2 Desaturation (see nocturnal O2 saturation report from 10/06/24 morning)
Cough Again on 10/04/24
History of Recurrent Colds
History of Recent Pneumonia on CT Neck (treated outpatient with PCP in late August 2024 to early September 2024)
-Doxycycline completed
-ID eval appreciated ceftriaxone switched to PCN challenge as above
-Atrovent PRN given intolerance to Albuterol
-CT Abdomen/Pelvis from 10/07/24 showed bibasilar opacification -- most likely representing subsegmental atelectasis as well as tiny bilateral pleural effusions, left greater than right
-Follow cultures
Persistent neck swelling/enlarged tonsils since 09/01/24, (recently treated with 30 day course of Fluconazole)
Recent Tonsillar Hypertrophy
Recent Thrush
-Follows Dr. Anna Hicks (ENT) outpt
-EBV serology panel significant for prior infection with no apparent reactivation.
Right Upper Lobe Pulmonary Nodule -- indeterminate PET scan
- follows Dr. Rider outpatient
- 1.6cm KADEN nodule seen on multiple recent images. Mildly FDG-avid without significant delayed uptake.
- Covered with abx ceftriaxone / doxycycline since completed
- May benefit from biopsy for further evaluation if no improvement / resolution with antibiotics.
Mild Hyponatremia
- fluid restriction
- improved/resolved at this time
Acute Kidney Injury - RESOLVED
- IV fluids with Normal Saline IV Fluids 70 cc/hr as per nephrology
- Continue to monitor renal function given patient is on Acyclovir
- CT Abdomen Pelvis 10/07/24 with no stone or obstructive process
Hypokalemia
Hypomagnesemia
-monitor and replete as necessary
Mild Bilateral Perinephric Stranding on CT Imaging
Hypertension
-Cont antihypertensives
-Blood pressure measurements limited by Superficial Thrombosis RUE and PICC LUE
-Calf measurements likely falsely elevated, consider treatment if patient develops symptomatic hypertension
Acquired von Willebrand's Disease (started at age 49 y/o) on monthly IVIG, Darzalex
- Stable. Patient maintained on IVIG monthly - last injection was 09/29/24.
- Hematology eval appreciated Acquired von willebrand disease fully controlled at this time, continued outpt hematology follow up recommended
MGUS
- Has been on Decadron, Darzalex, and IVIG -- sees Dr. Lucio outpatient
Thrombocytopenia
- Mild, stable
Edema
- LE swelling is likely due to hypothyroidism, immobility x 48 hours, etc.
- Improved
- No DVT on LLE or RLE on imaging
Moderate prostate hypertrophy on CT Imaging
-Continue bladder scans protocol
Coronary Artery Disease
Simple bilateral renal cysts
Appendicoliths
Speech/Diet: Speech evaluation completed on this patient. Recommended to downgrade to IDDSI level four (puree) and thin liquids. Significant pocketing of food. Also completed cognitive evaluation with score of 7/30 on [facility] mental
status (SLUMS) examination. Later evaluation noted improvement in swallow, diet since upgraded to regular
DVT Prophylaxis: SCDs
Code Status: Full Code
discussed with patient and patient's daughter Jacqueline
I spent a total of 45 minutes with the patient or on the floor. More than 50% of this time involved counseling and coordination of care.
Anticipated Discharge: 24 - 48 hours
Subjective/Interval History
-
Date of Service: October 16, 2024
No acute distress, appears comfortable at this time. Daughter Jacqueline present during evaluation.
Objective Data
-
Labs:
Laboratory Results
10/16/24
06:02
WBC 5.7
Hgb 10.1 L
Hct 28.0 L
Plt Count 120 L
Sodium 136
Potassium 3.9
Chloride 113 H
Carbon Dioxide 22
BUN 5 L
Creatinine 0.7
Glucose 87
Calcium 7.7 L
Vital Signs:
Vital Signs
Temp Pulse Resp BP Pulse Ox
97.6 F 89 18 181/82 97
10/16/24 07:20 10/16/24 07:20 10/16/24 07:20 10/16/24 07:20 10/16/24 07:20
I&O
10/15/24 10/16/24 10/17/24
06:59 06:59 06:59
Intake Total 1985 / 1985 3224 / 3224
Output Total 3500 / 3500 2600 / 2600
Balance -1514 / -1514 620 / 624
[2024-10-16] MEDS: PENICILLIN 250 UNITS IV ×2 (08:37→21:10)
[2024-10-16] MEDS: NORVASC 5 MG PO (08:38)
[2024-10-16] MEDS: PROTONIX 40 MG PO (08:38)
[2024-10-16] MEDS: KEPPRA 500 MG PO ×2 (08:38→20:26)
[2024-10-16] MEDS: SENOKOT-S 1 TABLET PO ×2 (08:38→20:26)
[2024-10-16] MEDS: TOPROL XL 25 MG PO (08:38)
[2024-10-16] MEDS: MUCINEX 600 MG PO ×2 (08:38→20:26)
[2024-10-16] MEDS: NSS IV (08:38)
[2024-10-16] MEDS: MIRALAX 17 GRAMS PO (08:39)
[2024-10-16] MEDS: KLOR-CON 20 MEQ PO ×2 (08:39→20:26)
[2024-10-16 09:45] VITALS: BP 152/93
[2024-10-16 11:03] LABS: Vitamin D, 25-OH*** 18.8 ng/mL (30-80)
--- NOTE | 2024-10-16 12:30 | W.PN.ONC2 ---
Today's Communication / Plan
-
Coags now, then start Lovenox 40 mg SQ daily as DVT prophylaxis.
Impression
Impression
Patient is an 79 year old male with PMH of HTN, GERD, hypothyroidism who is followed for history of IgG kappa monoclonal gammopathy diagnosed in 2006 and acquired von Willebrand disorder who presented to the ED with weakness and ataxia.
Weakness / Ataxia / Confusion
- Etiology unclear, likely of neuro origin - CSF detected HSV1, started on acyclovir
- Primary team addressing individual issues including symptomatic hypothyroidism, hyponatremia
Pulmonary Nodule
- 1.6cm KADEN nodule seen on multiple recent images. Mildly FDG-avid without significant delayed uptake.
Acquired vonWillebrand's Disease
- Patient maintained on IVIG and Darzalex monthly - last injection was 09/22/2024
- Coagulation panel within normal limits as of late September
New PICC associated DVT
Plan
Plan
PICC now removed from LUE with improvement in swelling
Hgb has been stable and no recent hematuria
Cautiously starting Lovenox 40 SQ daily to try to prevent PICC associated clot on R
Draw coags and von Willebrand panel before starting Lvoenox. Okay to start Lovenox without von Willebrand panel being resulted.
Last treated about one month ago for the acquired von Willebrand's. It is felt to be autoimmune and has been well controlled with monthly IVIg.
Subjective/Objective
Chief Complaint
acquired von Willebrand, now with DVT
Subjective
We are signing back on in response to hospitalist question regarding management of PICC associated DVT. Pt still confused, does not offer history, but daughter states swelling has improved with removal of PICC and relocation to other side
Vital Signs:
Vital Signs
Temp Pulse Resp BP Pulse Ox
97.6 F 89 18 152/93 97
10/16/24 07:20 10/16/24 09:45 10/16/24 07:20 10/16/24 09:45 10/16/24 10:57
Lab Results:
Laboratory Data
WBC 5.7 10^3/uL (4.8-10.8) 10/16/24 06:02
Hgb 10.1 g/dL (13.0-18.0) L 10/16/24 06:02
Plt Count 120 10^3/uL (130-400) L 10/16/24 06:02
PT 13.7 Sec (11.4-14.6) 10/05/24 04:24
INR 1.01 10/05/24 04:24
APTT 32.2 Sec (23.4-35.0) 10/05/24 04:24
eGFR > 60.00 10/16/24 06:02
Physical Exam
Lethargic, non-toxic appearing
Mild swelling LUE
PICC in RUE
Orders
Orders
Orders From Last 24 Hours
10/16/24 12:18
PTT Urgent
Protime [Prothrombin Time] Urgent
Von Willebrand Multimeric Barnett [S] Urgent
10/16/24 12:20
DX Deep Vein Thrombosis Video Routine
10/16/24 13:00
Enoxaparin Sodium [Lovenox] 40 mg SC QPM
--- NOTE | 2024-10-16 12:50 | W.PN.ID1 ---
Date of Service
Date of Service: October 16, 2024
Today's Communication
Continue IV acyclovir and PCN-G
Assessment / Plan
# Change in mental status
# HSV-1 encephalitis
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
# RUE picc- associated superficial thrombus. PICC dc'd 10/15
# PCN allergy - rash/hives
# Recent neck swelling/enlarged tonsils since 09/01, (recently tx'd with clotrimazole by ENT)
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
# Thrombocytopenia improving
- Blood cx's neg
- C. diff neg, stool cx neg
- CT a/p unremarkable
- HIV negative.
-MRI brain: cortical restricted diffusion involving the anterior right frontal lobe extending into the hippocampus and right insular cortex. There is additional foci of diffusion hyperintense signal within the posterior aspect of the right thalamus
- 10/05 EEG: EEG 10/05 showing epileptogenic right frontal lobe
- Continue Acyclovir 800 mg IV q8h. (d#) through 10/25/24.
- Monitor renal function 3x/week while in IV acyclovir. Creatinine = 0.8
- Keep well-hydrated.
- Syphilis RPR 1:256.
Of note RPR negative in 2021 base on review of [facility] labs.
Unlikely neurosyphilis as CSF only 4 WBC. CSF VDRL neg (not sensitive test)
s/p 12d ceftriaxone, dc'd
Due to slow improvement of mental status, ceftriaxone replaced with PCN after dose tests.
--> Continue PCN-G 24MU over 24h continuous infusion (d4 )
- Trend RPR titer in 3 months after completion of tx until at least 4 fold decrease in titer.
Chief Complaint
-: Other (Change in mental status; HSV 1 encephalitis; Positive RPR)
Subjective / Review of Systems
Mental status same.
Vital Signs / Physical Exam
Vital Signs
Vital Signs
Temp Pulse Resp BP Pulse Ox
97.6 F 89 18 152/93 97
10/16/24 07:20 10/16/24 09:45 10/16/24 07:20 10/16/24 09:45 10/16/24 10:57
Physical Exam
Constitutional: No Acute Distress
Eyes: No Conjunctival Hemorrhage and Sclera Anicteric
Cardiovascular: Regular Rate and S1/S2
Pulmonary: Clear
Gastrointestinal: Soft, Non Tender and Non Distended
Extremities: Edema (RUE)
Neurological: Awake and Other (drowsy)
Lines: PICC (LUE)
Objective Data
Lab Data
Lab Results
10/16/24 06:02
10/16/24 06:02
PT 13.7 Sec (11.4-14.6) 10/05/24 04:24
INR 1.01 10/05/24 04:24
APTT 32.2 Sec (23.4-35.0) 10/05/24 04:24
Estimated Creat Clear 84 ml/min 10/16/24 06:02
Total Bilirubin 0.8 mg/dl (0.2-1.3) 10/12/24 06:00
AST 26 U/L (17-59) 10/12/24 06:00
ALT 18 U/L (0-50) 10/12/24 06:00
Alkaline Phosphatase 57 U/L (38-126) 10/12/24 06:00
Most recent labs reviewed.
Micro Results:
10/06/24 14:08 Fungal Smear - Final
Csf No yeast or fungal elements seen.
Fungal Culture - Preliminary
Culture in progress.
Positive cultures are reported as soon as detected.
Final report to follow in four to five weeks.
10/06/24 14:08 CSF Culture - Final
Csf No Growth After 5 Days - Final Report
Gram Stain - Final
10/03/24 21:18 Blood Culture - Final
Blood/Venous No Growth - Final Report
10/03/24 20:58 Blood Culture - Final
Blood/Venous No Growth - Final Report
10/04/24 08:16 Salmonella/Shigella Culture - Final
Feces/Stool No Salmonella, Shigella, Aeromonas or Plesiomonas species
isolated.
Campylobacter Culture - Final
No Campylobacter species isolated.
Shiga Toxin Test - Final
No E. coli Shiga Toxin 1 or 2 detected.
Stool Leukocytes - Final
10/06/24 14:08 Meningitis/Encephalitis Panel (PCR) - Final
Csf
10/04/24 09:20 MRSA Screen - Final
Nose No Methicillin Resistant Staphylococcus aureus isolated.
10/04/24 09:20 Urine Culture - Final
Urine NO GROWTH
10/04/24 17:36 Influenza Types A & B (RADHA) - Final
Nasal Swab Negative for Influenza A & B, NAAT
Negative results must be combined with clinical observations
and patient history.
Nucleic Acid Amplification test (NAAT)performed on the
[employer] platform.
10/04/24 17:36 Legionella Urinary Antigen - Final
Urine Negative for Legionella pneumophila Serogroup 1 antigen.
A negative result does not rule out the possiblity of
Legionella infection due to other serogroups or species of
Legionella. Clinical correlation is recommended.
Streptococcus pneumoniae Antigen (M - Final
Negative for Streptococcus pneumoniae antigen.
A negative result does not exclude infection with
Streptococcus pneumoniae. Clinical correlation is
recommended.
10/04/24 08:16 - Final
Feces/Stool Negative for Norovirus GI and GII.
10/04/24 08:16 C. difficile GDH Antigen & Toxins - Final
Feces/Stool Negative for toxigenic C.difficile
Meningitis Panel, CSF by PCR Final 10/06/24-1609
Escherichia coli K1 Not Detected
Haemophilus influenzae Not Detected
Listeria monocytogenes Not Detected
Neisseria meningitidis Not Detected
Cytomegalovirus (CMV) Not Detected
Streptococcus agalactiae Not Detected
Streptococcus pneumoniae Not Detected
Enterovirus Not Detected
--> Herpes simplex virus 1 DETECTED <--
Herpes simplex virus 2 Not Detected
Human herpesvirus 6 Not Detected
Human parechovirus Not Detected
Varicella zoster virus Not Detected
C. neoformans/gattii Not Detected
CSF
10/06/24 10/06/24
14:08 14:09
CSF Appearance Clear
CSF Color Colorless
CSF WBC 4
CSF RBC 14
CSF Cell Count Tube # 2
CSF Glucose 72 H
CSF Total Protein 217 H
CSF VDRL Non reactive
10/06/24
04:55
Syphilis Serology Positive
RPR Titer 1:256
RPR Reactive
HIV Ag/Ab Combo Qual Negative
10/04/24 Brain MRI: There is predominant cortical restricted diffusion involving the anterior right frontal lobe extending into the hippocampus and right insular cortex. There is additional foci of diffusion hyperintense signal within the posterior
aspect of the right thalamus. This constellation of findings can be seen in encephalitis (herpes or limbic), status epilepticus or acute infarction. Additionally Creutzfeld Christiano disease is considered unlikely, however cannot be excluded. Consider
correlation with CSF studies.
10/04/24 CXR: New minimal left lower lobe atelectasis versus scarring
10/04/24 CT Pe/abd/pel W: Mild left lower lobe airspace disease suggesting pneumonia. New
No acute pathology of the abdomen or pelvis identified
10/01/24 PET: Stable solitary right upper lobe pulmonary nodule which demonstrates mild FDG activity (with only minimal further increase on delayed imaging). This remains indeterminate with differential including infectious/inflammatory nodule or low
metabolic rate neoplasm.
09/01/[address]: Significant symmetric enlargement of the bilateral tonsillar soft tissues, which could be secondary to tonsillar hypertrophy or tonsillitis, with secondary narrowing of the oropharynx and hypopharynx. Bilateral pulmonary parenchymal
opacities suggesting pneumonia. 1.6 cm solid pulmonary nodule in the right upper lobe.
[2024-10-16 13:51] LABS: APTT 32.8 Sec (23.4-35.0); INR 1.11; PT 14.6 Sec (11.4-14.6)
[2024-10-16] MEDS: LOVENOX 40 MG SC (14:21)
[2024-10-16] MEDS: NSS 1000 IV (14:24)
[2024-10-16 15:05] VITALS: BP 173/76
--- NOTE | 2024-10-16 15:11 | PTCARENOTE ---
L PICC positional with blood return, suggested xray to verify placement
[2024-10-16 17:32] VITALS: BP 162/92
--- NOTE | 2024-10-16 17:35 | PTCARENOTE ---
BPs taken on calf this shift d/t LUE restriction for PICC and RUE restriction for clot, calf BPs consistently 170s-180s systolic throughout shift, manual taken by this RN on L calf 162/92. Patient laying in bed, drowsy, AAOX2 - disoriented to time,
states no complaints at this time, neuro checks WNL. MD made aware of BP results, requesting thigh cuff for thigh BPs if able, this RN left message to central supply. No new orders at this time per MD.
[2024-10-16] MEDS: CARDURA 2 MG PO (21:33)
[2024-10-16 23:13] VITALS: BP 147/87
[2024-10-17] MEDS: NSS IV (05:04)
[2024-10-17] MEDS: ZOVIRAX INJECTION 266 MG IV ×3 (05:14→21:30)
[2024-10-17] MEDS: SYNTHROID 150 MCG PO (05:14)
[2024-10-17 06:00] VITALS: BMI 29.6
[2024-10-17 06:16] LABS: Hematocrit 27.6 % (39.0-52.0); Hemoglobin 9.9 g/dL (13.0-18.0); Mean Corp Hgb Conc. 35.9 g/dL (33.0-37.0); Mean Corpuscular Volume 95.5 fL (80.0-94.0); Platelet Count 133 10^3/uL (130-400); Red Cell Dist. Width 16.0 % (11.5-14.5)
[2024-10-17 06:34] LABS: Blood Urea Nitrogen 5 mg/dl (9-20); Calcium 8.1 mg/dl (8.4-10.2); Carbon Dioxide 24 mmol/L (22-30); Chloride 110 mmol/L (98-107); Estimated Creatinine Clearance 84 ml/min; Glucose 89 mg/dl (70-99); Magnesium 1.9 mg/dl (1.6-2.3); Potassium 3.7 mmol/L (3.5-5.1); Sodium 135 mmol/L (135-145); eGFR > 60.00
--- NOTE | 2024-10-17 08:00 | W.PN.HOSP.TC ---
Today's Communication/Plan
-
cont abx antiviral as per ID
PT/OT
discharge planning Acute Rehab
Milk and Molasses Enema
Vit D supplementation, multivitamin, Thiamine
Assessment / Plan
Assessment / Plan
Physical Exam
General: Not in acute distress, appears comfortable at this time
HEENT: Thick neck. Not tender, no induration, erythema, or palpable masses
Respiratory: CTAB
Cardiac: S1/S2 and Regular Rhythm
GI: Soft, Nontender, Distended, Normal Bowel Sounds. Obese
Musculoskeletal: No Cyanosis and Trace pitting edema at the bilateral lower extremities
Neuro: AAO x 3 conversant coherent noted memory issues as per daughter at bedside (consistently doesn't remember family visiting night prior)
Psych: flat affect paucity of speech calm
Assessment/Plan
79y M with PMH significant for hypothyroidism, hypertension and von Willebrand's disease who presents to ED complaining of weakness. History obtained from patient and his family at the bedside. Patient was in his usual states of good health
until about 3-4 weeks ago when he began to become more weak / fatigued. He was still able to complete his ADLs until this past 24-48 hours when his symptoms markedly worsened. Patient is followed by Nicko Mims for vWF. He receives monthly
IVIG (last dose 09/29). There is some question of multiple myeloma - though history there is not clear and patient does not appear to be on any treatment for this (records show MGUS). Patient developed fullness / swelling in the throat several
weeks ago. He was evaluated by ENT in their office Dr. Hicks. CT scan showed tonsillar hypertrophy but was otherwise unremarkable. He was treated briefly with antifungal medication for thrush (patient was having a sore throat) - but this was
stopped after fungal smear was negative. CT neck also showed incidental RUL nodule and patient has had CT C/A/P and PET-CT since that time for further evaluation. These revealed mildly FDG-avid (3.3) KADEN nodule (1.6cm). No other areas of
FDG-avidity. No other abnormal findings. Over the 48 hours prior to presentation, patient remained seated at home and has not left his chair. He reported shaking chills. Family has noted swelling in the legs - L > R - which is unusual for him.
Family noted that he seemed somewhat confused as well since 10/02/24 evening. 911 was called to the home this afternoon when patient was unable to get up. He decline ED evaluation at that time. Later in the afternoon family convinced him to
present to the ED for further evaluation. Patient was noted to be quite unsteady on his feet in the emergency department. He drove himself to his radiology appointments as recently as 2 days ago and had no significant issues.
Weakness / Ataxia / Confusion
Acute Toxic Metabolic Encephalopathy Likely Secondary to Encephalitis and Possibly From Pneumonia
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
Likely immunosuppressed from Daratumumab and Dex
Cognitive Impairment
- CT head in ED unremarkable.
- MRI brain with suspected encephalitis
- ID eval appreciated
- IR performed LP on 10/06/24 -- high protein, low glucose
- Continue Keppra -- newly started this admission
- Continue Acyclovir as per ID 21 day course through 10/25/24
- CMV neg
- EBV serology panel significant for prior infection with no apparent reactivation.
- HIV negative
- Syphilis screen positive
- PT/OT/ PMR eval appreciated Acute Rehab
- Appreciate neurology
- Patient's agitation behaviors improved with Seroquel since discontinued d/t sedation, agitation remains resolved at this time
- persistent cognitive impairment, psych eval appreciated unlikely pseudodementia/depression ruled out
- Repeat CT head 10/17 appreciated no acute abn's
- Multivitamin and Thiamine supplementations started
Syphilis screen : Positive. RPR 1:256. CSF VDRL negative.
- ID eval appreciated, given reported allergy to penicillin, patient was originally planned for 14-day course of ceftriaxone, however given lack of cognitive improvement, PCN challenge was attempted and passed, subsequently switched to 14 days
course PCN 10/13.
RUE PICC placed for planned senior living IV abx antiviral
Complicated with Superficial Thrombosis noted on RUE US 10/15/24
RUE PICC removed and LUE PICC placed
cont supportive care superficial thrombosis RUE w/ pain control, ice, and elevation
-Hematology eval appreciated, started on Lovenox 40 mg QPM as DVT ppx
Diarrhea, Abdominal Pain and Nausea Resolved
Mild fluid right inguinal canal -- postsurgical change more likely versus unlikely incarcerated/strangulated hernia, no significant pain at this time -- seen on CT Imaging
Constipation
- Stool studies unremarkable
- Surgery eval appreciated no need for intervention
- Initially had diarrhea since resolved, developed constipation; AXR suggests moderate amount of stool within the rectum
- Miralax and Senokot-S, given suppository with some improvement noted, fleet enema given 10/14
- Milk and Molasses Enema given 10/17 with good response noted
Gross Hematuria
Urinary Retention
-Recurrence during this hospitalization
-urology mentions expected with von Willebrands
-Hgb VSS
-CT without contrast with no obstructive uropathy or stones
-Consulted urology -- recommendation to continue bladder scans -- if PVR rising significantly, then place Negron -- but no interventions at this time as per urology
Hypothyroidism
- TSH = 16.8 and Free T4 = 0.39 this hospitalization
- Some confusion, weakness, ataxia, edema, questionable contribution hypothyroidism
- IV dose of levothyroxine given initially
- PO Levothyroxine dose increased to 150 mcg daily
- Follow up TFTs notes improvement in T4 wnl while TSH remains elevated
- repeat TFTs in 1 month
Acute Hypoxic Respiratory Insufficiency - RESOLVED
Likely LLL Pneumonia
Small Right Pleural Effusion on AXR from 10/09/24
Nocturnal O2 Desaturation (see nocturnal O2 saturation report from 10/06/24 morning)
Cough Again on 10/04/24
History of Recurrent Colds
History of Recent Pneumonia on CT Neck (treated outpatient with PCP in late August 2024 to early September 2024)
-Doxycycline completed
-ID eval appreciated ceftriaxone switched to PCN challenge as above
-Atrovent PRN given intolerance to Albuterol
-CT Abdomen/Pelvis from 10/07/24 showed bibasilar opacification -- most likely representing subsegmental atelectasis as well as tiny bilateral pleural effusions, left greater than right
-Follow cultures
Persistent neck swelling/enlarged tonsils since 09/01/24, (recently treated with 30 day course of Fluconazole)
Recent Tonsillar Hypertrophy
Recent Thrush
-Follows Dr. Anna Hicks (ENT) outpt
-EBV serology panel significant for prior infection with no apparent reactivation.
Right Upper Lobe Pulmonary Nodule -- indeterminate PET scan
- follows Dr. Rider outpatient
- 1.6cm KADEN nodule seen on multiple recent images. Mildly FDG-avid without significant delayed uptake.
- Covered with abx ceftriaxone / doxycycline since completed
- May benefit from biopsy for further evaluation if no improvement / resolution with antibiotics.
Acute Kidney Injury - RESOLVED
- IV fluids with Normal Saline IV Fluids 70 cc/hr as per nephrology
- Continue to monitor renal function given patient is on Acyclovir
- CT Abdomen Pelvis 10/07/24 with no stone or obstructive process
Hypokalemia
Hypomagnesemia
-monitor and replete as necessary
Hypertension
-Cont antihypertensives
-Blood pressure measurements limited by Superficial Thrombosis RUE and PICC LUE
-Calf measurements likely falsely elevated, consider treatment if patient develops symptomatic hypertension
Acquired von Willebrand's Disease (started at age 49 y/o) on monthly IVIG, Darzalex
- Stable. Patient maintained on IVIG monthly - last injection was 09/29/24.
- Hematology eval appreciated Acquired von willebrand disease fully controlled at this time, continued outpt hematology follow up recommended
MGUS
- Has been on Decadron, Darzalex, and IVIG -- sees Dr. Lucio outpatient
Thrombocytopenia
- Mild, stable
Vitamin D Deficiency
-supplementation started
Coronary Artery Disease
Simple bilateral renal cysts
Appendicoliths
Speech/Diet: Speech evaluation completed on this patient. Recommended to downgrade to IDDSI level four (puree) and thin liquids. Significant pocketing of food. Also completed cognitive evaluation with score of 7/30 on [facility] mental
status (SLUMS) examination. Later evaluation noted improvement in swallow, diet since upgraded to regular
DVT Prophylaxis: SCDs Lovenox
Code Status: Full Code
discussed with patient and patient's daughter Jacqueline
I spent a total of 45 minutes with the patient or on the floor. More than 50% of this time involved counseling and coordination of care.
Anticipated Discharge: 24 - 48 hours
Subjective/Interval History
-
Date of Service: October 17, 2024
Paucity of speech. Responds coherently to questions though few word answers at a time. Sleeping all day per daughter Jacqueline at bedside.
Objective Data
-
Labs:
Laboratory Results
10/17/24
05:49
WBC 5.6
Hgb 9.9 L
Hct 27.6 L
Plt Count 133
Sodium 135
Potassium 3.7
Chloride 110 H
Carbon Dioxide 24
BUN 5 L
Creatinine 0.7
Glucose 89
Calcium 8.1 L
Vital Signs:
Vital Signs
Temp Pulse Resp BP Pulse Ox
99.7 F 93 20 147/87 92
10/16/24 23:13 10/16/24 23:13 10/16/24 23:13 10/16/24 23:13 10/16/24 23:13
I&O
10/16/24 10/17/24 10/18/24
06:59 06:59 06:59
Intake Total 3224 / 3224 2841.6 / 2841.6
Output Total 2600 / 2600 1050 / 1050
Balance 624 / 624 179.6 / 179.6
[2024-10-17 08:33] VITALS: BP 195/96
[2024-10-17] MEDS: NORVASC 5 MG PO (09:13)
[2024-10-17] MEDS: MUCINEX 600 MG PO ×2 (09:13→21:21)
[2024-10-17] MEDS: KLOR-CON 20 MEQ PO ×2 (09:13→21:21)
[2024-10-17] MEDS: PROTONIX 40 MG PO (09:13)
[2024-10-17] MEDS: KEPPRA 500 MG PO ×2 (09:13→21:21)
[2024-10-17] MEDS: SENOKOT-S 1 TABLET PO (09:13)
[2024-10-17] MEDS: MIRALAX 17 GRAMS PO (09:13)
[2024-10-17 09:16] VITALS: PULSE 84; O2SAT 94
[2024-10-17] MEDS: TOPROL XL 25 MG PO (09:20)
[2024-10-17 09:45] VITALS: BP 111/60
--- NOTE | 2024-10-17 10:23 | W.PN.ID1 ---
Date of Service
Date of Service: October 17, 2024
Today's Communication
Continue antiviral and abx.
Assessment / Plan
# Change in mental status, no significant improvement
# HSV-1 encephalitis
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
# RUE picc- associated superficial thrombus. PICC dc'd 10/15
# PCN allergy - rash/hives
# Recent neck swelling/enlarged tonsils since 09/01, (recently tx'd with clotrimazole by ENT)
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
# Thrombocytopenia improving
- Blood cx's neg
- C. diff neg, stool cx neg
- CT a/p unremarkable
- HIV negative.
-MRI brain: cortical restricted diffusion involving the anterior right frontal lobe extending into the hippocampus and right insular cortex. There is additional foci of diffusion hyperintense signal within the posterior aspect of the right thalamus
- 10/05 EEG: EEG 10/05 showing epileptogenic right frontal lobe
- Continue Acyclovir 800 mg IV q8h. (d#) through 10/25/24.
- Monitor renal function 3x/week while in IV acyclovir. Creatinine = 0.8
- Keep well-hydrated.
- Syphilis RPR 1:256.
Of note RPR negative in 2021 base on review of [facility] labs.
Unlikely neurosyphilis as CSF only 4 WBC. CSF VDRL neg (not sensitive test)
s/p 12d ceftriaxone, dc'd
Due to slow improvement of mental status, ceftriaxone replaced with PCN after dose tests.
--> Continue PCN-G 24MU over 24h continuous infusion ()
- Trend RPR titer in 3 months after completion of tx until at least 4 fold decrease in titer.
Chief Complaint
-: Other (Change in mental status; HSV 1 encephalitis; Positive RPR)
Subjective / Review of Systems
Per daughter, mental status worse again. Pt not talking much. He sleeps all the time.
Vital Signs / Physical Exam
Vital Signs
Vital Signs
Temp Pulse Resp BP Pulse Ox
99.7 F 89 20 111/60 94
10/16/24 23:13 10/17/24 09:45 10/17/24 08:33 10/17/24 09:45 10/17/24 08:33
Physical Exam
Constitutional: No Acute Distress and Acutely Ill
Cardiovascular: Regular Rate and S1/S2
Pulmonary: Clear
Gastrointestinal: Soft, Non Tender, Non Distended and Normal Bowel Sounds
Genito-Urinary: Negative CVA Tenderness
Neurological: Other (Lethargic)
Objective Data
Lab Data
Lab Results
10/17/24 05:49
10/17/24 05:49
PT 14.6 Sec (11.4-14.6) 10/16/24 13:14
INR 1.11 10/16/24 13:14
APTT 32.8 Sec (23.4-35.0) 10/16/24 13:14
Estimated Creat Clear 84 ml/min 10/17/24 05:49
Total Bilirubin 0.8 mg/dl (0.2-1.3) 10/12/24 06:00
AST 26 U/L (17-59) 10/12/24 06:00
ALT 18 U/L (0-50) 10/12/24 06:00
Alkaline Phosphatase 57 U/L (38-126) 10/12/24 06:00
Most recent labs reviewed.
Micro Results:
10/06/24 14:08 Fungal Smear - Final
Csf No yeast or fungal elements seen.
Fungal Culture - Preliminary
Culture in progress.
Positive cultures are reported as soon as detected.
Final report to follow in four to five weeks.
10/06/24 14:08 CSF Culture - Final
Csf No Growth After 5 Days - Final Report
Gram Stain - Final
10/03/24 21:18 Blood Culture - Final
Blood/Venous No Growth - Final Report
10/03/24 20:58 Blood Culture - Final
Blood/Venous No Growth - Final Report
10/04/24 08:16 Salmonella/Shigella Culture - Final
Feces/Stool No Salmonella, Shigella, Aeromonas or Plesiomonas species
isolated.
Campylobacter Culture - Final
No Campylobacter species isolated.
Shiga Toxin Test - Final
No E. coli Shiga Toxin 1 or 2 detected.
Stool Leukocytes - Final
10/06/24 14:08 Meningitis/Encephalitis Panel (PCR) - Final
Csf
10/04/24 09:20 MRSA Screen - Final
Nose No Methicillin Resistant Staphylococcus aureus isolated.
10/04/24 09:20 Urine Culture - Final
Urine NO GROWTH
10/04/24 17:36 Influenza Types A & B (RADHA) - Final
Nasal Swab Negative for Influenza A & B, NAAT
Negative results must be combined with clinical observations
and patient history.
Nucleic Acid Amplification test (NAAT)performed on the
[employer] platform.
10/04/24 17:36 Legionella Urinary Antigen - Final
Urine Negative for Legionella pneumophila Serogroup 1 antigen.
A negative result does not rule out the possiblity of
Legionella infection due to other serogroups or species of
Legionella. Clinical correlation is recommended.
Streptococcus pneumoniae Antigen (M - Final
Negative for Streptococcus pneumoniae antigen.
A negative result does not exclude infection with
Streptococcus pneumoniae. Clinical correlation is
recommended.
10/04/24 08:16 - Final
Feces/Stool Negative for Norovirus GI and GII.
10/04/24 08:16 C. difficile GDH Antigen & Toxins - Final
Feces/Stool Negative for toxigenic C.difficile
Meningitis Panel, CSF by PCR Final 10/06/24-1609
Escherichia coli K1 Not Detected
Haemophilus influenzae Not Detected
Listeria monocytogenes Not Detected
Neisseria meningitidis Not Detected
Cytomegalovirus (CMV) Not Detected
Streptococcus agalactiae Not Detected
Streptococcus pneumoniae Not Detected
Enterovirus Not Detected
--> Herpes simplex virus 1 DETECTED <--
Herpes simplex virus 2 Not Detected
Human herpesvirus 6 Not Detected
Human parechovirus Not Detected
Varicella zoster virus Not Detected
C. neoformans/gattii Not Detected
CSF
10/06/24 10/06/24
14:08 14:09
CSF Appearance Clear
CSF Color Colorless
CSF WBC 4
CSF RBC 14
CSF Cell Count Tube # 2
CSF Glucose 72 H
CSF Total Protein 217 H
CSF VDRL Non reactive
10/06/24
04:55
Syphilis Serology Positive
RPR Titer 1:256
RPR Reactive
HIV Ag/Ab Combo Qual Negative
10/04/24 Brain MRI: There is predominant cortical restricted diffusion involving the anterior right frontal lobe extending into the hippocampus and right insular cortex. There is additional foci of diffusion hyperintense signal within the posterior
aspect of the right thalamus. This constellation of findings can be seen in encephalitis (herpes or limbic), status epilepticus or acute infarction. Additionally Creutzfeld Christiano disease is considered unlikely, however cannot be excluded. Consider
correlation with CSF studies.
10/04/24 CXR: New minimal left lower lobe atelectasis versus scarring
10/04/24 CT Pe/abd/pel W: Mild left lower lobe airspace disease suggesting pneumonia. New
No acute pathology of the abdomen or pelvis identified
10/01/24 PET: Stable solitary right upper lobe pulmonary nodule which demonstrates mild FDG activity (with only minimal further increase on delayed imaging). This remains indeterminate with differential including infectious/inflammatory nodule or low
metabolic rate neoplasm.
09/01/[address]: Significant symmetric enlargement of the bilateral tonsillar soft tissues, which could be secondary to tonsillar hypertrophy or tonsillitis, with secondary narrowing of the oropharynx and hypopharynx. Bilateral pulmonary parenchymal
opacities suggesting pneumonia. 1.6 cm solid pulmonary nodule in the right upper lobe.
[2024-10-17] MEDS: PENICILLIN 250 UNITS IV (10:41)
[2024-10-17] MEDS: NSS 1000 IV (10:42)
[2024-10-17] MEDS: VITAMIN D3 (cholecalciferol) 25 MCG PO (11:42)
[2024-10-17 15:41] VITALS: BP 126/75
[2024-10-17 16:32] LABS: Ammonia < 9 umol/L (9-30)
[2024-10-17] MEDS: LOVENOX 40 MG SC (17:21)
--- NOTE | 2024-10-17 20:00 | PTCARENOTE ---
Patient AAOx2 this shift, flat and drowsy/withdrawn, wakes to verbal stimuli before falling back asleep. Cooperative with care but needing frequent cues and redirection. Daughter at bedside concerned with patient's drowsiness, feels he is in
'catatonic ' state that has gotten worse over last 2-3 days. MD made aware of daughter concerns, Head CT scan ordered. Patient OOB to chair with assist x2 RW this shift, Penicillin gtt and IVF infusing through L PICC. CC #[address] draining clear
yellow urine, MOM enema given this afternoon per MD order for large soft brown inc BM.
[2024-10-17] MEDS: VITAMIN B1 100 MG PO (21:21)
[2024-10-17] MEDS: CARDURA 2 MG PO (21:22)
[2024-10-17] MEDS: SENOKOT-S PO (21:22)
[2024-10-17 23:14] VITALS: BP 150/75
[2024-10-18] VITALS (7 sets, daily range): BP systolic 118–197; BP diastolic 72–104; BMI 28.0
[2024-10-18] MEDS: PENICILLIN 250 UNITS IV ×2 (00:14→13:45)
[2024-10-18] MEDS: NSS 1000 IV ×2 (04:48→18:25)
[2024-10-18 05:29] LABS: Hematocrit 27.7 % (39.0-52.0); Hemoglobin 9.9 g/dL (13.0-18.0); Mean Corp Hgb Conc. 35.7 g/dL (33.0-37.0); Mean Corpuscular Volume 95.8 fL (80.0-94.0); Platelet Count 137 10^3/uL (130-400); Red Cell Dist. Width 16.0 % (11.5-14.5)
[2024-10-18] MEDS: ZOVIRAX INJECTION 266 MG IV ×3 (05:51→22:51)
[2024-10-18 05:53] LABS: Blood Urea Nitrogen 4 mg/dl (9-20); Calcium 8.3 mg/dl (8.4-10.2); Carbon Dioxide 24 mmol/L (22-30); Chloride 110 mmol/L (98-107); Estimated Creatinine Clearance 84 ml/min; Glucose 90 mg/dl (70-99); Magnesium 1.7 mg/dl (1.6-2.3); Potassium 3.6 mmol/L (3.5-5.1); Sodium 135 mmol/L (135-145); eGFR > 60.00
[2024-10-18] MEDS: SYNTHROID 150 MCG PO (07:26)
--- NOTE | 2024-10-18 07:55 | W.PN.HOSP.TC ---
Today's Communication/Plan
-
See plan
Assessment / Plan
Assessment / Plan
Physical Exam
General: Not in acute distress, appears comfortable at this time
HEENT: Thick neck. Not tender, no induration, erythema, or palpable masses
Respiratory: CTAB
Cardiac: S1/S2 and Regular Rhythm
GI: Soft, Nontender, Distended, Normal Bowel Sounds. Obese
Musculoskeletal: No Cyanosis and Trace pitting edema at the bilateral lower extremities
Neuro: AAO x 2
Psych: flat affect paucity of speech calm
Assessment/Plan
79y M with PMH significant for hypothyroidism, hypertension and von Willebrand's disease who presents to ED complaining of weakness. History obtained from patient and his family at the bedside. Patient was in his usual states of good health
until about 3-4 weeks ago when he began to become more weak / fatigued. He was still able to complete his ADLs until this past 24-48 hours when his symptoms markedly worsened. Patient is followed by Nicko Mims for vWF. He receives monthly
IVIG (last dose 09/29). There is some question of multiple myeloma - though history there is not clear and patient does not appear to be on any treatment for this (records show MGUS). Patient developed fullness / swelling in the throat several
weeks ago. He was evaluated by ENT in their office Dr. Hicks. CT scan showed tonsillar hypertrophy but was otherwise unremarkable. He was treated briefly with antifungal medication for thrush (patient was having a sore throat) - but this was
stopped after fungal smear was negative. CT neck also showed incidental RUL nodule and patient has had CT C/A/P and PET-CT since that time for further evaluation. These revealed mildly FDG-avid (3.3) KADEN nodule (1.6cm). No other areas of
FDG-avidity. No other abnormal findings. Over the 48 hours prior to presentation, patient remained seated at home and has not left his chair. He reported shaking chills. Family has noted swelling in the legs - L > R - which is unusual for him.
Family noted that he seemed somewhat confused as well since 10/02/24 evening. 911 was called to the home this afternoon when patient was unable to get up. He decline ED evaluation at that time. Later in the afternoon family convinced him to
present to the ED for further evaluation. Patient was noted to be quite unsteady on his feet in the emergency department. He drove himself to his radiology appointments as recently as 2 days ago and had no significant issues.
Weakness / Ataxia / Confusion
Acute Toxic Metabolic Encephalopathy Likely Secondary to Encephalitis and Possibly From Pneumonia
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
Likely immunosuppressed from Daratumumab and Dex
Cognitive Impairment
- CT head in ED unremarkable.
- MRI brain with suspected encephalitis
- ID eval appreciated
- IR performed LP on 10/06/24 -- high protein, low glucose
- Continue Keppra -- newly started this admission
- Continue Acyclovir as per ID 21 day course through 10/25/24
- CMV neg
- EBV serology panel significant for prior infection with no apparent reactivation.
- HIV negative
- Syphilis screen positive
- PT/OT/ PMR eval appreciated Acute Rehab
- Appreciate neurology
- Patient's agitation behaviors improved with Seroquel since discontinued d/t sedation, agitation remains resolved at this time
- persistent cognitive impairment, psych eval appreciated unlikely pseudodementia/depression ruled out
- Repeat CT head 10/17 appreciated no acute abn's
- Multivitamin and Thiamine supplementations started
- Per my discussion inside patient's room on 10/18/24 with patient's daughter Jacqueline, patient's cognition has gotten worse since 10/15/24 -- re-consulted neurology, Keppra/Levetiracetam side effect? repeat MRI Brain and additional evaluation per
neuro. EEG unremarkable. Also stopped beta chiara and replaced with Lisinopril.
Syphilis screen : Positive. RPR 1:256. CSF VDRL negative.
- ID eval appreciated, given reported allergy to penicillin, patient was originally planned for 14-day course of ceftriaxone, however given lack of cognitive improvement, PCN challenge was attempted and passed, subsequently switched to 14 days
course PCN 10/13.
RUE PICC placed for planned chcf IV abx antiviral
Complicated with Superficial Thrombosis noted on RUE US 10/15/24
RUE PICC removed and LUE PICC placed
cont supportive care superficial thrombosis RUE w/ pain control, ice, and elevation
-Hematology eval appreciated, started on Lovenox 40 mg QPM as DVT ppx
Diarrhea, Abdominal Pain and Nausea Resolved
Mild fluid right inguinal canal -- postsurgical change more likely versus unlikely incarcerated/strangulated hernia, no significant pain at this time -- seen on CT Imaging
Constipation
- Stool studies unremarkable
- Surgery eval appreciated no need for intervention
- Initially had diarrhea since resolved, developed constipation; AXR suggests moderate amount of stool within the rectum
- Miralax and Senokot-S, given suppository with some improvement noted, fleet enema given 10/14
- Milk and Molasses Enema given 10/17 with good response noted
Gross Hematuria
Urinary Retention
-Recurrence during this hospitalization
-urology mentions expected with von Willebrands
-Hgb VSS
-CT without contrast with no obstructive uropathy or stones
-Consulted urology -- recommendation to continue bladder scans -- if PVR rising significantly, then place Negron -- but no interventions at this time as per urology
Hypothyroidism
- TSH = 16.8 and Free T4 = 0.39 this hospitalization
- Some confusion, weakness, ataxia, edema, questionable contribution hypothyroidism
- IV dose of levothyroxine given initially
- PO Levothyroxine dose increased to 150 mcg daily
- Follow up TFTs notes improvement in T4 wnl while TSH remains elevated but better
- repeat TFTs in 1 month
Acute Hypoxic Respiratory Insufficiency - RESOLVED
Likely LLL Pneumonia
Small Right Pleural Effusion on AXR from 10/09/24
Nocturnal O2 Desaturation (see nocturnal O2 saturation report from 10/06/24 morning)
Cough Again on 10/04/24
History of Recurrent Colds
History of Recent Pneumonia on CT Neck (treated outpatient with PCP in late August 2024 to early September 2024)
-Doxycycline completed
-ID eval appreciated ceftriaxone switched to PCN challenge as above
-Atrovent PRN given intolerance to Albuterol
-CT Abdomen/Pelvis from 10/07/24 showed bibasilar opacification -- most likely representing subsegmental atelectasis as well as tiny bilateral pleural effusions, left greater than right
-Follow cultures
Persistent neck swelling/enlarged tonsils since 09/01/24, (recently treated with 30 day course of Fluconazole)
Recent Tonsillar Hypertrophy
Recent Thrush
-Follows Dr. Anna Hicks (ENT) outpt
-EBV serology panel significant for prior infection with no apparent reactivation.
Right Upper Lobe Pulmonary Nodule -- indeterminate PET scan
- follows Dr. Rider outpatient
- 1.6cm KADEN nodule seen on multiple recent images. Mildly FDG-avid without significant delayed uptake.
- Covered with abx ceftriaxone / doxycycline since completed
- May benefit from biopsy for further evaluation if no improvement / resolution with antibiotics.
Acute Kidney Injury - RESOLVED
- IV fluids with Normal Saline IV Fluids 70 cc/hr as per nephrology
- Continue to monitor renal function given patient is on Acyclovir --- continue IVF while on IV antiviral -- could reduce rate to 50cc/hr if needed
- CT Abdomen Pelvis 10/07/24 with no stone or obstructive process
Hypokalemia
Hypomagnesemia
-monitor and replete as necessary
Hypertension
-Cont antihypertensives -- increased Amlodipine to 5 mg BID
-Stop Toprol XL (can cause BOX COVERER HAND effects) and replace with Lisinopril 2.5 mg BID for better blood pressure control
-Blood pressure measurements limited by Superficial Thrombosis RUE and PICC LUE
-Calf measurements likely falsely elevated, consider treatment if patient develops symptomatic hypertension
Acquired von Willebrand's Disease (started at age 49 y/o) on monthly IVIG, Darzalex
- Stable. Patient maintained on IVIG monthly - last injection was 09/29/24.
- Hematology eval appreciated Acquired von willebrand disease fully controlled at this time, continued outpt hematology follow up recommended
MGUS
- Has been on Decadron, Darzalex, and IVIG -- sees Dr. Lucio outpatient
Thrombocytopenia
- Mild, stable
Vitamin D Deficiency
-supplementation started
Coronary Artery Disease
Simple bilateral renal cysts
Appendicoliths
Speech/Diet: Speech evaluation completed on this patient. Recommended to downgrade to IDDSI level four (puree) and thin liquids. Significant pocketing of food. Also completed cognitive evaluation with score of 7/30 on [facility] mental
status (SLUMS) examination. Later evaluation noted improvement in swallow, diet since upgraded to regular
DVT Prophylaxis: SCDs Lovenox
Code Status: Full Code
discussed with patient and patient's daughter Jacqueline
Anticipated Discharge: > 48 hours
Subjective/Interval History
-
Date of Service: October 18, 2024
Patient was seen and examined. Patient's daughter Jacqueline was present in the room. Per Jacqueline, patient is doing worse in the past several days.
Objective Data
-
Labs:
Laboratory Results
10/18/24
05:15
WBC 5.6
Hgb 9.9 L
Hct 27.7 L
Plt Count 137
Sodium 135
Potassium 3.6
Chloride 110 H
Carbon Dioxide 24
BUN 4 L
Creatinine 0.7
Glucose 90
Calcium 8.3 L
Vital Signs:
Vital Signs
Temp Pulse Resp BP Pulse Ox
98.1 F 87 19 150/75 96
10/17/24 23:14 10/17/24 23:14 10/17/24 23:14 10/17/24 23:14 10/17/24 23:14
I&O
10/17/24 10/18/24 10/19/24
06:59 06:59 06:59
Intake Total 2841.6 / 2841.6 3527.6 / 3527.6
Output Total 1050 / 1050 3400 / 3400
Balance 1791.6 / 1791.6 127.6 / 127.6
--- NOTE | 2024-10-18 08:36 | W.PN.ONC ---
Today's Communication / Plan
-
- PICC now removed with improvement in swelling
- Continue Lovenox 40 SQ daily to try to prevent PICC associated clot
- Coagulation panel WNL, von Willebrand panel pending
- Last treated about one month ago for the acquired von Willebrand's. It is felt to be autoimmune and has been well controlled with monthly IVIg.
Impression
Impression
Patient is an 79 year old male with PMH of HTN, GERD, hypothyroidism who is followed for history of IgG kappa monoclonal gammopathy diagnosed in 2006 and acquired von Willebrand disorder who presented to the ED with weakness and ataxia.
Weakness / Ataxia / Confusion
- Etiology unclear, likely of neuro origin - CSF detected HSV1, started on acyclovir
- Primary team addressing individual issues including symptomatic hypothyroidism, hyponatremia
Pulmonary Nodule
- 1.6cm KADEN nodule seen on multiple recent images. Mildly FDG-avid without significant delayed uptake.
Acquired vonWillebrand's Disease
- Patient maintained on IVIG and Darzalex monthly - last injection was 09/22/2024
- Coagulation panel within normal limits as of late September
New PICC associated DVT
- Patient started on Lovenox 40mg
Plan
Plan
- PICC now removed with improvement in swelling
- Continue Lovenox 40 SQ daily to try to prevent PICC associated clot
- Coagulation panel WNL, von Willebrand panel pending
- Last treated about one month ago for the acquired von Willebrand's. It is felt to be autoimmune and has been well controlled with monthly IVIg.
Subjective/Objective
Subjective/Objective
Patient seen at the bedside this morning. Daughter was not present. Patient was not talking much. Denies all ROS.
Physical:
General: Not in acute distress, lethargic
HEENT: Appreciable neck swelling still present
Cardiovascular: RRR
Respiratory: Normal breath sounds
Abdomen: nontender, soft
Extremities: wearing SCDs on LE b/l
Vital Signs:
Vital Signs
Temp Pulse Resp BP Pulse Ox
98 F 84 20 197/104 96
10/18/24 07:00 10/18/24 07:00 10/18/24 07:00 10/18/24 07:00 10/18/24 07:00
Lab Results:
Laboratory Data
WBC 5.6 10^3/uL (4.8-10.8) 10/18/24 05:15
Hgb 9.9 g/dL (13.0-18.0) L 10/18/24 05:15
Plt Count 137 10^3/uL (130-400) 10/18/24 05:15
PT 14.6 Sec (11.4-14.6) 10/16/24 13:14
INR 1.11 10/16/24 13:14
APTT 32.8 Sec (23.4-35.0) 10/16/24 13:14
eGFR > 60.00 10/18/24 05:15
[2024-10-18] MEDS: KLOR-CON 20 MEQ PO ×2 (09:19→19:55)
[2024-10-18] MEDS: MIRALAX 17 GRAMS PO (09:19)
[2024-10-18] MEDS: VITAMIN D3 (cholecalciferol) 25 MCG PO (09:20)
[2024-10-18] MEDS: NORVASC 5 MG PO ×3 (09:20→22:50)
[2024-10-18] MEDS: THERAGRAN 1 TABLET PO (09:20)
[2024-10-18] MEDS: TOPROL XL 25 MG PO (09:20)
[2024-10-18] MEDS: PROTONIX 40 MG PO (09:20)
[2024-10-18] MEDS: VITAMIN B1 100 MG PO ×2 (09:20→19:55)
[2024-10-18] MEDS: MUCINEX 600 MG PO ×2 (09:20→19:55)
[2024-10-18] MEDS: SENOKOT-S 1 TABLET PO ×2 (09:22→19:55)
[2024-10-18] MEDS: KEPPRA 500 MG PO ×2 (09:23→19:55)
--- NOTE | 2024-10-18 10:55 | PTCARENOTE ---
Patient drowsy, oriented to self and place. Patient does not know month or daughter's name. Patient is able to follow simple commands and needs frequent queuing with all tasks (walking, sitting, eating). Patient OOB with assist x2 to standing
position, then ambulates with walker to chair.Tolerated sitting in the chair for 2 hours. Family at bedside. Bed and chair alarm maintained.
--- NOTE | 2024-10-18 11:15 | W.PN.NEURO.1 ---
Neuro Assessment/Plan
Assessment
head CT moderate atrophy, white matter changes
brain MRI 10/04 cortical ribbon diffusion restriction anterior right frontal/hippocampus/insular cortex, posterior right thalamus. no contrast enhancement agree most likely viral encephalitis given the apparent rapid cognitive decline; autoimmune
encephalitis and CJD being less likely
EEG 10/05 showing LPD right hemisphere indicating the above area highly epileptogenic
LP failed to demonstrate encephalitis with WBCs of 4 and a markedly elevated protein of 217 with a glucose which was minimally elevated. VDRL was negative cryptococcal antigen negative West Nile negative. RPR was abnormal at 1-256, however
infectious disease suggests against the possibility of neurosyphilis based on the absence of inflammatory changes in the CSF.
HIV negative. EBV titers were abnormal
Patient presented with generalized weakness for the past month prior to presentation on October 03, 2024. The patient was subsequently diagnosed with acquired von Willebrand's.
Plan
re-check EEG
Subjective/Objective
Subjective Data
Date of Service: October 18, 2024
Objective Data
Vital Signs
Temp Pulse Resp BP Pulse Ox
36.6 C 84 20 197/104 96
10/18/24 07:00 10/18/24 07:00 10/18/24 07:00 10/18/24 07:00 10/18/24 07:00
Lab Results
10/18/24 05:15
10/18/24 05:15
PT 14.6 Sec (11.4-14.6) 10/16/24 13:14
INR 1.11 10/16/24 13:14
APTT 32.8 Sec (23.4-35.0) 10/16/24 13:14
Sodium 135 mmol/L (135-145) 10/18/24 05:15
Potassium 3.6 mmol/L (3.5-5.1) 10/18/24 05:15
BUN 4 mg/dl (9-20) L 10/18/24 05:15
Glucose 90 mg/dl (70-99) 10/18/24 05:15
Calcium 8.3 mg/dl (8.4-10.2) L 10/18/24 05:15
Phosphorus 3.0 mg/dl (2.5-4.5) 10/18/24 05:15
Xby-A-Uyfenbephui Pept 428 pg/ml 10/03/24 17:37
LDL Cholesterol, Calc 148 mg/dl 10/04/24 05:43
Vitamin B12 640 pg/ml (885-931) 10/13/24 06:20
Patient Allergies
Penicillins Allergy (Verified 10/04/24 10:57)
Unknown- tolerated ceftriaxone 09/2024
--- NOTE | 2024-10-18 11:47 | CON.GI ---
Consultation
-
Date/Time Consultation Performed: 10/18/2024
Performing Provider: Sabino White MD
Reason for Consultation: abdominal distention
Medical History
Chief Complaint / HPI
Chief Complaint: abdominal distention
History of Present Illness:
The patient is an 79-year-old male with past medical history as noted who presents to the emergency room initially on October 03 with ataxia. 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 We are consult for abdominal distention. He
is had 2 CAT scans during his hospitalization which I personally reviewed, which do show visceral fat, though did not show any significant bowel distention, fluid, mass and of otherwise been unremarkable. He is eating well and denies any abdominal
pain, has been moving his bowels without any difficulty.
Past Medical History
Past Medical History: Other (HSV encephalitis, syphilis, von Willebrand's, monoclonal gammopathy, GERD, hypothyroid, DVT)
Past Surgical History: Other (Hemorrhoidectomy)
Social History
Tobacco: Former Smoker
Alcohol: None
Family History
Family History: Reviewed & Not Pertinent
Allergies / Home Medications
Allergy/AdvReac Type Severity Reaction Status Date / Time
Penicillins Allergy Unknown- Verified 10/04/24 10:57
tolerated
ceftriaxone
09/2024
�Medication �Instructions �Recorded
Ivig 1 dose SC MONTHLY hematologic 10/03/24
condition
amlodipine 5 mg tablet 5 mg PO DAILY Blood Pressure 10/03/24
doxazosin 2 mg tablet 2 mg PO HS Blood Pressure 10/03/24
levothyroxine 125 mcg tablet 125 mcg PO DAILY Thyroid 10/03/24
(Synthroid)
metoprolol succinate 25 mg 25 mg PO DAILY Blood Pressure 10/03/24
tablet,extended release 24 hr
(Toprol XL)
pantoprazole 40 mg tablet,delayed 40 mg PO DAILY Gastrointestinal 10/03/24
release (Protonix) Issue
therapeutic multivitamin 1 tab PO DAILY Supplement 10/03/24
zolpidem 10 mg tablet (Ambien) 10 mg PO HSPRN PRN sleep 10/03/24
Review of Systems
-
All other systems: A 12 pt ROS was Negative except as stated above in HPI
Vital Signs
Temp Pulse Resp BP Pulse Ox
98 F 84 20 197/104 96
10/18/24 07:00 10/18/24 07:00 10/18/24 07:00 10/18/24 07:00 10/18/24 07:00
Physical Exam
Exam
General: NAD
HEENT: MMM, anicteric, no lymphadenopathy
Heart: Regular, no murmurs
Lungs: CTA bilaterally
Abdomen: normal bowel sounds, soft, no tenderness, no rebound or guarding, no masses, bruits or ascites
Extremeties: no edema
Skin: no rashes
Results
WBC 5.6 10^3/uL (4.8-10.8) 10/18/24 05:15
Hgb 9.9 g/dL (13.0-18.0) L 10/18/24 05:15
Hct 27.7 % (39.0-52.0) L 10/18/24 05:15
MCV 95.8 fL (80.0-94.0) H 10/18/24 05:15
Plt Count 137 10^3/uL (130-400) 10/18/24 05:15
Absolute Neuts (auto) 3.1 10^3/uL (1.4-6.5) 10/12/24 06:00
PT 14.6 Sec (11.4-14.6) 10/16/24 13:14
INR 1.11 10/16/24 13:14
APTT 32.8 Sec (23.4-35.0) 10/16/24 13:14
Sodium 135 mmol/L (135-145) 10/18/24 05:15
Potassium 3.6 mmol/L (3.5-5.1) 10/18/24 05:15
Chloride 110 mmol/L (98-107) H 10/18/24 05:15
Carbon Dioxide 24 mmol/L (22-30) 10/18/24 05:15
BUN 4 mg/dl (9-20) L 10/18/24 05:15
Creatinine 0.7 mg/dL (0.7-1.3) 10/18/24 05:15
Calcium 8.3 mg/dl (8.4-10.2) L 10/18/24 05:15
Total Bilirubin 0.8 mg/dl (0.2-1.3) 10/12/24 06:00
AST 26 U/L (17-59) 10/12/24 06:00
ALT 18 U/L (0-50) 10/12/24 06:00
Alkaline Phosphatase 57 U/L (38-126) 10/12/24 06:00
Diagnostic Image Results:
CT 10/07:
IMPRESSION:
Evaluation overall limited as a result of several factors including motion artifact and lack of intravenous contrast.
No findings to suggest urinary tract calculus or obstructive uropathy bilaterally. Mild bilateral perinephric stranding, unchanged.
Small bilateral renal cysts again seen, better appreciated on prior study obtained following intravenous contrast administration.
Enlarged prostate gland with extrinsic impression upon the urinary bladder base. Unopacified urinary bladder markedly limited without excreted contrast.
Prior GI Procedures:
EGD:
Colonoscopy:
Assessment / Plan
-
1. Abdominal distention: Soft on exam, consistent with his CAT scan which showed visceral fat, though no obstruction, mass, fluid etc. He has good appetite, is been eating well, has been having bowel movements and denies any abdominal pain. At
this point would hold on further GI workup. I discussed with his daughter at length. We will sign off now, please call back with any further questions.
-
-
Thank you for consultation and allowing me to participate in the patient's care. Please call the loss control consultant GI physician during the after hours with any questions or concerns.
--- NOTE | 2024-10-18 11:57 | EEG.RPT ---
Electroencephalogram Report
Recording
Date of EE10/18/24
Type of EEG: Routine
Length of EEG recordin minutes
Done with Video Recording: Yes
Patient Status: Inpatient
Recording Conditions: Awake and Drowsy
Hyperventilation Performed: No
Photic Stimulation Performed: Yes
Report
LESS THAN 1 HOUR EEG REPORT
LESS THAN 1 HOUR EEG INTERPRETATION:
Mildly abnormal study for age based on low amplitude even for age, generalized slowing demonstrated bihemispherically equally
CLINICAL CORRELATION:
Although normative values not been established for a person of this advanced age the patient�s symmetry of the background suggests that this study was suggestive of mild bihemispheric cortical dysfunction. No epileptiform features were demonstrated.
In comparison with the initial study performed October 05, 2024, there is profound improvement as the right sided lateral periodic discharges were not demonstrated.
If concerns remain regarding epilepsy, prolonged monitoring may be of assistance.
Clinical correlation is advised.
METHODS:
A 21-channel digital electroencephalogram (EEG) was performed. The 10/20 international system of electrode placement was used with ECG and lateral/vertical eye movements recorded. The [employer] quantitative EEG analysis system was performed
IMPRESSION(S):
Quality of study
Fair
Background
Low amplitude
Anterior-posterior voltage gradient differentiation: Fair
Theta frequency maximal background demonstrated
Sleep
Drowsiness present
Hyperventilation
Not performed
Photic Stimulation
Failed to activate the record
ECG
Normal rhythm
Abnormal Activity
None
--- NOTE | 2024-10-18 12:54 | W.PN.ID1 ---
Date of Service
Date of Service: October 18, 2024
Today's Communication
Continue antiviral/antibiotic.
See below.
Assessment / Plan
# Change in mental status, no significant improvement. more lethargic past few days
# HSV-1 encephalitis
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
# RUE picc- associated superficial thrombus. PICC dc'd 10/15
# PCN allergy - rash/hives
# Recent neck swelling/enlarged tonsils since 09/01, (recently tx'd with clotrimazole by ENT)
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
# Thrombocytopenia resolved
- Blood cx's neg
- C. diff neg, stool cx neg
- CT a/p unremarkable
- HIV negative.
-MRI brain: cortical restricted diffusion involving the anterior right frontal lobe extending into the hippocampus and right insular cortex. There is additional foci of diffusion hyperintense signal within the posterior aspect of the right thalamus
- 10/05 EEG: EEG 10/05 showing epileptogenic right frontal lobe
- Continue Acyclovir 800 mg IV q8h. (d#14 ) through 10/25/24.
- Monitor renal function 3x/week while in IV acyclovir. Creatinine = 0.8
- Keep well-hydrated.
- Syphilis RPR 1:256.
Of note RPR negative in 2021 base on review of [facility] labs.
Unlikely neurosyphilis as CSF only 4 WBC. CSF VDRL neg (not sensitive test)
s/p 12d ceftriaxone, dc'd
Due to slow improvement of mental status, ceftriaxone replaced with PCN after dose tests.
--> Continue PCN-G 24MU over 24h continuous infusion (d6 of )
- Trend RPR titer in 3 months after completion of tx until at least 4 fold decrease in titer.
- Neurology to re-assess worsening mental status.
To consider possible side effects from Keppra?
Chief Complaint
-: Other (Change in mental status; HSV 1 encephalitis; Positive RPR)
Subjective / Review of Systems
Per daughter, per sleeps most of the time. Pt without motivation. He thought daughter was his grand-daughter.
Vital Signs / Physical Exam
Vital Signs
Vital Signs
Temp Pulse Resp BP Pulse Ox
98 F 84 20 197/104 96
10/18/24 07:00 10/18/24 07:00 10/18/24 07:00 10/18/24 07:00 10/18/24 07:00
Physical Exam
Constitutional: Comfortable and Other (Sleeping/snoring)
Eyes: Sclera Anicteric
Pulmonary: Clear
Gastrointestinal: Soft, Non Tender, Non Distended and Normal Bowel Sounds
Extremities: Negative Edema
Neurological: Other (somnolent/lethargic)
Objective Data
Lab Data
Lab Results
10/18/24 05:15
10/18/24 05:15
PT 14.6 Sec (11.4-14.6) 10/16/24 13:14
INR 1.11 10/16/24 13:14
APTT 32.8 Sec (23.4-35.0) 10/16/24 13:14
Estimated Creat Clear 84 ml/min 10/18/24 05:15
Total Bilirubin 0.8 mg/dl (0.2-1.3) 10/12/24 06:00
AST 26 U/L (17-59) 10/12/24 06:00
ALT 18 U/L (0-50) 10/12/24 06:00
Alkaline Phosphatase 57 U/L (38-126) 10/12/24 06:00
Most recent labs reviewed.
Micro Results:
10/06/24 14:08 Fungal Smear - Final
Csf No yeast or fungal elements seen.
Fungal Culture - Preliminary
Culture in progress.
Positive cultures are reported as soon as detected.
Final report to follow in four to five weeks.
10/06/24 14:08 CSF Culture - Final
Csf No Growth After 5 Days - Final Report
Gram Stain - Final
10/03/24 21:18 Blood Culture - Final
Blood/Venous No Growth - Final Report
10/03/24 20:58 Blood Culture - Final
Blood/Venous No Growth - Final Report
10/04/24 08:16 Salmonella/Shigella Culture - Final
Feces/Stool No Salmonella, Shigella, Aeromonas or Plesiomonas species
isolated.
Campylobacter Culture - Final
No Campylobacter species isolated.
Shiga Toxin Test - Final
No E. coli Shiga Toxin 1 or 2 detected.
Stool Leukocytes - Final
10/06/24 14:08 Meningitis/Encephalitis Panel (PCR) - Final
Csf
10/04/24 09:20 MRSA Screen - Final
Nose No Methicillin Resistant Staphylococcus aureus isolated.
10/04/24 09:20 Urine Culture - Final
Urine NO GROWTH
10/04/24 17:36 Influenza Types A & B (RADHA) - Final
Nasal Swab Negative for Influenza A & B, NAAT
Negative results must be combined with clinical observations
and patient history.
Nucleic Acid Amplification test (NAAT)performed on the
[employer] [place] - 2 platform.
10/04/24 17:36 Legionella Urinary Antigen - Final
Urine Negative for Legionella pneumophila Serogroup 1 antigen.
A negative result does not rule out the possiblity of
Legionella infection due to other serogroups or species of
Legionella. Clinical correlation is recommended.
Streptococcus pneumoniae Antigen (M - Final
Negative for Streptococcus pneumoniae antigen.
A negative result does not exclude infection with
Streptococcus pneumoniae. Clinical correlation is
recommended.
10/04/24 08:16 - Final
Feces/Stool Negative for Norovirus GI and GII.
10/04/24 08:16 C. difficile GDH Antigen & Toxins - Final
Feces/Stool Negative for toxigenic C.difficile
Meningitis Panel, CSF by PCR Final 10/06/24-1609
Escherichia coli K1 Not Detected
Haemophilus influenzae Not Detected
Listeria monocytogenes Not Detected
Neisseria meningitidis Not Detected
Cytomegalovirus (CMV) Not Detected
Streptococcus agalactiae Not Detected
Streptococcus pneumoniae Not Detected
Enterovirus Not Detected
--> Herpes simplex virus 1 DETECTED <--
Herpes simplex virus 2 Not Detected
Human herpesvirus 6 Not Detected
Human parechovirus Not Detected
Varicella zoster virus Not Detected
C. neoformans/gattii Not Detected
CSF
10/06/24 10/06/24
14:08 14:09
CSF Appearance Clear
CSF Color Colorless
CSF WBC 4
CSF RBC 14
CSF Cell Count Tube # 2
CSF Glucose 72 H
CSF Total Protein 217 H
CSF VDRL Non reactive
10/06/24
04:55
Syphilis Serology Positive
RPR Titer 1:256
RPR Reactive
HIV Ag/Ab Combo Qual Negative
10/04/24 Brain MRI: There is predominant cortical restricted diffusion involving the anterior right frontal lobe extending into the hippocampus and right insular cortex. There is additional foci of diffusion hyperintense signal within the posterior
aspect of the right thalamus. This constellation of findings can be seen in encephalitis (herpes or limbic), status epilepticus or acute infarction. Additionally Creutzfeld Christiano disease is considered unlikely, however cannot be excluded. Consider
correlation with CSF studies.
10/04/24 CXR: New minimal left lower lobe atelectasis versus scarring
10/04/24 CT Pe/abd/pel W: Mild left lower lobe airspace disease suggesting pneumonia. New
No acute pathology of the abdomen or pelvis identified
10/01/24 PET: Stable solitary right upper lobe pulmonary nodule which demonstrates mild FDG activity (with only minimal further increase on delayed imaging). This remains indeterminate with differential including infectious/inflammatory nodule or low
metabolic rate neoplasm.
09/01/[address]: Significant symmetric enlargement of the bilateral tonsillar soft tissues, which could be secondary to tonsillar hypertrophy or tonsillitis, with secondary narrowing of the oropharynx and hypopharynx. Bilateral pulmonary parenchymal
opacities suggesting pneumonia. 1.6 cm solid pulmonary nodule in the right upper lobe.
Care Review
Plan reviewed with: Physician (Dr. Weber)
--- NOTE | 2024-10-18 13:52 | W.PN.NEURO.1 ---
Addendum entered and electronically signed by Thaddeus Zafar MD 10/18/24 15:44:
Studies reviewed.
I have personally examined the patient. I reviewed and agree with the [employer] CLERK's Note.
My addenda:
Awake, interactive. No acute distress.
Speech near mute.
Follows 2-step requests w/ significant difficulty. No tremor.
Extra-ocular movements grossly intact.
Facial movements full and symmetric. Hearing intact to normal conversational volume.
Normal UE movements bilaterally.
Neck: full ROM.
Chest: no dyspnea
Heart: no JVD
Ext: (-) Clubbing, (-) Cyanosis, (-) Edema
IMPRESSIONS/RECOMMENDATIONS:
Abrupt onset of worsening mental status with recent diagnosis of HSV encephalitis and significant MRI of brain changes showing right temporal lobe abnormality
Recheck MRI of brain
New EEG fails to demonstrate epileptiform activity
Consider repeated LP
At agree with current therapy for possible neurosyphilis although this is not a clear diagnosis
Continue thiamine
D/W patient / family
All questions answered.
Will continue to follow patient.
Original Note:
Today's Communication / Plan
-
-recheck brain MRI
-continue antiviral/antibiotic per ID
-continue Levetiracetam 500 mg BID, level pending, may consider changing medication
-seizure precautions
-normotension and normoglycemia
Neuro Assessment/Plan
Assessment
head CT moderate atrophy, white matter changes
brain MRI 10/04 cortical ribbon diffusion restriction anterior right frontal/hippocampus/insular cortex, posterior right thalamus. no contrast enhancement agree most likely viral encephalitis given the apparent rapid cognitive decline; autoimmune
encephalitis and CJD being less likely
EEG 10/05 showing LPD right hemisphere indicating the above area highly epileptogenic
LP failed to demonstrate encephalitis with WBCs of 4 and a markedly elevated protein of 217 with a glucose which was minimally elevated. VDRL was negative cryptococcal antigen negative West Nile negative. RPR was abnormal at 1-256, however
infectious disease suggests against the possibility of neurosyphilis based on the absence of inflammatory changes in the CSF.
HIV negative. EBV titers were abnormal
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
EEG 10/18: generalized slowing demonstrated bihemispherically equally
Patient presented with generalized weakness for the past month prior to presentation on October 03, 2024. The patient was subsequently diagnosed with acquired von Willebrand's.
Recent neck swelling/enlarged tonsils since 09/01, (recently tx'd with clotrimazole by ENT)
Plan
Impressions: worsening mental status due to possible viral encephalitis vs seizure vs CVA vs Levetiracetam induced side effects
-recheck brain MRI
-continue antiviral/antibiotic per ID
-continue Levetiracetam 500 mg BID for now, level pending, may consider changing medication
-seizure precautions
-normotension and normoglycemia
Subjective/Objective
Subjective Data
Date of Service: October 18, 2024
Patient states he feels 'sick to his stomach' and 'not good' which started yesterday. Denies headache, weakness, vision changes. Daughter states he is less responsive which has been progressive over the last few days.
Objective Data
Vital Signs
Temp Pulse Resp BP Pulse Ox
98 F 84 20 197/104 96
10/18/24 07:00 10/18/24 07:00 10/18/24 07:00 10/18/24 07:00 10/18/24 07:00
Lab Results
10/18/24 05:15
10/18/24 05:15
PT 14.6 Sec (11.4-14.6) 10/16/24 13:14
INR 1.11 10/16/24 13:14
APTT 32.8 Sec (23.4-35.0) 10/16/24 13:14
Sodium 135 mmol/L (135-145) 10/18/24 05:15
Potassium 3.6 mmol/L (3.5-5.1) 10/18/24 05:15
BUN 4 mg/dl (9-20) L 10/18/24 05:15
Glucose 90 mg/dl (70-99) 10/18/24 05:15
Calcium 8.3 mg/dl (8.4-10.2) L 10/18/24 05:15
Phosphorus 3.0 mg/dl (2.5-4.5) 10/18/24 05:15
Lrw-M-Tbofhlnfiuj Pept 428 pg/ml 10/03/24 17:37
LDL Cholesterol, Calc 148 mg/dl 10/04/24 05:43
Vitamin B12 640 pg/ml (239-931) 10/13/24 06:20
Patient Allergies
TOLERATED PENICILLIN 2024 Allergy (Uncoded 10/18/24 13:40)
remote hx of rash/hives; tolerated penicillin October 2024
Physical Exam
-
General: Comfortable and Appears Stated Age
HEENT: Normocephalic, Atraumatic and Anicteric
Respiratory: No Dyspnea
Cardiac: No JVD
GI: Non-distended
Skin: Unremarkable
Extremities: No Clubbing, No Cyanosis and No Edema
Psych: Confused and Other (withdrawn)
Extended Neurological Exam
Mood & Affect: Unable to Assess
Attention Span & Concentration: Awake and Unable to Perform 2 Step Request
Memory: Unable to Recall and Unable to Recall Personal History
Involuntary Movement: None
Speech: Severely Reduced Output
Cranial Nerve II: Left Eye: Visual Alvares Grossly Intact
Cranial Nerve II: Right Eye: Visual Alvares Grossly Intact
Cranial Nerves III, IV, : Extraocular Movement: Extraocular Movement Full in all Directions
Cranial Nerve VII: Facial Symmetry: Normal Facial Symmetry
Cranial Nerve VIII: Hearing: Unremarkable Hearing to Normal Conversational Volume
Muscle Strength, Overall: Spontaneously Moves (uncooperative)
Pronator Drift: Drift in Left Upper Extremity
Data Reviewed
-
CT Head: Report Reviewed and Image Reviewed
MRI Head: Report Reviewed and Image Reviewed
EEG: Report Reviewed
Labs: Report Reviewed
Reviewed with: Physician and Family
Old Records: Summarized
--- NOTE | 2024-10-18 16:17 | CM ---
Reviewed the chart notes. MRI pending. CM continues to be available to patient/family and is monitoring medical plan for needs at discharge.
Plan: Discharge plans will depend on patient's progress. Acute vs SNF.a
[2024-10-18] MEDS: LOVENOX 40 MG SC (18:27)
[2024-10-18] MEDS: ZESTRIL 2.5 MG PO (20:01)
[2024-10-18] MEDS: CARDURA 2 MG PO (22:51)
[2024-10-19] MEDS: PENICILLIN 250 UNITS IV (02:57)
[2024-10-19 05:29] LABS: Blood Urea Nitrogen 5 mg/dl (9-20); Calcium 8.3 mg/dl (8.4-10.2); Carbon Dioxide 25 mmol/L (22-30); Chloride 110 mmol/L (98-107); Estimated Creatinine Clearance 87 ml/min; Glucose 96 mg/dl (70-99); Magnesium 1.7 mg/dl (1.6-2.3); Potassium 3.6 mmol/L (3.5-5.1); Sodium 135 mmol/L (135-145); eGFR > 60.00
[2024-10-19 05:45] LABS: Hematocrit 28.2 % (39.0-52.0); Hemoglobin 10.2 g/dL (13.0-18.0); Mean Corp Hgb Conc. 36.2 g/dL (33.0-37.0); Mean Corpuscular Volume 96.6 fL (80.0-94.0); Platelet Count 146 10^3/uL (130-400); Red Cell Dist. Width 16.7 % (11.5-14.5)
[2024-10-19 06:00] VITALS: BMI 28.2
[2024-10-19] MEDS: SYNTHROID 150 MCG PO (06:16)
[2024-10-19] MEDS: ZOVIRAX INJECTION 266 MG IV ×3 (06:16→22:00)
[2024-10-19 07:00] VITALS: BP 180/81
--- NOTE | 2024-10-19 09:01 | W.PN.ONC ---
Today's Communication / Plan
-
- PICC now removed with improvement in swelling
- Continue Lovenox 40 SQ daily to try to prevent PICC associated clot
- Coagulation panel (10/16) WNL, von Willebrand panel pending
- Last treated about one month ago for the acquired von Willebrand's. It is felt to be autoimmune and has been well controlled with monthly IVIg.
Impression
Impression
Patient is an 79 year old male with PMH of HTN, GERD, hypothyroidism who is followed for history of IgG kappa monoclonal gammopathy diagnosed in 2006 and acquired von Willebrand disorder who presented to the ED with weakness and ataxia.
Weakness / Ataxia / Confusion
- Etiology unclear, likely of neuro origin - CSF detected HSV1, started on acyclovir
- Primary team addressing individual issues including symptomatic hypothyroidism, hyponatremia
Pulmonary Nodule
- 1.6cm KADEN nodule seen on multiple recent images. Mildly FDG-avid without significant delayed uptake.
Acquired vonWillebrand's Disease
- Patient maintained on IVIG and Darzalex monthly - last injection was 09/22/2024
- Coagulation panel within normal limits as of late September
New PICC associated DVT
- Patient started on Lovenox 40mg
Plan
Plan
- PICC now removed with improvement in swelling
- Continue Lovenox 40 SQ daily to try to prevent PICC associated clot
- Coagulation panel (10/16) WNL, von Willebrand panel pending
- Last treated about one month ago for the acquired von Willebrand's. It is felt to be autoimmune and has been well controlled with monthly IVIg.
Subjective/Objective
Subjective/Objective
Patient seen today at the bedside with daughter present. Patient is not talking much, only answers yes/no. Daughter feels like every day patient is experiencing more of cognitive decline since Friday. Patient was eating, but Daughter said he has
poor appetite now. Patient denied all ROS. Patient and daughter deny any bleeding. Negron bag had clear urine in it.
General: patient not in acute distress
Cardiovascular: RRR
Respiratory: Clear to auscultation
Abdomen: soft, nontender
Extremeties: SCDs on LEs, no edema noted in upper extremeties
Vital Signs:
Vital Signs
Temp Pulse Resp BP Pulse Ox
97.7 F 86 16 180/81 96
10/19/24 07:00 10/19/24 07:00 10/19/24 07:00 10/19/24 07:00 10/19/24 07:00
Lab Results:
Laboratory Data
WBC 5.3 10^3/uL (4.8-10.8) 10/19/24 04:34
Hgb 10.2 g/dL (13.0-18.0) L 10/19/24 04:34
Plt Count 146 10^3/uL (130-400) 10/19/24 04:34
PT 14.6 Sec (11.4-14.6) 10/16/24 13:14
INR 1.11 10/16/24 13:14
APTT 32.8 Sec (23.4-35.0) 10/16/24 13:14
eGFR > 60.00 10/19/24 04:34
[2024-10-19] MEDS: MIRALAX 17 GRAMS PO (09:31)
[2024-10-19] MEDS: KLOR-CON 20 MEQ PO ×2 (09:31→20:10)
[2024-10-19] MEDS: VITAMIN B1 100 MG PO ×2 (09:32→20:11)
[2024-10-19] MEDS: NORVASC 5 MG PO ×2 (09:32→20:17)
[2024-10-19] MEDS: KEPPRA 500 MG PO (09:32)
[2024-10-19] MEDS: SENOKOT-S 1 TABLET PO ×2 (09:32→20:11)
[2024-10-19] MEDS: PROTONIX 40 MG PO (09:32)
[2024-10-19] MEDS: ZESTRIL 2.5 MG PO ×2 (09:32→20:17)
[2024-10-19] MEDS: MUCINEX 600 MG PO ×2 (09:32→20:11)
[2024-10-19] MEDS: VITAMIN D3 (cholecalciferol) 25 MCG PO (09:33)
--- NOTE | 2024-10-19 10:54 | W.PN.NEURO.1 ---
Addendum entered and electronically signed by Thaddeus Zafar MD 10/19/24 17:37:
Studies reviewed.
I have personally examined the patient. I reviewed and agree with the HOSPITAL LABORATORY TECHNICIAN's Note.
My addenda:
Awake, interactive. No acute distress.
Speech reduced output.
Follows 1-step requests w/ difficulty. No tremor.
Extra-ocular movements grossly intact.
Facial movements full and symmetric. Hearing intact to normal conversational volume.
Reduced UE movements bilaterally.
Neck: full ROM.
Chest: no dyspnea
Heart: no JVD
Ext: (-) Clubbing, (-) Cyanosis, (-) Edema
IMPRESSIONS/RECOMMENDATIONS:
Abrupt onset of worsening mental status with recent diagnosis of HSV encephalitis and significant MRI of brain changes showing right temporal lobe abnormality
Rechecked MRI of brain which does not demonstrate acute changes and in fact appears improved
New EEG fails to demonstrate epileptiform activity
Consider repeated LP
At agree with current therapy for possible neurosyphilis although this is not a clear diagnosis
Continue thiamine
D/W patient / family
Will continue to follow patient.
Original Note:
Today's Communication / Plan
-
-brain MRI reviewed and improving
-continue antiviral/antibiotic per ID
-reduce Levetiracetam to 250 mg BID to help with side effects
-seizure precautions
-normotension and normoglycemia
-start bipap for suspected sleep apnea
Neuro Assessment/Plan
Assessment
head CT moderate atrophy, white matter changes
brain MRI 10/04 cortical ribbon diffusion restriction anterior right frontal/hippocampus/insular cortex, posterior right thalamus. no contrast enhancement agree most likely viral encephalitis given the apparent rapid cognitive decline; autoimmune
encephalitis and CJD being less likely
EEG 10/05 showing LPD right hemisphere indicating the above area highly epileptogenic
LP failed to demonstrate encephalitis with WBCs of 4 and a markedly elevated protein of 217 with a glucose which was minimally elevated. VDRL was negative cryptococcal antigen negative West Nile negative. RPR was abnormal at 1-256, however
infectious disease suggests against the possibility of neurosyphilis based on the absence of inflammatory changes in the CSF.
HIV negative. EBV titers were abnormal
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
EEG 10/18: generalized slowing demonstrated bihemispherically equally
brain MRI 10/18: There is significantly decreased diffusion hyperintense signal along the anterior right temporal lobe and right insular cortex. There is persistent mild T2 hyperintense signal along the right insular cortex and medial right temporal
lobe with new cortical enhancement along the right insular cortex. Findings may represent an evolving subacute infarction or evolving encephalitis. Given the interval improvement a mass is considered unlikely.
Patient presented with generalized weakness for the past month prior to presentation on October 03, 2024. The patient was subsequently diagnosed with acquired von Willebrand's.
Recent neck swelling/enlarged tonsils since 09/01, (recently tx'd with clotrimazole by ENT)
Plan
Impressions: Abrupt onset of worsening mental status with recent diagnosis of HSV encephalitis and significant MRI of brain changes showing right temporal lobe abnormality
-brain MRI reviewed and improving
-continue antiviral/antibiotic per ID
-reduce Levetiracetam to 250 mg BID to help with side effects
-seizure precautions
-normotension and normoglycemia
-start bipap for suspected sleep apnea
All questions encouraged and answered, plan of care discussed with Dr. Zafar, hospitalist, nurse, patient and family
Subjective/Objective
Subjective Data
Date of Service: October 19, 2024
No acute events overnight. Denies pain, denies headache, denies dizziness. Obtained brain MRI. Daughter at bedside, more oriented but does not note much of a change in lethargy.
Objective Data
Vital Signs
Temp Pulse Resp BP Pulse Ox
97.7 F 86 16 180/81 96
10/19/24 07:00 10/19/24 07:00 10/19/24 07:00 10/19/24 07:00 10/19/24 07:00
Lab Results
10/19/24 04:34
10/19/24 04:34
PT 14.6 Sec (11.4-14.6) 10/16/24 13:14
INR 1.11 10/16/24 13:14
APTT 32.8 Sec (23.4-35.0) 10/16/24 13:14
Sodium 135 mmol/L (135-145) 10/19/24 04:34
Potassium 3.6 mmol/L (3.5-5.1) 10/19/24 04:34
BUN 5 mg/dl (9-20) L 10/19/24 04:34
Glucose 96 mg/dl (70-99) 10/19/24 04:34
Calcium 8.3 mg/dl (8.4-10.2) L 10/19/24 04:34
Phosphorus 3.1 mg/dl (2.5-4.5) 10/19/24 04:34
Gmm-B-Zdsezhzjvif Pept 428 pg/ml 10/03/24 17:37
LDL Cholesterol, Calc 148 mg/dl 10/04/24 05:43
Vitamin B12 640 pg/ml (239-931) 10/13/24 06:20
Patient Allergies
TOLERATED PENICILLIN 2024 Allergy (Uncoded 10/18/24 13:40)
remote hx of rash/hives; tolerated penicillin October 2024
Physical Exam
-
General: Comfortable and Appears Stated Age
HEENT: Normocephalic, Atraumatic and Anicteric
Respiratory: No Dyspnea
Cardiac: No JVD
GI: Non-distended
Skin: Unremarkable
Extremities: No Clubbing, No Cyanosis and No Edema
Psych: Confused and Other (lethargic)
Extended Neurological Exam
Attention Span & Concentration: Lethargic and Other (oriented to year and place)
Memory: Unable to Recall and Unable to Recall Personal History
Involuntary Movement: None
Speech: Severely Reduced Output
Cranial Nerve VII: Facial Symmetry: Normal Facial Symmetry
Cranial Nerve VIII: Hearing: Unremarkable Hearing to Normal Conversational Volume
Muscle Strength, Overall: Spontaneously Moves (uncooperative)
[2024-10-19 10:58] VITALS: BMI 28.2
[2024-10-19] MEDS: NSS 1000 IV (12:18)
[2024-10-19 12:40] VITALS: BP 162/75; PULSE 85; O2SAT 95
--- NOTE | 2024-10-19 12:41 | VATNOTE ---
Pt out of bed to chair after just finishing physical therapy at time of routine assessment of L PICC line. Blood noted on the biopatch and the stat-lock. Will redress PICC line when patient is back to bed.
--- NOTE | 2024-10-19 12:59 | W.PN.ID1 ---
Date of Service
Date of Service: October 19, 2024
Today's Communication
Continue Acyclovir.
Reduce PCN-G dose.
Assessment / Plan
# Change in mental status, no significant improvement. more lethargic past few days
# HSV-1 encephalitis
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
# RUE picc- associated superficial thrombus. PICC dc'd 10/15
# PCN allergy - rash/hives
# Recent neck swelling/enlarged tonsils since 09/01, (recently tx'd with clotrimazole by ENT)
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
# Thrombocytopenia resolved
- Blood cx's neg
- C. diff neg, stool cx neg
- CT a/p unremarkable
- HIV negative.
-MRI brain: cortical restricted diffusion involving the anterior right frontal lobe extending into the hippocampus and right insular cortex. There is additional foci of diffusion hyperintense signal within the posterior aspect of the right thalamus
- 10/05 EEG: EEG 10/05 showing epileptogenic right frontal lobe
- Continue Acyclovir 800 mg IV q8h. (d#15 ) through 10/25/24.
- Repeat MRI shows improvement of brain lesions.
- Per neuro, no longer epileptic focus
- Monitor renal function 3x/week while in IV acyclovir. Creatinine = 0.7
- Keep well-hydrated.
- Syphilis RPR 1:256.
Of note RPR negative in 2021 base on review of [facility] labs.
Unlikely neurosyphilis as CSF only 4 WBC. CSF VDRL neg (not sensitive test)
s/p 12d ceftriaxone, dc'd
Due to slow improvement of mental status, ceftriaxone replaced with PCN after test dose.
--> Continue PCN-G continuous infusion (d7 of )
- Trend RPR titer in 3 months after completion of tx until at least 4 fold decrease in titer.
- Appreciate Neurology re-assess worsening mental status.
Keppra dose reduced.
CPAP for suspected JACOBY.
- Will also reduce PCN G dose from 24MU to 18MU/day in case of neurotoxicity.
- Hospitalist replaced metoprolol with lisinopril.
Chief Complaint
-: Other (Change in mental status; HSV 1 encephalitis; Positive RPR)
Subjective / Review of Systems
Daughter pleased about MRI brain result, but patient's mental state is the same. he sleeps all the time. not oriented to time/events.
Vital Signs / Physical Exam
Vital Signs
Vital Signs
Temp Pulse Resp BP Pulse Ox
97.7 F 86 16 180/81 96
10/19/24 07:00 10/19/24 07:00 10/19/24 07:00 10/19/24 07:00 10/19/24 07:00
Physical Exam
Constitutional: Other (sleeping)
Cardiovascular: Regular Rate and S1/S2
Pulmonary: Clear
Gastrointestinal: Soft, Non Tender and Non Distended
Extremities: Negative Edema
Neurological: Other (somnolent, opens eyes to voice, speaks in whisper)
Objective Data
Lab Data
Lab Results
10/19/24 04:34
10/19/24 04:34
PT 14.6 Sec (11.4-14.6) 10/16/24 13:14
INR 1.11 10/16/24 13:14
APTT 32.8 Sec (23.4-35.0) 10/16/24 13:14
Estimated Creat Clear 87 ml/min 10/19/24 04:34
Total Bilirubin 0.8 mg/dl (0.2-1.3) 10/12/24 06:00
AST 26 U/L (17-59) 10/12/24 06:00
ALT 18 U/L (0-50) 10/12/24 06:00
Alkaline Phosphatase 57 U/L (38-126) 10/12/24 06:00
Most recent labs reviewed.
Micro Results:
10/06/24 14:08 Fungal Smear - Final
Csf No yeast or fungal elements seen.
Fungal Culture - Preliminary
Culture in progress.
Positive cultures are reported as soon as detected.
Final report to follow in four to five weeks.
10/06/24 14:08 CSF Culture - Final
Csf No Growth After 5 Days - Final Report
Gram Stain - Final
10/03/24 21:18 Blood Culture - Final
Blood/Venous No Growth - Final Report
10/03/24 20:58 Blood Culture - Final
Blood/Venous No Growth - Final Report
10/04/24 08:16 Salmonella/Shigella Culture - Final
Feces/Stool No Salmonella, Shigella, Aeromonas or Plesiomonas species
isolated.
Campylobacter Culture - Final
No Campylobacter species isolated.
Shiga Toxin Test - Final
No E. coli Shiga Toxin 1 or 2 detected.
Stool Leukocytes - Final
10/06/24 14:08 Meningitis/Encephalitis Panel (PCR) - Final
Csf
10/04/24 09:20 MRSA Screen - Final
Nose No Methicillin Resistant Staphylococcus aureus isolated.
10/04/24 09:20 Urine Culture - Final
Urine NO GROWTH
10/04/24 17:36 Influenza Types A & B (RADHA) - Final
Nasal Swab Negative for Influenza A & B, NAAT
Negative results must be combined with clinical observations
and patient history.
Nucleic Acid Amplification test (NAAT)performed on the
[email or web address] platform.
10/04/24 17:36 Legionella Urinary Antigen - Final
Urine Negative for Legionella pneumophila Serogroup 1 antigen.
A negative result does not rule out the possiblity of
Legionella infection due to other serogroups or species of
Legionella. Clinical correlation is recommended.
Streptococcus pneumoniae Antigen (M - Final
Negative for Streptococcus pneumoniae antigen.
A negative result does not exclude infection with
Streptococcus pneumoniae. Clinical correlation is
recommended.
10/04/24 08:16 - Final
Feces/Stool Negative for Norovirus GI and GII.
10/04/24 08:16 C. difficile GDH Antigen & Toxins - Final
Feces/Stool Negative for toxigenic C.difficile
Meningitis Panel, CSF by PCR Final 10/06/24-1609
Escherichia coli K1 Not Detected
Haemophilus influenzae Not Detected
Listeria monocytogenes Not Detected
Neisseria meningitidis Not Detected
Cytomegalovirus (CMV) Not Detected
Streptococcus agalactiae Not Detected
Streptococcus pneumoniae Not Detected
Enterovirus Not Detected
--> Herpes simplex virus 1 DETECTED <--
Herpes simplex virus 2 Not Detected
Human herpesvirus 6 Not Detected
Human parechovirus Not Detected
Varicella zoster virus Not Detected
C. neoformans/gattii Not Detected
CSF
10/06/24 10/06/24
14:08 14:09
CSF Appearance Clear
CSF Color Colorless
CSF WBC 4
CSF RBC 14
CSF Cell Count Tube # 2
CSF Glucose 72 H
CSF Total Protein 217 H
CSF VDRL Non reactive
10/06/24
04:55
Syphilis Serology Positive
RPR Titer 1:256
RPR Reactive
HIV Ag/Ab Combo Qual Negative
10/18/24 Brain MRI: There is significantly decreased diffusion hyperintense signal along the anterior right temporal lobe and right insular cortex. There is persistent mild T2 hyperintense signal along the right insular cortex and medial right
temporal lobe with new cortical enhancement along the right insular cortex. Findings may represent an evolving subacute infarction or evolving encephalitis. Given the interval improvement a mass is considered unlikely.
10/04/24 Brain MRI: There is predominant cortical restricted diffusion involving the anterior right frontal lobe extending into the hippocampus and right insular cortex. There is additional foci of diffusion hyperintense signal within the posterior
aspect of the right thalamus. This constellation of findings can be seen in encephalitis (herpes or limbic), status epilepticus or acute infarction. Additionally Creutzfeld Christiano disease is considered unlikely, however cannot be excluded. Consider
correlation with CSF studies.
10/04/24 CXR: New minimal left lower lobe atelectasis versus scarring
10/04/24 CT Pe/abd/pel W: Mild left lower lobe airspace disease suggesting pneumonia. New
No acute pathology of the abdomen or pelvis identified
10/01/24 PET: Stable solitary right upper lobe pulmonary nodule which demonstrates mild FDG activity (with only minimal further increase on delayed imaging). This remains indeterminate with differential including infectious/inflammatory nodule or low
metabolic rate neoplasm.
09/01/[address]: Significant symmetric enlargement of the bilateral tonsillar soft tissues, which could be secondary to tonsillar hypertrophy or tonsillitis, with secondary narrowing of the oropharynx and hypopharynx. Bilateral pulmonary parenchymal
opacities suggesting pneumonia. 1.6 cm solid pulmonary nodule in the right upper lobe.
Care Review
Plan reviewed with: Physician (Drs. Zafar and Tia)
--- NOTE | 2024-10-19 13:17 | W.PN.HOSP.TC ---
Today's Communication/Plan
-
Continue efforts to help improve patient's mental status -- see below
Assessment / Plan
Assessment / Plan
Physical Exam
General: Not in acute distress, appears comfortable at this time
HEENT: Thick neck. Not tender, no induration, erythema, or palpable masses
Respiratory: CTAB
Cardiac: S1/S2 and Regular Rhythm
GI: Soft, Nontender, Distended, Normal Bowel Sounds. Obese
Musculoskeletal: No Cyanosis and Trace pitting edema at the bilateral lower extremities
Neuro: AAO x 2
Psych: flat affect paucity of speech calm
Assessment/Plan
79y M with PMH significant for hypothyroidism, hypertension and von Willebrand's disease who presents to ED complaining of weakness. History obtained from patient and his family at the bedside. Patient was in his usual states of good health
until about 3-4 weeks ago when he began to become more weak / fatigued. He was still able to complete his ADLs until this past 24-48 hours when his symptoms markedly worsened. Patient is followed by Nicko Mims for vWF. He receives monthly
IVIG (last dose 09/29). There is some question of multiple myeloma - though history there is not clear and patient does not appear to be on any treatment for this (records show MGUS). Patient developed fullness / swelling in the throat several
weeks ago. He was evaluated by ENT in their office Dr. Hicks. CT scan showed tonsillar hypertrophy but was otherwise unremarkable. He was treated briefly with antifungal medication for thrush (patient was having a sore throat) - but this was
stopped after fungal smear was negative. CT neck also showed incidental RUL nodule and patient has had CT C/A/P and PET-CT since that time for further evaluation. These revealed mildly FDG-avid (3.3) KADEN nodule (1.6cm). No other areas of
FDG-avidity. No other abnormal findings. Over the 48 hours prior to presentation, patient remained seated at home and has not left his chair. He reported shaking chills. Family has noted swelling in the legs - L > R - which is unusual for him.
Family noted that he seemed somewhat confused as well since 10/02/24 evening. 911 was called to the home this afternoon when patient was unable to get up. He decline ED evaluation at that time. Later in the afternoon family convinced him to
present to the ED for further evaluation. Patient was noted to be quite unsteady on his feet in the emergency department. He drove himself to his radiology appointments as recently as 2 days ago and had no significant issues.
Weakness / Ataxia / Confusion
Acute Toxic Metabolic Encephalopathy Likely Secondary to Encephalitis and Possibly From Pneumonia
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
Likely immunosuppressed from Daratumumab and Dex
Cognitive Impairment
- CT head in ED unremarkable.
- MRI brain with suspected encephalitis, repeat MRI brain showed improvement
- ID eval appreciated
- IR performed LP on 10/06/24 -- high protein, low glucose
- Continue Keppra -- newly started this admission
- Continue Acyclovir as per ID 21 day course through 10/25/24
- CMV neg
- EBV serology panel significant for prior infection with no apparent reactivation.
- HIV negative
- Syphilis screen positive
- PT/OT/ PMR eval appreciated Acute Rehab
- Appreciate neurology
- Patient's agitation behaviors improved with Seroquel since discontinued d/t sedation, agitation remains resolved at this time
- persistent cognitive impairment, psych eval appreciated unlikely pseudodementia/depression ruled out
- Repeat CT head 10/17 appreciated no acute abn's
- Multivitamin and Thiamine supplementations started
- Per my discussion inside patient's room on 10/18/24 with patient's daughter Jacqueline, patient's cognition has gotten worse since 10/15/24 -- re-consulted neurology, Keppra reduced to 250 mg BID (from 500 mg BID) repeat MRI Brain showed improvement.
EEG unremarkable.
- Replaced Metoprolol with Lisinopril to avoid BOWLING ALLEY REFINISHER effects of beta chiara
- Per neurology, provide BiPAP at night from 7 pm to 7 am in case there is a component of sleep apnea to possibly help with cognition
- Recheck ABG in the morning
Syphilis screen : Positive. RPR 1:256. CSF VDRL negative.
- ID eval appreciated, given reported allergy to penicillin, patient was originally planned for 14-day course of ceftriaxone, however given lack of cognitive improvement, PCN challenge was attempted and passed, subsequently switched to 14 days
course PCN 10/13.
- PCN-G dose reduced on 10/19/24 in efforts to see whether reducing Penicillin dose helps with mental status
RUE PICC placed for planned senior care IV abx antiviral
Complicated with Superficial Thrombosis noted on RUE US 10/15/24
RUE PICC removed and LUE PICC placed
cont supportive care superficial thrombosis RUE w/ pain control, ice, and elevation
-Hematology eval appreciated, started on Lovenox 40 mg QPM as DVT ppx
-Will recheck RUE soon for monitoring of the clot
Diarrhea, Abdominal Pain and Nausea Resolved
Mild fluid right inguinal canal -- postsurgical change more likely versus unlikely incarcerated/strangulated hernia, no significant pain at this time -- seen on CT Imaging
Constipation
- Stool studies unremarkable
- Surgery eval appreciated no need for intervention
- Initially had diarrhea since resolved, developed constipation; AXR suggests moderate amount of stool within the rectum
- Miralax and Senokot-S, given suppository with some improvement noted, fleet enema given 10/14
- Milk and Molasses Enema given 10/17 with good response noted
Gross Hematuria
Urinary Retention
-Recurrence during this hospitalization
-urology mentions expected with von Willebrands
-Hgb VSS
-CT without contrast with no obstructive uropathy or stones
-Consulted urology -- recommendation to continue bladder scans -- if PVR rising significantly, then place Negron -- but no interventions at this time as per urology
Hypothyroidism
- TSH = 16.8 and Free T4 = 0.39 this hospitalization
- Some confusion, weakness, ataxia, edema, questionable contribution hypothyroidism
- IV dose of levothyroxine given initially
- PO Levothyroxine dose increased to 150 mcg daily
- Follow up TFTs notes improvement in T4 wnl while TSH remains elevated but better
- repeat TFTs in 1 month
Acute Hypoxic Respiratory Insufficiency - RESOLVED
Likely LLL Pneumonia
Small Right Pleural Effusion on AXR from 10/09/24
Nocturnal O2 Desaturation (see nocturnal O2 saturation report from 10/06/24 morning)
Cough Again on 10/04/24
History of Recurrent Colds
History of Recent Pneumonia on CT Neck (treated outpatient with PCP in late August 2024 to early September 2024)
-Doxycycline completed
-ID eval appreciated ceftriaxone switched to PCN challenge as above
-Atrovent PRN given intolerance to Albuterol
-CT Abdomen/Pelvis from 10/07/24 showed bibasilar opacification -- most likely representing subsegmental atelectasis as well as tiny bilateral pleural effusions, left greater than right
-Follow cultures
Persistent neck swelling/enlarged tonsils since 09/01/24, (recently treated with 30 day course of Fluconazole)
Recent Tonsillar Hypertrophy
Recent Thrush
-Follows Dr. Anna Hicks (ENT) outpt
-EBV serology panel significant for prior infection with no apparent reactivation.
Right Upper Lobe Pulmonary Nodule -- indeterminate PET scan
- follows Dr. Rider outpatient
- 1.6cm KADEN nodule seen on multiple recent images. Mildly FDG-avid without significant delayed uptake.
- Covered with abx ceftriaxone / doxycycline since completed
- May benefit from biopsy for further evaluation if no improvement / resolution with antibiotics.
Acute Kidney Injury - RESOLVED
- IV fluids with Normal Saline IV Fluids 70 cc/hr as per nephrology
- Continue to monitor renal function given patient is on Acyclovir --- continue IVF while on IV antiviral -- could reduce rate to 50cc/hr if needed
- CT Abdomen Pelvis 10/07/24 with no stone or obstructive process
Hypokalemia
Hypomagnesemia
-monitor and replete as necessary
Hypertension
-Cont antihypertensives -- increased Amlodipine to 5 mg BID
-Stopped on 10/18/24 Toprol XL (can cause BOWLING ALLEY REFINISHER effects -- and patient has had persistent encephalopathy) and replaced with Lisinopril 2.5 mg BID for better blood pressure control
-Blood pressure measurements limited by Superficial Thrombosis RUE and PICC LUE
-Calf measurements (done on patient in supine position) likely falsely elevated somewhat
Acquired von Willebrand's Disease (started at age 49 y/o) on monthly IVIG, Darzalex
- Stable. Patient maintained on IVIG monthly - last injection was 09/29/24.
- Hematology eval appreciated Acquired von willebrand disease fully controlled at this time, continued outpt hematology follow up recommended
MGUS
- Has been on Decadron, Darzalex, and IVIG -- sees Dr. Lucio outpatient
Thrombocytopenia
- Mild, stable
Vitamin D Deficiency
-supplementation started
Coronary Artery Disease
Simple bilateral renal cysts
Appendicoliths
Speech/Diet: Regular Diet with Thin Liquids
DVT Prophylaxis: SCDs Lovenox
Code Status: Full Code
discussed with patient and patient's daughter Jacqueline
Anticipated Discharge: > 48 hours
Subjective/Interval History
-
Date of Service: October 19, 2024
Patient was seen and examined. He appeared to be sleeping comfortably, but did respond to questions appropriately.
Objective Data
-
Labs:
Laboratory Results
10/19/24
04:34
WBC 5.3
Hgb 10.2 L
Hct 28.2 L
Plt Count 146
Sodium 135
Potassium 3.6
Chloride 110 H
Carbon Dioxide 25
BUN 5 L
Creatinine 0.7
Glucose 96
Calcium 8.3 L
Vital Signs:
Vital Signs
Temp Pulse Resp BP Pulse Ox
97.7 F 86 16 180/81 96
07/15/25 07:00 10/19/24 07:00 10/19/24 07:00 10/19/24 07:00 10/19/24 07:00
I&O
10/18/24 10/19/24 10/20/24
06:59 06:59 06:59
Intake Total 3527.6 / 3527.6 2019
Output Total 3400 / 3400 2074
Balance 127.6 / 127.6 -55 / -55
[2024-10-19 13:19] VITALS: BP 162/75; PULSE 84; O2SAT 95
[2024-10-19] MEDS: PENICILLIN IV (14:16)
[2024-10-19 15:00] VITALS: BP 164/81
[2024-10-19] MEDS: PENICILLIN 536 UNITS IV (15:22)
--- NOTE | 2024-10-19 16:04 | PTCARENOTE ---
Patient ambulated in room with assist x2, tolerated sitting in chair for 3hr. Patient continues to be drowsy, easily arousable. Patient follows commands and answers questions appropriately. Patient has no c/o pain, daughter at bedside.
[2024-10-19] MEDS: LOVENOX 40 MG SC (17:32)
[2024-10-19] MEDS: KEPPRA 250 MG PO (20:11)
[2024-10-19] MEDS: CARDURA 2 MG PO (22:01)
[2024-10-19 22:50] VITALS: PULSE 2; PULSE 65
[2024-10-19 23:06] VITALS: BP 133/70
[2024-10-20 02:30] VITALS: PULSE 2; PULSE 91
[2024-10-20 03:53] VITALS: PULSE 2
[2024-10-20] MEDS: NSS 1000 IV ×2 (04:10→20:40)
[2024-10-20] MEDS: ZOVIRAX INJECTION 266 MG IV ×3 (05:06→22:13)
[2024-10-20 05:08] LABS: Hematocrit 26.4 % (39.0-52.0); Hemoglobin 9.3 g/dL (13.0-18.0); Mean Corp Hgb Conc. 35.2 g/dL (33.0-37.0); Mean Corpuscular Volume 97.8 fL (80.0-94.0); Platelet Count 134 10^3/uL (130-400); Red Cell Dist. Width 16.7 % (11.5-14.5)
[2024-10-20 05:29] LABS: Blood Urea Nitrogen 6 mg/dl (9-20); Calcium 8.5 mg/dl (8.4-10.2); Carbon Dioxide 25 mmol/L (22-30); Chloride 113 mmol/L (98-107); Estimated Creatinine Clearance 87 ml/min; Glucose 108 mg/dl (70-99); Potassium 3.7 mmol/L (3.5-5.1); Sodium 135 mmol/L (135-145); eGFR > 60.00
[2024-10-20 05:54] VITALS: BMI 28.7
[2024-10-20 06:13] LABS: B.E. -2.5 mmol/L; HCO3 21.2 mmol/L (21-28); O2 Saturation % 91.5 % (94-98); PCO2 32 mmHg (35-48)
[2024-10-20 06:16] LABS: PO2 54 mmHg (83-108)
[2024-10-20 07:00] VITALS: BP 147/72
--- NOTE | 2024-10-20 07:22 | PTCARENOTE ---
10/20: ABG drawn per order to respiratory. pt on bipap overnight. pulse ox continuously reading from 93-97%. Critical lab for PO2 of 54. AYSHA Avelar notified. Respiratory notified. Pt taken off of bipap and placed on 4l nasal cannula.
[2024-10-20] MEDS: SYNTHROID PO (07:26)
--- NOTE | 2024-10-20 07:59 | W.PN.ONC ---
Today's Communication / Plan
-
- Continue Lovenox 40mg for prophylaxis following PICC removal for superficial thrombus
- Repeat vW panel pending from 10/16
- Normal coag profile is reassuring. Last treated about one month ago for the acquired von Willebrand's. It is felt to be autoimmune and has been well controlled with monthly IVIg.
Blood gas this morning revealed a pO2 of 54 mmHg. Patient was placed on 4L of oxygen by Respiratory.
Management of encephalitis as per neurology, ID and primary team
Impression
Impression
Patient is an 79 year old male with PMH of HTN, GERD, hypothyroidism who is followed for history of IgG kappa monoclonal gammopathy diagnosed in 2006 and acquired von Willebrand disorder who presented to the ED with weakness and ataxia.
Weakness / Ataxia / Confusion
- Etiology unclear, likely of neuro origin - CSF detected HSV1, started on acyclovir
- Primary team addressing individual issues including symptomatic hypothyroidism, hyponatremia
Pulmonary Nodule
- 1.6cm KADEN nodule seen on multiple recent images. Mildly FDG-avid without significant delayed uptake.
Acquired vonWillebrand's Disease
- Patient maintained on IVIG and Darzalex monthly - last injection was 09/22/2024
- Coagulation panel within normal limits as of late September
New PICC associated DVT
- Patient started on Lovenox 40mg
Plan
Plan
- Continue Lovenox 40mg for prophylaxis following PICC removal for superficial thrombus
- Repeat vW panel pending from 10/16
- Normal coag profile is reassuring. Last treated about one month ago for the acquired von Willebrand's. It is felt to be autoimmune and has been well controlled with monthly IVIg.
Subjective/Objective
Subjective/Objective
Patient seen today at the bedside. Patient was in and out of sleep during exam. Overnight patient was placed on CPAP. This morning his blood gas revealed a pO2 of 54 mmHg. Patient was placed on 4L of oxygen.
Patient difficult to get history from, but denies all ROS.
General: not in acute distress
Cardiovascular: RRR
Repiratory: on 4L O2, clear b/l
Extremeties: no edema noted b/l upper or lower extremeties
Vital Signs:
Vital Signs
Temp Pulse Resp BP Pulse Ox
99.0 F 106 20 133/70 97
10/19/24 23:06 10/19/24 23:06 10/19/24 23:06 10/19/24 23:06 10/20/24 02:03
Lab Results:
Laboratory Data
WBC 4.5 10^3/uL (4.8-10.8) L 10/20/24 04:41
Hgb 9.3 g/dL (13.0-18.0) L 10/20/24 04:41
Plt Count 134 10^3/uL (130-400) 10/20/24 04:41
PT 14.6 Sec (11.4-14.6) 10/16/24 13:14
INR 1.11 10/16/24 13:14
APTT 32.8 Sec (23.4-35.0) 10/16/24 13:14
eGFR > 60.00 10/20/24 04:41
[2024-10-20] MEDS: VITAMIN B1 100 MG PO ×2 (08:48→20:24)
[2024-10-20] MEDS: KLOR-CON 20 MEQ PO ×2 (08:48→20:29)
[2024-10-20] MEDS: ZESTRIL 2.5 MG PO ×2 (08:48→20:28)
[2024-10-20] MEDS: PROTONIX 40 MG PO (08:48)
[2024-10-20] MEDS: SENOKOT-S 1 TABLET PO ×2 (08:48→20:27)
[2024-10-20] MEDS: MUCINEX 600 MG PO ×2 (08:48→20:24)
[2024-10-20] MEDS: KEPPRA 250 MG PO ×2 (08:49→20:27)
[2024-10-20] MEDS: NORVASC 5 MG PO ×2 (08:49→20:28)
[2024-10-20] MEDS: VITAMIN D3 (cholecalciferol) 25 MCG PO (08:49)
[2024-10-20] MEDS: MIRALAX 17 GRAMS PO (08:49)
--- NOTE | 2024-10-20 09:49 | CM ---
Per attending, patient will Continue Lovenox 40mg for prophylaxis following PICC removal for superficial thrombus
- Repeat vW panel pending from 10/16. Indication from therapy is acute vrs. skilled. Will await final determination.
Plan: Case management will continue to follow and assist with discharge planning. Acute rehab vrs. SNF.
--- NOTE | 2024-10-20 10:24 | W.PN.ID1 ---
Date of Service
Date of Service: October 20, 2024
Today's Communication
Continue IV acyclovir and IV PCN-G
Assessment / Plan
# HSV-1 encephalitis
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
# Change in mental status, improving with meds adjustments
# RUE picc- associated superficial thrombus. PICC dc'd 10/15
# High risk sexual behavior
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
# Thrombocytopenia resolved
- Blood cx's neg
- C. diff neg, stool cx neg
- CT a/p unremarkable
- HIV negative.
-MRI brain: cortical restricted diffusion involving the anterior right frontal lobe extending into the hippocampus and right insular cortex. There is additional foci of diffusion hyperintense signal within the posterior aspect of the right thalamus
- 10/05 EEG: EEG 10/05 showing epileptogenic right frontal lobe
- Continue Acyclovir 800 mg IV q8h. (d#16 ) through 10/25/24.
- Repeat MRI shows improvement of brain lesions.
- Per neuro, no longer epileptic focus
- Monitor renal function 3x/week while in IV acyclovir. Creatinine = 0.7
- Keep well-hydrated.
- Syphilis RPR 1:256.
Of note RPR negative in 2021 base on review of [facility] labs.
Unlikely neurosyphilis as CSF only 4 WBC. CSF VDRL neg (not sensitive test)
s/p 12d ceftriaxone, dc'd
Due to slow improvement of mental status, ceftriaxone replaced with PCN after test dose.
--> Continue PCN-G continuous infusion (d8 )
- Trend RPR titer in 3 months after completion of tx until at least 4 fold decrease in titer.
-Medicine-related change in mental status, improving
Keppra dose reduced.
CPAP for suspected JACOBY.
PCN G dose reduced from 24MU to 18MU/day in case of neurotoxicity.
Hospitalist replaced metoprolol with lisinopril.
Chief Complaint
-: Other (Change in mental status; HSV 1 encephalitis; Positive RPR)
Subjective / Review of Systems
Feeling better.
Per daughter, he stayed up several hours last evening, ate whole dinner.
Ate whole breakfast this am.
Vital Signs / Physical Exam
Vital Signs
Vital Signs
Temp Pulse Resp BP Pulse Ox
97.9 F 93 20 147/72 98
10/20/24 07:00 10/20/24 08:49 10/20/24 07:00 10/20/24 08:49 10/20/24 09:34
Physical Exam
Constitutional: Comfortable
Cardiovascular: Regular Rate and S1/S2
Gastrointestinal: Soft, Non Tender, Non Distended and Normal Bowel Sounds
Extremities: Negative Edema
Objective Data
Lab Data
Lab Results
10/20/24 04:41
10/20/24 04:41
PT 14.6 Sec (11.4-14.6) 10/16/24 13:14
INR 1.11 10/16/24 13:14
APTT 32.8 Sec (23.4-35.0) 10/16/24 13:14
Estimated Creat Clear 87 ml/min 10/20/24 04:41
Total Bilirubin 0.8 mg/dl (0.2-1.3) 10/12/24 06:00
AST 26 U/L (17-59) 10/12/24 06:00
ALT 18 U/L (0-50) 10/12/24 06:00
Alkaline Phosphatase 57 U/L (38-126) 10/12/24 06:00
Most recent labs reviewed.
Micro Results:
10/06/24 14:08 Fungal Smear - Final
Csf No yeast or fungal elements seen.
Fungal Culture - Preliminary
Culture in progress.
Positive cultures are reported as soon as detected.
Final report to follow in four to five weeks.
10/06/24 14:08 CSF Culture - Final
Csf No Growth After 5 Days - Final Report
Gram Stain - Final
10/03/24 21:18 Blood Culture - Final
Blood/Venous No Growth - Final Report
10/03/24 20:58 Blood Culture - Final
Blood/Venous No Growth - Final Report
10/04/24 08:16 Salmonella/Shigella Culture - Final
Feces/Stool No Salmonella, Shigella, Aeromonas or Plesiomonas species
isolated.
Campylobacter Culture - Final
No Campylobacter species isolated.
Shiga Toxin Test - Final
No E. coli Shiga Toxin 1 or 2 detected.
Stool Leukocytes - Final
10/06/24 14:08 Meningitis/Encephalitis Panel (PCR) - Final
Csf
10/04/24 09:20 MRSA Screen - Final
Nose No Methicillin Resistant Staphylococcus aureus isolated.
10/04/24 09:20 Urine Culture - Final
Urine NO GROWTH
10/04/24 17:36 Influenza Types A & B (RADHA) - Final
Nasal Swab Negative for Influenza A & B, NAAT
Negative results must be combined with clinical observations
and patient history.
Nucleic Acid Amplification test (NAAT)performed on the
[employer]ste[employer] platform.
10/04/24 17:36 Legionella Urinary Antigen - Final
Urine Negative for Legionella pneumophila Serogroup 1 antigen.
A negative result does not rule out the possiblity of
Legionella infection due to other serogroups or species of
Legionella. Clinical correlation is recommended.
Streptococcus pneumoniae Antigen (M - Final
Negative for Streptococcus pneumoniae antigen.
A negative result does not exclude infection with
Streptococcus pneumoniae. Clinical correlation is
recommended.
10/04/24 08:16 - Final
Feces/Stool Negative for Norovirus GI and GII.
10/04/24 08:16 C. difficile GDH Antigen & Toxins - Final
Feces/Stool Negative for toxigenic C.difficile
Meningitis Panel, CSF by PCR Final 10/06/24-1609
Escherichia coli K1 Not Detected
Haemophilus influenzae Not Detected
Listeria monocytogenes Not Detected
Neisseria meningitidis Not Detected
Cytomegalovirus (CMV) Not Detected
Streptococcus agalactiae Not Detected
Streptococcus pneumoniae Not Detected
Enterovirus Not Detected
--> Herpes simplex virus 1 DETECTED <--
Herpes simplex virus 2 Not Detected
Human herpesvirus 6 Not Detected
Human parechovirus Not Detected
Varicella zoster virus Not Detected
C. neoformans/gattii Not Detected
CSF
10/06/24 10/06/24
14:08 14:09
CSF Appearance Clear
CSF Color Colorless
CSF WBC 4
CSF RBC 14
CSF Cell Count Tube # 2
CSF Glucose 72 H
CSF Total Protein 217 H
CSF VDRL Non reactive
10/06/24
04:55
Syphilis Serology Positive
RPR Titer 1:256
RPR Reactive
HIV Ag/Ab Combo Qual Negative
10/18/24 Brain MRI: There is significantly decreased diffusion hyperintense signal along the anterior right temporal lobe and right insular cortex. There is persistent mild T2 hyperintense signal along the right insular cortex and medial right
temporal lobe with new cortical enhancement along the right insular cortex. Findings may represent an evolving subacute infarction or evolving encephalitis. Given the interval improvement a mass is considered unlikely.
10/04/24 Brain MRI: There is predominant cortical restricted diffusion involving the anterior right frontal lobe extending into the hippocampus and right insular cortex. There is additional foci of diffusion hyperintense signal within the posterior
aspect of the right thalamus. This constellation of findings can be seen in encephalitis (herpes or limbic), status epilepticus or acute infarction. Additionally Creutzfeld Christiano disease is considered unlikely, however cannot be excluded. Consider
correlation with CSF studies.
10/04/24 CXR: New minimal left lower lobe atelectasis versus scarring
10/04/24 CT Pe/abd/pel W: Mild left lower lobe airspace disease suggesting pneumonia. New
No acute pathology of the abdomen or pelvis identified
10/01/24 PET: Stable solitary right upper lobe pulmonary nodule which demonstrates mild FDG activity (with only minimal further increase on delayed imaging). This remains indeterminate with differential including infectious/inflammatory nodule or low
metabolic rate neoplasm.
09/01/[address]: Significant symmetric enlargement of the bilateral tonsillar soft tissues, which could be secondary to tonsillar hypertrophy or tonsillitis, with secondary narrowing of the oropharynx and hypopharynx. Bilateral pulmonary parenchymal
opacities suggesting pneumonia. 1.6 cm solid pulmonary nodule in the right upper lobe.
Care Review
Plan reviewed with: Physician (Drs. Zafar and Tia)
--- NOTE | 2024-10-20 10:47 | W.PN.HOSP.TC ---
Today's Communication/Plan
-
See plan
Assessment / Plan
Assessment / Plan
Physical Exam
General: Not in acute distress, appears comfortable at this time
HEENT: Thick neck. Not tender, no induration, erythema, or palpable masses
Respiratory: CTAB
Cardiac: S1/S2 and Regular Rhythm
GI: Soft, Nontender, Distended, Normal Bowel Sounds. Obese
Musculoskeletal: No Cyanosis and Trace pitting edema at the bilateral lower extremities
Neuro: AAO x 2
Psych: flat affect paucity of speech calm
Assessment/Plan
79y M with PMH significant for hypothyroidism, hypertension and von Willebrand's disease who presents to ED complaining of weakness. History obtained from patient and his family at the bedside. Patient was in his usual states of good health
until about 3-4 weeks ago when he began to become more weak / fatigued. He was still able to complete his ADLs until this past 24-48 hours when his symptoms markedly worsened. Patient is followed by Nicko Mims for vWF. He receives monthly
IVIG (last dose 09/29). There is some question of multiple myeloma - though history there is not clear and patient does not appear to be on any treatment for this (records show MGUS). Patient developed fullness / swelling in the throat several
weeks ago. He was evaluated by ENT in their office Dr. Hicks. CT scan showed tonsillar hypertrophy but was otherwise unremarkable. He was treated briefly with antifungal medication for thrush (patient was having a sore throat) - but this was
stopped after fungal smear was negative. CT neck also showed incidental RUL nodule and patient has had CT C/A/P and PET-CT since that time for further evaluation. These revealed mildly FDG-avid (3.3) KADEN nodule (1.6cm). No other areas of
FDG-avidity. No other abnormal findings. Over the 48 hours prior to presentation, patient remained seated at home and has not left his chair. He reported shaking chills. Family has noted swelling in the legs - L > R - which is unusual for him.
Family noted that he seemed somewhat confused as well since 10/02/24 evening. 911 was called to the home this afternoon when patient was unable to get up. He decline ED evaluation at that time. Later in the afternoon family convinced him to
present to the ED for further evaluation. Patient was noted to be quite unsteady on his feet in the emergency department. He drove himself to his radiology appointments as recently as 2 days ago and had no significant issues.
Weakness / Ataxia / Confusion
Acute Toxic Metabolic Encephalopathy Likely Secondary to Encephalitis and Possibly From Pneumonia
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
Likely immunosuppressed from Daratumumab and Dex
Cognitive Impairment
- CT head in ED unremarkable.
- MRI brain with suspected encephalitis, repeat MRI brain showed improvement
- ID eval appreciated
- IR performed LP on 10/06/24 -- high protein, low glucose
- Continue Keppra -- newly started this admission
- Continue Acyclovir as per ID 21 day course through 10/25/24
- CMV neg
- EBV serology panel significant for prior infection with no apparent reactivation.
- HIV negative
- Syphilis screen positive
- PT/OT/ PMR eval appreciated Acute Rehab
- Appreciate neurology
- Patient's agitation behaviors improved with Seroquel since discontinued d/t sedation, agitation remains resolved at this time
- persistent cognitive impairment, psych eval appreciated unlikely pseudodementia/depression ruled out
- Repeat CT head 10/17 appreciated no acute abn's
- Multivitamin and Thiamine supplementations started
- Per my discussion inside patient's room on 10/18/24 with patient's daughter Jacqueline, patient's cognition had gotten worse since 10/15/24 -- re-consulted neurology, Keppra reduced to 250 mg BID (from 500 mg BID) repeat MRI Brain showed improvement.
EEG unremarkable.
- Replaced Metoprolol with Lisinopril to avoid OUTSOLE SKIVER effects of beta chiara
- Per neurology, provide BiPAP at night from 7 pm to 7 am in case there is a component of sleep apnea to possibly help with cognition
Syphilis screen : Positive. RPR 1:256. CSF VDRL negative.
- ID eval appreciated, given reported allergy to penicillin, patient was originally planned for 14-day course of ceftriaxone, however given lack of cognitive improvement, PCN challenge was attempted and passed, subsequently switched to 14 days
course PCN 10/13.
- PCN-G dose reduced on 10/19/24 in efforts to see whether reducing Penicillin dose helps with mental status
RUE PICC placed for planned snf IV abx antiviral
Complicated with Superficial Thrombosis noted on RUE US 10/15/24
RUE PICC removed and LUE PICC placed
cont supportive care superficial thrombosis RUE w/ pain control, ice, and elevation
-Hematology eval appreciated, continue Lovenox 40 mg QPM as DVT ppx
-Will recheck RUE soon for monitoring of the clot
Diarrhea, Abdominal Pain and Nausea Resolved
Mild fluid right inguinal canal -- postsurgical change more likely versus unlikely incarcerated/strangulated hernia, no significant pain at this time -- seen on CT Imaging
Constipation
- Stool studies unremarkable
- Surgery eval appreciated no need for intervention
- Initially had diarrhea since resolved, developed constipation; AXR suggests moderate amount of stool within the rectum
- Miralax and Senokot-S, given suppository with some improvement noted, fleet enema given 10/14
- Milk and Molasses Enema given 10/17 with good response noted
Gross Hematuria
Urinary Retention
-Recurrence during this hospitalization
-urology mentions expected with von Willebrands
-Hgb VSS
-CT without contrast with no obstructive uropathy or stones
-Consulted urology -- recommendation to continue bladder scans -- if PVR rising significantly, then place Negron -- but no interventions at this time as per urology
Hypothyroidism
- TSH = 16.8 and Free T4 = 0.39 this hospitalization
- Some confusion, weakness, ataxia, edema, questionable contribution hypothyroidism
- IV dose of levothyroxine given initially
- PO Levothyroxine dose increased to 150 mcg daily
- Follow up TFTs notes improvement in T4 wnl while TSH remains elevated but better
- repeat TFTs in 1 month
Acute Hypoxic Respiratory Insufficiency - RESOLVED but returned overnight 10/19 to 10/20
Likely LLL Pneumonia
Small Right Pleural Effusion on AXR from 10/09/24
Nocturnal O2 Desaturation (see nocturnal O2 saturation report from 10/06/24 morning)
Cough Again on 10/04/24
History of Recurrent Colds
History of Recent Pneumonia on CT Neck (treated outpatient with PCP in late August 2024 to early September 2024)
-Doxycycline completed
-ID eval appreciated ceftriaxone switched to PCN challenge as above
-Atrovent PRN given intolerance to Albuterol
-CT Abdomen/Pelvis from 10/07/24 showed bibasilar opacification -- most likely representing subsegmental atelectasis as well as tiny bilateral pleural effusions, left greater than right
-Recurrence of Hypoxia on 10/20/24 morning
-After being placed on BiPAP overnight 10/19-10/20
-Seen on ABG, placed on 4 L O2
-Repeat CXR with low lung volumes
-EKG unremarkable, troponins negative so far, proBNP unremarkable
-Appreciate pulmonary
-Appreciate pulmonary given new hypoxia again on 10/20/24 in setting of pulmonary mass
Persistent neck swelling/enlarged tonsils since 09/01/24, (recently treated with 30 day course of Fluconazole)
Recent Tonsillar Hypertrophy
Recent Thrush
-Follows Dr. Anna Hicks (ENT) outpt
-EBV serology panel significant for prior infection with no apparent reactivation.
Right Upper Lobe Pulmonary Nodule -- indeterminate PET scan
- follows Dr. Rider outpatient
- 1.6cm KADEN nodule seen on multiple recent images. Mildly FDG-avid without significant delayed uptake.
- Covered with abx ceftriaxone / doxycycline since completed
- May benefit from biopsy for further evaluation if no improvement / resolution with antibiotics.
- Appreciate pulmonary
Acute Kidney Injury - RESOLVED
- IV fluids with Normal Saline IV Fluids 70 cc/hr as per nephrology
- Continue to monitor renal function given patient is on Acyclovir --- continue IVF while on IV antiviral -- could reduce rate to 50cc/hr if needed
- CT Abdomen Pelvis 10/07/24 with no stone or obstructive process
Hypokalemia
Hypomagnesemia
-monitor and replete as necessary
Hypertension
-Cont antihypertensives -- increased Amlodipine to 5 mg BID
-Stopped on 10/18/24 Toprol XL (can cause OUTSOLE SKIVER effects -- and patient has had persistent encephalopathy) and replaced with Lisinopril 2.5 mg BID for better blood pressure control
-Blood pressure measurements limited by Superficial Thrombosis RUE and PICC LUE
-Calf measurements (done on patient in supine position) likely falsely elevated somewhat
Acquired von Willebrand's Disease (started at age 49 y/o) on monthly IVIG, Darzalex
- Stable. Patient maintained on IVIG monthly - last injection was 09/29/24.
- Hematology eval appreciated Acquired von willebrand disease fully controlled at this time, continued outpt hematology follow up recommended
MGUS
- Has been on Decadron, Darzalex, and IVIG -- sees Dr. Lucio outpatient
Thrombocytopenia
- Mild, stable
Vitamin D Deficiency
-supplementation started
Coronary Artery Disease
Simple bilateral renal cysts
Appendicoliths
Speech/Diet: Regular Diet with Thin Liquids
DVT Prophylaxis: SCDs Lovenox
Code Status: Full Code
Anticipated Discharge: > 48 hours
Subjective/Interval History
-
Date of Service: October 20, 2024
Patient was seen and examined. Patient was more alert and eating more now.
Objective Data
-
Labs:
Laboratory Results
10/20/24 10/20/24
04:41 06:00
WBC 4.5 L
Hgb 9.3 L
Hct 26.4 L
Plt Count 134
HCO3 21.2
Sodium 135
Potassium 3.7
Chloride 113 H
Carbon Dioxide 25
BUN 6 L
Creatinine 0.7
Glucose 108 H
Calcium 8.5
Vital Signs:
Vital Signs
Temp Pulse Resp BP Pulse Ox
97.9 F 93 20 147/72 98
10/20/24 07:00 10/20/24 08:49 10/20/24 07:00 10/20/24 08:49 10/20/24 09:34
I&O
10/19/24 10/20/24 10/21/24
06:59 06:59 06:59
Intake Total 2019 2632 / 2632
Output Total 2074 1325 / 1325
Balance -55 / -55 1307 / 1307
[2024-10-20] MEDS: NSS IV (11:24)
--- NOTE | 2024-10-20 11:29 | CON.PUL ---
Consultation
Consultation Request
Date/Time Consultation Requested: 10/20/24
Date/Time Consultation Performed: 10/20/24
Performing Provider: Paulino
Reason for Consultation: Hypoxia
Medical History
-
History of Present Illness:
Patient is an 79-year-old male with previous history of hypothyroidism, hypertension presenting CHF or weakness, admitted to [place] on 10/03/24 for workup. 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 Had MRI demonstrating right temporal lobe abnormality, EEG negative.
Developed hypoxemia throughout his admission with very low lung volumes on chest x-ray. ABG demonstrated PO2 of 54 dropped from 84. He is placed on 4 L nasal cannula. He is also placed on BiPAP at night. Denies prior known history of lung
disease in the past, has never needed oxygen at home. He is a former smoker admits to 3 packs/day for 30 years, quit 40 years ago. Never had PFT testing.
Past Medical History
Past Medical History: Other (see list below)
Social History
Tobacco: Former Smoker
Alcohol: None
Drug: None
Family History
Family History: Reviewed & Not Pertinent
Allergies / Home Medications
Allergies
Allergy/AdvReac Type Severity Reaction Status Date / Time
TOLERATED PENICILLIN 2024 Allergy remote hx Uncoded 10/18/24 13:40
of
rash/hives;
tolerated
penicillin
October 2024
Home Medications
�Medication �Instructions �Recorded �Confirmed �Last Taken �Type
Ivig 1 dose SC MONTHLY hematologic 10/03/24 10/03/24 Unknown History
condition
amlodipine 5 mg tablet 5 mg PO DAILY Blood Pressure 10/03/24 10/03/24 10/03/24 History
doxazosin 2 mg tablet 2 mg PO HS Blood Pressure 10/03/24 10/03/24 10/02/24 History
levothyroxine 125 mcg tablet 125 mcg PO DAILY Thyroid 06/10/03/24 10/03/24 History
(Synthroid)
metoprolol succinate 25 mg 25 mg PO DAILY Blood Pressure 10/03/24 10/03/24 10/03/24 History
tablet,extended release 24 hr
(Toprol XL)
pantoprazole 40 mg tablet,delayed 40 mg PO DAILY Gastrointestinal 10/03/24 10/03/24 10/02/24 History
release (Protonix) Issue
therapeutic multivitamin 1 tab PO DAILY Supplement 10/03/24 10/03/24 10/03/24 History
zolpidem 10 mg tablet (Ambien) 10 mg PO HSPRN PRN sleep 10/03/24 10/03/24 Unknown History
Review of Systems
-
History Source: Patient
All other systems: Negative unless noted
Vitals / Labs / Diagnostic Testing
Vital Signs
Temp Pulse Resp BP Pulse Ox
97.9 F 93 20 147/72 98
10/20/24 07:00 10/20/24 08:49 10/20/24 07:00 10/20/24 08:49 10/20/24 09:34
Lab Data
10/20/24 04:41
10/20/24 04:41
Laboratory Results
10/20/24
06:00
pH 7.43
pCO2 32 L
pO2 54 L*
HCO3 21.2
O2 Delivery Level
Microbiology
10/06/24 14:08 Csf Fungal Smear - Final
No yeast or fungal elements seen.
10/06/24 14:08 Csf Fungal Culture - Preliminary
Culture in progress.
Positive cultures are reported as soon as detected.
Final report to follow in four to five weeks.
Diagnostic Testing:
Physical Exam
-
HEENT: Normocephalic, Anicteric and Moist Mucous Membranes
Cardiovascular: S1/S2 and Regular Rhythm
Respiratory: Clear and Non-Labored Respirations
GI: Soft, Non Distended and Non Tender
Neurology: Awake, Alert, Oriented and No Motor Deficits (weakness noted)
Skin: Warm, Dry and Good Color
General: Comfortable and Other (NAD)
Assessment
-
Patient is an 79-year-old male with previous history of hypothyroidism, hypertension presenting CHF or weakness, admitted to [place] on 10/03/24 for workup. 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 Had MRI demonstrating right temporal lobe abnormality, EEG negative. Developed hypoxemia throughout his admission with very low lung volumes on chest x-ray. ABG
demonstrated PO2 of 54 dropped from 84. He is placed on 4 L nasal cannula. He is also placed on BiPAP at night. We are consulted for evaluation.
Acute hypoxic respiratory failure
Suspect due to low lung volumes, atelectasis
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
Change in mental status
Former smoker, 3 PPD x 30 years, suspect COPD
Conditions present prior to admission
Atherosclerotic heart disease of [place] coronary artery without angina pectoris
Essential (primary) hypertension
Hyperlipidemia
Hypothyroidism
Von Willebrand disease, type 2
Retinal hemorrhage of left eye
Inguinal hernia
Hospitalization [facility] - sepsis 2014
1.6cm RUL nodule, PET 10/01/24
Plan
No significant hypoxemia noted on arrival, he is now 98% on 4L NC overnight
ABG obtained showing PaO2 54 from 84
There is no known history of O2 use at home
Denies prior known history of lung disease in the past, has never needed oxygen at home.
He is a former smoker admits to 3 packs/day for 30 years, quit 40 years ago. Never had PFT testing.
We will try to obtain bedside testing while inpatient, he is at risk for COPD based on his former smoking history
Has never been formally diagnosed with any lung disease
Suspect patient has underlying bibasilar atelectasis from profound deconditioning and weakness causing VQ mismatch and hypoxemia
He was started on BiPAP but is not sure if this is helping
CXR/CT obtained indicating very low lung volumes
Other imaging reviewed --CT imaging in the past without emphysema or other acute lung findings
Encourage IS, ambulation as tolerated
ECHO results in past reviewed, stable function
Diuresis if indicated
Will need outpatient pulmonary evaluation in our office
Reviewed with patient
Risk factors assessed for underlying sleep disordered breathing also noted
Recommend outpatient sleep evaluation/PSG testing as indicated
We will follow
Diagnostic Data
CXR 10/20/24- Low lung volumes. No gross focal parenchymal consolidation, pneumothorax or significant pleural effusion.
10/16/24-Stable position of the left PICC with the catheter tip in the upper portion of the superior vena cava. The right PICC is been removed. Low lung volumes. Mild elevation of the right hemidiaphragm. No focal consolidation, pleural effusion, or
pneumothorax. Stable cardiomediastinal silhouette.
PET/CT 10/01/24- LUNGS: Stable 1.6 cm subpleural posterior medial right upper lobe apical nodule (max SUV 3.3, delayed 3.4).
CT CHEST 10/01/24- No acute inflammatory process within the chest, abdomen, or pelvis. No adenopathy. Posteromedial right apex pulmonary nodule measuring 1.6 cm. Recommend follow-up PET/CT.
Renal cysts. No focal osteolytic or blastic lesion. No compression deformity.
ECHO 10/04/24- LV ejection fraction is 65-70%, by visual assessment. No regional wall motion abnormalities are seen. Normal right ventricular size and function. No significant valvular disease.
No prior study available for comparison.
PFT
Reports and relevant images were personally reviewed.
-----
Total time spent on this consultation _75__ minutes which includes review of history, physical exam, medications, llaboratory data, personal review of imaging, extensive review of outpatient records, and discussions with care team.
[2024-10-20 12:21] LABS: Troponin I < 0.012 ng/ml
[2024-10-20 15:00] VITALS: BP 141/69
[2024-10-20] MEDS: PENICILLIN 536 UNITS IV (15:21)
--- NOTE | 2024-10-20 15:34 | W.PN.NEURO.1 ---
Today's Communication / Plan
-
continue antiviral/antibiotic per ID
reduced Levetiracetam to 250 mg BID to help with possible side effects, unclear if needed lifelong
started BiPAP for suspected sleep apnea
Neuro Assessment/Plan
Assessment
head CT moderate atrophy, white matter changes
brain MRI 10/04 cortical ribbon diffusion restriction anterior right frontal/hippocampus/insular cortex, posterior right thalamus. no contrast enhancement agree most likely viral encephalitis given the apparent rapid cognitive decline; autoimmune
encephalitis and CJD being less likely
EEG 10/05 showing LPD right hemisphere indicating the above area highly epileptogenic
LP failed to demonstrate encephalitis with WBCs of 4 and a markedly elevated protein of 217 with a glucose which was minimally elevated. VDRL was negative cryptococcal antigen negative West Nile negative. RPR was abnormal at 1-256, however
infectious disease suggests against the possibility of neurosyphilis based on the absence of inflammatory changes in the CSF.
HIV negative. EBV titers were abnormal
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
EEG 10/18: generalized slowing demonstrated bihemispherically equally
brain MRI 10/18: There is significantly decreased diffusion hyperintense signal along the anterior right temporal lobe and right insular cortex. There is persistent mild T2 hyperintense signal along the right insular cortex and medial right temporal
lobe with new cortical enhancement along the right insular cortex. Findings may represent an evolving subacute infarction or evolving encephalitis. Given the interval improvement a mass is considered unlikely.
Patient presented with generalized weakness for the past month prior to presentation on October 03, 2024. The patient was subsequently diagnosed with acquired von Willebrand's.
Recent neck swelling/enlarged tonsils since 09/01, (recently tx'd with clotrimazole by ENT)
Impressions: Abrupt onset of worsening mental status with recent diagnosis of HSV encephalitis and significant MRI of brain changes showing right temporal lobe abnormality; improved with combination of reduction of Levetiracetam and overnight BiPAP
use
Plan
continue antiviral/antibiotic per ID
reduced Levetiracetam to 250 mg BID to help with possible side effects, unclear if needed lifelong
started BiPAP for suspected sleep apnea
Will follow as outpatient
Subjective/Objective
Subjective Data
Date of Service: October 20, 2024
Patient reports improvement
Objective Data
Vital Signs
Temp Pulse Resp BP Pulse Ox
36.6 C 93 20 147/72 98
10/20/24 07:00 10/20/24 08:49 10/20/24 07:00 10/20/24 08:49 10/20/24 09:34
Lab Results
10/20/24 04:41
10/20/24 04:41
PT 14.6 Sec (11.4-14.6) 10/16/24 13:14
INR 1.11 10/16/24 13:14
APTT 32.8 Sec (23.4-35.0) 10/16/24 13:14
Sodium 135 mmol/L (135-145) 10/20/24 04:41
Potassium 3.7 mmol/L (3.5-5.1) 10/20/24 04:41
BUN 6 mg/dl (9-20) L 10/20/24 04:41
Glucose 108 mg/dl (70-99) H 10/20/24 04:41
Calcium 8.5 mg/dl (8.4-10.2) 10/20/24 04:41
Phosphorus 3.1 mg/dl (2.5-4.5) 10/19/24 04:34
Qkr-A-Zsxrwqnfbou Pept 115 pg/ml 10/20/24 11:43
LDL Cholesterol, Calc 148 mg/dl 10/04/24 05:43
Vitamin B12 640 pg/ml (239-931) 10/13/24 06:20
Patient Allergies
TOLERATED PENICILLIN 2024 Allergy (Uncoded 10/18/24 13:40)
remote hx of rash/hives; tolerated penicillin October 2024
Review of Systems
-
History Source: Patient
All other systems: Reviewed and negative
Physical Exam
-
General: Comfortable and Appears Stated Age
Eyes: Round OU
HEENT: Normocephalic, Atraumatic and Anicteric
Respiratory: No Dyspnea
Cardiac: No JVD
GI: Non-distended
Skin: Unremarkable
Extremities: No Clubbing, No Cyanosis and No Edema
Extended Neurological Exam
Mood & Affect: Depressed
Attention Span & Concentration: Awake, Interactive and Other (Promptly performs single step requests)
Memory: Able to Recall (Month, year, location) and Reduced (For all details of his own medical history)
Tremor: Hand Tremor Absent and Head Tremor Absent
Involuntary Movement: None
Speech: Moderately Reduced Output
Cranial Nerve II: Left Eye: Visual Alvares Grossly Intact
Cranial Nerve II: Right Eye: Visual Alvares Grossly Intact
Cranial Nerve VII: Facial Symmetry: Normal Facial Symmetry
Cranial Nerve VIII: Hearing: Unremarkable Hearing to Normal Conversational Volume
Muscle Strength, Overall: Spontaneously Moves
Pronator Drift: No Drift in Upper Extremities
Coordination: [id number] Testing Unremarkable
Data Reviewed
-
EEG: Report Reviewed
Labs: Report Reviewed
Reviewed with: Nurse Practioner, Patient and Family
Old Records: Summarized
[2024-10-20] MEDS: LOVENOX 40 MG SC (17:40)
[2024-10-20] MEDS: CARDURA 2 MG PO (22:14)
[2024-10-20 22:32] VITALS: PULSE 2
[2024-10-20 23:33] VITALS: PULSE 2
[2024-10-21] VITALS (7 sets, daily range): BP systolic 106–180; BP diastolic 55–95; PULSE 2–97; O2SAT 97; BMI 29.8
[2024-10-21 00:24] LABS: Troponin I < 0.012 ng/ml
[2024-10-21 05:21] LABS: Hematocrit 27.8 % (39.0-52.0); Hemoglobin 9.7 g/dL (13.0-18.0); Mean Corp Hgb Conc. 34.9 g/dL (33.0-37.0); Mean Corpuscular Volume 98.9 fL (80.0-94.0); Platelet Count 145 10^3/uL (130-400); Red Cell Dist. Width 17.1 % (11.5-14.5)
[2024-10-21 05:43] LABS: Blood Urea Nitrogen 6 mg/dl (9-20); Calcium 8.6 mg/dl (8.4-10.2); Carbon Dioxide 23 mmol/L (22-30); Chloride 113 mmol/L (98-107); Estimated Creatinine Clearance 87 ml/min; Glucose 97 mg/dl (70-99); Potassium 4.0 mmol/L (3.5-5.1); Sodium 136 mmol/L (135-145); eGFR > 60.00
[2024-10-21 05:53] LABS: Troponin I < 0.012 ng/ml
[2024-10-21] MEDS: ZOVIRAX INJECTION 266 MG IV ×3 (06:01→22:07)
[2024-10-21] MEDS: SYNTHROID 150 MCG PO (06:01)
--- NOTE | 2024-10-21 08:12 | W.PN.ONC ---
Today's Communication / Plan
-
- Continue Lovenox 40mg for prophylaxis following PICC removal for superficial thrombus
- Repeat vW panel pending from 10/16
- Normal coag profile is reassuring. Last treated about one month ago for the acquired von Willebrand's. It is felt to be autoimmune and has been well controlled with monthly IVIg.
Impression
Impression
Weakness / Ataxia / Confusion
- Etiology unclear, likely of neuro origin - CSF detected HSV1, started on acyclovir
- Primary team addressing individual issues including symptomatic hypothyroidism, hyponatremia
Acquired vonWillebrand's Disease
- Patient maintained on IVIG and Darzalex monthly - last injection was 09/22/2024
- Coagulation panel within normal limits as of late September
New PICC associated DVT
- Patient started on Lovenox 40mg
Pulmonary Nodule
- 1.6cm KADEN nodule seen on multiple recent images. Mildly FDG-avid without significant delayed uptake.
Plan
Plan
- Continue Lovenox 40mg for prophylaxis following PICC removal for superficial thrombus
- Repeat vW panel pending from 10/16
- Normal coag profile is reassuring. Last treated about one month ago for the acquired von Willebrand's. It is felt to be autoimmune and has been well controlled with monthly IVIg.
Subjective/Objective
Subjective/Objective
Patient seen at the bedside. Patient was awake but not talkative. Patient difficult to get history from, but denies all ROS.
Physical Exam:
General: not in acute distress
Cardiovascular: RRR
Respiratory: on 4 L NC, clear lung sounds b/l
Abdomen: soft, nontender
Extremeties: SCDs on LEs
Vital Signs:
Vital Signs
Temp Pulse Resp BP Pulse Ox
97.6 F 100 18 106/55 97
10/21/24 00:01 10/21/24 00:01 10/21/24 00:01 10/21/24 00:01 10/21/24 00:38
Lab Results:
Laboratory Data
WBC 4.5 10^3/uL (4.8-10.8) L 10/21/24 04:43
Hgb 9.7 g/dL (13.0-18.0) L 10/21/24 04:43
Plt Count 145 10^3/uL (130-400) 10/21/24 04:43
PT 14.6 Sec (11.4-14.6) 10/16/24 13:14
INR 1.11 10/16/24 13:14
APTT 32.8 Sec (23.4-35.0) 10/16/24 13:14
eGFR > 60.00 10/21/24 04:43
[2024-10-21] MEDS: PROTONIX 40 MG PO (09:23)
[2024-10-21] MEDS: MUCINEX 600 MG PO ×2 (09:23→20:25)
[2024-10-21] MEDS: MIRALAX 17 GRAMS PO (09:23)
[2024-10-21] MEDS: VITAMIN D3 (cholecalciferol) 25 MCG PO (09:23)
[2024-10-21] MEDS: SENOKOT-S 1 TABLET PO ×2 (09:23→20:25)
[2024-10-21] MEDS: KEPPRA 250 MG PO ×2 (09:23→20:25)
[2024-10-21] MEDS: VITAMIN B1 100 MG PO ×2 (09:23→20:25)
[2024-10-21] MEDS: KLOR-CON 20 MEQ PO ×2 (09:23→20:25)
[2024-10-21] MEDS: ZESTRIL 2.5 MG PO (09:24)
[2024-10-21] MEDS: NORVASC 5 MG PO ×2 (09:24→20:31)
--- NOTE | 2024-10-21 09:26 | W.PN.PUL3 ---
Today's Communication / Plan
-
Mental status not yet back to baseline, at bedside
Spirometry planning for today to evaluate for any possible underlying lung disease, his smoking history is now corrected and less likely contributory
He is now weaned to room air and sitting in a chair, this is most likely related to bibasilar atelectasis and deconditioning
PT OT strongly recommended
Consideration for goals of care discussion if patient does not improve in terms of mental status
Assessment
-
Patient is an 79-year-old male with previous history of hypothyroidism, hypertension presenting CHF or weakness, admitted to [place] on 10/03/24 for workup. 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 Had MRI demonstrating right temporal lobe abnormality, EEG negative. Developed hypoxemia throughout his admission with very low lung volumes on chest x-ray. ABG
demonstrated PO2 of 54 dropped from 84. He is placed on 4 L nasal cannula. He is also placed on BiPAP at night. We are consulted for evaluation.
Acute hypoxic respiratory failure
Suspect due to low lung volumes, atelectasis
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
Change in mental status
Former smoker, 04/10 PPD x 5 years
Conditions present prior to admission
Atherosclerotic heart disease of [place] coronary artery without angina pectoris
Essential (primary) hypertension
Hyperlipidemia
Hypothyroidism
Von Willebrand disease, type 2
Retinal hemorrhage of left eye
Inguinal hernia
Hospitalization [facility] - sepsis 2014
1.6cm RUL nodule, PET 10/01/24
Plan
No significant hypoxemia noted on arrival, he is now 98% on 4L NC overnight
ABG obtained showing PaO2 54 from 84
There is no known history of O2 use at home
He has been weaned to room air, sitting in chair today
Denies prior known history of lung disease in the past, has never needed oxygen at home.
He is a former smoker admits to 3 packs/day for 30 years, quit 40 years ago. Never had PFT testing.
His notes that his former smoking history is not that extensive--she thinks he actually smoked a quarter a pack for about 5 years
She feels his mental status is not back to baseline and is saying confusing things--he has yet to recognize her as well
We will try to obtain bedside testing while inpatient, not likely at risk for COPD based on his corrected smoking history
Has never been formally diagnosed with any lung disease
We will obtain bedside testing to evaluate for any underlying causes but at this is likely related to atelectasis
Suspect patient has underlying bibasilar atelectasis from profound deconditioning and weakness causing VQ mismatch and hypoxemia
He was started on BiPAP but is not sure if this is helping
CXR/CT obtained indicating very low lung volumes
Other imaging reviewed --CT imaging in the past without emphysema or other acute lung findings
Encourage IS, ambulation as tolerated
ECHO results in past reviewed, stable function
Diuresis if indicated
Will need outpatient pulmonary evaluation in our office
Reviewed with patient
Risk factors assessed for underlying sleep disordered breathing also noted
Recommend outpatient sleep evaluation/PSG testing as indicated
If mental status never improved, may consider goals of care discussions
Diagnostic Data
CXR 10/20/24- Low lung volumes. No gross focal parenchymal consolidation, pneumothorax or significant pleural effusion.
10/16/24-Stable position of the left PICC with the catheter tip in the upper portion of the superior vena cava. The right PICC is been removed. Low lung volumes. Mild elevation of the right hemidiaphragm. No focal consolidation, pleural effusion, or
pneumothorax. Stable cardiomediastinal silhouette.
PET/CT 10/01/24- LUNGS: Stable 1.6 cm subpleural posterior medial right upper lobe apical nodule (max SUV 3.3, delayed 3.4).
CT CHEST 10/01/24- No acute inflammatory process within the chest, abdomen, or pelvis. No adenopathy. Posteromedial right apex pulmonary nodule measuring 1.6 cm. Recommend follow-up PET/CT.
Renal cysts. No focal osteolytic or blastic lesion. No compression deformity.
ECHO 10/04/24- LV ejection fraction is 65-70%, by visual assessment. No regional wall motion abnormalities are seen. Normal right ventricular size and function. No significant valvular disease.
No prior study available for comparison.
PFT
Reports and relevant images were personally reviewed.
-----
Total time spent on this consultation _50__ minutes which includes review of history, physical exam, medications, llaboratory data, personal review of imaging, extensive review of outpatient records, and discussions with care team.
Subjective Data
-
Date of Service:
Date of Service: October 21, 2024
Chief Complaint: Pulmonary Follow Up
Subjective:
No new complaints, at bedside
He is sitting in a chair, now on room air
Objective Data
Data Reviewed
Vital Signs / I&O / Oxygen:
Vital Signs
Temp Pulse Resp BP Pulse Ox
97.5 F 97 20 179/95 93
10/21/24 07:00 10/21/24 07:00 10/21/24 07:00 10/21/24 07:00 10/21/24 07:00
Intake and Output
10/20/24 10/21/24 10/22/24
06:59 06:59 06:59
Intake Total 2632 / 2632 1440 / 1440
Output Total 1325 / 1325 1550 / 1550
Balance 1307 / 1307 -110 / -110
SaO2 93
Nasal Cannula flow liters per 4
minute
Physical Exam
General: Comfortable and Other (NAD, deconditioned appearing)
HEENT: Normocephalic, Anicteric and Moist Mucous Membranes
Cardiovascular: S1-S2 and Regular Rhythm
Respiratory: Clear and Non-Labored Respirations
GI: Soft, Non Distended and Non Tender
Neurology: Awake, Alert and Other (confused, weak overall)
Skin: Warm, Dry and Good Color
Labs/Micro/Reports
Lab Data
10/21/24 04:43
10/21/24 04:43
Microbiology
10/06/24 14:08 Csf Fungal Smear - Final
No yeast or fungal elements seen.
10/06/24 14:08 Csf Fungal Culture - Preliminary
Culture in progress.
Positive cultures are reported as soon as detected.
Final report to follow in four to five weeks.
--- NOTE | 2024-10-21 10:19 | W.PN.ID1 ---
Date of Service
Date of Service: October 21, 2024
Today's Communication
Continue Acyclovir/PCN-G
Assessment / Plan
# HSV-1 encephalitis
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
# Change in mental status, waxing and waning
# RUE picc- associated superficial thrombus. PICC dc'd 10/15
# High risk sexual behavior
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
# Thrombocytopenia resolved
- Blood cx's neg
- C. diff neg, stool cx neg
- CT a/p unremarkable
- HIV negative.
-MRI brain: cortical restricted diffusion involving the anterior right frontal lobe extending into the hippocampus and right insular cortex. There is additional foci of diffusion hyperintense signal within the posterior aspect of the right thalamus
- 10/05 EEG: EEG 10/05 showing epileptogenic right frontal lobe
- Continue Acyclovir 800 mg IV q8h. (d#17 ) through 10/25/24.
- Repeat MRI shows improvement of brain lesions.
- Per neuro, no longer epileptic focus
- Monitor renal function 3x/week while in IV acyclovir. Creatinine = 0.7
- Keep well-hydrated.
- Syphilis RPR 1:256.
Of note RPR negative in 2021 base on review of [facility] labs.
Unlikely neurosyphilis as CSF only 4 WBC. CSF VDRL neg (not sensitive test)
s/p 12d ceftriaxone, dc'd 10/13/24
Due to slow improvement of mental status, ceftriaxone replaced with PCN after test dose.
--> Continue PCN-G continuous infusion (d) through 10/26/24
- Trend RPR titer in 3 months after completion of tx until at least 4 fold decrease in titer.
-Waxing and waning mental status - ?med side effecs
Keppra dose reduced.
CPAP for suspected JACOBY.
PCN G dose reduced from 24MU to 18MU/day in case of neurotoxicity.
Hospitalist replaced metoprolol with lisinopril.
Chief Complaint
-: Other (Change in mental status; HSV 1 encephalitis; Positive RPR)
Subjective / Review of Systems
Patient confused today.
Vital Signs / Physical Exam
Vital Signs
Vital Signs
Temp Pulse Resp BP Pulse Ox
97.5 F 97 20 179/95 93
10/21/24 07:00 10/21/24 09:24 10/21/24 07:00 10/21/24 09:24 10/21/24 07:00
Physical Exam
Constitutional: Non-toxic
Eyes: No Conjunctival Hemorrhage and Sclera Anicteric
Cardiovascular: Regular Rate and S1/S2
Pulmonary: Clear
Gastrointestinal: Soft, Non Tender and Non Distended
Extremities: Negative Edema
Neurological: Awake; Negative AO x 3 or Meningeal Signs
Psychological: Confused
Objective Data
Lab Data
Lab Results
10/21/24 04:43
10/21/24 04:43
PT 14.6 Sec (11.4-14.6) 10/16/24 13:14
INR 1.11 10/16/24 13:14
APTT 32.8 Sec (23.4-35.0) 10/16/24 13:14
Estimated Creat Clear 87 ml/min 10/21/24 04:43
Total Bilirubin 0.8 mg/dl (0.2-1.3) 10/12/24 06:00
AST 26 U/L (17-59) 10/12/24 06:00
ALT 18 U/L (0-50) 10/12/24 06:00
Alkaline Phosphatase 57 U/L (38-126) 10/12/24 06:00
Most recent labs reviewed.
Micro Results:
10/06/24 14:08 Fungal Smear - Final
Csf No yeast or fungal elements seen.
Fungal Culture - Preliminary
Culture in progress.
Positive cultures are reported as soon as detected.
Final report to follow in four to five weeks.
10/06/24 14:08 CSF Culture - Final
Csf No Growth After 5 Days - Final Report
Gram Stain - Final
10/03/24 21:18 Blood Culture - Final
Blood/Venous No Growth - Final Report
10/03/24 20:58 Blood Culture - Final
Blood/Venous No Growth - Final Report
10/04/24 08:16 Salmonella/Shigella Culture - Final
Feces/Stool No Salmonella, Shigella, Aeromonas or Plesiomonas species
isolated.
Campylobacter Culture - Final
No Campylobacter species isolated.
Shiga Toxin Test - Final
No E. coli Shiga Toxin 1 or 2 detected.
Stool Leukocytes - Final
10/06/24 14:08 Meningitis/Encephalitis Panel (PCR) - Final
Csf
10/04/24 09:20 MRSA Screen - Final
Nose No Methicillin Resistant Staphylococcus aureus isolated.
10/04/24 09:20 Urine Culture - Final
Urine NO GROWTH
10/04/24 17:36 Influenza Types A & B (RADHA) - Final
Nasal Swab Negative for Influenza A & B, NAAT
Negative results must be combined with clinical observations
and patient history.
Nucleic Acid Amplification test (NAAT)performed on the
[employer] platform.
10/04/24 17:36 Legionella Urinary Antigen - Final
Urine Negative for Legionella pneumophila Serogroup 1 antigen.
A negative result does not rule out the possiblity of
Legionella infection due to other serogroups or species of
Legionella. Clinical correlation is recommended.
Streptococcus pneumoniae Antigen (M - Final
Negative for Streptococcus pneumoniae antigen.
A negative result does not exclude infection with
Streptococcus pneumoniae. Clinical correlation is
recommended.
10/04/24 08:16 - Final
Feces/Stool Negative for Norovirus GI and GII.
10/04/24 08:16 C. difficile GDH Antigen & Toxins - Final
Feces/Stool Negative for toxigenic C.difficile
Meningitis Panel, CSF by PCR Final 10/06/24-1609
Escherichia coli K1 Not Detected
Haemophilus influenzae Not Detected
Listeria monocytogenes Not Detected
Neisseria meningitidis Not Detected
Cytomegalovirus (CMV) Not Detected
Streptococcus agalactiae Not Detected
Streptococcus pneumoniae Not Detected
Enterovirus Not Detected
--> Herpes simplex virus 1 DETECTED <--
Herpes simplex virus 2 Not Detected
Human herpesvirus 6 Not Detected
Human parechovirus Not Detected
Varicella zoster virus Not Detected
C. neoformans/gattii Not Detected
CSF
10/06/24 10/06/24
14:08 14:09
CSF Appearance Clear
CSF Color Colorless
CSF WBC 4
CSF RBC 14
CSF Cell Count Tube # 2
CSF Glucose 72 H
CSF Total Protein 217 H
CSF VDRL Non reactive
10/06/24
04:55
Syphilis Serology Positive
RPR Titer 1:256
RPR Reactive
HIV Ag/Ab Combo Qual Negative
10/18/24 Brain MRI: There is significantly decreased diffusion hyperintense signal along the anterior right temporal lobe and right insular cortex. There is persistent mild T2 hyperintense signal along the right insular cortex and medial right
temporal lobe with new cortical enhancement along the right insular cortex. Findings may represent an evolving subacute infarction or evolving encephalitis. Given the interval improvement a mass is considered unlikely.
10/04/24 Brain MRI: There is predominant cortical restricted diffusion involving the anterior right frontal lobe extending into the hippocampus and right insular cortex. There is additional foci of diffusion hyperintense signal within the posterior
aspect of the right thalamus. This constellation of findings can be seen in encephalitis (herpes or limbic), status epilepticus or acute infarction. Additionally Creutzfeld Christiano disease is considered unlikely, however cannot be excluded. Consider
correlation with CSF studies.
10/04/24 CXR: New minimal left lower lobe atelectasis versus scarring
10/04/24 CT Pe/abd/pel W: Mild left lower lobe airspace disease suggesting pneumonia. New
No acute pathology of the abdomen or pelvis identified
10/01/24 PET: Stable solitary right upper lobe pulmonary nodule which demonstrates mild FDG activity (with only minimal further increase on delayed imaging). This remains indeterminate with differential including infectious/inflammatory nodule or low
metabolic rate neoplasm.
09/01/[address]: Significant symmetric enlargement of the bilateral tonsillar soft tissues, which could be secondary to tonsillar hypertrophy or tonsillitis, with secondary narrowing of the oropharynx and hypopharynx. Bilateral pulmonary parenchymal
opacities suggesting pneumonia. 1.6 cm solid pulmonary nodule in the right upper lobe.
--- NOTE | 2024-10-21 12:54 | W.PN.HOSP.TC ---
Today's Communication/Plan
-
Continue IV fluids, antiviral and antibiotic
Mental status waxes and wanes -- delirium of multiple causes -- hopefully will get better after antibiotic and antiviral course completed and hopefully if Keppra can be stopped at some point
Assessment / Plan
Assessment / Plan
Physical Exam
General: Not in acute distress, appears comfortable at this time
HEENT: Thick neck. Not tender, no induration, erythema, or palpable masses
Respiratory: CTAB
Cardiac: S1/S2 and Regular Rhythm
GI: Soft, Nontender, Distended, Normal Bowel Sounds. Obese
Musculoskeletal: No Cyanosis and Trace pitting edema at the bilateral lower extremities
Neuro: AAO x 2
Psych: flat affect paucity of speech calm
Assessment/Plan
79y M with PMH significant for hypothyroidism, hypertension and von Willebrand's disease who presents to ED complaining of weakness. History obtained from patient and his family at the bedside. Patient was in his usual states of good health
until about 3-4 weeks ago when he began to become more weak / fatigued. He was still able to complete his ADLs until this past 24-48 hours when his symptoms markedly worsened. Patient is followed by Nicko Mims for vWF. He receives monthly
IVIG (last dose 09/29). There is some question of multiple myeloma - though history there is not clear and patient does not appear to be on any treatment for this (records show MGUS). Patient developed fullness / swelling in the throat several
weeks ago. He was evaluated by ENT in their office Dr. Hicks. CT scan showed tonsillar hypertrophy but was otherwise unremarkable. He was treated briefly with antifungal medication for thrush (patient was having a sore throat) - but this was
stopped after fungal smear was negative. CT neck also showed incidental RUL nodule and patient has had CT C/A/P and PET-CT since that time for further evaluation. These revealed mildly FDG-avid (3.3) KADEN nodule (1.6cm). No other areas of
FDG-avidity. No other abnormal findings. Over the 48 hours prior to presentation, patient remained seated at home and has not left his chair. He reported shaking chills. Family has noted swelling in the legs - L > R - which is unusual for him.
Family noted that he seemed somewhat confused as well since 10/02/24 evening. 911 was called to the home this afternoon when patient was unable to get up. He decline ED evaluation at that time. Later in the afternoon family convinced him to
present to the ED for further evaluation. Patient was noted to be quite unsteady on his feet in the emergency department. He drove himself to his radiology appointments as recently as 2 days ago and had no significant issues.
Weakness / Ataxia / Confusion
Acute Toxic Metabolic Encephalopathy Likely Secondary to Encephalitis and Possibly From Pneumonia
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
Likely immunosuppressed from Daratumumab and Dex
Cognitive Impairment
- CT head in ED unremarkable.
- MRI brain with suspected encephalitis, repeat MRI brain showed improvement
- ID eval appreciated
- IR performed LP on 10/06/24 -- high protein, low glucose
- Continue Keppra -- newly started this admission -- but Keppra dose reduced due to persistent encephalopathy
- Continue Acyclovir as per ID 21 day course through 10/25/24
- CMV neg
- EBV serology panel significant for prior infection with no apparent reactivation.
- HIV negative
- Syphilis screen positive
- PT/OT/ PMR eval appreciated Acute Rehab
- Appreciate neurology
- Patient's agitation behaviors improved with Seroquel since discontinued d/t sedation, agitation remains resolved at this time
- Persistent cognitive impairment, psychiatry evaluation appreciated unlikely pseudodementia/depression ruled out
- Repeat CT head 10/17 appreciated no acute abnormalities
- Multivitamin and Thiamine supplementations started
- Per my discussion inside patient's room on 10/18/24 with patient's daughter Jacqueline, patient's cognition had gotten worse since 10/15/24 -- re-consulted neurology, Keppra reduced to 250 mg BID (from 500 mg BID) repeat MRI Brain showed improvement.
EEG unremarkable.
- Replaced Metoprolol with Lisinopril to avoid [employer] effects of beta chiara
- Per neurology, provide BiPAP at night from 7 pm to 7 am in case there is a component of sleep apnea to possibly help with cognition
Syphilis screen : Positive. RPR 1:256. CSF VDRL negative.
- ID eval appreciated, given reported allergy to penicillin, patient was originally planned for 14-day course of ceftriaxone, however given lack of cognitive improvement, PCN challenge was attempted and passed, subsequently switched to 14 days
(continue PCN-G through 10/26/24) course PCN 10/13.
- PCN-G dose reduced on 10/19/24 in efforts to see whether reducing Penicillin dose helps with mental status
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
Complicated with Superficial Thrombosis noted on RUE US 10/15/24
RUE PICC removed and LUE PICC placed
cont supportive care superficial thrombosis RUE w/ pain control, ice, and elevation
-Hematology eval appreciated, continue Lovenox 40 mg QPM as DVT ppx
-Will recheck RUE soon for monitoring of the clot
Diarrhea, Abdominal Pain and Nausea Resolved
Mild fluid right inguinal canal -- postsurgical change more likely versus unlikely incarcerated/strangulated hernia, no significant pain at this time -- seen on CT Imaging
Constipation
- Stool studies unremarkable
- Surgery eval appreciated no need for intervention
- Initially had diarrhea since resolved, developed constipation; AXR suggests moderate amount of stool within the rectum
- Miralax and Senokot-S, given suppository with some improvement noted, fleet enema given 10/14
- Milk and Molasses Enema given 10/17 with good response noted
- Per reports, patient is having good bowel movements
Gross Hematuria
Urinary Retention
-Recurrence during this hospitalization
-urology mentions expected with von Willebrands
-Hgb VSS
-CT without contrast with no obstructive uropathy or stones
-Consulted urology -- recommendation to continue bladder scans -- if PVR rising significantly, then place Negron -- but no interventions at this time as per urology
Hypothyroidism
- TSH = 16.8 and Free T4 = 0.39 this hospitalization
- Some confusion, weakness, ataxia, edema, questionable contribution hypothyroidism
- IV dose of levothyroxine given initially
- PO Levothyroxine dose increased to 150 mcg daily - follow up TFTs noted improvement in T4 wnl while TSH remains elevated but better
- repeat TFTs in 3 weeks
Acute Hypoxic Respiratory Insufficiency - RESOLVED but returned overnight 10/19 to 10/20
Likely LLL Pneumonia
Small Right Pleural Effusion on AXR from 10/09/24
Nocturnal O2 Desaturation (see nocturnal O2 saturation report from 10/06/24 morning)
Cough Again on 10/04/24
History of Recurrent Colds
History of Recent Pneumonia on CT Neck (treated outpatient with PCP in late August 2024 to early September 2024)
-Doxycycline completed
-ID eval appreciated ceftriaxone switched to PCN challenge as above
-Atrovent PRN given intolerance to Albuterol
-CT Abdomen/Pelvis from 10/07/24 showed bibasilar opacification -- most likely representing subsegmental atelectasis as well as tiny bilateral pleural effusions, left greater than right
-Recurrence of Hypoxia on 10/20/24 morning, confirmed with ABG
-After being placed on BiPAP overnight 10/19-10/20
-Repeat CXR with low lung volumes
-EKG unremarkable, troponins negative, proBNP unremarkable
-Appreciate pulmonary
-Appreciate pulmonary given new hypoxia again on 10/20/24 -- pulm will try to obtain bedside testing while inpatient, he is at risk for COPD based on his former smoking history
-Hypoxia likely from underlying bibasilar atelectasis from profound deconditioning and weakness causing VQ mismatch and hypoxemia
-Incentive Spirometer Q1H while awake
Persistent neck swelling/enlarged tonsils since 09/01/24, (recently treated with 30 day course of Fluconazole)
Recent Tonsillar Hypertrophy
Recent Thrush
-Follows Dr. Anna Hicks (ENT) outpt
-EBV serology panel significant for prior infection with no apparent reactivation.
Right Upper Lobe Pulmonary Nodule -- indeterminate PET scan
- follows Dr. Rider outpatient
- 1.6cm KADEN nodule seen on multiple recent images. Mildly FDG-avid without significant delayed uptake.
- Covered with abx ceftriaxone / doxycycline since completed
- May benefit from biopsy for further evaluation if no improvement / resolution with antibiotics.
- Appreciate pulmonary
Acute Kidney Injury - RESOLVED
- IV fluids with Normal Saline IV Fluids 70 cc/hr as per nephrology
- Continue to monitor renal function given patient is on Acyclovir --- continue IVF while on IV antiviral -- could reduce rate to 50cc/hr if needed
- CT Abdomen Pelvis 10/07/24 with no stone or obstructive process
Hypokalemia
Hypomagnesemia
-monitor and replete as necessary
Hypertension
-Cont antihypertensives -- recently increased Amlodipine to 5 mg BID
-Stopped on 10/18/24 Toprol XL (can cause [employer] effects -- and patient has had persistent encephalopathy) and replaced with Lisinopril 2.5 mg BID for better blood pressure control
-Blood pressure measurements limited by Superficial Thrombosis RUE and PICC LUE
-Calf measurements (done on patient in supine position) likely falsely elevated somewhat
Acquired von Willebrand's Disease (started at age 49 y/o) on monthly IVIG, Darzalex
- Stable. Patient maintained on IVIG monthly - last injection was 09/29/24.
- Hematology eval appreciated Acquired von willebrand disease fully controlled at this time, continued outpt hematology follow up recommended
MGUS
- Has been on Decadron, Darzalex, and IVIG -- sees Dr. Lucio outpatient
Thrombocytopenia - RESOLVED
Vitamin D Deficiency
-supplementation started
Coronary Artery Disease
Simple bilateral renal cysts
Appendicoliths
Speech/Diet: Regular Diet with Thin Liquids
DVT Prophylaxis: SCDs Lovenox
Code Status: Full Code
Anticipated Discharge: > 48 hours
Subjective/Interval History
-
Date of Service: October 21, 2024
Patient was seen and examined. He remains confused and drowsy, but responds to questions. He is eating and drinking fluids with assistance.
Objective Data
-
Labs:
Laboratory Results
10/21/24
04:43
WBC 4.5 L
Hgb 9.7 L
Hct 27.8 L
Plt Count 145
Sodium 136
Potassium 4.0
Chloride 113 H
Carbon Dioxide 23
BUN 6 L
Creatinine 0.7
Glucose 97
Calcium 8.6
Vital Signs:
Vital Signs
Temp Pulse Resp BP Pulse Ox
97.5 F 97 16 166/71 97
10/21/24 07:00 10/21/24 11:00 10/21/24 11:00 10/21/24 11:00 10/21/24 11:00
I&O
10/20/24 10/21/24 10/22/24
06:59 06:59 06:59
Intake Total 2632 / 2632 1440 / 1440
Output Total 1325 / 1325 1550 / 1550
Balance 1307 / 1307 -110 / -110
[2024-10-21] MEDS: NSS 1000 IV (13:45)
--- NOTE | 2024-10-21 15:00 | CM ---
Reviewed the chart notes and spoke with the patient's daughter and son at the bedside. Patient remains mod-max assist with mobility. PT recommending acute vs snf for patient. CM continues to be available to patient/family and is monitoring
medical plan for needs at discharge.
Plan: Discharge plans will depend on the patient's progress. Acute rehab vs SNF rehab.
[2024-10-21] MEDS: PENICILLIN 536 UNITS IV (16:17)
[2024-10-21] MEDS: LOVENOX 40 MG SC (17:47)
[2024-10-21] MEDS: ZESTRIL 5 MG PO (20:31)
[2024-10-21] MEDS: CARDURA 2 MG PO (22:36)
[2024-10-22] VITALS: PULSE 2; PULSE 98
[2024-10-22 03:13] VITALS: PULSE 2
[2024-10-22 06:00] VITALS: BMI 29.7
[2024-10-22 06:16] LABS: Hematocrit 26.5 % (39.0-52.0); Hemoglobin 9.4 g/dL (13.0-18.0); Mean Corp Hgb Conc. 35.5 g/dL (33.0-37.0); Mean Corpuscular Volume 98.5 fL (80.0-94.0); Platelet Count 144 10^3/uL (130-400); Red Cell Dist. Width 17.3 % (11.5-14.5)
[2024-10-22] MEDS: ZOVIRAX INJECTION 266 MG IV ×3 (06:24→21:06)
[2024-10-22] MEDS: SYNTHROID 150 MCG PO (06:25)
[2024-10-22] MEDS: NSS 1000 IV ×2 (06:27→21:05)
[2024-10-22 06:41] LABS: Blood Urea Nitrogen 4 mg/dl (9-20); Calcium 8.4 mg/dl (8.4-10.2); Carbon Dioxide 25 mmol/L (22-30); Chloride 108 mmol/L (98-107); Estimated Creatinine Clearance 87 ml/min; Glucose 95 mg/dl (70-99); Magnesium 1.5 mg/dl (1.6-2.3); Potassium 3.9 mmol/L (3.5-5.1); Sodium 133 mmol/L (135-145); eGFR > 60.00
[2024-10-22 07:30] VITALS: BP 138/81
[2024-10-22] MEDS: MAGNESIUM SULFATE 50 IV (08:30)
[2024-10-22] MEDS: KLOR-CON 20 MEQ PO ×2 (08:31→20:53)
[2024-10-22] MEDS: PROTONIX 40 MG PO (08:31)
[2024-10-22] MEDS: MIRALAX PO (08:31)
[2024-10-22] MEDS: ZESTRIL 5 MG PO ×2 (08:31→20:54)
[2024-10-22] MEDS: KEPPRA 250 MG PO ×2 (08:32→20:55)
[2024-10-22] MEDS: MUCINEX 600 MG PO (08:32)
[2024-10-22] MEDS: VITAMIN B1 100 MG PO ×2 (08:32→20:55)
[2024-10-22] MEDS: SENOKOT-S PO (08:32)
[2024-10-22] MEDS: VITAMIN D3 (cholecalciferol) 25 MCG PO (08:32)
[2024-10-22] MEDS: NORVASC 5 MG PO ×2 (08:32→20:56)
--- NOTE | 2024-10-22 09:00 | W.PN.ONC ---
Today's Communication / Plan
-
Patient's daughter would like to correct smoking history: occasional smoking <5 cigarettes a day in teens and early 20s. 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
- decreased appetite and refusal of dinner and breakfast
- Continues to wear bipap at night for possible sleep apnea, not currently on oxygen
- Continued on IV fluids, antiviral and antibiotic
- Continue Lovenox 40mg for prophylaxis following PICC removal for superficial thrombus
- Repeat vW panel pending from 10/16
- Normal coag profile is reassuring. Last treated about one month ago for the acquired von Willebrand's. It is felt to be autoimmune and has been well controlled with monthly IVIg.
Impression
Impression
Weakness / Ataxia / Confusion
- Etiology unclear, likely of neuro origin - CSF detected HSV1, started on acyclovir
- Primary team addressing individual issues including symptomatic hypothyroidism, hyponatremia
Acquired vonWillebrand's Disease
- Patient maintained on IVIG and Darzalex monthly - last injection was 09/22/2024
- Coagulation panel within normal limits as of late September
New PICC associated DVT
- Patient started on Lovenox 40mg
Pulmonary Nodule
- 1.6cm KADEN nodule seen on multiple recent images. Mildly FDG-avid without significant delayed uptake.
Plan
Plan
- Continue Lovenox 40mg for prophylaxis following PICC removal for superficial thrombus
- Repeat vW panel pending from 10/16
- Normal coag profile is reassuring. Last treated about one month ago for the acquired von Willebrand's. It is felt to be autoimmune and has been well controlled with monthly IVIg.
Subjective/Objective
Subjective/Objective
Patient was seen at the bedside with daughter present. Patient mental status waxes and wanes. Patient has some more difficulty responding to commands today. Patient also has refused to eat dinner last night and breakfast this morning. Daughter
encouraging him to eat. No bleeding noted.
General: Not in acute distress
Cardiovascular: RRR
Respiratory: clear breath sounds b/l, not on O2 today
Extremities: No edema noted b/l, no SCDs today
Vital Signs:
Vital Signs
Temp Pulse Resp BP Pulse Ox
99.1 F 97 18 138/81 95
10/22/24 07:30 10/22/24 08:32 10/22/24 07:30 10/22/24 08:32 10/22/24 07:30
Lab Results:
Laboratory Data
WBC 4.5 10^3/uL (4.8-10.8) L 10/22/24 05:56
Hgb 9.4 g/dL (13.0-18.0) L 10/22/24 05:56
Plt Count 144 10^3/uL (130-400) 10/22/24 05:56
PT 14.6 Sec (11.4-14.6) 10/16/24 13:14
INR 1.11 10/16/24 13:14
APTT 32.8 Sec (23.4-35.0) 10/16/24 13:14
eGFR > 60.00 10/22/24 05:56
--- NOTE | 2024-10-22 09:20 | W.PN.PUL3 ---
Today's Communication / Plan
-
Poor effort on his PFT, mostly restricted
Hypoxia has appeared to resolve in the past 48 hours
Can obtain PFT testing as OP if SOB continues when muscular function and MS improves
Symptomatic treatment, PT/OT
Otherwise, no further testing/action at this time
We will sign off at this time, please call with questions
Assessment
-
Patient is an 79-year-old male with previous history of hypothyroidism, hypertension presenting CHF or weakness, admitted to [facility] on 10/03/24 for workup. 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 Had MRI demonstrating right temporal lobe abnormality, EEG negative. Developed hypoxemia throughout his admission with very low lung volumes on chest x-ray. ABG
demonstrated PO2 of 54 dropped from 84. He is placed on 4 L nasal cannula. He is also placed on BiPAP at night. We are consulted for evaluation.
Acute hypoxic respiratory failure
Suspect due to low lung volumes, atelectasis
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
Change in mental status
Former smoker, / PPD x 5 years
Conditions present prior to admission
Atherosclerotic heart disease of [place] coronary artery without angina pectoris
Essential (primary) hypertension
Hyperlipidemia
Hypothyroidism
Von Willebrand disease, type 2
Retinal hemorrhage of left eye
Inguinal hernia
Hospitalization [facility] - sepsis 2014
1.6cm RUL nodule, PET 10/01/24
Plan
No significant hypoxemia noted on arrival, he is now 98% on 4L NC overnight
ABG obtained showing PaO2 54 from 84
There is no known history of O2 use at home
He has been weaned to room air, sitting in chair today
Denies prior known history of lung disease in the past, has never needed oxygen at home.
He is a former smoker admits to 3 packs/day for 30 years, quit 40 years ago. Never had PFT testing.
His notes that his former smoking history is not that extensive--she thinks he actually smoked a quarter a pack for about 5 years
She feels his mental status is not back to baseline and is saying confusing things--he has yet to recognize her as well
She notes ongoing chest congestion
He is on mucinex low dose, will increase dose
We will try to obtain bedside testing while inpatient, not likely at risk for COPD based on his corrected smoking history
Has never been formally diagnosed with any lung disease
We will obtain bedside testing to evaluate for any underlying causes but at this is likely related to atelectasis
Spirometry 40-50% mixed pattern, poor effort
Reviewed, poor overall effort, reduced function but not acceptable testing
Can obtain PFT as OP to review when muscle strength and MS improves
Suspect patient has underlying bibasilar atelectasis from profound deconditioning and weakness causing VQ mismatch and hypoxemia
He was started on BiPAP but is not sure if this is helping
CXR/CT obtained indicating very low lung volumes
Other imaging reviewed --CT imaging in the past without emphysema or other acute lung findings
Encourage IS, ambulation as tolerated
ECHO results in past reviewed, stable function
Diuresis if indicated
Will need outpatient pulmonary evaluation in our office
Reviewed with patient
Risk factors assessed for underlying sleep disordered breathing also noted
Recommend outpatient sleep evaluation/PSG testing as indicated
If mental status never improved, may consider goals of care discussions
Diagnostic Data
CXR 10/20/24- Low lung volumes. No gross focal parenchymal consolidation, pneumothorax or significant pleural effusion.
10/16/24-Stable position of the left PICC with the catheter tip in the upper portion of the superior vena cava. The right PICC is been removed. Low lung volumes. Mild elevation of the right hemidiaphragm. No focal consolidation, pleural effusion, or
pneumothorax. Stable cardiomediastinal silhouette.
PET/CT 10/01/24- LUNGS: Stable 1.6 cm subpleural posterior medial right upper lobe apical nodule (max SUV 3.3, delayed 3.4).
CT CHEST 10/01/24- No acute inflammatory process within the chest, abdomen, or pelvis. No adenopathy. Posteromedial right apex pulmonary nodule measuring 1.6 cm. Recommend follow-up PET/CT.
Renal cysts. No focal osteolytic or blastic lesion. No compression deformity.
ECHO 10/04/24- LV ejection fraction is 65-70%, by visual assessment. No regional wall motion abnormalities are seen. Normal right ventricular size and function. No significant valvular disease.
No prior study available for comparison.
PFT Spirometry 10/22/24: 40-50% restricted pattern, poor effort
Reports and relevant images were personally reviewed.
-----
Total time spent on this consultation _50__ minutes which includes review of history, physical exam, medications, laboratory data, personal review of imaging, extensive review of outpatient records, and discussions with care team.
Subjective Data
-
Date of Service:
Date of Service: October 22, 2024
Chief Complaint: Pulmonary Follow Up
Subjective:
No new complaints, stable on RA
at bedside stating he has more cough/congestion per her observation
This is not apparent to me
Objective Data
Data Reviewed
Vital Signs / I&O / Oxygen:
Vital Signs
Temp Pulse Resp BP Pulse Ox
99.1 F 97 18 138/81 95
10/22/24 07:30 10/22/24 08:32 10/22/24 07:30 10/22/24 08:32 10/22/24 07:30
Intake and Output
10/21/24 10/22/24 10/23/24
06:59 06:59 06:59
Intake Total 1440 / 1440 207 / 2073 50 / 50
Output Total 1550 / 1550 1625 / 1625
Balance -110 / -110 448 / 448 50 / 50
SaO2 95
Nasal Cannula flow liters per 4
minute
Physical Exam
General: Comfortable and Other (NAD, deconditioned appearing)
HEENT: Normocephalic, Anicteric and Moist Mucous Membranes
Cardiovascular: S1-S2 and Regular Rhythm
Respiratory: Clear and Non-Labored Respirations
GI: Soft, Non Distended and Non Tender
Neurology: Awake, Alert and Other (confused, weak overall)
Skin: Warm, Dry and Good Color
Labs/Micro/Reports
Lab Data
10/22/24 05:56
10/22/24 05:56
--- NOTE | 2024-10-22 12:38 | CM ---
Reviewed the chart notes and spoke with the patient's daughter at the bedside. Per daughter, no change in the patient. CM continues to be available to patient/family and is monitoring medical plan for needs at discharge.
Plan: Discharge plans will depend on the patient's progress. Acute rehab vs SNF rehab.
--- NOTE | 2024-10-22 12:43 | W.PN.ID1 ---
Date of Service
Date of Service: October 22, 2024
Today's Communication
Continue Acyclovir and PCN-G through 10/25/24.
Assessment / Plan
# HSV-1 encephalitis
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
# Change in mental status, waxing and waning
# RUE picc- associated superficial thrombus. PICC dc'd 10/15
# High risk sexual behavior
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
# Thrombocytopenia resolved
- Blood cx's neg
- C. diff neg, stool cx neg
- CT a/p unremarkable
- HIV negative.
-MRI brain: cortical restricted diffusion involving the anterior right frontal lobe extending into the hippocampus and right insular cortex. There is additional foci of diffusion hyperintense signal within the posterior aspect of the right thalamus
- 10/05 EEG: EEG 10/05 showing epileptogenic right frontal lobe
- Continue Acyclovir 800 mg IV q8h x 21 days through 10/25/24.
- Repeat MRI shows improvement of brain lesions.
- Per neuro, no longer epileptic focus
- Monitor renal function 3x/week while in IV acyclovir. Creatinine = 0.7
- Keep well-hydrated.
- Syphilis RPR 1:256.
Of note RPR negative in 2021 base on review of [facility] labs.
Unlikely neurosyphilis as CSF only 4 WBC. CSF VDRL neg (not sensitive test)
s/p 12d ceftriaxone, dc'd 10/13/24
Due to slow improvement of mental status, ceftriaxone replaced with PCN after test dose.
--> Continue PCN-G continuous infusion x10 to 14 days through 10/25/24
- Trend RPR titer in 3 months after completion of tx until at least 4 fold decrease in titer.
-Waxing and waning mental status
Keppra dose reduced.
CPAP for suspected JACOBY.
PCN G dose reduced from 24MU to 18MU/day in case of neurotoxicity.
Hospitalist replaced metoprolol with lisinopril.
Chief Complaint
-: Other (Change in mental status; HSV 1 encephalitis; Positive RPR)
Subjective / Review of Systems
Patient ambulated yesterday. Mental status is the same per daughter.
Vital Signs / Physical Exam
Vital Signs
Vital Signs
Temp Pulse Resp BP Pulse Ox
99.1 F 97 18 138/81 95
10/22/24 07:30 10/22/24 08:32 10/22/24 07:30 10/22/24 08:32 10/22/24 07:30
Physical Exam
Constitutional: Non-toxic
Eyes: No Conjunctival Hemorrhage and Sclera Anicteric
Cardiovascular: Regular Rate and S1/S2
Pulmonary: Clear
Gastrointestinal: Soft, Non Tender and Non Distended
Extremities: Negative Edema
Neurological: Awake; Negative AO x 3 or Meningeal Signs
Objective Data
Lab Data
Lab Results
10/22/24 05:56
10/22/24 05:56
PT 14.6 Sec (11.4-14.6) 10/16/24 13:14
INR 1.11 10/16/24 13:14
APTT 32.8 Sec (23.4-35.0) 10/16/24 13:14
Estimated Creat Clear 87 ml/min 10/22/24 05:56
Total Bilirubin 0.8 mg/dl (0.2-1.3) 10/12/24 06:00
AST 26 U/L (17-59) 10/12/24 06:00
ALT 18 U/L (0-50) 10/12/24 06:00
Alkaline Phosphatase 57 U/L (38-126) 10/12/24 06:00
Most recent labs reviewed.
Micro Results:
10/06/24 14:08 Fungal Smear - Final
Csf No yeast or fungal elements seen.
Fungal Culture - Preliminary
Culture in progress.
Positive cultures are reported as soon as detected.
Final report to follow in four to five weeks.
10/06/24 14:08 CSF Culture - Final
Csf No Growth After 5 Days - Final Report
Gram Stain - Final
10/03/24 21:18 Blood Culture - Final
Blood/Venous No Growth - Final Report
10/03/24 20:58 Blood Culture - Final
Blood/Venous No Growth - Final Report
10/04/24 08:16 Salmonella/Shigella Culture - Final
Feces/Stool No Salmonella, Shigella, Aeromonas or Plesiomonas species
isolated.
Campylobacter Culture - Final
No Campylobacter species isolated.
Shiga Toxin Test - Final
No E. coli Shiga Toxin 1 or 2 detected.
Stool Leukocytes - Final
10/06/24 14:08 Meningitis/Encephalitis Panel (PCR) - Final
Csf
10/04/24 09:20 MRSA Screen - Final
Nose No Methicillin Resistant Staphylococcus aureus isolated.
10/04/24 09:20 Urine Culture - Final
Urine NO GROWTH
10/04/24 17:36 Influenza Types A & B (RADHA) - Final
Nasal Swab Negative for Influenza A & B, NAAT
Negative results must be combined with clinical observations
and patient history.
Nucleic Acid Amplification test (NAAT)performed on the
[facility] platform.
10/04/24 17:36 Legionella Urinary Antigen - Final
Urine Negative for Legionella pneumophila Serogroup 1 antigen.
A negative result does not rule out the possiblity of
Legionella infection due to other serogroups or species of
Legionella. Clinical correlation is recommended.
Streptococcus pneumoniae Antigen (M - Final
Negative for Streptococcus pneumoniae antigen.
A negative result does not exclude infection with
Streptococcus pneumoniae. Clinical correlation is
recommended.
10/04/24 08:16 - Final
Feces/Stool Negative for Norovirus GI and GII.
10/04/24 08:16 C. difficile GDH Antigen & Toxins - Final
Feces/Stool Negative for toxigenic C.difficile
Meningitis Panel, CSF by PCR Final 10/06/24-1609
Escherichia coli K1 Not Detected
Haemophilus influenzae Not Detected
Listeria monocytogenes Not Detected
Neisseria meningitidis Not Detected
Cytomegalovirus (CMV) Not Detected
Streptococcus agalactiae Not Detected
Streptococcus pneumoniae Not Detected
Enterovirus Not Detected
--> Herpes simplex virus 1 DETECTED <--
Herpes simplex virus 2 Not Detected
Human herpesvirus 6 Not Detected
Human parechovirus Not Detected
Varicella zoster virus Not Detected
C. neoformans/gattii Not Detected
CSF
10/06/24 10/06/24
14:08 14:09
CSF Appearance Clear
CSF Color Colorless
CSF WBC 4
CSF RBC 14
CSF Cell Count Tube # 2
CSF Glucose 72 H
CSF Total Protein 217 H
CSF VDRL Non reactive
10/06/24
04:55
Syphilis Serology Positive
RPR Titer 1:256
RPR Reactive
HIV Ag/Ab Combo Qual Negative
10/18/24 Brain MRI: There is significantly decreased diffusion hyperintense signal along the anterior right temporal lobe and right insular cortex. There is persistent mild T2 hyperintense signal along the right insular cortex and medial right
temporal lobe with new cortical enhancement along the right insular cortex. Findings may represent an evolving subacute infarction or evolving encephalitis. Given the interval improvement a mass is considered unlikely.
10/04/24 Brain MRI: There is predominant cortical restricted diffusion involving the anterior right frontal lobe extending into the hippocampus and right insular cortex. There is additional foci of diffusion hyperintense signal within the posterior
aspect of the right thalamus. This constellation of findings can be seen in encephalitis (herpes or limbic), status epilepticus or acute infarction. Additionally [place] disease is considered unlikely, however cannot be excluded. Consider
correlation with CSF studies.
10/04/24 CXR: New minimal left lower lobe atelectasis versus scarring
10/04/24 CT Pe/abd/pel W: Mild left lower lobe airspace disease suggesting pneumonia. New
No acute pathology of the abdomen or pelvis identified
10/01/24 PET: Stable solitary right upper lobe pulmonary nodule which demonstrates mild FDG activity (with only minimal further increase on delayed imaging). This remains indeterminate with differential including infectious/inflammatory nodule or low
metabolic rate neoplasm.
09/01/[address]: Significant symmetric enlargement of the bilateral tonsillar soft tissues, which could be secondary to tonsillar hypertrophy or tonsillitis, with secondary narrowing of the oropharynx and hypopharynx. Bilateral pulmonary parenchymal
opacities suggesting pneumonia. 1.6 cm solid pulmonary nodule in the right upper lobe.
[2024-10-22] MEDS: VENTOLIN NEBULES 2.5 MG INH (12:57)
[2024-10-22 15:15] VITALS: BP 130/59
[2024-10-22] MEDS: PENICILLIN 536 UNITS IV (16:01)
--- NOTE | 2024-10-22 16:02 | W.PN.HOSP.TC ---
Today's Communication/Plan
-
See plan
Assessment / Plan
Assessment / Plan
Physical Exam
General: Not in acute distress, appears comfortable at this time
HEENT: Thick neck. Not tender, no induration, erythema, or palpable masses
Respiratory: CTAB
Cardiac: S1/S2 and Regular Rhythm
GI: Soft, Nontender, Distended, Normal Bowel Sounds. Obese
Musculoskeletal: No Cyanosis and Trace pitting edema at the bilateral lower extremities
Neuro: AAO x 3
Psych: flat affect paucity of speech calm
Assessment/Plan
79y M with PMH significant for hypothyroidism, hypertension and von Willebrand's disease who presents to ED complaining of weakness. History obtained from patient and his family at the bedside. Patient was in his usual states of good health
until about 3-4 weeks ago when he began to become more weak / fatigued. He was still able to complete his ADLs until this past 24-48 hours when his symptoms markedly worsened. Patient is followed by Nicko Mims for vWF. He receives monthly
IVIG (last dose 09/29). There is some question of multiple myeloma - though history there is not clear and patient does not appear to be on any treatment for this (records show [facility]US). Patient developed fullness / swelling in the throat several
weeks ago. He was evaluated by ENT in their office Dr. Hicks. CT scan showed tonsillar hypertrophy but was otherwise unremarkable. He was treated briefly with antifungal medication for thrush (patient was having a sore throat) - but this was
stopped after fungal smear was negative. CT neck also showed incidental RUL nodule and patient has had CT C/A/P and PET-CT since that time for further evaluation. These revealed mildly FDG-avid (3.3) KADEN nodule (1.6cm). No other areas of
FDG-avidity. No other abnormal findings. Over the 48 hours prior to presentation, patient remained seated at home and has not left his chair. He reported shaking chills. Family has noted swelling in the legs - L > R - which is unusual for him.
Family noted that he seemed somewhat confused as well since 10/02/24 evening. 911 was called to the home this afternoon when patient was unable to get up. He decline ED evaluation at that time. Later in the afternoon family convinced him to
present to the ED for further evaluation. Patient was noted to be quite unsteady on his feet in the emergency department. He drove himself to his radiology appointments as recently as 2 days ago and had no significant issues.
Weakness / Ataxia / Confusion
Acute Toxic Metabolic Encephalopathy Likely Secondary to Encephalitis and Possibly From Pneumonia
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
Likely immunosuppressed from Daratumumab and Dex
Cognitive Impairment
- CT head in ED unremarkable.
- MRI brain with suspected encephalitis, repeat MRI brain showed improvement
- ID eval appreciated
- IR performed LP on 10/06/24 -- high protein, low glucose
- Continue Keppra -- newly started this admission -- but Keppra dose reduced due to persistent encephalopathy
- Continue Acyclovir as per ID 21 day course through 10/25/24
- CMV neg
- EBV serology panel significant for prior infection with no apparent reactivation.
- HIV negative
- Syphilis screen positive
- PT/OT/ PMR eval appreciated Acute Rehab -- patient ambulated well on 10/22/24 with walker and Physical Therapy
- Appreciate neurology
- Patient's agitation behaviors improved with Seroquel since discontinued d/t sedation, agitation remains resolved at this time
- Persistent cognitive impairment, psychiatry evaluation appreciated unlikely pseudodementia/depression ruled out
- Repeat CT head 10/17 appreciated no acute abnormalities
- Multivitamin and Thiamine supplementations started
- Per my discussion inside patient's room on 10/18/24 with patient's daughter Jacqueline, patient's cognition had gotten worse since 10/15/24 -- re-consulted neurology, Keppra reduced to 250 mg BID (from
500 mg BID) repeat MRI Brain showed improvement. EEG unremarkable.
- Replaced Metoprolol with Lisinopril to avoid [facility] effects of beta chiara
- Per neurology, provide BiPAP at night from 7 pm to 7 am in case there is a component of sleep apnea to possibly help with cognition
Syphilis screen : Positive. RPR 1:256. CSF VDRL negative.
- ID eval appreciated, given reported allergy to penicillin, patient was originally planned for 14-day course of ceftriaxone, however given lack of cognitive improvement, PCN challenge was attempted and passed, subsequently switched to 14 days
course (continue PCN-G through 10/25/24)
- PCN-G dose reduced on 10/19/24 in efforts to see whether reducing Penicillin dose helps with mental status
RUE PICC placed for planned custodial IV abx antiviral
Complicated with Superficial Thrombosis noted on RUE US 10/15/24
RUE PICC removed and LUE PICC placed
cont supportive care superficial thrombosis RUE w/ pain control, ice, and elevation
-Hematology eval appreciated, continue Lovenox 40 mg QPM as DVT ppx
-Will recheck RUE soon for monitoring of the clot
Diarrhea, Abdominal Pain and Nausea Resolved
Mild fluid right inguinal canal -- postsurgical change more likely versus unlikely incarcerated/strangulated hernia, no significant pain at this time -- seen on CT Imaging
Constipation
- Stool studies unremarkable
- Surgery eval appreciated no need for intervention
- Initially had diarrhea since resolved, developed constipation; AXR suggests moderate amount of stool within the rectum
- Miralax and Senokot-S, given suppository with some improvement noted, fleet enema given 10/14
- Milk and Molasses Enema given 10/17 with good response noted
- Per reports, patient is having good bowel movements
Gross Hematuria
Urinary Retention
-Recurrence during this hospitalization
-urology mentions expected with von Willebrands
-Hgb VSS
-CT without contrast with no obstructive uropathy or stones
-Consulted urology -- recommendation to continue bladder scans -- if PVR rising significantly, then place Negron -- but no interventions at this time as per urology
Hypothyroidism
- TSH = 16.8 and Free T4 = 0.39 this hospitalization
- Some confusion, weakness, ataxia, edema, questionable contribution hypothyroidism
- IV dose of levothyroxine given initially
- PO Levothyroxine dose increased to 150 mcg daily - follow up TFTs noted improvement in T4 wnl while TSH remains elevated but better
- repeat TFTs in 3 weeks
Acute Hypoxic Respiratory Insufficiency - RESOLVED but returned overnight 10/19 to 10/20 -- RESOLVED again as of 10/22/24
Chest Congestion
Likely LLL Pneumonia
Small Right Pleural Effusion on AXR from 10/09/24
Nocturnal O2 Desaturation (see nocturnal O2 saturation report from 10/06/24 morning)
Cough Again on 10/04/24
History of Recurrent Colds
History of Recent Pneumonia on CT Neck (treated outpatient with PCP in late August 2024 to early September 2024)
Former Smoker
-BACK ON ROOM AIR TODAY
-Doxycycline completed
-ID eval appreciated ceftriaxone switched to PCN challenge as above
-Atrovent PRN given intolerance to Albuterol
-CT Abdomen/Pelvis from 10/07/24 showed bibasilar opacification -- most likely representing subsegmental atelectasis as well as tiny bilateral pleural effusions, left greater than right
-Recurrence of Hypoxia on 10/20/24 morning, confirmed with ABG
-Repeat CXR with low lung volumes
-EKG unremarkable, troponins negative, proBNP unremarkable
-Appreciate pulmonary
-Appreciate pulmonary given new hypoxia again on 10/20/24 --
-Hypoxia likely from underlying bibasilar atelectasis from profound deconditioning and weakness causing VQ mismatch and hypoxemia. BiPAP has been started.
-Incentive Spirometer Q1H while awake
-Encourage ambulation
-Consider outpatient PFT to review when muscle strength and mental status improve
-Mucinex
Persistent neck swelling/enlarged tonsils since 09/01/24, (recently treated with 30 day course of Fluconazole)
Recent Tonsillar Hypertrophy
Recent Thrush
-Follows Dr. Anna Hicks (ENT) outpt
-EBV serology panel significant for prior infection with no apparent reactivation.
Right Upper Lobe Pulmonary Nodule -- indeterminate PET scan
- follows Dr. Rider outpatient
- 1.6cm KADEN nodule seen on multiple recent images. Mildly FDG-avid without significant delayed uptake.
- Covered with abx ceftriaxone / doxycycline since completed
- May benefit from biopsy for further evaluation if no improvement / resolution with antibiotics.
- Appreciate pulmonary
Acute Kidney Injury - RESOLVED
- IV fluids with Normal Saline IV Fluids 70 cc/hr as per nephrology
- Continue to monitor renal function given patient is on Acyclovir --- continue IV Fluids while on IV antiviral -- could reduce rate to the IV fluids to 50cc/hr if needed
- CT Abdomen Pelvis 10/07/24 with no stone or obstructive process
Hyponatremia
- 50 ounce PO fluid restriction per day
Hypokalemia
Hypomagnesemia
- monitor and replete as necessary
Hypertension
-Cont antihypertensives -- recently increased Amlodipine to 5 mg BID
-Stopped on 10/18/24 Toprol XL (can cause [facility] effects -- and patient has had persistent encephalopathy) and replaced with Lisinopril for better blood pressure control -- MIRANDA-I increased from 2.5 mg BID to 5 mg BID on
10/22/24
-Blood pressure measurements limited by Superficial Thrombosis RUE and PICC LUE
-Calf measurements (done on patient in supine position) likely falsely elevated somewhat
Acquired von Willebrand's Disease (started at age 49 y/o) on monthly IVIG, Darzalex
- Stable. Patient maintained on IVIG monthly - last injection was 09/29/24.
- Hematology eval appreciated Acquired von willebrand disease fully controlled at this time, continued outpt hematology follow up recommended
[facility]US
- Has been on Decadron, Darzalex, and IVIG -- sees Dr. Lucio outpatient
Thrombocytopenia - RESOLVED
Vitamin D Deficiency
-supplementation started
Coronary Artery Disease
Simple bilateral renal cysts
Appendicoliths
Speech/Diet: Regular Diet with Thin Liquids
DVT Prophylaxis: SCDs Lovenox
Code Status: Full Code
Anticipated Discharge: > 48 hours
Subjective/Interval History
-
Date of Service: October 22, 2024
Patient was seen and examined. He was able to ambulate with physical therapy yesterday pretty well in the hallway. Still remains confused and sleepy at times.
Objective Data
-
Labs:
Laboratory Results
10/22/24
05:56
WBC 4.5 L
Hgb 9.4 L
Hct 26.5 L
Plt Count 144
Sodium 133 L
Potassium 3.9
Chloride 108 H
Carbon Dioxide 25
BUN 4 L
Creatinine 0.7
Glucose 95
Calcium 8.4
Vital Signs:
Vital Signs
Temp Pulse Resp BP Pulse Ox
98.1 F 105 18 130/59 95
10/22/24 15:15 10/22/24 15:15 10/22/24 15:15 10/22/24 15:15 10/22/24 15:15
I&O
10/21/24 10/22/24 10/23/24
06:59 06:59 06:59
Intake Total 1440 / 1440 207 / 2072 316 / 316
Output Total 1550 / 1550 1625 / 1625
Balance -110 / -110 448 / 448 316 / 316
[2024-10-22] MEDS: LOVENOX 40 MG SC (17:03)
[2024-10-22] MEDS: SENOKOT-S 1 TABLET PO (20:54)
[2024-10-22] MEDS: MUCINEX 1200 MG PO (20:55)
[2024-10-22] MEDS: CARDURA 2 MG PO (21:12)
[2024-10-23] VITALS (7 sets, daily range): BP systolic 143–191; BP diastolic 66–87; PULSE 2–88; O2SAT 96
[2024-10-23] MEDS: SYNTHROID 150 MCG PO (05:58)
[2024-10-23] MEDS: ZOVIRAX INJECTION 266 MG IV ×3 (05:58→22:50)
--- NOTE | 2024-10-23 08:13 | W.PN.HOSP.TC ---
Today's Communication/Plan
-
Reduced rate of IV fluids given swelling in the extremities, which can also be from low albumin. Ultrasound studies ordered from today.
Continue antiviral and antibiotics.
Spoke with patient's daughter Jacqueline
Physical Therapy
Assessment / Plan
Assessment / Plan
Physical Exam
General: Not in acute distress, appears comfortable at this time
HEENT: Thick neck. Not tender, no induration, erythema, or palpable masses
Respiratory: CTAB
Cardiac: S1/S2 and Regular Rhythm
GI: Soft, Nontender, Distended, Normal Bowel Sounds. Obese
Musculoskeletal: No Cyanosis. 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 Bilateral Lower extremity edema present, B/L lower extremities neurovascularly intact.
Neuro: AAO x 3
Psych: flat affect paucity of speech calm
Assessment/Plan
79y M with PMH significant for hypothyroidism, hypertension and von Willebrand's disease who presents to ED complaining of weakness. History obtained from patient and his family at the bedside. Patient was in his usual states of good health
until about 3-4 weeks ago when he began to become more weak / fatigued. He was still able to complete his ADLs until this past 24-48 hours when his symptoms markedly worsened. Patient is followed by Nicko Mims for vWF. He receives monthly
IVIG (last dose 09/29). There is some question of multiple myeloma - though history there is not clear and patient does not appear to be on any treatment for this (records show [facility]US). Patient developed fullness / swelling in the throat several
weeks ago. He was evaluated by ENT in their office Dr. Hicks. CT scan showed tonsillar hypertrophy but was otherwise unremarkable. He was treated briefly with antifungal medication for thrush (patient was having a sore throat) - but this was
stopped after fungal smear was negative. CT neck also showed incidental RUL nodule and patient has had CT C/A/P and PET-CT since that time for further evaluation. These revealed mildly FDG-avid (3.3) KADEN nodule (1.6cm). No other areas of
FDG-avidity. No other abnormal findings. Over the 48 hours prior to presentation, patient remained seated at home and has not left his chair. He reported shaking chills. Family has noted swelling in the legs - L > R - which is unusual for him.
Family noted that he seemed somewhat confused as well since 10/02/24 evening. 911 was called to the home this afternoon when patient was unable to get up. He decline ED evaluation at that time. Later in the afternoon family convinced him to
present to the ED for further evaluation. Patient was noted to be quite unsteady on his feet in the emergency department. He drove himself to his radiology appointments as recently as 2 days ago and had no significant issues.
Weakness / Ataxia / Confusion
Acute Toxic Metabolic Encephalopathy Likely Secondary to Encephalitis and Possibly From Pneumonia
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
Likely immunosuppressed from Daratumumab and Dex
Cognitive Impairment
- CT head in ED unremarkable.
- MRI brain with suspected encephalitis, repeat MRI brain showed improvement
- ID eval appreciated
- IR performed LP on 10/06/24 -- high protein, low glucose
- Continue Keppra -- newly started this admission -- but Keppra dose reduced due to persistent encephalopathy
- Continue Acyclovir as per ID 21 day course through 10/25/24
- CMV neg
- EBV serology panel significant for prior infection with no apparent reactivation.
- HIV negative
- Syphilis screen positive
- PT/OT/ PMR eval appreciated Acute Rehab -- patient ambulated well on 10/22/24 with walker and Physical Therapy
- Appreciate neurology
- Patient's agitation behaviors improved with Seroquel since discontinued d/t sedation, agitation remains resolved at this time
- Persistent cognitive impairment, psychiatry evaluation appreciated unlikely pseudodementia/depression ruled out
- Repeat CT head 10/17 appreciated no acute abnormalities
- Multivitamin and Thiamine supplementations started
- Per my discussion inside patient's room on 10/18/24 with patient's daughter Jacqueline, patient's cognition had gotten worse since 10/15/24 -- re-consulted neurology, Keppra reduced to 250 mg BID (from
500 mg BID) repeat MRI Brain showed improvement. EEG unremarkable.
- Replaced Metoprolol with Lisinopril to avoid TIMBER SIZER effects of beta chiara
- Per neurology, provide BiPAP at night from 7 pm to 7 am in case there is a component of sleep apnea to possibly help with cognition
Syphilis screen : Positive. RPR 1:256. CSF VDRL negative.
- ID eval appreciated, given reported allergy to penicillin, patient was originally planned for 14-day course of ceftriaxone, however given lack of cognitive improvement, PCN challenge was attempted and passed, subsequently switched to 14 days
course (continue PCN-G through 10/25/24)
- PCN-G dose reduced on 10/19/24 in efforts to see whether reducing Penicillin dose helps with mental status
RUE PICC placed for planned penitentiary IV abx antiviral
Complicated with Superficial Thrombosis noted on RUE US 10/15/24
RUE PICC removed and LUE PICC placed
cont supportive care superficial thrombosis RUE w/ pain control, ice, and elevation
-Hematology eval appreciated, continue Lovenox 40 mg QPM as DVT ppx
-Rechecked RUE ultrasound 10/23/24 and discussed the results via [place] [employer] communication with radiologist Dr. Medeiros who confirmed that the superficial thrombus seen on 10/23/24 ultrasound
is similar to the 10/15/24 ultrasound
RUE Edema and B/L Lower Extremity Edema
Hypoalbuminemia
-Checked ultrasound imaging
-Albumin level low at 2.7
Diarrhea, Abdominal Pain and Nausea Resolved
Mild fluid right inguinal canal -- postsurgical change more likely versus unlikely incarcerated/strangulated hernia, no significant pain at this time -- seen on CT Imaging
Constipation
- Stool studies unremarkable
- Surgery eval appreciated no need for intervention
- Initially had diarrhea since resolved, developed constipation; AXR suggests moderate amount of stool within the rectum
- Miralax and Senokot-S, given suppository with some improvement noted, fleet enema given 10/14
- Milk and Molasses Enema given 10/17 with good response noted
- Per reports, patient is having good bowel movements
Gross Hematuria
Urinary Retention
-Recurrence during this hospitalization
-urology mentions expected with von Willebrands
-Hgb VSS
-CT without contrast with no obstructive uropathy or stones
-Consulted urology -- recommendation to continue bladder scans -- if PVR rising significantly, then place Negron -- but no interventions at this time as per urology
Hypothyroidism
- TSH = 16.8 and Free T4 = 0.39 this hospitalization
- Some confusion, weakness, ataxia, edema, questionable contribution hypothyroidism
- IV dose of levothyroxine given initially
- PO Levothyroxine dose increased to 150 mcg daily - follow up TFTs noted improvement in T4 wnl while TSH remains elevated but better
- repeat TFTs in 3 weeks
Acute Hypoxic Respiratory Insufficiency - RESOLVED but returned overnight 10/19 to 10/20 -- RESOLVED again as of 10/22/24
Chest Congestion
Likely LLL Pneumonia
Small Right Pleural Effusion on AXR from 10/09/24
Nocturnal O2 Desaturation (see nocturnal O2 saturation report from 10/06/24 morning)
Cough Again on 10/04/24
History of Recurrent Colds
History of Recent Pneumonia on CT Neck (treated outpatient with PCP in late August 2024 to early September 2024)
Former Smoker
-BACK ON ROOM AIR
-Doxycycline completed
-ID eval appreciated ceftriaxone switched to PCN challenge as above
-Atrovent PRN given intolerance to Albuterol
-CT Abdomen/Pelvis from 10/07/24 showed bibasilar opacification -- most likely representing subsegmental atelectasis as well as tiny bilateral pleural effusions, left greater than right
-Recurrence of Hypoxia on 10/20/24 morning, confirmed with ABG
-Repeat CXR with low lung volumes
-EKG unremarkable, troponins negative, proBNP unremarkable
-Appreciate pulmonary
-Appreciate pulmonary given new hypoxia again on 10/20/24
-Hypoxia likely from underlying bibasilar atelectasis from profound deconditioning and weakness causing VQ mismatch and hypoxemia. BiPAP has been started.
-Incentive Spirometer Q1H while awake
-Encourage ambulation
-Consider outpatient PFT to review when muscle strength and mental status improve
-Mucinex
Persistent neck swelling/enlarged tonsils since 09/01/24, (recently treated with 30 day course of Fluconazole)
Recent Tonsillar Hypertrophy
Recent Thrush
-Follows Dr. Anna Hicks (ENT) outpt
-EBV serology panel significant for prior infection with no apparent reactivation.
Right Upper Lobe Pulmonary Nodule -- indeterminate PET scan
- follows Dr. Rider outpatient
- 1.6cm KADEN nodule seen on multiple recent images. Mildly FDG-avid without significant delayed uptake.
- Covered with abx ceftriaxone / doxycycline since completed
- May benefit from biopsy for further evaluation if no improvement / resolution with antibiotics.
- Appreciate pulmonary
Acute Kidney Injury - RESOLVED
- IV fluids with Normal Saline IV Fluids 70 cc/hr as per nephrology
- Continue to monitor renal function given patient is on Acyclovir --- continue IV Fluids while on IV antiviral
- Reduce IV fluids rate to 500 cc/hr given swelling in the extremities
- CT Abdomen Pelvis 10/07/24 with no stone or obstructive process
Hyponatremia
- 50 ounce PO fluid restriction per day
Hypokalemia
Hypomagnesemia
- monitor and replete as necessary
Hypertension
-Cont antihypertensives -- recently increased Amlodipine to 5 mg BID
-Stopped on 10/18/24 Toprol XL (can cause TIMBER SIZER effects -- and patient has had persistent encephalopathy) and replaced with Lisinopril for better blood pressure control -- MIRANDA-I increased from 2.5 mg BID to 5 mg BID on
10/22/24
-Blood pressure measurements limited by Superficial Thrombosis RUE and PICC LUE
-Calf measurements (done on patient in supine position) likely falsely elevated somewhat
Acquired von Willebrand's Disease (started at age 49 y/o) on monthly IVIG, Darzalex
- Stable. Patient maintained on IVIG monthly - last injection was 09/29/24.
- Hematology eval appreciated Acquired von willebrand disease fully controlled at this time, continued outpt hematology follow up recommended
[facility]
- Has been on Decadron, Darzalex, and IVIG -- sees Dr. Lucio outpatient
Thrombocytopenia - RESOLVED
Vitamin D Deficiency
-supplementation started
Coronary Artery Disease
Simple bilateral renal cysts
Appendicoliths
Speech/Diet: Regular Diet with Thin Liquids
DVT Prophylaxis: SCDs Lovenox
Code Status: Full Code
Anticipated Discharge: > 48 hours
Subjective/Interval History
-
Date of Service: October 23, 2024
Patient was seen and examined. Patient's daughter Jacqueline reported that patient's RUE and his bilateral lower extremities became more swollen overnight. Patient denied any complaints.
Objective Data
-
Labs:
Laboratory Results
10/23/24
06:00
WBC Pending
Hgb Pending
Hct Pending
Plt Count Pending
Sodium Pending
Potassium Pending
Chloride Pending
Carbon Dioxide Pending
BUN Pending
Creatinine Pending
Glucose Pending
Calcium Pending
Vital Signs:
Vital Signs
Temp Pulse Resp BP Pulse Ox
98.2 F 93 18 177/87 95
10/23/24 00:09 10/23/24 00:09 10/23/24 00:09 10/23/24 00:09 10/23/24 00:09
I&O
10/22/24 10/23/24 10/24/24
06:59 06:59 06:59
Intake Total 2072 / 2072 1848 / 1848
Output Total 1625 / 1625 2450 / 2450
Balance 448 / 448 -602 / -602
[2024-10-23 09:04] LABS: Hematocrit 26.1 % (39.0-52.0); Hemoglobin 9.2 g/dL (13.0-18.0); Mean Corp Hgb Conc. 35.2 g/dL (33.0-37.0); Mean Corpuscular Volume 99.2 fL (80.0-94.0); Platelet Count 140 10^3/uL (130-400); Red Cell Dist. Width 17.3 % (11.5-14.5)
[2024-10-23 09:24] LABS: Albumin 2.7 g/dl (3.5-5.0); Blood Urea Nitrogen 5 mg/dl (9-20); Calcium 8.1 mg/dl (8.4-10.2); Carbon Dioxide 24 mmol/L (22-30); Chloride 108 mmol/L (98-107); Estimated Creatinine Clearance 87 ml/min; Glucose 135 mg/dl (70-99); Magnesium 1.9 mg/dl (1.6-2.3); Potassium 4.0 mmol/L (3.5-5.1); Sodium 133 mmol/L (135-145); eGFR > 60.00
[2024-10-23] MEDS: KEPPRA 250 MG PO ×2 (09:28→20:05)
[2024-10-23] MEDS: KLOR-CON 20 MEQ PO ×2 (09:29→20:09)
[2024-10-23] MEDS: SENOKOT-S 1 TABLET PO ×2 (09:30→20:09)
[2024-10-23] MEDS: NORVASC 5 MG PO ×2 (09:30→20:22)
[2024-10-23] MEDS: MIRALAX PO (09:31)
[2024-10-23] MEDS: VITAMIN B1 100 MG PO ×2 (09:31→20:09)
[2024-10-23] MEDS: PROTONIX 40 MG PO (09:31)
[2024-10-23] MEDS: VITAMIN D3 (cholecalciferol) 25 MCG PO (09:31)
[2024-10-23] MEDS: MUCINEX 1200 MG PO ×2 (09:31→20:05)
[2024-10-23] MEDS: ZESTRIL 5 MG PO ×2 (09:32→20:16)
[2024-10-23] MEDS: CARDURA 2 MG PO (10:50)
--- NOTE | 2024-10-23 10:59 | PTCARENOTE ---
pt's daughter upset this AM feels pt should be getting VS checks more often, PT and OT every day and feels RUE edema was worse last night. Pt's daughter reports RUE edema has improved and is back to what it was before, but now worried about B/L LE
edema. pt assessed with attending at bedside. +1 B/L LE edema noted, +PP b/l. reviewed continuous ivf. decrease rate. Reviewed BP expected to be higher in LE, and tele/MS protocols. contacting therapy who states they will be in to see pt soon. CB in
reach.
--- NOTE | 2024-10-23 11:57 | PTCARENOTE ---
pt worked with PT and OT ambulated in craft. poor safety awareness. asking to go back to bed, encourage OOB and deep breathing. Chair alarm in place, CB in reach. no change in physical assessment
[2024-10-23] MEDS: NSS 1000 IV (15:41)
[2024-10-23] MEDS: PENICILLIN 536 UNITS IV (15:43)
[2024-10-23] MEDS: LOVENOX 40 MG SC (16:58)
[2024-10-24 03:20] VITALS: PULSE 2; PULSE 88
[2024-10-24 06:00] VITALS: BMI 29.3
[2024-10-24] MEDS: ZOVIRAX INJECTION 266 MG IV ×3 (06:05→22:26)
[2024-10-24] MEDS: SYNTHROID 150 MCG PO (06:05)
[2024-10-24 07:49] VITALS: BP 167/82
[2024-10-24] MEDS: VITAMIN D3 (cholecalciferol) 25 MCG PO (07:49)
[2024-10-24] MEDS: NORVASC 5 MG PO ×2 (07:49→20:10)
[2024-10-24] MEDS: VITAMIN B1 100 MG PO ×2 (07:49→20:09)
[2024-10-24] MEDS: PROTONIX 40 MG PO (07:49)
[2024-10-24] MEDS: KEPPRA 250 MG PO ×2 (07:50→20:09)
[2024-10-24] MEDS: KLOR-CON 20 MEQ PO ×2 (07:50→20:09)
[2024-10-24] MEDS: MUCINEX 1200 MG PO ×2 (07:50→20:15)
[2024-10-24] MEDS: MIRALAX 17 GRAMS PO (07:50)
[2024-10-24] MEDS: ZESTRIL 5 MG PO ×2 (07:50→20:14)
[2024-10-24] MEDS: SENOKOT-S 1 TABLET PO ×2 (07:50→20:09)
--- NOTE | 2024-10-24 12:41 | PTCARENOTE ---
pt OOB to chair, attempted to ambulate, pt had trouble understanding cues, was standing and leaning forward. assisted to chair. hygiene, brushed teeth. offered hydration/snack. Daughter at bedside, repeating issues with previous night's shift.
Process education and encouragement, pt did well with therapy yesterday. Pt seems more alert and pleasant. CB in reach. hourly rounds continue.
[2024-10-24] MEDS: NSS 1000 IV (14:07)
[2024-10-24] MEDS: PENICILLIN 536 UNITS IV (15:05)
--- NOTE | 2024-10-24 15:45 | PTCARENOTE ---
pt assisted back to bed, was able to ambulate in room with much encouragement and cues. CB in reach, no change in physical assessment
[2024-10-24 16:04] VITALS: BP 132/70
[2024-10-24] MEDS: LOVENOX 40 MG SC (17:31)
--- NOTE | 2024-10-24 18:57 | W.PN.HOSP.TC ---
Today's Communication/Plan
-
Continue antiviral and antibiotics
See plan
Assessment / Plan
Assessment / Plan
Physical Exam
General: Not in acute distress, appears comfortable at this time
HEENT: Thick neck. Not tender, no induration, erythema, or palpable masses
Respiratory: CTAB
Cardiac: S1/S2 and Regular Rhythm
GI: Soft, Nontender, Distended, Normal Bowel Sounds. Obese
Musculoskeletal: No Cyanosis. 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 Bilateral Lower extremity edema present, B/L lower extremities neurovascularly intact.
Neuro: AAO x 3
Psych: flat affect paucity of speech calm
Assessment/Plan
79y M with PMH significant for hypothyroidism, hypertension and von Willebrand's disease who presents to ED complaining of weakness. History obtained from patient and his family at the bedside. Patient was in his usual states of good health
until about 3-4 weeks ago when he began to become more weak / fatigued. He was still able to complete his ADLs until this past 24-48 hours when his symptoms markedly worsened. Patient is followed by Nicko Mims for vWF. He receives monthly
IVIG (last dose 09/29). There is some question of multiple myeloma - though history there is not clear and patient does not appear to be on any treatment for this (records show [facility]). Patient developed fullness / swelling in the throat several
weeks ago. He was evaluated by ENT in their office Dr. Hicks. CT scan showed tonsillar hypertrophy but was otherwise unremarkable. He was treated briefly with antifungal medication for thrush (patient was having a sore throat) - but this was
stopped after fungal smear was negative. CT neck also showed incidental RUL nodule and patient has had CT C/A/P and PET-CT since that time for further evaluation. These revealed mildly FDG-avid (3.3) KADEN nodule (1.6cm). No other areas of
FDG-avidity. No other abnormal findings. Over the 48 hours prior to presentation, patient remained seated at home and has not left his chair. He reported shaking chills. Family has noted swelling in the legs - L > R - which is unusual for him.
Family noted that he seemed somewhat confused as well since 10/02/24 evening. 911 was called to the home this afternoon when patient was unable to get up. He decline ED evaluation at that time. Later in the afternoon family convinced him to
present to the ED for further evaluation. Patient was noted to be quite unsteady on his feet in the emergency department. He drove himself to his radiology appointments as recently as 2 days ago and had no significant issues.
Weakness / Ataxia / Confusion
Acute Toxic Metabolic Encephalopathy Likely Secondary to Encephalitis and Possibly From Pneumonia
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
Likely immunosuppressed from Daratumumab and Dex
Cognitive Impairment
- CT head in ED unremarkable.
- MRI brain with suspected encephalitis, repeat MRI brain showed improvement
- ID eval appreciated
- IR performed LP on 10/06/24 -- high protein, low glucose
- Continue Keppra -- newly started this admission -- but Keppra dose reduced due to persistent encephalopathy
- Continue Acyclovir as per ID 21 day course through 10/25/24
- CMV neg
- EBV serology panel significant for prior infection with no apparent reactivation.
- HIV negative
- Syphilis screen positive
- PT/OT/ PMR eval appreciated Acute Rehab -- patient ambulated well on 10/22/24 with walker and Physical Therapy
- Appreciate neurology
- Patient's agitation behaviors improved with Seroquel since discontinued d/t sedation, agitation remains resolved at this time
- Persistent cognitive impairment, psychiatry evaluation appreciated unlikely pseudodementia/depression ruled out
- Repeat CT head 10/17 appreciated no acute abnormalities
- Multivitamin and Thiamine supplementations started
- Per my discussion inside patient's room on 10/18/24 with patient's daughter Jacqueline, patient's cognition had gotten worse since 10/15/24 -- re-consulted neurology, Keppra reduced to 250 mg BID (from
500 mg BID) repeat MRI Brain showed improvement. EEG unremarkable.
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
- Per neurology, provide BiPAP at night from 7 pm to 7 am in case there is a component of sleep apnea to possibly help with cognition
Syphilis screen : Positive. RPR 1:256. CSF VDRL negative.
- ID eval appreciated, given reported allergy to penicillin, patient was originally planned for 14-day course of ceftriaxone, however given lack of cognitive improvement, PCN challenge was attempted and passed, subsequently switched to 14 days
course (continue PCN-G through 10/25/24)
- PCN-G dose reduced on 10/19/24 in efforts to see whether reducing Penicillin dose helps with mental status
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
Complicated with Superficial Thrombosis noted on RUE US 10/15/24
RUE PICC removed and LUE PICC placed
cont supportive care superficial thrombosis RUE w/ pain control, ice, and elevation
-Hematology eval appreciated, continue Lovenox 40 mg QPM as DVT ppx
-Rechecked RUE ultrasound 10/23/24 and discussed the results via [place] Text communication with radiologist Dr. Medeiros who confirmed that the superficial thrombus seen on 10/23/24 ultrasound
is similar to the 10/15/24 ultrasound
RUE Edema and B/L Lower Extremity Edema
Hypoalbuminemia
-Checked ultrasound imaging as above
-Albumin level low at 2.7
Diarrhea, Abdominal Pain and Nausea Resolved
Mild fluid right inguinal canal -- postsurgical change more likely versus unlikely incarcerated/strangulated hernia, no significant pain at this time -- seen on CT Imaging
Constipation
- Stool studies unremarkable
- Surgery eval appreciated no need for intervention
- Initially had diarrhea since resolved, developed constipation; AXR suggests moderate amount of stool within the rectum
- Miralax and Senokot-S, given suppository with some improvement noted, fleet enema given 10/14
- Milk and Molasses Enema given 10/17 with good response noted
- Per reports, patient is having good bowel movements
Gross Hematuria
Urinary Retention
-Recurrence during this hospitalization
-urology mentions expected with von Willebrands
-Hgb VSS
-CT without contrast with no obstructive uropathy or stones
-Consulted urology -- recommendation to continue bladder scans -- if PVR rising significantly, then place Negron -- but no interventions at this time as per urology
Hypothyroidism
- TSH = 16.8 and Free T4 = 0.39 this hospitalization
- Some confusion, weakness, ataxia, edema, questionable contribution hypothyroidism
- IV dose of levothyroxine given initially
- PO Levothyroxine dose increased to 150 mcg daily - follow up TFTs noted improvement in T4 wnl while TSH remains elevated but better
- repeat TFTs in 3 weeks
Acute Hypoxic Respiratory Insufficiency - RESOLVED but returned overnight 10/19 to 10/20 -- RESOLVED again as of 10/22/24
Chest Congestion
Likely LLL Pneumonia
Small Right Pleural Effusion on AXR from 10/09/24
Nocturnal O2 Desaturation (see nocturnal O2 saturation report from 10/06/24 morning)
Cough Again on 10/04/24
History of Recurrent Colds
History of Recent Pneumonia on CT Neck (treated outpatient with PCP in late August 2024 to early September 2024)
Former Smoker
-BACK ON ROOM AIR
-Doxycycline completed
-ID eval appreciated ceftriaxone switched to PCN challenge as above
-Atrovent PRN given intolerance to Albuterol
-CT Abdomen/Pelvis from 10/07/24 showed bibasilar opacification -- most likely representing subsegmental atelectasis as well as tiny bilateral pleural effusions, left greater than right
-Recurrence of Hypoxia on 10/20/24 morning, confirmed with ABG
-Repeat CXR with low lung volumes
-EKG unremarkable, troponins negative, proBNP unremarkable
-Appreciate pulmonary
-Appreciate pulmonary given new hypoxia again on 10/20/24
-Hypoxia likely from underlying bibasilar atelectasis from profound deconditioning and weakness causing VQ mismatch and hypoxemia. BiPAP has been started.
-Incentive Spirometer Q1H while awake
-Encourage ambulation
-Consider outpatient PFT to review when muscle strength and mental status improve
-Mucinex
Persistent neck swelling/enlarged tonsils since 09/01/24, (recently treated with 30 day course of Fluconazole)
Recent Tonsillar Hypertrophy
Recent Thrush
-Follows Dr. Anna Hicks (ENT) outpt
-EBV serology panel significant for prior infection with no apparent reactivation.
Right Upper Lobe Pulmonary Nodule -- indeterminate PET scan
- follows Dr. Rider outpatient
- 1.6cm KADEN nodule seen on multiple recent images. Mildly FDG-avid without significant delayed uptake.
- Covered with abx ceftriaxone / doxycycline since completed
- May benefit from biopsy for further evaluation if no improvement / resolution with antibiotics.
- Appreciate pulmonary
Acute Kidney Injury - RESOLVED
- IV fluids with Normal Saline IV Fluids 70 cc/hr as per nephrology
- Continue to monitor renal function given patient is on Acyclovir --- continue IV Fluids while on IV antiviral
- Reduce IV fluids rate to 50 cc/hr given swelling in the extremities
- CT Abdomen Pelvis 10/07/24 with no stone or obstructive process
Hyponatremia
- 50 ounce PO fluid restriction per day
Hypokalemia
Hypomagnesemia
- monitor and replete as necessary
Hypertension
-Cont antihypertensives -- recently increased Amlodipine to 5 mg BID
-Stopped on 10/18/24 Toprol XL (can cause ELEVATOR SERVICE TECHNICIAN effects -- and patient has had persistent encephalopathy) and replaced with Lisinopril for better blood pressure control -- MIRANDA-I increased from 2.5 mg BID to 5 mg BID on
10/22/24
-Blood pressure measurements limited by Superficial Thrombosis RUE and PICC LUE
-Calf measurements (done on patient in supine position) likely falsely elevated somewhat
Acquired von Willebrand's Disease (started at age 49 y/o) on monthly IVIG, Darzalex
- Stable. Patient maintained on IVIG monthly - last injection was 09/29/24.
- Hematology eval appreciated Acquired von willebrand disease fully controlled at this time, continued outpt hematology follow up recommended
[facility]US
- Has been on Decadron, Darzalex, and IVIG -- sees Dr. Lucio outpatient
Thrombocytopenia - RESOLVED
Vitamin D Deficiency
-supplementation started
Coronary Artery Disease
Simple bilateral renal cysts
Appendicoliths
Speech/Diet: Regular Diet with Thin Liquids
DVT Prophylaxis: SCDs Lovenox
Code Status: Full Code
Anticipated Discharge: 24 - 48 hours
Subjective/Interval History
-
Date of Service: October 24, 2024
Patient was seen and examined. He was sitting in the chair comfortably.
Objective Data
-
Vital Signs:
Vital Signs
Temp Pulse Resp BP Pulse Ox
98.1 F 95 16 132/70 94
10/24/24 16:04 10/24/24 16:04 10/24/24 16:04 10/24/24 16:04 10/24/24 16:04
I&O
10/23/24 10/24/24 10/25/24
06:59 06:59 06:59
Intake Total 1848 / 1848 600 / 600 120 / 120
Output Total 2450 / 2450 3325 / 3325 250 / 250
Balance -602 / -602 -2725 / -2725 -130 / -130
[2024-10-24 20:13] VITALS: BP 143/71
[2024-10-24] MEDS: TYLENOL 650 MG PO (20:13)
[2024-10-24 22:32] VITALS: PULSE 2; PULSE 95
[2024-10-24] MEDS: CARDURA 2 MG PO (23:27)
[2024-10-24 23:29] VITALS: BP 147/75
[2024-10-25 03:47] VITALS: PULSE 2
[2024-10-25 05:00] LABS: Hematocrit 26.4 % (39.0-52.0); Hemoglobin 9.3 g/dL (13.0-18.0); Mean Corp Hgb Conc. 35.2 g/dL (33.0-37.0); Mean Corpuscular Volume 100.0 fL (80.0-94.0); Platelet Count 160 10^3/uL (130-400); Red Cell Dist. Width 17.8 % (11.5-14.5)
[2024-10-25 05:11] LABS: Blood Urea Nitrogen 7 mg/dl (9-20); Calcium 8.6 mg/dl (8.4-10.2); Carbon Dioxide 22 mmol/L (22-30); Chloride 110 mmol/L (98-107); Estimated Creatinine Clearance 76 ml/min; Glucose 98 mg/dl (70-99); Magnesium 1.9 mg/dl (1.6-2.3); Potassium 4.2 mmol/L (3.5-5.1); Sodium 134 mmol/L (135-145); eGFR > 60.00
[2024-10-25 06:00] VITALS: BMI 29.4
[2024-10-25] MEDS: SYNTHROID 150 MCG PO (06:17)
[2024-10-25] MEDS: ZOVIRAX INJECTION 266 MG IV ×3 (06:17→21:58)
[2024-10-25 07:25] VITALS: BP 153/79
[2024-10-25] MEDS: ZESTRIL 5 MG PO ×3 (08:38→21:52)
[2024-10-25] MEDS: VITAMIN B1 100 MG PO ×2 (08:38→20:51)
[2024-10-25] MEDS: KEPPRA 250 MG PO ×2 (08:38→20:50)
[2024-10-25] MEDS: VITAMIN D3 (cholecalciferol) 25 MCG PO (08:38)
[2024-10-25] MEDS: SENOKOT-S 1 TABLET PO ×2 (08:38→20:51)
[2024-10-25] MEDS: MUCINEX 1200 MG PO ×2 (08:38→20:49)
[2024-10-25] MEDS: NORVASC 5 MG PO ×2 (08:38→20:53)
[2024-10-25] MEDS: PROTONIX 40 MG PO (08:38)
[2024-10-25] MEDS: KLOR-CON 20 MEQ PO ×2 (08:39→21:54)
[2024-10-25] MEDS: MIRALAX PO (08:45)
--- NOTE | 2024-10-25 09:11 | W.PN.HOSP.TC ---
Today's Communication/Plan
-
last day for abx and antiviral
cont PT/OT
blood pressure control
Assessment / Plan
Assessment / Plan
Physical Exam
General: Not in acute distress, appears comfortable at this time
HEENT: Thick neck. Not tender, no induration, erythema, or palpable masses
Respiratory: CTAB
Cardiac: S1/S2 and Regular Rhythm
GI: Soft, Nontender, Distended, Normal Bowel Sounds. Obese
Musculoskeletal: No Cyanosis. RUE swelling
Neuro: AAO x 3 conversant coherent
Psych: flat affect paucity of speech calm
Assessment/Plan
79y M with PMH significant for hypothyroidism, hypertension and von Willebrand's disease who presents to ED complaining of weakness. History obtained from patient and his family at the bedside. Patient was in his usual states of good health
until about 3-4 weeks ago when he began to become more weak / fatigued. He was still able to complete his ADLs until this past 24-48 hours when his symptoms markedly worsened. Patient is followed by Nicko Mims for vWF. He receives monthly
IVIG (last dose 09/29). There is some question of multiple myeloma - though history there is not clear and patient does not appear to be on any treatment for this (records show [facility]). Patient developed fullness / swelling in the throat several
weeks ago. He was evaluated by ENT in their office Dr. Hicks. CT scan showed tonsillar hypertrophy but was otherwise unremarkable. He was treated briefly with antifungal medication for thrush (patient was having a sore throat) - but this was
stopped after fungal smear was negative. CT neck also showed incidental RUL nodule and patient has had CT C/A/P and PET-CT since that time for further evaluation. These revealed mildly FDG-avid (3.3) KADEN nodule (1.6cm). No other areas of
FDG-avidity. No other abnormal findings. Over the 48 hours prior to presentation, patient remained seated at home and has not left his chair. He reported shaking chills. Family has noted swelling in the legs - L > R - which is unusual for him.
Family noted that he seemed somewhat confused as well since 10/02/24 evening. 911 was called to the home this afternoon when patient was unable to get up. He decline ED evaluation at that time. Later in the afternoon family convinced him to
present to the ED for further evaluation. Patient was noted to be quite unsteady on his feet in the emergency department. He drove himself to his radiology appointments as recently as 2 days ago and had no significant issues.
Weakness / Ataxia / Confusion
Acute Toxic Metabolic Encephalopathy Likely Secondary to Encephalitis and Possibly From Pneumonia
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
Likely immunosuppressed from Daratumumab and Dex
Cognitive Impairment
- CT head in ED unremarkable.
- MRI brain with suspected encephalitis, later repeat MRI brain showed improvement
- ID eval appreciated
- IR performed LP on 10/06/24 -- high protein, low glucose
- Continue Acyclovir as per ID 21 day course through 10/25/24
- CMV neg
- EBV serology panel significant for prior infection with no apparent reactivation.
- HIV negative
- Syphilis screen : Positive. RPR 1:256. CSF VDRL negative.
- PT/OT/ PMR eval appreciated Acute Rehab
- Appreciate neurology started on Keppra d/t highly epileptogenic focus Rt hemisphere noted on initial EEG, later EEG noted significant improvement, dose Keppra subsequently reduced, especially in lieu of cognitive impairment concerns
- Briefly required seroquel for agitation since discontinued
- Persistent cognitive impairment, psychiatry evaluation appreciated unlikely pseudodementia/depression
- Repeat CT head 10/17 appreciated no acute abnormalities
- Multivitamin and Thiamine supplementations started
- Metoprolol replaced with Lisinopril d/t cognitive impairment concerns
- Per neurology, BIPAP HS provided empirically for possible cognitive impairment d/t sleep apnea
- ID eval appreciated, given reported allergy to penicillin, patient was originally planned for 14-day course of ceftriaxone, however given lack of cognitive improvement, PCN challenge was attempted and passed, continue PCN-G through 10/25/24
- PCN-G dose reduced on 10/19/24 in efforts to see whether reducing Penicillin dose helps with mental status
RUE edema
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
Complicated with Superficial Thrombosis noted on RUE US 10/15/24
RUE PICC removed and LUE PICC placed
cont supportive care superficial thrombosis RUE w/ pain control, ice, and elevation
-Hematology eval appreciated, continue Lovenox 40 mg QPM as DVT ppx
-Repeat RUE ultrasound 10/23/24 with similar results noted prior study 10/15
B/L Lower Extremity Edema
Hypoalbuminemia
-Venous Duplex neg for DVT lower ext's
Diarrhea, Abdominal Pain and Nausea Resolved
Mild fluid right inguinal canal -- postsurgical change more likely versus unlikely incarcerated/strangulated hernia, no significant pain at this time -- seen on CT Imaging
Constipation
- Stool studies unremarkable
- Surgery eval appreciated no need for intervention
- Initially had diarrhea since resolved, developed constipation; AXR suggests moderate amount of stool within the rectum
- Miralax and Senokot-S, given suppository with some improvement noted, fleet enema given 10/14
- Milk and Molasses Enema given 10/17 with good response noted
- Constipation resolved at this time
Gross Hematuria
Urinary Retention
-Recurrence during this hospitalization
-urology mentions expected with von Willebrands
-Hgb VSS
-CT without contrast with no obstructive uropathy or stones
-Consulted urology -- recommendation to continue bladder scans -- if PVR rising significantly, then place Negron -- but no interventions at this time as per urology
Hypothyroidism
- Initial elevated TSH low T4 improved since increased synthroid to current 150 mcg
- repeat TFTs in 1 month
Acute Hypoxic Respiratory Insufficiency resolved
Chest Congestion
Likely LLL Pneumonia
Small Right Pleural Effusion on AXR from 10/09/24
Nocturnal O2 Desaturation (see nocturnal O2 saturation report from 10/06/24 morning)
History of Recent Pneumonia on CT Neck (treated outpatient with PCP in late August 2024 to early September 2024)
Former Smoker
-Weaned off oxygen supplementation
-Doxycycline completed
-ID eval appreciated ceftriaxone switched to PCN challenge as above
-Atrovent PRN given intolerance to Albuterol
-CT Abdomen/Pelvis from 10/07/24 showed bibasilar opacification -- most likely representing subsegmental atelectasis as well as tiny bilateral pleural effusions, left greater than right
-Recurrence of Hypoxia on 10/20/24 morning, confirmed with ABG
-Repeat CXR with low lung volumes
-EKG unremarkable, troponins negative, proBNP unremarkable
-Appreciate pulmonary
-Hypoxia likely from underlying bibasilar atelectasis from profound deconditioning and weakness causing VQ mismatch and hypoxemia. BiPAP has been started.
-Incentive Spirometer Q1H while awake
-Encourage ambulation
-Outpt follow up for PFTs
-Mucinex
Persistent neck swelling/enlarged tonsils since 09/01/24, (recently treated with 30 day course of Fluconazole)
Recent Tonsillar Hypertrophy
Recent Thrush
-Follows Dr. Anna Hicks (ENT) outpt
-EBV serology panel significant for prior infection with no apparent reactivation.
Right Upper Lobe Pulmonary Nodule -- indeterminate PET scan
- follows Dr. Rider outpatient
- 1.6cm KADEN nodule see on multiple recent images. Mildly FDG-avid without significant delayed uptake.
- Covered with abx ceftriaxone / doxycycline since completed
- May benefit from biopsy for further evaluation if no improvement / resolution with antibiotics.
- Appreciate pulmonary
Acute Kidney Injury
- IV fluids with Normal Saline IV Fluids 70 cc/hr as per nephrology
- Continue to monitor renal function given patient is on Acyclovir --- continue IV Fluids while on IV antiviral
- Reduce IV fluids rate to 50 cc/hr given swelling in the extremities
- CT Abdomen Pelvis 10/07/24 with no stone or obstructive process
-resolved
Hyponatremia
- 50 ounce PO fluid restriction per day
Hypokalemia
Hypomagnesemia
- monitor and replete as necessary
Hypertension
-Cont antihypertensives -- recently increased Amlodipine to 5 mg BID
-Stopped on 10/18/24 Toprol XL for possible BRAILLE TRANSCRIBER effects/cognitive impairment and replaced with Lisinopril for better blood pressure control - titrated up to 5 mg BID
-Blood pressure measurements limited by Superficial Thrombosis RUE and PICC LUE, calf measurements may be falsely elevated when high
Acquired von Willebrand's Disease (started at age 49 y/o) on monthly IVIG, Darzalex
- Stable. Patient maintained on IVIG monthly - last injection was 09/29/24.
- Hematology eval appreciated Acquired von willebrand disease fully controlled at this time, continued outpt hematology follow up recommended
[facility]
- Has been on Decadron, Darzalex, and IVIG -- sees Dr. Lucio outpatient
Vitamin D Deficiency
-supplementation started
Coronary Artery Disease
Simple bilateral renal cysts
Appendicoliths
Speech/Diet: Regular Diet with Thin Liquids
DVT Prophylaxis: SCDs Lovenox
Code Status: Full Code
Discussed with patient and patient's daughter Jacqueline
I spent a total of 45 minutes with the patient or on the floor. More than 50% of this time involved counseling and coordination of care.
Anticipated Discharge: 24 - 48 hours
Subjective/Interval History
-
Date of Service: October 25, 2024
No acute distress, ambulating with PT/OT using walker. Alert conversant coherent though paucity of speech.
Objective Data
-
Labs:
Laboratory Results
10/25/24
04:22
WBC 3.8 L
Hgb 9.3 L
Hct 26.4 L
Plt Count 160
Sodium 134 L
Potassium 4.2
Chloride 110 H
Carbon Dioxide 22
BUN 7 L
Creatinine 0.8
Glucose 98
Calcium 8.6
Vital Signs:
Vital Signs
Temp Pulse Resp BP Pulse Ox
97.5 F 96 18 153/79 97
10/25/24 07:25 10/25/24 07:25 10/25/24 07:25 10/25/24 08:38 10/25/24 07:25
I&O
10/24/24 10/25/24 10/26/24
06:59 06:59 06:59
Intake Total 600 / 600 600 / 600
Output Total 3325 / 3325 1050 / 1050
Balance -2725 / -2725 -450 / -450
--- NOTE | 2024-10-25 12:02 | W.PN.ID1 ---
Date of Service
Date of Service: October 25, 2024
Today's Communication
Last day if IV acyclovir and PCN-G.
Assessment / Plan
# HSV-1 encephalitis
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
# Change in mental status, waxing and waning
# RUE picc- associated superficial thrombus. PICC dc'd 10/15
# High risk sexual behavior
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
# Thrombocytopenia resolved
- Blood cx's neg
- C. diff neg, stool cx neg
- CT a/p unremarkable
- HIV negative.
-MRI brain: cortical restricted diffusion involving the anterior right frontal lobe extending into the hippocampus and right insular cortex. There is additional foci of diffusion hyperintense signal within the posterior aspect of the right thalamus
- 10/05 EEG: EEG 10/05 showing epileptogenic right frontal lobe
- Continue Acyclovir 800 mg IV q8h x 21 days through 10/25/24.
- Repeat MRI shows improvement of brain lesions.
- Per neuro, no longer epileptic focus
- Syphilis RPR 1:256.
Of note RPR negative in 2021 base on review of [facility] labs.
Unlikely neurosyphilis as CSF only 4 WBC. CSF VDRL neg (not sensitive test)
s/p 12d ceftriaxone, dc'd 10/13/24
Due to slow improvement of mental status, ceftriaxone replaced with PCN after test dose.
--> Continue PCN-G continuous infusion x10 to 14 days through 10/25/24
- Trend RPR titer in 3 months after completion of tx until at least 4 fold decrease in titer.
-Waxing and waning mental status
Keppra dose reduced.
CPAP for suspected JACOBY.
PCN G dose reduced from 24MU to 18MU/day in case of neurotoxicity.
Hospitalist replaced metoprolol with lisinopril.
Chief Complaint
-: Other (Change in mental status; HSV 1 encephalitis; Positive RPR)
Subjective / Review of Systems
More alert this am.
Vital Signs / Physical Exam
Vital Signs
Vital Signs
Temp Pulse Resp BP Pulse Ox
97.5 F 96 18 153/79 97
10/25/24 07:25 10/25/24 07:25 10/25/24 07:25 10/25/24 08:38 10/25/24 07:25
Physical Exam
Constitutional: Non-toxic
Eyes: No Conjunctival Hemorrhage and Sclera Anicteric
Cardiovascular: Regular Rate and S1/S2
Pulmonary: Clear
Gastrointestinal: Soft, Non Tender and Non Distended
Extremities: Edema (BLE)
Neurological: Awake and Oriented (x1); Negative Meningeal Signs
Objective Data
Lab Data
Lab Results
10/25/24 04:22
10/25/24 04:22
PT 14.6 Sec (11.4-14.6) 10/16/24 13:14
INR 1.11 10/16/24 13:14
APTT 32.8 Sec (23.4-35.0) 10/16/24 13:14
Estimated Creat Clear 76 ml/min 10/25/24 04:22
Total Bilirubin 0.8 mg/dl (0.2-1.3) 10/12/24 06:00
AST 26 U/L (17-59) 10/12/24 06:00
ALT 18 U/L (0-50) 10/12/24 06:00
Alkaline Phosphatase 57 U/L (38-126) 10/12/24 06:00
Most recent labs reviewed.
Micro Results:
10/06/24 14:08 Fungal Smear - Final
Csf No yeast or fungal elements seen.
Fungal Culture - Preliminary
Culture in progress.
Positive cultures are reported as soon as detected.
Final report to follow in four to five weeks.
10/06/24 14:08 CSF Culture - Final
Csf No Growth After 5 Days - Final Report
Gram Stain - Final
10/03/24 21:18 Blood Culture - Final
Blood/Venous No Growth - Final Report
10/03/24 20:58 Blood Culture - Final
Blood/Venous No Growth - Final Report
10/04/24 08:16 Salmonella/Shigella Culture - Final
Feces/Stool No Salmonella, Shigella, Aeromonas or Plesiomonas species
isolated.
Campylobacter Culture - Final
No Campylobacter species isolated.
Shiga Toxin Test - Final
No E. coli Shiga Toxin 1 or 2 detected.
Stool Leukocytes - Final
10/06/24 14:08 Meningitis/Encephalitis Panel (PCR) - Final
Csf
10/04/24 09:20 MRSA Screen - Final
Nose No Methicillin Resistant Staphylococcus aureus isolated.
10/04/24 09:20 Urine Culture - Final
Urine NO GROWTH
10/04/24 17:36 Influenza Types A & B (RADHA) - Final
Nasal Swab Negative for Influenza A & B, NAAT
Negative results must be combined with clinical observations
and patient history.
Nucleic Acid Amplification test (NAAT)performed on the
CELLFOR platform.
10/04/24 17:36 Legionella Urinary Antigen - Final
Urine Negative for Legionella pneumophila Serogroup 1 antigen.
A negative result does not rule out the possiblity of
Legionella infection due to other serogroups or species of
Legionella. Clinical correlation is recommended.
Streptococcus pneumoniae Antigen (M - Final
Negative for Streptococcus pneumoniae antigen.
A negative result does not exclude infection with
Streptococcus pneumoniae. Clinical correlation is
recommended.
10/04/24 08:16 - Final
Feces/Stool Negative for Norovirus GI and GII.
10/04/24 08:16 C. difficile GDH Antigen & Toxins - Final
Feces/Stool Negative for toxigenic C.difficile
Meningitis Panel, CSF by PCR Final 10/06/24-1609
Escherichia coli K1 Not Detected
Haemophilus influenzae Not Detected
Listeria monocytogenes Not Detected
Neisseria meningitidis Not Detected
Cytomegalovirus (CMV) Not Detected
Streptococcus agalactiae Not Detected
Streptococcus pneumoniae Not Detected
Enterovirus Not Detected
--> Herpes simplex virus 1 DETECTED <--
Herpes simplex virus 2 Not Detected
Human herpesvirus 6 Not Detected
Human parechovirus Not Detected
Varicella zoster virus Not Detected
C. neoformans/gattii Not Detected
CSF
10/06/24 10/06/24
14:08 14:09
CSF Appearance Clear
CSF Color Colorless
CSF WBC 4
CSF RBC 14
CSF Cell Count Tube # 2
CSF Glucose 72 H
CSF Total Protein 217 H
CSF VDRL Non reactive
10/06/24
04:55
Syphilis Serology Positive
RPR Titer 1:256
RPR Reactive
HIV Ag/Ab Combo Qual Negative
10/18/24 Brain MRI: There is significantly decreased diffusion hyperintense signal along the anterior right temporal lobe and right insular cortex. There is persistent mild T2 hyperintense signal along the right insular cortex and medial right
temporal lobe with new cortical enhancement along the right insular cortex. Findings may represent an evolving subacute infarction or evolving encephalitis. Given the interval improvement a mass is considered unlikely.
10/04/24 Brain MRI: There is predominant cortical restricted diffusion involving the anterior right frontal lobe extending into the hippocampus and right insular cortex. There is additional foci of diffusion hyperintense signal within the posterior
aspect of the right thalamus. This constellation of findings can be seen in encephalitis (herpes or limbic), status epilepticus or acute infarction. Additionally Creutzfeld Christiano disease is considered unlikely, however cannot be excluded. Consider
correlation with CSF studies.
10/04/24 CXR: New minimal left lower lobe atelectasis versus scarring
10/04/24 CT Pe/abd/pel W: Mild left lower lobe airspace disease suggesting pneumonia. New
No acute pathology of the abdomen or pelvis identified
10/01/24 PET: Stable solitary right upper lobe pulmonary nodule which demonstrates mild FDG activity (with only minimal further increase on delayed imaging). This remains indeterminate with differential including infectious/inflammatory nodule or low
metabolic rate neoplasm.
09/01/[address]: Significant symmetric enlargement of the bilateral tonsillar soft tissues, which could be secondary to tonsillar hypertrophy or tonsillitis, with secondary narrowing of the oropharynx and hypopharynx. Bilateral pulmonary parenchymal
opacities suggesting pneumonia. 1.6 cm solid pulmonary nodule in the right upper lobe.
--- NOTE | 2024-10-25 12:23 | W.PN.ONC ---
Today's Communication / Plan
-
- Patient had repeat RUE US d/t swelling. US 10/23 showed stable findings that are unchanged since 10/15
- Continue Lovenox 40mg for prophylaxis following PICC removal for superficial thrombus. No bleeding noted.
- Repeat vW panel pending from 10/16
- Normal coag profile is reassuring. Last treated about one month ago for the acquired von Willebrand's. It is felt to be autoimmune and has been well controlled with monthly IVIg.
Impression
Impression
Weakness / Ataxia / Confusion
- Etiology unclear, likely of neuro origin - CSF detected HSV1, started on acyclovir
- Primary team addressing individual issues including symptomatic hypothyroidism, hyponatremia
Acquired vonWillebrand's Disease
- Patient maintained on IVIG and Darzalex monthly - last injection was 09/22/2024
- Coagulation panel within normal limits as of late September
New PICC associated DVT
- Patient started on Lovenox 40mg for prophylaxis
Pulmonary Nodule
- 1.6cm KADEN nodule seen on multiple recent images. Mildly FDG-avid without significant delayed uptake.
Plan
Plan
- Continue Lovenox 40mg for prophylaxis following PICC removal for superficial thrombus
- Repeat vW panel pending from 10/16
- Normal coag profile is reassuring. Last treated about one month ago for the acquired von Willebrand's. It is felt to be autoimmune and has been well controlled with monthly IVIg.
Subjective/Objective
Subjective/Objective
Patient seen at the bedside with daughter present. Patient was awake and eating breakfast. Denies all ROS. Swelling in right arm is not appreciable.
Physical
General: not in acute distress
Cardiovascular: RRR
Respiratory: normal breath sounds
Extremeties: No swelling noted in RUE, swelling noted b/l in LE, SCDs in place
Vital Signs:
Vital Signs
Temp Pulse Resp BP Pulse Ox
97.5 F 96 18 153/79 97
07/21/25 07:25 10/25/24 07:25 10/25/24 07:25 10/25/24 08:38 10/25/24 07:25
Lab Results:
Laboratory Data
WBC 3.8 10^3/uL (4.8-10.8) L 10/25/24 04:22
Hgb 9.3 g/dL (13.0-18.0) L 10/25/24 04:22
Plt Count 160 10^3/uL (130-400) 10/25/24 04:22
PT 14.6 Sec (11.4-14.6) 10/16/24 13:14
INR 1.11 10/16/24 13:14
APTT 32.8 Sec (23.4-35.0) 10/16/24 13:14
eGFR > 60.00 10/25/24 04:22
[2024-10-25 15:11] LABS: Von Willebrands Factor Antigen 277 % (52-214)
[2024-10-25 15:20] VITALS: BP 124/73
[2024-10-25] MEDS: PENICILLIN 536 UNITS IV (15:42)
[2024-10-25] MEDS: NSS IV (15:44)
--- NOTE | 2024-10-25 16:09 | CM ---
Reviewed the chart notes. Per notes, last day if IV acyclovir and PCN-G. Per last PT note from 10/23, patient required max assist with bed mobility and mod assist with ambulation with rolling walker. CM continues to be available to patient/family
and is monitoring medical plan for needs at discharge.
Plan: Discharge plans will depend on the patient's progress. PT recommending Acute vs SNF.
[2024-10-25] MEDS: LOVENOX 40 MG SC (17:48)
[2024-10-25] MEDS: CARDURA 2 MG PO (23:07)
[2024-10-25 23:20] VITALS: PULSE 2
[2024-10-25 23:35] VITALS: BP 135/76
--- NOTE | 2024-10-26 02:35 | DOWNTIME ---
There was a [employer] Downtime on 10/26/2024 from 0100 to 10/26/2024 at 0220. Downtime documentation of patient's care, including medication administrations, has been reconciled in the electronic record per guidelines. Refer to the
patient's paper chart under the miscellaneous tab to see printed paper medication records and downtime forms.
[2024-10-26 03:38] VITALS: PULSE 2
[2024-10-26 05:43] LABS: Hematocrit 25.2 % (39.0-52.0); Hemoglobin 8.8 g/dL (13.0-18.0); Mean Corp Hgb Conc. 34.9 g/dL (33.0-37.0); Mean Corpuscular Volume 100.8 fL (80.0-94.0); Platelet Count 186 10^3/uL (130-400); Red Cell Dist. Width 17.4 % (11.5-14.5)
[2024-10-26 06:00] VITALS: BMI 29.6
[2024-10-26 06:05] LABS: Blood Urea Nitrogen 6 mg/dl (9-20); Calcium 8.3 mg/dl (8.4-10.2); Carbon Dioxide 25 mmol/L (22-30); Chloride 108 mmol/L (98-107); Estimated Creatinine Clearance 87 ml/min; Glucose 93 mg/dl (70-99); Magnesium 1.8 mg/dl (1.6-2.3); Potassium 4.0 mmol/L (3.5-5.1); Sodium 134 mmol/L (135-145); eGFR > 60.00
[2024-10-26] MEDS: SYNTHROID 150 MCG PO (06:40)
[2024-10-26] MEDS: NSS 1000 IV (06:43)
[2024-10-26 07:25] VITALS: BP 161/83
[2024-10-26] MEDS: SENOKOT-S 1 TABLET PO ×2 (08:25→21:17)
[2024-10-26] MEDS: PROTONIX 40 MG PO (08:25)
[2024-10-26] MEDS: KEPPRA 250 MG PO ×2 (08:25→21:16)
[2024-10-26] MEDS: VITAMIN B1 100 MG PO ×2 (08:26→21:17)
[2024-10-26] MEDS: MUCINEX 1200 MG PO ×2 (08:26→21:17)
[2024-10-26] MEDS: NORVASC 5 MG PO ×2 (08:27→21:17)
[2024-10-26] MEDS: KLOR-CON 20 MEQ PO ×2 (08:27→21:16)
[2024-10-26] MEDS: VITAMIN D3 (cholecalciferol) 25 MCG PO (08:27)
[2024-10-26] MEDS: MIRALAX PO (08:27)
--- NOTE | 2024-10-26 09:39 | W.PN.HOSP.TC ---
Today's Communication/Plan
-
monitor off abx as per ID
neurochecks
B12 supplementation
ST/PT/OT
blood pressure control
discharge planning Acute Rehab
Assessment / Plan
Assessment / Plan
Physical Exam
General: Not in acute distress, appears comfortable at this time
HEENT: Thick neck. Not tender, no induration, erythema, or palpable masses
Respiratory: CTAB
Cardiac: S1/S2 and Regular Rhythm
GI: Soft, Nontender, Distended, Normal Bowel Sounds. Obese
Musculoskeletal: No Cyanosis. RUE swelling appears improved/resolved
Neuro: AAO x 3 conversant coherent significant memory issues noted, had trouble recognizing his own daughter today.
Psych: flat affect paucity of speech calm
Assessment/Plan
79M hypothyroidism, HTN, acquired von Willebrand's disease, p/w generalized weakness AMS. Patient was in his usual state of good health until about 3-4 weeks prior to presentation. He became weak/fatigued. He was still able to complete his ADLs
until 24-48 hours prior presentation when his symptoms markedly worsened. Patient followed by Mony Mims for vWF, receives monthly IVIG (last dose 09/29). Patient also developed fullness/swelling in throat several weeks prior. Evaluated
and treated by outpt ENT Dr. Hicks. CT scan showed tonsillar hypertrophy but was otherwise unremarkable. Briefly treated for possible thrush, stopped when fungal smear returned neg. Over the 48 hours prior to presentation, patient remained
seated at home and has not left his chair. He reported shaking chills. Family noted swelling in legs L > R. Some confusion noted night prior, family ultimately convinced patient to come to ED when he was too weak to get up on his own.
Weakness / Ataxia / Confusion
Acute Toxic Metabolic Encephalopathy Likely Secondary to Encephalitis and Possibly From Pneumonia
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
Likely immunosuppressed from Daratumumab and Dex
Cognitive Impairment
- CT head in ED unremarkable.
- MRI brain with suspected encephalitis, later repeat MRI brain showed improvement
- ID eval appreciated
- IR performed LP on 10/06/24 -- high protein, low glucose
- Completed Acyclovir 21 day course through 10/25/24 as per ID
- CMV neg
- EBV serology panel significant for prior infection with no apparent reactivation.
- HIV negative
- Syphilis screen : Positive. RPR 1:256. CSF VDRL negative.
- PT/OT/ PMR eval appreciated Acute Rehab
- Appreciate neurology started on Keppra d/t highly epileptogenic focus Rt hemisphere noted on initial EEG, later EEG noted significant improvement, dose Keppra subsequently reduced, especially in lieu of cognitive impairment concerns
- Briefly required seroquel for agitation since discontinued
- Persistent cognitive impairment, psychiatry evaluation appreciated unlikely pseudodementia/depression
- Repeat CT head 10/17 appreciated no acute abnormalities
- Multivitamin and Thiamine supplementations started. B12 supplementation added with low normal level 380 10/26
- Metoprolol replaced with Lisinopril d/t cognitive impairment concerns
- Per neurology, BIPAP HS provided empirically for possible cognitive impairment d/t sleep apnea
- ID eval appreciated, given reported allergy to penicillin, patient was originally planned for 14-day course of ceftriaxone, however given lack of cognitive improvement, PCN challenge was attempted and passed, continued PCN-G through 10/25/24
since completed as per ID
RUE edema
RUE PICC placed for planned jail IV abx antiviral
Complicated with Superficial Thrombosis noted on RUE US 10/15/24
RUE PICC removed and LUE PICC placed
cont supportive care superficial thrombosis RUE w/ pain control, ice, and elevation
-Hematology eval appreciated, continue Lovenox 40 mg QPM as DVT ppx
-Repeat RUE ultrasound 10/23/24 with similar results noted prior study 10/15
B/L Lower Extremity Edema
Hypoalbuminemia
-Venous Duplex neg for DVT lower ext's
Diarrhea, Abdominal Pain and Nausea Resolved
Mild fluid right inguinal canal -- postsurgical change more likely versus unlikely incarcerated/strangulated hernia, no significant pain at this time -- seen on CT Imaging
Constipation
- Stool studies unremarkable
- Surgery eval appreciated no need for intervention
- Initially had diarrhea since resolved, developed constipation; AXR suggests moderate amount of stool within the rectum
- Miralax and Senokot-S, given suppository with some improvement noted, fleet enema given 10/14
- Milk and Molasses Enema given 10/17 with good response noted
- Constipation resolved at this time
Gross Hematuria
Urinary Retention
-Recurrence during this hospitalization
-urology mentions expected with von Willebrands
-Hgb VSS
-CT without contrast with no obstructive uropathy or stones
-Consulted urology -- recommendation to continue bladder scans -- if PVR rising significantly, then place Negron -- but no interventions at this time as per urology
Hypothyroidism
- Initial elevated TSH low T4 improved since increased synthroid to current 150 mcg
- repeat TFTs in 1 month
Acute Hypoxic Respiratory Insufficiency resolved
Chest Congestion
Likely LLL Pneumonia
Small Right Pleural Effusion on AXR from 10/09/24
Nocturnal O2 Desaturation (see nocturnal O2 saturation report from 10/06/24 morning)
History of Recent Pneumonia on CT Neck (treated outpatient with PCP in late August 2024 to early September 2024)
Former Smoker
-Weaned off oxygen supplementation
-Doxycycline completed
-ID eval appreciated ceftriaxone switched to PCN challenge as above
-Atrovent PRN given intolerance to Albuterol
-CT Abdomen/Pelvis from 10/07/24 showed bibasilar opacification -- most likely representing subsegmental atelectasis as well as tiny bilateral pleural effusions, left greater than right
-Recurrence of Hypoxia on 10/20/24 morning, confirmed with ABG
-Repeat CXR with low lung volumes
-EKG unremarkable, troponins negative, proBNP unremarkable
-Appreciate pulmonary
-Hypoxia likely from underlying bibasilar atelectasis from profound deconditioning and weakness causing VQ mismatch and hypoxemia. BiPAP has been started.
-Incentive Spirometer
-Encourage ambulation
-Outpt follow up for PFTs
-Mucinex
Persistent neck swelling/enlarged tonsils since 09/01/24, (recently treated with 30 day course of Fluconazole)
Recent Tonsillar Hypertrophy
Recent Thrush
-Follows Dr. Anna Hicks (ENT) outpt
-EBV serology panel significant for prior infection with no apparent reactivation.
Right Upper Lobe Pulmonary Nodule -- indeterminate PET scan
- follows Dr. Rider outpatient
- 1.6cm KADEN nodule see on multiple recent images. Mildly FDG-avid without significant delayed uptake.
- Covered with abx ceftriaxone / doxycycline since completed
- May benefit from biopsy for further evaluation if no improvement / resolution with antibiotics.
- Appreciate pulmonary
Acute Kidney Injury
- IV fluids with Normal Saline IV Fluids 70 cc/hr as per nephrology
- Continue to monitor renal function given patient is on Acyclovir --- continue IV Fluids while on IV antiviral
- Reduce IV fluids rate to 50 cc/hr given swelling in the extremities
- CT Abdomen Pelvis 10/07/24 with no stone or obstructive process
-resolved
Hyponatremia
- 50 ounce PO fluid restriction per day
Hypokalemia
Hypomagnesemia
- monitor and replete as necessary
Hypertension
-Cont antihypertensives -- recently increased Amlodipine to 5 mg BID
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
-Blood pressure measurements limited by Superficial Thrombosis RUE and PICC LUE, calf measurements may be falsely elevated when high
Acquired von Willebrand's Disease (started at age 49 y/o) on monthly IVIG, Darzalex
- Stable. Patient maintained on IVIG monthly - last injection was 09/29/24.
- Hematology eval appreciated Acquired von willebrand disease fully controlled at this time, continued outpt hematology follow up recommended
MGUS
- Has been on Decadron, Darzalex, and IVIG -- sees Dr. Lucio outpatient
Vitamin D Deficiency
-cont supplementation
Coronary Artery Disease
Simple bilateral renal cysts
Appendicoliths
Speech/Diet: Regular Diet with Thin Liquids
DVT Prophylaxis: SCDs Lovenox
Code Status: Full Code
Discussed with patient and patient's daughter Jacqueline
I spent a total of 45 minutes with the patient or on the floor. More than 50% of this time involved counseling and coordination of care.
Anticipated Discharge: 24 - 48 hours
Subjective/Interval History
-
Date of Service: October 26, 2024
No acute distress. Appears comfortable. Daughter Jacqueline at bedside noted worsening in cognitive function, memory, couldn't recognize her. Remains alert and oriented x 3. Denies pain. Speech eval also notes worsening cognitive function, SLUMS
score 5/30, prior score 7/30.
Objective Data
-
Labs:
Laboratory Results
10/26/24
04:51
WBC 4.1 L
Hgb 8.8 L
Hct 25.2 L
Plt Count 186
Sodium 134 L
Potassium 4.0
Chloride 108 H
Carbon Dioxide 25
BUN 6 L
Creatinine 0.7
Glucose 93
Calcium 8.3 L
Vital Signs:
Vital Signs
Temp Pulse Resp BP Pulse Ox
98.8 F 91 16 161/83 99
10/26/24 07:25 10/26/24 07:25 10/26/24 07:25 10/26/24 07:25 10/26/24 07:25
I&O
10/25/24 10/26/24 10/27/24
06:59 06:59 06:59
Intake Total 600 / 600 960 / 960
Output Total 1050 / 1050 2124 / 212
Balance -450 / -450 -1165 / -1165
[2024-10-26 10:15] LABS: Iron 69 ug/dl (49-181)
[2024-10-26 10:24] LABS: Total Iron Binding Capacity 177 ug/dl (261-462)
[2024-10-26 10:49] LABS: Ferritin 353.0 ng/ml (17.9-464.0)
[2024-10-26 11:20] LABS: Folate 9.3 ng/ml (2.76-20); Vitamin B12 380 pg/ml (239-931)
[2024-10-26] MEDS: VITAMIN B-12 1000 MCG PO (12:12)
--- NOTE | 2024-10-26 12:38 | W.PN.ID1 ---
Date of Service
Date of Service: October 26, 2024
Today's Communication
Observe off abx.
Assessment / Plan
# HSV-1 encephalitis
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
# Change in mental status, waxing and waning
# RUE picc- associated superficial thrombus. PICC dc'd 10/15
# High risk sexual behavior
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
# Thrombocytopenia resolved
- Blood cx's neg
- C. diff neg, stool cx neg
- CT a/p unremarkable
- HIV negative.
-MRI brain: cortical restricted diffusion involving the anterior right frontal lobe extending into the hippocampus and right insular cortex. There is additional foci of diffusion hyperintense signal within the posterior aspect of the right thalamus
- 10/05 EEG: EEG 10/05 showing epileptogenic right frontal lobe
- Completed Acyclovir 800 mg IV q8h x 21 days through 10/25/24.
- Repeat MRI shows improvement of brain lesions.
- Per neuro, no longer epileptic focus
- Syphilis RPR 1:256.
Of note RPR negative in 2021 base on review of [facility] labs.
Unlikely neurosyphilis as CSF only 4 WBC. CSF VDRL neg (not sensitive test)
s/p 12d ceftriaxone, dc'd 10/13/24
s/p PCN-G 18MU to 24MU/d infusion x 13d through 10/25/24.
- Trend RPR titer in 3 months after completion of tx until at least 4 fold decrease in titer.
- Unfortunately, no significant improvement of mental status despite acyclovir and PCN-G.
Chief Complaint
-: Other (Change in mental status; HSV 1 encephalitis; Positive RPR)
Subjective / Review of Systems
Per daughter, pt's mental status worse today. He did not recognize daughter or self.
Vital Signs / Physical Exam
Vital Signs
Vital Signs
Temp Pulse Resp BP Pulse Ox
98.8 F 91 16 161/83 99
10/26/24 07:25 10/26/24 07:25 10/26/24 07:25 10/26/24 07:10/26/24 07:25
Physical Exam
Constitutional: Chronically Ill
Cardiovascular: Regular Rate and S1/S2
Pulmonary: Clear
Gastrointestinal: Soft, Non Tender, Non Distended and Normal Bowel Sounds
Extremities: Edema
Neurological: Other (Drowsy)
Objective Data
Lab Data
Lab Results
10/26/24 04:51
10/26/24 04:51
PT 14.6 Sec (11.4-14.6) 10/16/24 13:14
INR 1.11 10/16/24 13:14
APTT 32.8 Sec (23.4-35.0) 10/16/24 13:14
Estimated Creat Clear 87 ml/min 10/26/24 04:51
Total Bilirubin 0.8 mg/dl (0.2-1.3) 10/12/24 06:00
AST 26 U/L (17-59) 10/12/24 06:00
ALT 18 U/L (0-50) 10/12/24 06:00
Alkaline Phosphatase 57 U/L (38-126) 10/12/24 06:00
Most recent labs reviewed.
Micro Results:
10/06/24 14:08 Fungal Smear - Final
Csf No yeast or fungal elements seen.
Fungal Culture - Preliminary
Culture in progress.
Positive cultures are reported as soon as detected.
Final report to follow in four to five weeks.
10/06/24 14:08 CSF Culture - Final
Csf No Growth After 5 Days - Final Report
Gram Stain - Final
10/03/24 21:18 Blood Culture - Final
Blood/Venous No Growth - Final Report
10/03/24 20:58 Blood Culture - Final
Blood/Venous No Growth - Final Report
10/04/24 08:16 Salmonella/Shigella Culture - Final
Feces/Stool No Salmonella, Shigella, Aeromonas or Plesiomonas species
isolated.
Campylobacter Culture - Final
No Campylobacter species isolated.
Shiga Toxin Test - Final
No E. coli Shiga Toxin 1 or 2 detected.
Stool Leukocytes - Final
10/06/24 14:08 Meningitis/Encephalitis Panel (PCR) - Final
Csf
10/04/24 09:20 MRSA Screen - Final
Nose No Methicillin Resistant Staphylococcus aureus isolated.
10/04/24 09:20 Urine Culture - Final
Urine NO GROWTH
10/04/24 17:36 Influenza Types A & B (RADHA) - Final
Nasal Swab Negative for Influenza A & B, NAAT
Negative results must be combined with clinical observations
and patient history.
Nucleic Acid Amplification test (NAAT)performed on the
Zapproved platform.
10/04/24 17:36 Legionella Urinary Antigen - Final
Urine Negative for Legionella pneumophila Serogroup 1 antigen.
A negative result does not rule out the possiblity of
Legionella infection due to other serogroups or species of
Legionella. Clinical correlation is recommended.
Streptococcus pneumoniae Antigen (M - Final
Negative for Streptococcus pneumoniae antigen.
A negative result does not exclude infection with
Streptococcus pneumoniae. Clinical correlation is
recommended.
10/04/24 08:16 - Final
Feces/Stool Negative for Norovirus GI and GII.
10/04/24 08:16 C. difficile GDH Antigen & Toxins - Final
Feces/Stool Negative for toxigenic C.difficile
Meningitis Panel, CSF by PCR Final 10/06/24-1609
Escherichia coli K1 Not Detected
Haemophilus influenzae Not Detected
Listeria monocytogenes Not Detected
Neisseria meningitidis Not Detected
Cytomegalovirus (CMV) Not Detected
Streptococcus agalactiae Not Detected
Streptococcus pneumoniae Not Detected
Enterovirus Not Detected
--> Herpes simplex virus 1 DETECTED <--
Herpes simplex virus 2 Not Detected
Human herpesvirus 6 Not Detected
Human parechovirus Not Detected
Varicella zoster virus Not Detected
C. neoformans/gattii Not Detected
CSF
10/06/24 10/06/24
14:08 14:09
CSF Appearance Clear
CSF Color Colorless
CSF WBC 4
CSF RBC 14
CSF Cell Count Tube # 2
CSF Glucose 72 H
CSF Total Protein 217 H
CSF VDRL Non reactive
10/06/24
04:55
Syphilis Serology Positive
RPR Titer 1:256
RPR Reactive
HIV Ag/Ab Combo Qual Negative
10/18/24 Brain MRI: There is significantly decreased diffusion hyperintense signal along the anterior right temporal lobe and right insular cortex. There is persistent mild T2 hyperintense signal along the right insular cortex and medial right
temporal lobe with new cortical enhancement along the right insular cortex. Findings may represent an evolving subacute infarction or evolving encephalitis. Given the interval improvement a mass is considered unlikely.
10/04/24 Brain MRI: There is predominant cortical restricted diffusion involving the anterior right frontal lobe extending into the hippocampus and right insular cortex. There is additional foci of diffusion hyperintense signal within the posterior
aspect of the right thalamus. This constellation of findings can be seen in encephalitis (herpes or limbic), status epilepticus or acute infarction. Additionally Creutzfeld Christiano disease is considered unlikely, however cannot be excluded. Consider
correlation with CSF studies.
10/04/24 CXR: New minimal left lower lobe atelectasis versus scarring
10/04/24 CT Pe/abd/pel W: Mild left lower lobe airspace disease suggesting pneumonia. New
No acute pathology of the abdomen or pelvis identified
10/01/24 PET: Stable solitary right upper lobe pulmonary nodule which demonstrates mild FDG activity (with only minimal further increase on delayed imaging). This remains indeterminate with differential including infectious/inflammatory nodule or low
metabolic rate neoplasm.
09/01/[address]: Significant symmetric enlargement of the bilateral tonsillar soft tissues, which could be secondary to tonsillar hypertrophy or tonsillitis, with secondary narrowing of the oropharynx and hypopharynx. Bilateral pulmonary parenchymal
opacities suggesting pneumonia. 1.6 cm solid pulmonary nodule in the right upper lobe.
Care Review
Plan reviewed with: Physician (Dr. Garza)
--- NOTE | 2024-10-26 15:04 | PTCARENOTE ---
Pt more confused today per daughter - did not recognize her or himself. Pt has movement and equal strength in all extremities but not following commands to get OOB. Pt drowsy/withdrawn - wakes to verbal stimuli and responds that he is fine -
denies any needs.
[2024-10-26 15:10] VITALS: BP 180/86
--- NOTE | 2024-10-26 16:03 | CM ---
Reviewed the chart notes. Patient requiring max to mod assist with bed mobility and with mod assist of 1 with ambulation. PT recommending acute rehab. CM continues to be available to patient/family and is monitoring medical plan for needs at
discharge.
Plan: Discharge to acute rehab when medically stable, bed secured, and auth obtained.
[2024-10-26] MEDS: LOVENOX 40 MG SC (18:36)
[2024-10-26] MEDS: CARDURA 2 MG PO (21:18)
[2024-10-26] MEDS: ZESTRIL 5 MG PO (21:19)
[2024-10-26 22:37] VITALS: PULSE 2
[2024-10-26 23:13] VITALS: BP 162/72
[2024-10-27] VITALS (8 sets, daily range): BP systolic 101–193; BP diastolic 62–84; PULSE 2–86; O2SAT 95–96; BMI 28.9
[2024-10-27 04:42] LABS: Hematocrit 28.4 % (39.0-52.0); Hemoglobin 10.0 g/dL (13.0-18.0); Mean Corp Hgb Conc. 35.2 g/dL (33.0-37.0); Mean Corpuscular Volume 100.0 fL (80.0-94.0); Platelet Count 186 10^3/uL (130-400); Red Cell Dist. Width 17.8 % (11.5-14.5)
[2024-10-27 05:07] LABS: Blood Urea Nitrogen 5 mg/dl (9-20); Calcium 8.6 mg/dl (8.4-10.2); Carbon Dioxide 25 mmol/L (22-30); Chloride 106 mmol/L (98-107); Estimated Creatinine Clearance 87 ml/min; Glucose 97 mg/dl (70-99); Magnesium 1.9 mg/dl (1.6-2.3); Potassium 3.9 mmol/L (3.5-5.1); Sodium 134 mmol/L (135-145); eGFR > 60.00
[2024-10-27] MEDS: SYNTHROID 150 MCG PO (05:55)
--- NOTE | 2024-10-27 07:24 | W.PN.HOSP.TC ---
Today's Communication/Plan
-
dc Keppra, maintain sz precautions, monitor off
dc PICC, resume bp measurements via LUE after picc is removed
ST/PT/OT
RLE thigh cramping/stiffness, lidocaine patches, bengay-like cream, Tylenol, encourage physical activity, out of bed to chair, ambulation with assistance
discharge planning Acute rehab
Assessment / Plan
Assessment / Plan
Physical Exam
General: Not in acute distress, appears comfortable at this time
HEENT: Thick neck. Not tender, no induration, erythema, or palpable masses
Respiratory: CTAB
Cardiac: S1/S2 and Regular Rhythm
GI: Soft, Nontender, Distended, Normal Bowel Sounds. Obese
Musculoskeletal: No Cyanosis, No edema, palpable right thigh stiffness
Neuro: AAO x 3 conversant coherent significant memory issues noted
Psych: flat affect, paucity of speech calm, Listless
Assessment/Plan
79M hypothyroidism, HTN, acquired von Willebrand's disease, p/w generalized weakness AMS. Patient was in his usual state of good health until about 3-4 weeks prior to presentation. He became weak/fatigued. He was still able to complete his ADLs
until 24-48 hours prior presentation when his symptoms markedly worsened. Patient followed by Mony Mims for vWF, receives monthly IVIG (last dose 09/29). Patient also developed fullness/swelling in throat several weeks prior. Evaluated
and treated by outpt ENT Dr. Hicks. CT scan showed tonsillar hypertrophy but was otherwise unremarkable. Briefly treated for possible thrush, stopped when fungal smear returned neg. Over the 48 hours prior to presentation, patient remained
seated at home and has not left his chair. He reported shaking chills. Family noted swelling in legs L > R. Some confusion noted night prior, family ultimately convinced patient to come to ED when he was too weak to get up on his own.
Weakness / Ataxia / Confusion
Acute Toxic Metabolic Encephalopathy Likely Secondary to Encephalitis and Possibly From Pneumonia
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
Likely immunosuppressed from Daratumumab and Dex
Cognitive Impairment
- CT head in ED unremarkable.
- MRI brain with suspected encephalitis, later repeat MRI brain showed improvement
- ID eval appreciated
- IR performed LP on 10/06/24 -- high protein, low glucose
- Completed Acyclovir 21 day course through 10/25/24 as per ID
- CMV neg
- EBV serology panel significant for prior infection with no apparent reactivation.
- HIV negative
- Syphilis screen : Positive. RPR 1:256. CSF VDRL negative.
- PT/OT/ PMR eval appreciated Acute Rehab
- Appreciate neurology started on Keppra d/t highly epileptogenic focus Rt hemisphere noted on initial EEG, later EEG noted significant improvement, dose Keppra subsequently reduced d/t cognitive impairment concerns.
- 10/27 Unclear if Keppra remains necessary at this time, subsequently discontinued monitoring off, maintain sz precautions
- Briefly required seroquel for agitation since discontinued, no longer needed
- Persistent cognitive impairment, psychiatry evaluation appreciated unlikely pseudodementia/depression
- Repeat CT head 10/17 appreciated no acute abnormalities
- Multivitamin and Thiamine supplementations started. B12 supplementation added with low normal level 380 10/26
- Metoprolol replaced with Lisinopril d/t cognitive impairment concerns
- Per neurology, BIPAP HS provided empirically for possible cognitive impairment d/t sleep apnea
- ID eval appreciated, given reported allergy to penicillin, patient was originally planned for 14-day course of ceftriaxone, however given lack of cognitive improvement, PCN challenge was attempted and passed, continued PCN-G through 10/25/24
since completed as per ID
RLE thigh muscle cramping/stiffness
-lidocaine patches
-tylenol q4hwa
-bengay-like cream
-cont PT/OT
RUE edema
RUE PICC placed for planned shelter IV abx antiviral
Complicated with Superficial Thrombosis noted on RUE US 10/15/24
RUE PICC removed and LUE PICC placed
cont supportive care superficial thrombosis RUE w/ pain control, ice, and elevation- swelling since improved/resolved
-Hematology eval appreciated, continue Lovenox 40 mg QPM as DVT ppx
-Repeat RUE ultrasound 10/23/24 with similar results noted prior study 10/15
B/L Lower Extremity Edema
Hypoalbuminemia
-Venous Duplex neg for DVT lower ext's
-since improved resolved
-TEDs knee high ordered
Diarrhea, Abdominal Pain and Nausea Resolved
Mild fluid right inguinal canal -- postsurgical change more likely versus unlikely incarcerated/strangulated hernia, no significant pain at this time -- seen on CT Imaging
Constipation
- Stool studies unremarkable
- Surgery eval appreciated no need for intervention
- Initially had diarrhea since resolved, developed constipation; AXR suggests moderate amount of stool within the rectum
- Miralax and Senokot-S, given suppository with some improvement noted, fleet enema given 10/14
- Milk and Molasses Enema given 10/17 with good response noted
- Constipation resolved at this time
Gross Hematuria
Urinary Retention
-Recurrence during this hospitalization
-urology mentions expected with von Willebrands
-Hgb VSS
-CT without contrast with no obstructive uropathy or stones
-Consulted urology -- recommendation to continue bladder scans -- if PVR rising significantly, then place Negron -- but no interventions at this time as per urology
Hypothyroidism
- Initial elevated TSH low T4 improved since increased Synthroid to current 150 mcg
- repeat TFTs in 1 month
Acute Hypoxic Respiratory Insufficiency resolved
Chest Congestion
Likely LLL Pneumonia
Small Right Pleural Effusion on AXR from 10/09/24
Nocturnal O2 Desaturation (see nocturnal O2 saturation report from 10/06/24 morning)
History of Recent Pneumonia on CT Neck (treated outpatient with PCP in late August 2024 to early September 2024)
Former Smoker
-Weaned off oxygen supplementation
-Doxycycline completed
-ID eval appreciated ceftriaxone switched to PCN challenge as above
-Atrovent PRN given intolerance to Albuterol
-CT Abdomen/Pelvis from 10/07/24 showed bibasilar opacification -- most likely representing subsegmental atelectasis as well as tiny bilateral pleural effusions, left greater than right
-Recurrence of Hypoxia on 10/20/24 morning, confirmed with ABG
-Repeat CXR with low lung volumes
-EKG unremarkable, troponins negative, proBNP unremarkable
-Appreciate pulmonary
-Hypoxia likely from underlying bibasilar atelectasis from profound deconditioning and weakness causing VQ mismatch and hypoxemia. BiPAP has been started.
-Incentive Spirometer
-Encourage ambulation
-Outpt follow up for PFTs
-Mucinex
Persistent neck swelling/enlarged tonsils since 09/01/24, (recently treated with 30 day course of Fluconazole)
Recent Tonsillar Hypertrophy
Recent Thrush
-Follows Dr. Anna Hicks (ENT) outpt
-EBV serology panel significant for prior infection with no apparent reactivation.
Right Upper Lobe Pulmonary Nodule -- indeterminate PET scan
- follows Dr. Rider outpatient
- 1.6cm KADEN nodule see on multiple recent images. Mildly FDG-avid without significant delayed uptake.
- Covered with abx ceftriaxone / doxycycline since completed
- May benefit from biopsy for further evaluation if no improvement / resolution with antibiotics.
- Appreciate pulmonary
Acute Kidney Injury
- IV fluids with Normal Saline IV Fluids 70 cc/hr as per nephrology
- Continue to monitor renal function given patient is on Acyclovir --- continue IV Fluids while on IV antiviral
- Reduce IV fluids rate to 50 cc/hr given swelling in the extremities
- CT Abdomen Pelvis 10/07/24 with no stone or obstructive process
-resolved
Hyponatremia
- 50 ounce PO fluid restriction per day
Hypokalemia
Hypomagnesemia
- monitor and replete as necessary
Hypertension
-Cont antihypertensives -- recently increased Amlodipine to 5 mg BID
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
-Blood pressure measurements limited by Superficial Thrombosis RUE and PICC LUE, calf measurements likely falsely elevated when high
-LUE PICC since removed with completion IV abx antiviral, resumed bp measurements w/ LUE
Acquired von Willebrand's Disease (started at age 49 y/o) on monthly IVIG, Darzalex
- Stable. Patient maintained on IVIG monthly - last injection was 09/29/24.
- Hematology eval appreciated Acquired von willebrand disease fully controlled at this time, continued outpt hematology follow up recommended
MGUS
- Has been on Decadron, Darzalex, and IVIG -- sees Dr. Lucio outpatient
Vitamin D Deficiency
-cont supplementation
Low normal B12 level
-cont supplemenation
Coronary Artery Disease
Simple bilateral renal cysts
Appendicoliths
Speech/Diet: Regular Diet with Thin Liquids
DVT Prophylaxis: Lovenox
Code Status: Full Code
Discussed with patient and patient's daughter Jacqueline
I spent a total of 45 minutes with the patient or on the floor. More than 50% of this time involved counseling and coordination of care.
Anticipated Discharge: 24 - 48 hours
Subjective/Interval History
-
Date of Service: October 27, 2024
No acute distress appears relatively comfortable but listless. Reporting RLE pain/stiffness thigh likely cramping, improves with massage/activity. Daughter Jacqueline present during evaluation.
Objective Data
-
Labs:
Laboratory Results
10/27/24
04:22
WBC 4.6 L
Hgb 10.0 L
Hct 28.4 L
Plt Count 186
Sodium 134 L
Potassium 3.9
Chloride 106
Carbon Dioxide 25
BUN 5 L
Creatinine 0.7
Glucose 97
Calcium 8.6
Vital Signs:
Vital Signs
Temp Pulse Resp BP Pulse Ox
98.9 F 84 18 162/72 97
10/26/24 23:13 10/26/24 23:13 10/26/24 23:13 10/26/24 23:13 10/26/24 23:13
I&O
10/26/24 10/27/24 10/28/24
06:59 06:59 06:59
Intake Total 960 / 960 710 / 710
Output Total 2125 / 2125 3650 / 3650
Balance -1165 / -1165 -2940 / -2940
[2024-10-27] MEDS: PROTONIX 40 MG PO (09:26)
[2024-10-27] MEDS: ZESTRIL 5 MG PO ×2 (09:26→20:57)
[2024-10-27] MEDS: NORVASC 5 MG PO ×2 (09:26→20:57)
[2024-10-27] MEDS: KLOR-CON 20 MEQ PO ×2 (09:26→20:58)
[2024-10-27] MEDS: VITAMIN B-12 1000 MCG PO (09:27)
[2024-10-27] MEDS: VITAMIN B1 100 MG PO ×2 (09:27→20:57)
[2024-10-27] MEDS: MUCINEX 1200 MG PO ×2 (09:27→20:58)
[2024-10-27] MEDS: KEPPRA 250 MG PO (09:27)
[2024-10-27] MEDS: VITAMIN D3 (cholecalciferol) 25 MCG PO (09:27)
[2024-10-27] MEDS: SENOKOT-S 1 TABLET PO ×2 (09:27→20:57)
[2024-10-27] MEDS: MIRALAX 17 GRAMS PO (09:29)
[2024-10-27] MEDS: LIDOCAINE 4% PATCH 2 PATCH TOPICAL (12:11)
[2024-10-27] MEDS: TYLENOL 650 MG PO ×3 (12:11→20:57)
--- NOTE | 2024-10-27 15:38 | CM ---
Reviewed the chart notes. Per PT, continues to required A x2 for functional mobility along with max verbal and tactile cues for posture, navigating with RW and safety. Per OT, moderate assist of 2 to complete simple ADLs, functional transfers,
ambulation. CM continues to be available to patient/family and is monitoring medical plan for needs at discharge.
Plan: Recommendation remains acute rehab once medically stable, bed secured, and auth obtained.
[2024-10-27] MEDS: BenGay-Like 1 APPLIC TOPICAL ×2 (15:50→21:14)
[2024-10-27] MEDS: LOVENOX 40 MG SC (17:37)
[2024-10-27] MEDS: CARDURA 2 MG PO (20:57)
[2024-10-27] MEDS: REMOVE LIDOCAINE PATCH 2 PATCH REMOVE (21:14)
[2024-10-27] MEDS: TYLENOL PO (23:03)
[2024-10-28] MEDS: TYLENOL PO ×2 (04:34→23:34)
--- NOTE | 2024-10-28 04:44 | PTCARENOTE ---
Patient removed BIPAP and refusing to continue wearing it overnight. Pulse ox 94% and pt. was agreeable to wearing 2L NC overnight as he preferred not to wear his BIPAP. VSS at this time; plan of care continues.
[2024-10-28] MEDS: SYNTHROID 150 MCG PO (05:22)
[2024-10-28 06:00] VITALS: BMI 28.6
--- NOTE | 2024-10-28 06:48 | W.PN.HOSP.TC ---
Today's Communication/Plan
-
Possible discharge Acute Rehab tomorrow
need to clarify when next dose Darzalex and IVIG are due before discharge, discussing with hemeonc
Assessment / Plan
Assessment / Plan
Physical Exam
General: Not in acute distress, appears comfortable at this time
HEENT: Thick neck. Not tender, no induration, erythema, or palpable masses
Respiratory: CTAB
Cardiac: S1/S2 and Regular Rhythm
GI: Soft, Nontender, Distended, Normal Bowel Sounds. Obese
Musculoskeletal: No Cyanosis, No edema, palpable right thigh stiffness
Neuro: AAO x 3 conversant coherent significant memory issues noted
Psych: flat affect, paucity of speech calm, Listless
Assessment/Plan
79M hypothyroidism, HTN, acquired von Willebrand's disease, p/w generalized weakness AMS. Patient was in his usual state of good health until about 3-4 weeks prior to presentation. He became weak/fatigued. He was still able to complete his ADLs
until 24-48 hours prior presentation when his symptoms markedly worsened. Patient followed by Mony Mims for vWF, receives monthly IVIG (last dose 09/29). Patient also developed fullness/swelling in throat several weeks prior. Evaluated
and treated by outpt ENT Dr. Hicks. CT scan showed tonsillar hypertrophy but was otherwise unremarkable. Briefly treated for possible thrush, stopped when fungal smear returned neg. Over the 48 hours prior to presentation, patient remained
seated at home and has not left his chair. He reported shaking chills. Family noted swelling in legs L > R. Some confusion noted night prior, family ultimately convinced patient to come to ED when he was too weak to get up on his own.
Weakness / Ataxia / Confusion
Acute Toxic Metabolic Encephalopathy Likely Secondary to Encephalitis and Possibly From Pneumonia
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
Likely immunosuppressed from Daratumumab and Dex
Cognitive Impairment
- CT head in ED unremarkable.
- MRI brain with suspected encephalitis, later repeat MRI brain showed improvement
- ID eval appreciated
- IR performed LP on 10/06/24 -- high protein, low glucose
- Completed Acyclovir 21 day course through 10/25/24 as per ID
- CMV neg
- EBV serology panel significant for prior infection with no apparent reactivation.
- HIV negative
- Syphilis screen : Positive. RPR 1:256. CSF VDRL negative.
- PT/OT/ PMR eval appreciated Acute Rehab
- Appreciate neurology started on Keppra d/t highly epileptogenic focus Rt hemisphere noted on initial EEG, later EEG noted significant improvement, dose Keppra subsequently reduced d/t cognitive impairment concerns.
- 10/27 Unclear if Keppra remains necessary at this time, subsequently discontinued monitoring off, maintain sz precautions (Mental status since improved)
- Briefly required seroquel for agitation since discontinued, no longer needed
- Persistent cognitive impairment, psychiatry evaluation appreciated unlikely pseudodementia/depression
- Repeat CT head 10/17 appreciated no acute abnormalities
- Multivitamin and Thiamine supplementations started. B12 supplementation added with low normal level 380 10/26
- Metoprolol replaced with Lisinopril d/t cognitive impairment concerns
- Per neurology, BIPAP HS provided empirically for possible cognitive impairment d/t sleep apnea
- ID eval appreciated, given reported allergy to penicillin, patient was originally planned for 14-day course of ceftriaxone, however given lack of cognitive improvement, PCN challenge was attempted and passed, continued PCN-G through 10/25/24
since completed as per ID
-Follow up MRI EEG 10/28 noted no acute abn's, no sz activity noted on EEG
RLE thigh muscle cramping/stiffness
-lidocaine patches
-tylenol q4hwa
-bengay-like cream
-cont PT/OT
RUE edema
RUE PICC placed for planned alf IV abx antiviral
Complicated with Superficial Thrombosis noted on RUE US 10/15/24
RUE PICC removed and LUE PICC placed
cont supportive care superficial thrombosis RUE w/ pain control, ice, and elevation- swelling since improved/resolved
-Hematology eval appreciated, continue Lovenox 40 mg QPM as DVT ppx
-Repeat RUE ultrasound 10/23/24 with similar results noted prior study 10/15
B/L Lower Extremity Edema
Hypoalbuminemia
-Venous Duplex neg for DVT lower ext's
-since improved resolved
-TEDs knee high ordered
Diarrhea, Abdominal Pain and Nausea Resolved
Mild fluid right inguinal canal -- postsurgical change more likely versus unlikely incarcerated/strangulated hernia, no significant pain at this time -- seen on CT Imaging
Constipation
- Stool studies unremarkable
- Surgery eval appreciated no need for intervention
- Initially had diarrhea since resolved, developed constipation; AXR suggests moderate amount of stool within the rectum
- Miralax and Senokot-S, given suppository with some improvement noted, fleet enema given 10/14
- Milk and Molasses Enema given 10/17 with good response noted
- Constipation resolved at this time
Gross Hematuria
Urinary Retention
-Recurrence during this hospitalization
-urology mentions expected with von Willebrands
-Hgb VSS
-CT without contrast with no obstructive uropathy or stones
-Consulted urology -- recommendation to continue bladder scans -- if PVR rising significantly, then place Negron -- but no interventions at this time as per urology
Hypothyroidism
- Initial elevated TSH low T4 improved since increased Synthroid to current 150 mcg
- repeat TFTs in 1 month
Acute Hypoxic Respiratory Insufficiency resolved
Chest Congestion
Likely LLL Pneumonia
Small Right Pleural Effusion on AXR from 10/09/24
Nocturnal O2 Desaturation (see nocturnal O2 saturation report from 10/06/24 morning)
History of Recent Pneumonia on CT Neck (treated outpatient with PCP in late August 2024 to early September 2024)
Former Smoker
-Weaned off oxygen supplementation
-Doxycycline completed
-ID eval appreciated ceftriaxone switched to PCN challenge as above
-Atrovent PRN given intolerance to Albuterol
-CT Abdomen/Pelvis from 10/07/24 showed bibasilar opacification -- most likely representing subsegmental atelectasis as well as tiny bilateral pleural effusions, left greater than right
-Recurrence of Hypoxia on 10/20/24 morning, confirmed with ABG
-Repeat CXR with low lung volumes
-EKG unremarkable, troponins negative, proBNP unremarkable
-Appreciate pulmonary
-Hypoxia likely from underlying bibasilar atelectasis from profound deconditioning and weakness causing VQ mismatch and hypoxemia. BiPAP has been started.
-Incentive Spirometer
-Encourage ambulation
-Outpt follow up for PFTs
-Mucinex
Persistent neck swelling/enlarged tonsils since 09/01/24, (recently treated with 30 day course of Fluconazole)
Recent Tonsillar Hypertrophy
Recent Thrush
-Follows Dr. Anna Hicks (ENT) outpt
-EBV serology panel significant for prior infection with no apparent reactivation.
Right Upper Lobe Pulmonary Nodule -- indeterminate PET scan
- follows Dr. Rider outpatient
- 1.6cm KADEN nodule see on multiple recent images. Mildly FDG-avid without significant delayed uptake.
- Covered with abx ceftriaxone / doxycycline since completed
- May benefit from biopsy for further evaluation if no improvement / resolution with antibiotics.
- Appreciate pulmonary
Acute Kidney Injury
- IV fluids with Normal Saline IV Fluids 70 cc/hr as per nephrology
- Continue to monitor renal function given patient is on Acyclovir --- continue IV Fluids while on IV antiviral
- Reduce IV fluids rate to 50 cc/hr given swelling in the extremities
- CT Abdomen Pelvis 10/07/24 with no stone or obstructive process
-resolved
Hyponatremia
- 50 ounce PO fluid restriction per day
Hypokalemia
Hypomagnesemia
- monitor and replete as necessary
Hypertension
-Cont antihypertensives -- recently increased Amlodipine to 5 mg BID
-Stopped on 10/18/24 Toprol XL for possible [employer] effects/cognitive impairment and replaced with Lisinopril for better blood pressure control - titrated up to 5 mg BID
-Blood pressure measurements limited by Superficial Thrombosis RUE and PICC LUE, calf measurements likely falsely elevated when high
-LUE PICC since removed with completion IV abx antiviral, resumed bp measurements w/ LUE
Acquired von Willebrand's Disease (started at age 49 y/o) on monthly IVIG, Darzalex
MGUS
- Stable. Patient maintained on IVIG monthly - last injection was 09/29/24.
- Hematology eval appreciated Acquired von willebrand disease fully controlled at this time, continued outpt hematology follow up recommended
- discussing w/ heme/onc when next dose Darzalex and IVIG is due
Vitamin D Deficiency
-cont supplementation
Low normal B12 level
-cont supplemenation
Coronary Artery Disease
Simple bilateral renal cysts
Appendicoliths
Speech/Diet: Regular Diet with Thin Liquids
DVT Prophylaxis: Lovenox
Code Status: Full Code
Discussed with patient and patient's daughter Jacqueline
I spent a total of 45 minutes with the patient or on the floor. More than 50% of this time involved counseling and coordination of care.
Anticipated Discharge: Within 24 hours
Subjective/Interval History
-
Date of Service: October 28, 2024
Mental status improved, More alert interactive conversant. Daughter Jacqueline at bedside also notes significant improvement in mental status.
Objective Data
-
Labs:
Laboratory Results
10/28/24
06:00
WBC Pending
Hgb Pending
Hct Pending
Plt Count Pending
Sodium Pending
Potassium Pending
Chloride Pending
Carbon Dioxide Pending
BUN Pending
Creatinine Pending
Glucose Pending
Calcium Pending
Vital Signs:
Vital Signs
Temp Pulse Resp BP Pulse Ox
98.1 F 85 18 135/78 97
10/27/24 23:03 10/27/24 23:03 10/27/24 23:03 10/27/24 23:03 10/27/24 23:03
I&O
10/26/24 10/27/24 10/28/24
06:59 06:59 06:59
Intake Total 960 / 960 710 / 710 480 / 480
Output Total 2125 / 2125 3650 / 3650 1075 / 1075
Balance -1165 / -1165 -2940 / -2940 -595 / -595
[2024-10-28 07:46] VITALS: BP 106/57
[2024-10-28] MEDS: PROTONIX 40 MG PO (08:54)
[2024-10-28] MEDS: SENOKOT-S 1 TABLET PO ×2 (08:54→21:10)
[2024-10-28] MEDS: VITAMIN B-12 1000 MCG PO (08:55)
[2024-10-28] MEDS: TYLENOL 650 MG PO ×4 (08:55→21:10)
[2024-10-28] MEDS: MUCINEX 1200 MG PO ×2 (08:55→21:10)
[2024-10-28] MEDS: VITAMIN B1 100 MG PO ×2 (08:55→21:00)
[2024-10-28] MEDS: VITAMIN D3 (cholecalciferol) 25 MCG PO (08:55)
[2024-10-28] MEDS: LIDOCAINE 4% PATCH 2 PATCH TOPICAL (08:55)
[2024-10-28] MEDS: KLOR-CON 20 MEQ PO ×2 (08:56→21:10)
[2024-10-28] MEDS: MIRALAX 17 GRAMS PO (08:56)
[2024-10-28] MEDS: NORVASC 5 MG PO (08:56)
[2024-10-28] MEDS: BenGay-Like 1 APPLIC TOPICAL ×3 (08:58→21:12)
[2024-10-28] MEDS: ZESTRIL 5 MG PO (08:59)
[2024-10-28 09:18] LABS: Hematocrit 29.6 % (39.0-52.0); Hemoglobin 10.3 g/dL (13.0-18.0); Mean Corp Hgb Conc. 34.8 g/dL (33.0-37.0); Mean Corpuscular Volume 101.4 fL (80.0-94.0); Platelet Count 205 10^3/uL (130-400); Red Cell Dist. Width 18.0 % (11.5-14.5)
[2024-10-28 10:03] LABS: Blood Urea Nitrogen 7 mg/dl (9-20); Calcium 9.3 mg/dl (8.4-10.2); Carbon Dioxide 26 mmol/L (22-30); Chloride 106 mmol/L (98-107); Estimated Creatinine Clearance 76 ml/min; Glucose 95 mg/dl (70-99); Magnesium 2.0 mg/dl (1.6-2.3); Potassium 4.2 mmol/L (3.5-5.1); Sodium 134 mmol/L (135-145); eGFR > 60.00
--- NOTE | 2024-10-28 10:06 | EEG.RPT ---
Electroencephalogram Report
Recording
Date of EE10/28/24
Type of EEG: Routine
Length of EEG recordin minutes
Done with Video Recording: Yes
Patient Status: Inpatient
Recording Conditions: Awake and Drowsy
Hyperventilation Performed: No
Photic Stimulation Performed: Yes
Report
LESS THAN 1 HOUR EEG REPORT
LESS THAN 1 HOUR EEG INTERPRETATION:
Mildly abnormal study for age based on low amplitude even for age, generalized slowing demonstrated bihemispherically equally
CLINICAL CORRELATION:
Although normative values not been established for a person of this advanced age the patient�s symmetry of the background suggests that this study was suggestive of mild bihemispheric cortical dysfunction. No epileptiform features were demonstrated.
In comparison with the initial study performed October 18, 2024, there is no change.
If concerns remain regarding epilepsy, prolonged monitoring may be of assistance.
Clinical correlation is advised.
METHODS:
A 21-channel digital electroencephalogram (EEG) was performed. The 10/20 international system of electrode placement was used with ECG and lateral/vertical eye movements recorded. The [employer] quantitative EEG analysis system was performed
IMPRESSION(S):
Quality of study
Fair�good
Background
Low amplitude
Anterior-posterior voltage gradient differentiation: Fair
Theta frequency maximal background demonstrated
Sleep
Drowsiness present
Hyperventilation
Not performed
Photic Stimulation
Failed to activate the record
ECG
Normal rhythm
Abnormal Activity
None
[2024-10-28 10:31] LABS: Ammonia < 9 umol/L (9-30)
--- NOTE | 2024-10-28 10:56 | W.PN.ID1 ---
Date of Service
Date of Service: October 28, 2024
Today's Communication
Follow MRI brain, EEG result.
Assessment / Plan
# HSV-1 encephalitis
- 10/04 MRI brain: cortical restricted diffusion involving the anterior right frontal lobe extending into the hippocampus and right insular cortex. There is additional foci of diffusion hyperintense signal within the posterior aspect of the right
thalamus
- 10/05 EEG: EEG 10/05 showing epileptogenic right frontal lobe
- 10/18 Repeat MRI brain: There is significantly decreased diffusion hyperintense signal along the anterior right temporal lobe and right insular cortex. There is persistent mild T2 hyperintense signal along the right insular cortex and medial
right temporal lobe with new cortical enhancement along the right insular cortex.
- 10/18 EEG: no epileptic acitvity
- Completed Acyclovir 800 mg IV q8h x 21 days through 10/25/24.
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
- Of note RPR negative in 2021 base on review of [facility] labs.
- Unlikely neurosyphilis as CSF only 4 WBC. CSF VDRL neg (not sensitive test)
- s/p 12d ceftriaxone, dc'd 10/13/24
- s/p PCN-G 18MU to 24MU/d infusion x 13d through 10/25/24.
- Trend RPR titer in 3 months after completion of tx until at least 4 fold decrease in titer.
# Change in mental status - suspect drug related
- Appeared to have worsened while on Acyclovir and PCN-G, with MRI showing improvement.
- Many meds adjusted without improvement of mental status
- Dr. Greg plaza'd Gerard 10/27 -> today mental status significantly improved, pt fully alert.
- Repeat EEG and Brain MRI pending
# High risk sexual behavior
- HIV negative
# RUE picc- associated superficial thrombus. PICC dc'd 10/15
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
Chief Complaint
-: Other (Change in mental status; HSV 1 encephalitis; Positive RPR)
Subjective / Review of Systems
Patient awake and alert today. Daughter is pleased.
He cannot recall recent events.
Vital Signs / Physical Exam
Vital Signs
Vital Signs
Temp Pulse Resp BP Pulse Ox
97.9 F 94 18 106/57 98
10/28/24 07:46 10/28/24 07:46 10/27/24 23:03 10/28/24 08:56 10/28/24 09:38
Physical Exam
Constitutional: No Acute Distress
Eyes: No Conjunctival Hemorrhage and Sclera Anicteric
Cardiovascular: Regular Rate and S1/S2
Pulmonary: Clear
Gastrointestinal: Soft, Non Tender, Non Distended and Normal Bowel Sounds
Neurological: Awake and Alert (Conversant); Negative Meningeal Signs
Objective Data
Lab Data
Lab Results
10/28/24 08:42
10/28/24 08:42
PT 14.6 Sec (11.4-14.6) 10/16/24 13:14
INR 1.11 10/16/24 13:14
APTT 32.8 Sec (23.4-35.0) 10/16/24 13:14
Estimated Creat Clear 76 ml/min 10/28/24 08:42
Total Bilirubin 0.8 mg/dl (0.2-1.3) 10/12/24 06:00
AST 26 U/L (17-59) 10/12/24 06:00
ALT 18 U/L (0-50) 10/12/24 06:00
Alkaline Phosphatase 57 U/L (38-126) 10/12/24 06:00
Most recent labs reviewed.
Micro Results:
10/06/24 14:08 Fungal Smear - Final
Csf No yeast or fungal elements seen.
Fungal Culture - Preliminary
Culture in progress.
Positive cultures are reported as soon as detected.
Final report to follow in four to five weeks.
10/06/24 14:08 CSF Culture - Final
Csf No Growth After 5 Days - Final Report
Gram Stain - Final
10/03/24 21:18 Blood Culture - Final
Blood/Venous No Growth - Final Report
10/03/24 20:58 Blood Culture - Final
Blood/Venous No Growth - Final Report
10/04/24 08:16 Salmonella/Shigella Culture - Final
Feces/Stool No Salmonella, Shigella, Aeromonas or Plesiomonas species
isolated.
Campylobacter Culture - Final
No Campylobacter species isolated.
Shiga Toxin Test - Final
No E. coli Shiga Toxin 1 or 2 detected.
Stool Leukocytes - Final
10/06/24 14:08 Meningitis/Encephalitis Panel (PCR) - Final
Csf
10/04/24 09:20 MRSA Screen - Final
Nose No Methicillin Resistant Staphylococcus aureus isolated.
10/04/24 09:20 Urine Culture - Final
Urine NO GROWTH
10/04/24 17:36 Influenza Types A & B (RADHA) - Final
Nasal Swab Negative for Influenza A & B, NAAT
Negative results must be combined with clinical observations
and patient history.
Nucleic Acid Amplification test (NAAT)performed on the
[employer] platform.
10/04/24 17:36 Legionella Urinary Antigen - Final
Urine Negative for Legionella pneumophila Serogroup 1 antigen.
A negative result does not rule out the possiblity of
Legionella infection due to other serogroups or species of
Legionella. Clinical correlation is recommended.
Streptococcus pneumoniae Antigen (M - Final
Negative for Streptococcus pneumoniae antigen.
A negative result does not exclude infection with
Streptococcus pneumoniae. Clinical correlation is
recommended.
10/04/24 08:16 - Final
Feces/Stool Negative for Norovirus GI and GII.
10/04/24 08:16 C. difficile GDH Antigen & Toxins - Final
Feces/Stool Negative for toxigenic C.difficile
Meningitis Panel, CSF by PCR Final 10/06/24-1609
Escherichia coli K1 Not Detected
Haemophilus influenzae Not Detected
Listeria monocytogenes Not Detected
Neisseria meningitidis Not Detected
Cytomegalovirus (CMV) Not Detected
Streptococcus agalactiae Not Detected
Streptococcus pneumoniae Not Detected
Enterovirus Not Detected
--> Herpes simplex virus 1 DETECTED <--
Herpes simplex virus 2 Not Detected
Human herpesvirus 6 Not Detected
Human parechovirus Not Detected
Varicella zoster virus Not Detected
C. neoformans/gattii Not Detected
CSF
10/06/24 10/06/24
14:08 14:09
CSF Appearance Clear
CSF Color Colorless
CSF WBC 4
CSF RBC 14
CSF Cell Count Tube # 2
CSF Glucose 72 H
CSF Total Protein 217 H
CSF VDRL Non reactive
10/06/24
04:55
Syphilis Serology Positive
RPR Titer 1:256
RPR Reactive
HIV Ag/Ab Combo Qual Negative
10/18/24 Brain MRI: There is significantly decreased diffusion hyperintense signal along the anterior right temporal lobe and right insular cortex. There is persistent mild T2 hyperintense signal along the right insular cortex and medial right
temporal lobe with new cortical enhancement along the right insular cortex. Findings may represent an evolving subacute infarction or evolving encephalitis. Given the interval improvement a mass is considered unlikely.
10/04/24 Brain MRI: There is predominant cortical restricted diffusion involving the anterior right frontal lobe extending into the hippocampus and right insular cortex. There is additional foci of diffusion hyperintense signal within the posterior
aspect of the right thalamus. This constellation of findings can be seen in encephalitis (herpes or limbic), status epilepticus or acute infarction. Additionally Creutzfeld Christiano disease is considered unlikely, however cannot be excluded. Consider
correlation with CSF studies.
10/04/24 CXR: New minimal left lower lobe atelectasis versus scarring
10/04/24 CT Pe/abd/pel W: Mild left lower lobe airspace disease suggesting pneumonia. New
No acute pathology of the abdomen or pelvis identified
10/01/24 PET: Stable solitary right upper lobe pulmonary nodule which demonstrates mild FDG activity (with only minimal further increase on delayed imaging). This remains indeterminate with differential including infectious/inflammatory nodule or low
metabolic rate neoplasm.
09/01/[address]: Significant symmetric enlargement of the bilateral tonsillar soft tissues, which could be secondary to tonsillar hypertrophy or tonsillitis, with secondary narrowing of the oropharynx and hypopharynx. Bilateral pulmonary parenchymal
opacities suggesting pneumonia. 1.6 cm solid pulmonary nodule in the right upper lobe.
Care Review
Plan reviewed with: Physician (Dr. Garza)
--- NOTE | 2024-10-28 15:46 | CM ---
Reviewed the chart notes and spoke with the patient and daughter at bedside. IMM reviewed. Connelly will take tomorrow. Auth will be needed. PT/OT updated notes will be required.
[2024-10-28 16:08] VITALS: BP 111/64
[2024-10-28] MEDS: LOVENOX 40 MG SC (17:29)
[2024-10-28] MEDS: REMOVE LIDOCAINE PATCH 2 PATCH REMOVE (21:10)
[2024-10-28] MEDS: ZESTRIL PO (21:11)
[2024-10-28] MEDS: CARDURA PO (21:11)
[2024-10-28] MEDS: NORVASC PO (21:11)
[2024-10-28 23:00] VITALS: PULSE 2; PULSE 81
[2024-10-28 23:13] VITALS: BP 116/66
[2024-10-29] VITALS (8 sets, daily range): BP systolic 77–136; BP diastolic 54–82; PULSE 93; O2SAT 97; BMI 28.2
[2024-10-29] MEDS: TYLENOL PO ×3 (05:42→15:34)
[2024-10-29] MEDS: SYNTHROID 150 MCG PO (06:07)
[2024-10-29 07:24] LABS: Hematocrit 27.0 % (39.0-52.0); Hemoglobin 9.5 g/dL (13.0-18.0); Mean Corp Hgb Conc. 35.2 g/dL (33.0-37.0); Mean Corpuscular Volume 101.5 fL (80.0-94.0); Platelet Count 201 10^3/uL (130-400); Red Cell Dist. Width 18.2 % (11.5-14.5)
[2024-10-29 07:58] LABS: Blood Urea Nitrogen 11 mg/dl (9-20); Calcium 9.0 mg/dl (8.4-10.2); Carbon Dioxide 27 mmol/L (22-30); Chloride 107 mmol/L (98-107); Estimated Creatinine Clearance 68 ml/min; Glucose 92 mg/dl (70-99); Magnesium 1.9 mg/dl (1.6-2.3); Potassium 3.8 mmol/L (3.5-5.1); Sodium 135 mmol/L (135-145); eGFR > 60.00
--- NOTE | 2024-10-29 08:33 | W.PN.HOSP.TC ---
Today's Communication/Plan
-
reduce antihypertensives Amlodipine Lisinopril to daily
seizure precautions, monitor off Keppra
Discharge planning Acute Rehab
cont ST/PT/OT
Assessment / Plan
Assessment / Plan
Physical Exam
General: Not in acute distress, appears comfortable at this time
HEENT: Thick neck. Not tender, no induration, erythema, or palpable masses
Respiratory: CTAB
Cardiac: S1/S2 and Regular Rhythm
GI: Soft, Nontender, Distended, Normal Bowel Sounds. Obese
Musculoskeletal: No Cyanosis, No edema
Neuro: AAO x 3 conversant coherent significant memory issues noted
Psych: flat affect, paucity of speech calm, Listless
Assessment/Plan
79M hypothyroidism, HTN, acquired von Willebrand's disease, p/w generalized weakness AMS. Patient was in his usual state of good health until about 3-4 weeks prior to presentation. He became weak/fatigued. He was still able to complete his ADLs
until 24-48 hours prior presentation when his symptoms markedly worsened. Patient followed by Mony Mims for vWF, receives monthly IVIG (last dose 09/29). Patient also developed fullness/swelling in throat several weeks prior. Evaluated
and treated by outpt ENT Dr. Hicks. CT scan showed tonsillar hypertrophy but was otherwise unremarkable. Briefly treated for possible thrush, stopped when fungal smear returned neg. Over the 48 hours prior to presentation, patient remained
seated at home and has not left his chair. He reported shaking chills. Family noted swelling in legs L > R. Some confusion noted night prior, family ultimately convinced patient to come to ED when he was too weak to get up on his own.
Weakness / Ataxia / Confusion
Acute Toxic Metabolic Encephalopathy Likely Secondary to Encephalitis and Possibly From Pneumonia
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
Likely immunosuppressed from Daratumumab and Dex
Cognitive Impairment
- CT head in ED unremarkable.
- MRI brain with suspected encephalitis, later repeat MRI brain showed improvement
- ID eval appreciated
- IR performed LP on 10/06/24 -- high protein, low glucose
- Completed Acyclovir 21 day course through 10/25/24 as per ID
- CMV neg
- EBV serology panel significant for prior infection with no apparent reactivation.
- HIV negative
- Syphilis screen : Positive. RPR 1:256. CSF VDRL negative.
- PT/OT/ PMR eval appreciated Acute Rehab
- Appreciate neurology started on Keppra d/t highly epileptogenic focus Rt hemisphere noted on initial EEG, later EEG noted significant improvement, dose Keppra subsequently reduced d/t cognitive impairment concerns.
- 10/27 Unclear if Keppra remains necessary at this time, subsequently discontinued monitoring off, maintain sz precautions (Mental status since improved)
- Briefly required seroquel for agitation since discontinued, no longer needed
- Persistent cognitive impairment, psychiatry evaluation appreciated unlikely pseudodementia/depression
- Repeat CT head 10/17 appreciated no acute abnormalities
- Multivitamin and Thiamine supplementations started. B12 supplementation added with low normal level 380 10/26
- Metoprolol replaced with Lisinopril d/t cognitive impairment concerns
- Per neurology, BIPAP HS provided empirically for possible cognitive impairment d/t sleep apnea
- ID eval appreciated, given reported allergy to penicillin, patient was originally planned for 14-day course of ceftriaxone, however given lack of cognitive improvement, PCN challenge was attempted and passed, continued PCN-G through 10/25/24
since completed as per ID
-Follow up MRI EEG 10/28 noted no acute abn's, no sz activity noted on EEG (follow up repeat EEG in 1 mo recommended)
RLE thigh muscle cramping/stiffness
-lidocaine patches
-tylenol q4hwa
-bengay-like cream
-cont PT/OT
RUE edema
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
Complicated with Superficial Thrombosis noted on RUE US 10/15/24
RUE PICC removed and LUE PICC placed
cont supportive care superficial thrombosis RUE w/ pain control, ice, and elevation- swelling since improved/resolved
-Hematology eval appreciated, continue Lovenox 40 mg QPM as DVT ppx
-Repeat RUE ultrasound 10/23/24 with similar results noted prior study 10/15
B/L Lower Extremity Edema
Hypoalbuminemia
-Venous Duplex neg for DVT lower ext's
-since improved resolved
-TEDs knee high ordered
Diarrhea, Abdominal Pain and Nausea Resolved
Mild fluid right inguinal canal -- postsurgical change more likely versus unlikely incarcerated/strangulated hernia, no significant pain at this time -- seen on CT Imaging
Constipation
- Stool studies unremarkable
- Surgery eval appreciated no need for intervention
- Initially had diarrhea since resolved, developed constipation; AXR suggests moderate amount of stool within the rectum
- Miralax and Senokot-S, given suppository with some improvement noted, fleet enema given 10/14
- Milk and Molasses Enema given 10/17 with good response noted
- Constipation resolved at this time
Gross Hematuria
Urinary Retention
-Recurrence during this hospitalization
-urology mentions expected with von Willebrands
-Hgb VSS
-CT without contrast with no obstructive uropathy or stones
-Consulted urology -- recommendation to continue bladder scans -- if PVR rising significantly, then place Negron -- but no interventions at this time as per urology
Hypothyroidism
- Initial elevated TSH low T4 improved since increased Synthroid to current 150 mcg
- repeat TFTs in 1 month
Acute Hypoxic Respiratory Insufficiency resolved
Chest Congestion
Likely LLL Pneumonia
Small Right Pleural Effusion on AXR from 10/09/24
Nocturnal O2 Desaturation (see nocturnal O2 saturation report from 10/06/24 morning)
History of Recent Pneumonia on CT Neck (treated outpatient with PCP in late August 2024 to early September 2024)
Former Smoker
-Weaned off oxygen supplementation
-Doxycycline completed
-ID eval appreciated ceftriaxone switched to PCN challenge as above
-Atrovent PRN given intolerance to Albuterol
-CT Abdomen/Pelvis from 10/07/24 showed bibasilar opacification -- most likely representing subsegmental atelectasis as well as tiny bilateral pleural effusions, left greater than right
-Recurrence of Hypoxia on 10/20/24 morning, confirmed with ABG
-Repeat CXR with low lung volumes
-EKG unremarkable, troponins negative, proBNP unremarkable
-Appreciate pulmonary
-Hypoxia likely from underlying bibasilar atelectasis from profound deconditioning and weakness causing VQ mismatch and hypoxemia. BiPAP has been started.
-Incentive Spirometer
-Encourage ambulation
-Outpt follow up for PFTs
-Mucinex
Persistent neck swelling/enlarged tonsils since 09/01/24, (recently treated with 30 day course of Fluconazole)
Recent Tonsillar Hypertrophy
Recent Thrush
-Follows Dr. Anna Hicks (ENT) outpt
-EBV serology panel significant for prior infection with no apparent reactivation.
Right Upper Lobe Pulmonary Nodule -- indeterminate PET scan
- follows Dr. Rider outpatient
- 1.6cm KADEN nodule see on multiple recent images. Mildly FDG-avid without significant delayed uptake.
- Covered with abx ceftriaxone / doxycycline since completed
- May benefit from biopsy for further evaluation if no improvement / resolution with antibiotics.
- Appreciate pulmonary
Acute Kidney Injury
- IV fluids with Normal Saline IV Fluids 70 cc/hr as per nephrology
- Continue to monitor renal function given patient is on Acyclovir --- continue IV Fluids while on IV antiviral
- Reduce IV fluids rate to 50 cc/hr given swelling in the extremities
- CT Abdomen Pelvis 10/07/24 with no stone or obstructive process
-resolved
Hyponatremia
- 50 ounce PO fluid restriction per day
Hypokalemia
Hypomagnesemia
- monitor and replete as necessary
Hypertension
-Severe Hypotension 77/55 noted 10/29 asymptomatic sitting up in chair, developed after participating w/ PT/OT, resolved with IVF bolus 500 cc Antihypertensive regimen reduced Amlodipine and Lisinopril to Daily instead of BID (ostensibly severe low
bp value noted after switch from calf measurements back to LUE measurements)
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
-Prior Blood pressure measurements were limited by Superficial Thrombosis RUE and PICC LUE, calf measurements likely falsely elevated
-LUE PICC since removed with completion IV abx antiviral, resumed bp measurements w/ LUE
Acquired von Willebrand's Disease (started at age 49 y/o)
MGUS/Multiple Myeloma
On monthly IVIG, Darzalex
- Stable. Patient maintained on IVIG monthly - last injection was 09/29/24.
- Hematology eval appreciated Acquired von Willebrand disease fully controlled at this time, IVIG Darzalex not indicated at this time, cont outpt follow up w/ Dr Potts next month Nov 2024, ok to resume treatment after discharge
Vitamin D Deficiency
-cont supplementation
Low normal B12 level
-cont supplementation
Coronary Artery Disease
Simple bilateral renal cysts
Appendicoliths
Speech/Diet: Regular Diet with Thin Liquids
DVT Prophylaxis: Lovenox
Code Status: Full Code
Discussed with patient and patient's daughter Jacqueline
I spent a total of 45 minutes with the patient or on the floor. More than 50% of this time involved counseling and coordination of care.
Anticipated Discharge: 24 - 48 hours
Subjective/Interval History
-
Date of Service: October 29, 2024
mental status improved, more alert conversant. Jacqueline daughter at bedside also confirms improvement in mental status.
Objective Data
-
Labs:
Laboratory Results
10/29/24
07:03
WBC 4.8
Hgb 9.5 L
Hct 27.0 L
Plt Count 201
Sodium 135
Potassium 3.8
Chloride 107
Carbon Dioxide 27
BUN 11
Creatinine 0.9
Glucose 92
Calcium 9.0
Vital Signs:
Vital Signs
Temp Pulse Resp BP Pulse Ox
98.0 F 89 16 120/75 98
10/29/24 07:30 10/29/24 07:30 10/29/24 07:30 10/29/24 07:30 10/29/24 07:30
I&O
10/28/24 10/29/24 10/30/24
06:59 06:59 06:59
Intake Total 480 / 480 1440 / 1440
Output Total 1075 / 1075 1225 / 1225
Balance -595 / -595 215 / 215
--- NOTE | 2024-10-29 09:16 | W.PN.ONC ---
Today's Communication / Plan
-
Planned for acute discharge to rehab today
Lovenox 40mg for prophylaxis following PICC removal for superficial thrombus for total 6 weeks duration
Repeat vW panel WNL and normal coag profile. Last treated about one month ago for the acquired von Willebrand's. It is felt to be autoimmune and has been well controlled with monthly IVIg.
Patient has outpatient follow up with Dr. Angel scheduled in November for next Darzalex and IVIG
Will sign off from case. Please reach out if there are further questions
Impression
Impression
Acquired vonWillebrand's Disease
- Patient maintained on IVIG and Darzalex monthly - last injection was 09/22/2024
- Coagulation panel within normal limits as of late September
New PICC associated DVT
- Patient started on Lovenox 40mg for prophylaxis
Pulmonary Nodule
- 1.6cm KADEN nodule seen on multiple recent images. Mildly FDG-avid without significant delayed uptake.
Weakness / Ataxia / Confusion
- Etiology unclear, likely of neuro origin - CSF detected HSV1, started on acyclovir
- Primary team addressing individual issues including symptomatic hypothyroidism, hyponatremia
Plan
Plan
Lovenox 40mg for prophylaxis following PICC removal for superficial thrombus for total 6 weeks duration
Repeat vW panel WNL and normal coag profile. Last treated about one month ago for the acquired von Willebrand's. It is felt to be autoimmune and has been well controlled with monthly IVIg. Patient has outpatient follow up with Dr. Angel scheduled in
November.
Will sign off from case. Please reach out if there are further questions
Subjective/Objective
Subjective/Objective
Patient seen today at the bedside. Patient denies all ROS.
Physical
General: not in acute distress
Respiratory: normal breath sounds
Cardiovascular RRR
Abdominal: soft, nontender
Extremities: no edema noted
Vital Signs:
Vital Signs
Temp Pulse Resp BP Pulse Ox
98.0 F 89 16 120/75 98
10/29/24 07:30 10/29/24 07:30 10/29/24 07:30 10/29/24 07:30 10/29/24 07:30
Lab Results:
Laboratory Data
WBC 4.8 10^3/uL (4.8-10.8) 10/29/24 07:03
Hgb 9.5 g/dL (13.0-18.0) L 10/29/24 07:03
Plt Count 201 10^3/uL (130-400) 10/29/24 07:03
PT 14.6 Sec (11.4-14.6) 10/16/24 13:14
INR 1.11 10/16/24 13:14
APTT 32.8 Sec (23.4-35.0) 10/16/24 13:14
eGFR > 60.00 10/29/24 07:03
--- NOTE | 2024-10-29 10:47 | PTCARENOTE ---
While in chair after working w/ PT and OT, BP checked before routine medication administration, 77/55. Patient asymptomatic. Manual BP checked, 92/54. Dr. Garza made aware.
[2024-10-29] MEDS: SENOKOT-S PO (10:51)
[2024-10-29] MEDS: LIDOCAINE 4% PATCH 2 PATCH TOPICAL (10:53)
[2024-10-29] MEDS: VITAMIN D3 (cholecalciferol) 25 MCG PO (10:54)
[2024-10-29] MEDS: KLOR-CON 20 MEQ PO ×2 (10:54→20:25)
[2024-10-29] MEDS: VITAMIN B-12 1000 MCG PO (10:54)
[2024-10-29] MEDS: PROTONIX 40 MG PO (10:54)
[2024-10-29] MEDS: MIRALAX PO (10:55)
[2024-10-29] MEDS: TYLENOL 650 MG PO ×3 (10:55→23:17)
[2024-10-29] MEDS: MUCINEX 1200 MG PO ×2 (10:55→20:27)
[2024-10-29] MEDS: VITAMIN B1 100 MG PO ×2 (10:56→20:27)
[2024-10-29] MEDS: BenGay-Like 1 APPLIC TOPICAL ×2 (10:56→23:11)
[2024-10-29] MEDS: NSS 500 IV (11:05)
[2024-10-29] MEDS: ZESTRIL PO (11:11)
[2024-10-29] MEDS: NORVASC PO (11:11)
--- NOTE | 2024-10-29 11:38 | CM ---
Reviewed the chart notes. Auth initiated for [facility]. Pended auth # [id number]. CHUYITA spoke with Josselyn. Sent to [employer] for review. CM continues to be available to patient/family and is monitoring medical plan for needs at
discharge.
Plan: Discharge hopefully to [facility] once auth obtained.
--- NOTE | 2024-10-29 13:31 | W.PN.ID1 ---
Date of Service
Date of Service: October 29, 2024
Today's Communication
Follow up with me in 3 months.
ID will sign off.
Assessment / Plan
# HSV-1 encephalitis
- 10/04 MRI brain: cortical restricted diffusion involving the anterior right frontal lobe extending into the hippocampus and right insular cortex. There is additional foci of diffusion hyperintense signal within the posterior aspect of the right
thalamus
- 10/05 EEG: EEG 10/05 showing epileptogenic right frontal lobe
- 10/18 Repeat MRI brain: There is significantly decreased diffusion hyperintense signal along the anterior right temporal lobe and right insular cortex. There is persistent mild T2 hyperintense signal along the right insular cortex and medial
right temporal lobe with new cortical enhancement along the right insular cortex.
- 10/18 EEG: no epileptic activity
- Completed Acyclovir 800 mg IV q8h x 21 days through 10/25/24.
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
- Of note RPR negative in 2021 base on review of [facility] labs.
- Unlikely neurosyphilis as CSF only 4 WBC. CSF VDRL neg (not sensitive test)
- s/p 12d ceftriaxone, dc'd 10/13/24
- s/p PCN-G 18MU to 24MU/d infusion x 13d through 10/25/24.
- Trend RPR titer in 3 months after completion of tx until at least 4 fold decrease in titer.
- Follow up with me in 3 months.
# Change in mental status resolved - suspect drug related
- Dr. Garza dc'd Gerard on 10/27 -> mental status significantly improved, pt fully alert.
- Repeat EEG no seizure.
- Repeat Brain MRI no acute change.
# High risk sexual behavior
- HIV negative
# RUE picc- associated superficial thrombus. PICC dc'd 10/15
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
ID will sign off.
Chief Complaint
-: Other (Change in mental status; HSV 1 encephalitis; Positive RPR)
Subjective / Review of Systems
Sitting up in chair, awake, alert.
Vital Signs / Physical Exam
Vital Signs
Vital Signs
Temp Pulse Resp BP Pulse Ox
98.5 F 84 16 136/82 98
10/29/24 12:40 10/29/24 12:40 10/29/24 12:40 10/29/24 12:40 10/29/24 12:40
Physical Exam
Constitutional: No Acute Distress and Comfortable
Cardiovascular: Regular Rate and S1/S2
Pulmonary: Clear
Gastrointestinal: Soft, Non Tender, Non Distended and Normal Bowel Sounds
Extremities: Negative Edema
Neurological: AO x 3
Objective Data
Lab Data
Lab Results
10/29/24 07:03
10/29/24 07:03
PT 14.6 Sec (11.4-14.6) 10/16/24 13:14
INR 1.11 10/16/24 13:14
APTT 32.8 Sec (23.4-35.0) 10/16/24 13:14
Estimated Creat Clear 68 ml/min 10/29/24 07:03
Total Bilirubin 0.8 mg/dl (0.2-1.3) 10/12/24 06:00
AST 26 U/L (17-59) 10/12/24 06:00
ALT 18 U/L (0-50) 10/12/24 06:00
Alkaline Phosphatase 57 U/L (38-126) 10/12/24 06:00
Most recent labs reviewed.
Micro Results:
10/06/24 14:08 Fungal Smear - Final
Csf No yeast or fungal elements seen.
Fungal Culture - Preliminary
Culture in progress.
Positive cultures are reported as soon as detected.
Final report to follow in four to five weeks.
10/06/24 14:08 CSF Culture - Final
Csf No Growth After 5 Days - Final Report
Gram Stain - Final
10/03/24 21:18 Blood Culture - Final
Blood/Venous No Growth - Final Report
10/03/24 20:58 Blood Culture - Final
Blood/Venous No Growth - Final Report
10/04/24 08:16 Salmonella/Shigella Culture - Final
Feces/Stool No Salmonella, Shigella, Aeromonas or Plesiomonas species
isolated.
Campylobacter Culture - Final
No Campylobacter species isolated.
Shiga Toxin Test - Final
No E. coli Shiga Toxin 1 or 2 detected.
Stool Leukocytes - Final
10/06/24 14:08 Meningitis/Encephalitis Panel (PCR) - Final
Csf
10/04/24 09:20 MRSA Screen - Final
Nose No Methicillin Resistant Staphylococcus aureus isolated.
10/04/24 09:20 Urine Culture - Final
Urine NO GROWTH
10/04/24 17:36 Influenza Types A & B (RADHA) - Final
Nasal Swab Negative for Influenza A & B, NAAT
Negative results must be combined with clinical observations
and patient history.
Nucleic Acid Amplification test (NAAT)performed on the
[employer] platform.
10/04/24 17:36 Legionella Urinary Antigen - Final
Urine Negative for Legionella pneumophila Serogroup 1 antigen.
A negative result does not rule out the possiblity of
Legionella infection due to other serogroups or species of
Legionella. Clinical correlation is recommended.
Streptococcus pneumoniae Antigen (M - Final
Negative for Streptococcus pneumoniae antigen.
A negative result does not exclude infection with
Streptococcus pneumoniae. Clinical correlation is
recommended.
10/04/24 08:16 - Final
Feces/Stool Negative for Norovirus GI and GII.
10/04/24 08:16 C. difficile GDH Antigen & Toxins - Final
Feces/Stool Negative for toxigenic C.difficile
Meningitis Panel, CSF by PCR Final 10/06/24-1609
Escherichia coli K1 Not Detected
Haemophilus influenzae Not Detected
Listeria monocytogenes Not Detected
Neisseria meningitidis Not Detected
Cytomegalovirus (CMV) Not Detected
Streptococcus agalactiae Not Detected
Streptococcus pneumoniae Not Detected
Enterovirus Not Detected
--> Herpes simplex virus 1 DETECTED <--
Herpes simplex virus 2 Not Detected
Human herpesvirus 6 Not Detected
Human parechovirus Not Detected
Varicella zoster virus Not Detected
C. neoformans/gattii Not Detected
CSF
10/06/24 10/06/24
14:08 14:09
CSF Appearance Clear
CSF Color Colorless
CSF WBC 4
CSF RBC 14
CSF Cell Count Tube # 2
CSF Glucose 72 H
CSF Total Protein 217 H
CSF VDRL Non reactive
10/06/24
04:55
Syphilis Serology Positive
RPR Titer 1:256
RPR Reactive
HIV Ag/Ab Combo Qual Negative
10/18/24 Brain MRI: There is significantly decreased diffusion hyperintense signal along the anterior right temporal lobe and right insular cortex. There is persistent mild T2 hyperintense signal along the right insular cortex and medial right
temporal lobe with new cortical enhancement along the right insular cortex. Findings may represent an evolving subacute infarction or evolving encephalitis. Given the interval improvement a mass is considered unlikely.
10/04/24 Brain MRI: There is predominant cortical restricted diffusion involving the anterior right frontal lobe extending into the hippocampus and right insular cortex. There is additional foci of diffusion hyperintense signal within the posterior
aspect of the right thalamus. This constellation of findings can be seen in encephalitis (herpes or limbic), status epilepticus or acute infarction. Additionally Creutzfeld Christiano disease is considered unlikely, however cannot be excluded. Consider
correlation with CSF studies.
10/04/24 CXR: New minimal left lower lobe atelectasis versus scarring
10/04/24 CT Pe/abd/pel W: Mild left lower lobe airspace disease suggesting pneumonia. New
No acute pathology of the abdomen or pelvis identified
10/01/24 PET: Stable solitary right upper lobe pulmonary nodule which demonstrates mild FDG activity (with only minimal further increase on delayed imaging). This remains indeterminate with differential including infectious/inflammatory nodule or low
metabolic rate neoplasm.
09/01/[address]: Significant symmetric enlargement of the bilateral tonsillar soft tissues, which could be secondary to tonsillar hypertrophy or tonsillitis, with secondary narrowing of the oropharynx and hypopharynx. Bilateral pulmonary parenchymal
opacities suggesting pneumonia. 1.6 cm solid pulmonary nodule in the right upper lobe.
Care Review
Plan reviewed with: Physician (Dr. Garza)
[2024-10-29] MEDS: BenGay-Like TOPICAL (15:34)
[2024-10-29] MEDS: LOVENOX 40 MG SC (17:49)
[2024-10-29] MEDS: SENOKOT-S 1 TABLET PO (20:27)
[2024-10-29] MEDS: REMOVE LIDOCAINE PATCH 2 PATCH REMOVE (20:28)
[2024-10-29] MEDS: CARDURA 2 MG PO (23:10)
[2024-10-30] MEDS: TYLENOL PO ×5 (04:05→23:28)
[2024-10-30] MEDS: SYNTHROID 150 MCG PO (04:54)
[2024-10-30 06:00] VITALS: BMI 28.1
[2024-10-30 07:30] VITALS: BP 143/83
--- NOTE | 2024-10-30 08:35 | W.PN.HOSP.TC ---
Today's Communication/Plan
-
Stable for discharge pending Acute rehab Insurance Auth
Assessment / Plan
Assessment / Plan
Physical Exam
General: Not in acute distress, appears comfortable at this time
HEENT: Thick neck. Not tender, no induration, erythema, or palpable masses
Respiratory: CTAB
Cardiac: S1/S2 and Regular Rhythm
GI: Soft, Nontender, Distended, Normal Bowel Sounds. Obese
Musculoskeletal: No Cyanosis, No edema
Neuro: AAO x 3 conversant coherent significant memory issues noted
Psych: flat affect, paucity of speech calm, Listless
Assessment/Plan
79M hypothyroidism, HTN, acquired von Willebrand's disease, p/w generalized weakness AMS. Patient was in his usual state of good health until about 3-4 weeks prior to presentation. He became weak/fatigued. He was still able to complete his ADLs
until 24-48 hours prior presentation when his symptoms markedly worsened. Patient followed by Mony Mims for vWF, receives monthly IVIG (last dose 09/29). Patient also developed fullness/swelling in throat several weeks prior. Evaluated
and treated by outpt ENT Dr. Hicks. CT scan showed tonsillar hypertrophy but was otherwise unremarkable. Briefly treated for possible thrush, stopped when fungal smear returned neg. Over the 48 hours prior to presentation, patient remained
seated at home and has not left his chair. He reported shaking chills. Family noted swelling in legs L > R. Some confusion noted night prior, family ultimately convinced patient to come to ED when he was too weak to get up on his own.
Weakness / Ataxia / Confusion
Acute Toxic Metabolic Encephalopathy Likely Secondary to Encephalitis and Possibly From Pneumonia
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
Likely immunosuppressed from Daratumumab and Dex
Cognitive Impairment
- CT head in ED unremarkable.
- MRI brain with suspected encephalitis, later repeat MRI brain showed improvement
- ID eval appreciated
- IR performed LP on 10/06/24 -- high protein, low glucose
- Completed Acyclovir 21 day course through 10/25/24 as per ID
- CMV neg
- EBV serology panel significant for prior infection with no apparent reactivation.
- HIV negative
- Syphilis screen : Positive. RPR 1:256. CSF VDRL negative.
- PT/OT/ PMR eval appreciated Acute Rehab
- Appreciate neurology started on Keppra d/t highly epileptogenic focus Rt hemisphere noted on initial EEG, later EEG noted significant improvement, dose Keppra subsequently reduced d/t cognitive impairment concerns.
- 10/27 Unclear if Keppra remains necessary at this time, subsequently discontinued monitoring off, maintain sz precautions (Mental status since improved)
- Briefly required seroquel for agitation since discontinued, no longer needed
- Persistent cognitive impairment, psychiatry evaluation appreciated unlikely pseudodementia/depression
- Repeat CT head 10/17 appreciated no acute abnormalities
- Multivitamin and Thiamine supplementations started. B12 supplementation added with low normal level 380 10/26
- Metoprolol replaced with Lisinopril d/t cognitive impairment concerns
- Per neurology, BIPAP HS provided empirically for possible cognitive impairment d/t sleep apnea
- ID eval appreciated, given reported allergy to penicillin, patient was originally planned for 14-day course of ceftriaxone, however given lack of cognitive improvement, PCN challenge was attempted and passed, continued PCN-G through 10/25/24
since completed as per ID
-Follow up MRI EEG 10/28 noted no acute abn's, no sz activity noted on EEG (follow up repeat EEG in 1 mo recommended)
RLE thigh muscle cramping/stiffness
-lidocaine patches
-scheduled tylenol and bengay-like cream switched to PRN w/ improvement in pain
-out of bed to chair
-cont PT/OT
RUE edema
RUE PICC placed for planned fci IV abx antiviral
Complicated with Superficial Thrombosis noted on RUE US 10/15/24
RUE PICC removed and LUE PICC placed
cont supportive care superficial thrombosis RUE w/ pain control, ice, and elevation- swelling since improved/resolved
-Hematology eval appreciated, continue Lovenox 40 mg QPM as DVT ppx
-Repeat RUE ultrasound 10/23/24 with similar results noted prior study 10/15
B/L Lower Extremity Edema
Hypoalbuminemia
-Venous Duplex neg for DVT lower ext's
-since improved resolved
-TEDs knee high ordered
Diarrhea, Abdominal Pain and Nausea Resolved
Mild fluid right inguinal canal -- postsurgical change more likely versus unlikely incarcerated/strangulated hernia, no significant pain at this time -- seen on CT Imaging
Constipation
- Stool studies unremarkable
- Surgery eval appreciated no need for intervention
- Initially had diarrhea since resolved, developed constipation; AXR suggests moderate amount of stool within the rectum
- Miralax and Senokot-S, given suppository with some improvement noted, fleet enema given 10/14
- Milk and Molasses Enema given 10/17 with good response noted
- Constipation resolved at this time
Gross Hematuria
Urinary Retention
-Recurrence during this hospitalization
-urology mentions expected with von Willebrands
-Hgb VSS
-CT without contrast with no obstructive uropathy or stones
-Consulted urology -- recommendation to continue bladder scans -- if PVR rising significantly, then place Negron -- but no interventions at this time as per urology
Hypothyroidism
- Initial elevated TSH low T4 improved since increased Synthroid to current 150 mcg
- repeat TFTs in 1 month
Acute Hypoxic Respiratory Insufficiency resolved
Chest Congestion
Likely LLL Pneumonia
Small Right Pleural Effusion on AXR from 10/09/24
Nocturnal O2 Desaturation (see nocturnal O2 saturation report from 10/06/24 morning)
History of Recent Pneumonia on CT Neck (treated outpatient with PCP in late August 2024 to early September 2024)
Former Smoker
-Weaned off oxygen supplementation
-Doxycycline completed
-ID eval appreciated ceftriaxone switched to PCN challenge as above
-Atrovent PRN given intolerance to Albuterol
-CT Abdomen/Pelvis from 10/07/24 showed bibasilar opacification -- most likely representing subsegmental atelectasis as well as tiny bilateral pleural effusions, left greater than right
-Recurrence of Hypoxia on 10/20/24 morning, confirmed with ABG
-Repeat CXR with low lung volumes
-EKG unremarkable, troponins negative, proBNP unremarkable
-Appreciate pulmonary
-Hypoxia likely from underlying bibasilar atelectasis from profound deconditioning and weakness causing VQ mismatch and hypoxemia. BiPAP has been started.
-Incentive Spirometer
-Encourage ambulation
-Outpt follow up for PFTs
-Mucinex
Persistent neck swelling/enlarged tonsils since 09/01/24, (recently treated with 30 day course of Fluconazole)
Recent Tonsillar Hypertrophy
Recent Thrush
-Follows Dr. Anna Hicks (ENT) outpt
-EBV serology panel significant for prior infection with no apparent reactivation.
Right Upper Lobe Pulmonary Nodule -- indeterminate PET scan
- follows Dr. Rider outpatient
- 1.6cm KADEN nodule see on multiple recent images. Mildly FDG-avid without significant delayed uptake.
- Covered with abx ceftriaxone / doxycycline since completed
- May benefit from biopsy for further evaluation if no improvement / resolution with antibiotics.
- Appreciate pulmonary
Acute Kidney Injury
- IV fluids with Normal Saline IV Fluids 70 cc/hr as per nephrology
- Continue to monitor renal function given patient is on Acyclovir --- continue IV Fluids while on IV antiviral
- Reduce IV fluids rate to 50 cc/hr given swelling in the extremities
- CT Abdomen Pelvis 10/07/24 with no stone or obstructive process
-resolved
Hyponatremia
- 50 ounce PO fluid restriction per day
Hypokalemia
Hypomagnesemia
- monitor and replete as necessary
Hypertension
-Severe Hypotension 77/55 noted 10/29 asymptomatic sitting up in chair, developed after participating w/ PT/OT, resolved with IVF bolus 500 cc, Antihypertensive regimen reduced Amlodipine and Lisinopril to Daily instead of BID
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
-Prior Blood pressure measurements were limited by Superficial Thrombosis RUE and PICC LUE, calf measurements likely falsely elevated
-LUE PICC since removed with completion IV abx antiviral, resumed bp measurements w/ LUE
Acquired von Willebrand's Disease (started at age 49 y/o)
MGUS/Multiple Myeloma
On monthly IVIG, Darzalex
- Stable. Patient maintained on IVIG monthly - last injection was 09/29/24.
- Hematology eval appreciated Acquired von Willebrand disease fully controlled at this time, IVIG Darzalex not indicated at this time, cont outpt follow up w/ Dr Potts next month Nov 2024, ok to resume treatment after discharge
Vitamin D Deficiency
-cont supplementation
Low normal B12 level
-cont supplementation
Coronary Artery Disease
Simple bilateral renal cysts
Appendicoliths
Speech/Diet: Regular Diet with Thin Liquids
DVT Prophylaxis: Lovenox
Code Status: Full Code
Stable for discharge pending Acute rehab Insurance Auth
Discussed with patient and patient's daughter Jacqueline
I spent a total of 45 minutes with the patient or on the floor. More than 50% of this time involved counseling and coordination of care.
Anticipated Discharge: 24 - 48 hours
Subjective/Interval History
-
Date of Service: October 30, 2024
No acute distress. Appears comfortable at this time.
Objective Data
-
Vital Signs:
Vital Signs
Temp Pulse Resp BP Pulse Ox
98.2 F 80 18 143/83 96
10/30/24 07:30 10/30/24 07:30 10/30/24 07:30 10/30/24 07:30 10/30/24 07:30
I&O
10/29/24 10/30/24 10/31/24
06:59 06:59 06:59
Intake Total 1440 / 1440 1260 / 1260
Output Total 1225 / 1225 1425 / 1425
Balance 215 / 215 -165 / -165
[2024-10-30] MEDS: MIRALAX PO (09:38)
[2024-10-30] MEDS: MUCINEX 1200 MG PO ×2 (09:38→19:50)
[2024-10-30] MEDS: SENOKOT-S PO (09:39)
[2024-10-30] MEDS: VITAMIN B1 100 MG PO ×2 (09:39→19:50)
[2024-10-30] MEDS: KLOR-CON 20 MEQ PO ×2 (09:39→19:50)
[2024-10-30] MEDS: PROTONIX 40 MG PO (09:39)
[2024-10-30] MEDS: VITAMIN D3 (cholecalciferol) 25 MCG PO (09:40)
[2024-10-30] MEDS: ZESTRIL 5 MG PO (09:40)
[2024-10-30] MEDS: VITAMIN B-12 1000 MCG PO (09:40)
[2024-10-30] MEDS: NORVASC 5 MG PO (09:40)
[2024-10-30] MEDS: BenGay-Like TOPICAL ×3 (09:44→21:23)
[2024-10-30] MEDS: LIDOCAINE 4% PATCH 2 PATCH TOPICAL (09:45)
[2024-10-30 15:15] VITALS: BP 109/56
[2024-10-30] MEDS: LOVENOX 40 MG SC (18:18)
[2024-10-30] MEDS: SENOKOT-S 1 TABLET PO (19:50)
[2024-10-30] MEDS: TYLENOL 650 MG PO (19:50)
[2024-10-30] MEDS: REMOVE LIDOCAINE PATCH 2 PATCH REMOVE (19:50)
[2024-10-30 20:40] VITALS: BP 105/67; BP 116/70; PULSE 81; PULSE 83
[2024-10-30] MEDS: CARDURA PO (21:23)
[2024-10-30 23:20] VITALS: BP 122/68
[2024-10-31] MEDS: TYLENOL PO (03:27)
[2024-10-31] MEDS: SYNTHROID 150 MCG PO (05:29)
[2024-10-31 06:00] VITALS: BMI 27.9
[2024-10-31 07:15] LABS: Hematocrit 30.5 % (39.0-52.0); Hemoglobin 10.6 g/dL (13.0-18.0); Mean Corp Hgb Conc. 34.8 g/dL (33.0-37.0); Mean Corpuscular Volume 101.7 fL (80.0-94.0); Platelet Count 215 10^3/uL (130-400); Red Cell Dist. Width 17.4 % (11.5-14.5)
[2024-10-31 07:25] VITALS: BP 132/80
[2024-10-31 07:47] LABS: Blood Urea Nitrogen 10 mg/dl (9-20); Calcium 9.1 mg/dl (8.4-10.2); Carbon Dioxide 27 mmol/L (22-30); Chloride 106 mmol/L (98-107); Estimated Creatinine Clearance 68 ml/min; Glucose 92 mg/dl (70-99); Magnesium 2.0 mg/dl (1.6-2.3); Potassium 4.1 mmol/L (3.5-5.1); Sodium 137 mmol/L (135-145); eGFR > 60.00
--- NOTE | 2024-10-31 07:49 | W.PN.HOSP.TC ---
Today's Communication/Plan
-
Stable for discharge pending Acute rehab Insurance Auth
Assessment / Plan
Assessment / Plan
Physical Exam
General: Not in acute distress, appears comfortable at this time
HEENT: Thick neck. Not tender, no induration, erythema, or palpable masses
Respiratory: CTAB
Cardiac: S1/S2 and Regular Rhythm
GI: Soft, Nontender, Distended, Normal Bowel Sounds. Obese
Musculoskeletal: No Cyanosis, No edema
Neuro: AAO x 3 conversant coherent significant memory issues noted
Psych: calm cooperative
Assessment/Plan
79M hypothyroidism, HTN, acquired von Willebrand's disease, p/w generalized weakness AMS. Patient was in his usual state of good health until about 3-4 weeks prior to presentation. He became weak/fatigued. He was still able to complete his ADLs
until 24-48 hours prior presentation when his symptoms markedly worsened. Patient followed by Mony Mims for vWF, receives monthly IVIG (last dose 09/29). Patient also developed fullness/swelling in throat several weeks prior. Evaluated
and treated by outpt ENT Dr. Hicks. CT scan showed tonsillar hypertrophy but was otherwise unremarkable. Briefly treated for possible thrush, stopped when fungal smear returned neg. Over the 48 hours prior to presentation, patient remained
seated at home and has not left his chair. He reported shaking chills. Family noted swelling in legs L > R. Some confusion noted night prior, family ultimately convinced patient to come to ED when he was too weak to get up on his own.
Weakness / Ataxia / Confusion
Acute Toxic Metabolic Encephalopathy Likely Secondary to Encephalitis and Possibly From Pneumonia
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
Likely immunosuppressed from Daratumumab and Dex
Cognitive Impairment
- CT head in ED unremarkable.
- MRI brain with suspected encephalitis, later repeat MRI brain showed improvement
- ID eval appreciated
- IR performed LP on 10/06/24 -- high protein, low glucose
- Completed Acyclovir 21 day course through 10/25/24 as per ID
- CMV neg
- EBV serology panel significant for prior infection with no apparent reactivation.
- HIV negative
- Syphilis screen : Positive. RPR 1:256. CSF VDRL negative.
- Appreciate neurology started on Keppra d/t highly epileptogenic focus Rt hemisphere noted on initial EEG, later EEG noted significant improvement, dose Keppra subsequently reduced d/t cognitive impairment concerns.
- 10/27 Unclear if Keppra remains necessary at this time, subsequently discontinued monitoring off, maintain sz precautions (Mental status since improved)
- Briefly required seroquel for agitation since discontinued, no longer needed
- Persistent cognitive impairment, psychiatry evaluation appreciated unlikely pseudodementia/depression
- Repeat CT head 10/17 appreciated no acute abnormalities
- Multivitamin and Thiamine supplementations started. B12 supplementation added with low normal level 380 10/26
- Metoprolol replaced with Lisinopril d/t cognitive impairment concerns
- Per neurology, BIPAP HS provided empirically for possible cognitive impairment d/t sleep apnea
- ID eval appreciated, given reported allergy to penicillin, patient was originally planned for 14-day course of ceftriaxone, however given lack of cognitive improvement, PCN challenge was attempted and passed, continued PCN-G through 10/25/24
since completed as per ID
-Follow up MRI EEG 10/28 noted no acute abn's, no sz activity noted on EEG (follow up repeat EEG in 1 mo recommended)
RLE thigh muscle cramping/stiffness
-lidocaine patches
-scheduled tylenol and bengay-like cream switched to PRN w/ improvement in pain
-out of bed to chair
-cont PT/OT
RUE edema
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
Complicated with Superficial Thrombosis noted on RUE US 10/15/24
RUE PICC removed and LUE PICC placed
cont supportive care superficial thrombosis RUE w/ pain control, ice, and elevation- swelling since improved/resolved
-Hematology eval appreciated, continue Lovenox 40 mg QPM as DVT ppx
-Repeat RUE ultrasound 10/23/24 with similar results noted prior study 10/15
B/L Lower Extremity Edema
Hypoalbuminemia
-Venous Duplex neg for DVT lower ext's
-since improved resolved
-TEDs knee high ordered
Diarrhea, Abdominal Pain and Nausea Resolved
Mild fluid right inguinal canal -- postsurgical change more likely versus unlikely incarcerated/strangulated hernia, no significant pain at this time -- seen on CT Imaging
Constipation
- Stool studies unremarkable
- Surgery eval appreciated no need for intervention
- Initially had diarrhea since resolved, developed constipation; AXR suggests moderate amount of stool within the rectum
- Miralax and Senokot-S, given suppository with some improvement noted, fleet enema given 10/14
- Milk and Molasses Enema given 10/17 with good response noted
- Constipation resolved at this time
Gross Hematuria
Urinary Retention
-resolved at this time
Hypothyroidism
- Initial elevated TSH low T4 improved since increased Synthroid to current 150 mcg
- repeat TFTs in 1 month
Acute Hypoxic Respiratory Insufficiency- Resolved
Chest Congestion
Likely LLL Pneumonia
Small Right Pleural Effusion on AXR from 10/09/24
Nocturnal O2 Desaturation (see nocturnal O2 saturation report from 10/06/24 morning)
History of Recent Pneumonia on CT Neck (treated outpatient with PCP in late August 2024 to early September 2024)
Former Smoker
-Weaned off oxygen supplementation
-Doxycycline completed
-ID eval appreciated ceftriaxone switched to PCN challenge as above
-Atrovent PRN (has not required)
-CT Abdomen/Pelvis from 10/07/24 showed bibasilar opacification -- most likely representing subsegmental atelectasis as well as tiny bilateral pleural effusions, left greater than right
-Recurrence of Hypoxia on 10/20/24 morning, confirmed with ABG
-Repeat CXR with low lung volumes
-EKG unremarkable, troponins negative, proBNP unremarkable
-Appreciate pulmonary
-Hypoxia likely from underlying bibasilar atelectasis from profound deconditioning and weakness causing VQ mismatch and hypoxemia. BiPAP has been started.
-Incentive Spirometer
-Encourage ambulation
-Outpt follow up for PFTs
-Mucinex
-since weaned off stable respiratory status on room air.
Persistent neck swelling/enlarged tonsils since 09/01/24, (recently treated with 30 day course of Fluconazole)
Recent Tonsillar Hypertrophy
Recent Thrush
-Follows Dr. Anna Hicks (ENT) outpt
-EBV serology panel significant for prior infection with no apparent reactivation.
Right Upper Lobe Pulmonary Nodule -- indeterminate PET scan
- follows Dr. Rider outpatient
- 1.6cm KADEN nodule see on multiple recent images. Mildly FDG-avid without significant delayed uptake.
- Covered with abx ceftriaxone / doxycycline since completed
- May benefit from biopsy for further evaluation if no improvement / resolution with antibiotics.
- Appreciate pulmonary
Acute Kidney Injury
- IV fluids with Normal Saline IV Fluids 70 cc/hr as per nephrology
- Continue to monitor renal function given patient is on Acyclovir --- continue IV Fluids while on IV antiviral
- Reduce IV fluids rate to 50 cc/hr given swelling in the extremities
- CT Abdomen Pelvis 10/07/24 with no stone or obstructive process
-resolved
Hyponatremia
- 50 ounce PO fluid restriction per day
Hypokalemia
Hypomagnesemia
- monitor and replete as necessary
Hypertension
-Episode Severe Hypotension 77/55 noted 10/29 asymptomatic sitting up in chair, developed after participating w/ PT/OT, resolved with IVF bolus 500 cc, Antihypertensive regimen reduced Amlodipine and Lisinopril to Daily instead of BID, blood
pressure control since improved
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
-Prior Blood pressure measurements were limited by Superficial Thrombosis RUE and PICC LUE, calf measurements likely falsely elevated
-LUE PICC since removed with completion IV abx antiviral, resumed bp measurements w/ LUE
Acquired von Willebrand's Disease (started at age 49 y/o)
MGUS/Multiple Myeloma
On monthly IVIG, Darzalex
- Stable. Patient maintained on IVIG monthly - last injection was 09/29/24.
- Hematology eval appreciated Acquired von Willebrand disease fully controlled at this time, IVIG Darzalex not indicated at this time, cont outpt follow up w/ Dr Potts next month Nov 2024, ok to resume treatment after discharge
Vitamin D Deficiency
-cont supplementation
Low normal B12 level
-cont supplementation
Coronary Artery Disease
Simple bilateral renal cysts
Appendicoliths
PT/OT/ PMR eval appreciated Acute Rehab
Speech/Diet: Regular Diet with Thin Liquids
DVT Prophylaxis: Lovenox
Code Status: Full Code
Stable for discharge pending Acute rehab Insurance Auth
Discussed with patient and patient's daughter Jacqueline
I spent a total of 40 minutes with the patient or on the floor. More than 50% of this time involved counseling and coordination of care.
Anticipated Discharge: 24 - 48 hours
Subjective/Interval History
-
Date of Service: October 31, 2024
No acute distress sitting up comfortably in chair. Appears cheerful, smiling/laughing with jokes. Family at bedside (daughter Jacqueline and grandson Joe) note significant improvement in mental status compared to prior days
Objective Data
-
Labs:
Laboratory Results
10/31/24
06:25
WBC 6.1
Hgb 10.6 L
Hct 30.5 L
Plt Count 215
Sodium 137
Potassium 4.1
Chloride 106
Carbon Dioxide 27
BUN 10
Creatinine 0.9
Glucose 92
Calcium 9.1
Vital Signs:
Vital Signs
Temp Pulse Resp BP Pulse Ox
98.6 F 82 18 132/80 97
10/31/24 07:25 10/31/24 07:25 10/31/24 07:25 10/31/24 07:25 10/31/24 07:25
I&O
10/30/24 10/31/24 11/01/24
06:59 06:59 06:59
Intake Total 1260 / 1260 1380 / 1380
Output Total 1425 / 1425 1375 / 1375
Balance -165 / -165
[2024-10-31] MEDS: SENOKOT-S 1 TABLET PO ×2 (09:03→21:00)
[2024-10-31] MEDS: MIRALAX 17 GRAMS PO (09:03)
[2024-10-31] MEDS: VITAMIN B1 100 MG PO ×2 (09:03→21:01)
[2024-10-31] MEDS: MUCINEX 1200 MG PO ×2 (09:03→21:00)
[2024-10-31] MEDS: VITAMIN D3 (cholecalciferol) 25 MCG PO (09:03)
[2024-10-31] MEDS: PROTONIX 40 MG PO (09:04)
[2024-10-31] MEDS: ZESTRIL 5 MG PO (09:04)
[2024-10-31] MEDS: NORVASC 5 MG PO (09:04)
[2024-10-31] MEDS: KLOR-CON 20 MEQ PO ×2 (09:04→21:01)
[2024-10-31] MEDS: VITAMIN B-12 1000 MCG PO (09:04)
[2024-10-31] MEDS: LIDOCAINE 4% PATCH TOPICAL ×2 (09:04→09:32)
[2024-10-31 15:20] VITALS: BP 107/60
[2024-10-31] MEDS: LOVENOX 40 MG SC (17:19)
[2024-10-31] MEDS: REMOVE LIDOCAINE PATCH REMOVE (21:01)
[2024-10-31 22:41] VITALS: PULSE 2; PULSE 82
[2024-10-31 23:13] VITALS: BP 127/77
[2024-10-31] MEDS: CARDURA 2 MG PO (23:28)
[2024-11-01] VITALS (7 sets, daily range): BP systolic 103–116; BP diastolic 57–70; PULSE 2–86; O2SAT 95–96; BMI 27.4
[2024-11-01] MEDS: SYNTHROID 150 MCG PO (05:05)
[2024-11-01 08:04] LABS: Hematocrit 29.6 % (39.0-52.0); Hemoglobin 10.3 g/dL (13.0-18.0); Mean Corp Hgb Conc. 34.8 g/dL (33.0-37.0); Mean Corpuscular Volume 102.8 fL (80.0-94.0); Platelet Count 206 10^3/uL (130-400); Red Cell Dist. Width 17.5 % (11.5-14.5)
--- NOTE | 2024-11-01 08:22 | W.PN.HOSP.TC ---
Today's Communication/Plan
-
Placement pending
Assessment / Plan
Assessment / Plan
Physical Exam
General: Not in acute distress, appears comfortable at this time
HEENT: Thick neck. Not tender, no induration, erythema, or palpable masses
Respiratory: CTAB
Cardiac: S1/S2 and Regular Rhythm
GI: Soft, Nontender, Distended, Normal Bowel Sounds. Obese
Musculoskeletal: No Cyanosis, No edema
Neuro: AAO x 3 conversant coherent significant memory issues noted
Psych: calm cooperative
Assessment/Plan
79M hypothyroidism, HTN, acquired von Willebrand's disease, p/w generalized weakness AMS. Patient was in his usual state of good health until about 3-4 weeks prior to presentation. He became weak/fatigued. He was still able to complete his ADLs
until 24-48 hours prior presentation when his symptoms markedly worsened. Patient followed by Mony Mims for vWF, receives monthly IVIG (last dose 09/29). Patient also developed fullness/swelling in throat several weeks prior. Evaluated
and treated by outpt ENT Dr. Hicks. CT scan showed tonsillar hypertrophy but was otherwise unremarkable. Briefly treated for possible thrush, stopped when fungal smear returned neg. Over the 48 hours prior to presentation, patient remained
seated at home and has not left his chair. He reported shaking chills. Family noted swelling in legs L > R. Some confusion noted night prior, family ultimately convinced patient to come to ED when he was too weak to get up on his own.
Weakness / Ataxia / Confusion
Acute Toxic Metabolic Encephalopathy Likely Secondary to Encephalitis and Possibly From Pneumonia
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
Likely immunosuppressed from Daratumumab and Dex
Cognitive Impairment
- CT head in ED unremarkable.
- MRI brain with suspected encephalitis, later repeat MRI brain showed improvement
- ID eval appreciated
- IR performed LP on 10/06/24 -- high protein, low glucose
- Completed Acyclovir 21 day course through 10/25/24 as per ID
- CMV neg
- EBV serology panel significant for prior infection with no apparent reactivation.
- HIV negative
- Syphilis screen : Positive. RPR 1:256. CSF VDRL negative.
- Appreciate neurology started on Keppra d/t highly epileptogenic focus Rt hemisphere noted on initial EEG, later EEG noted significant improvement, dose Keppra subsequently reduced d/t cognitive impairment concerns.
- 10/27 Unclear if Keppra remains necessary at this time, subsequently discontinued monitoring off, maintain sz precautions (Mental status since improved)
- Briefly required seroquel for agitation since discontinued, no longer needed
- Persistent cognitive impairment, psychiatry evaluation appreciated unlikely pseudodementia/depression
- Repeat CT head 10/17 appreciated no acute abnormalities
- Multivitamin and Thiamine supplementations started. B12 supplementation added with low normal level 380 10/26
- Metoprolol replaced with Lisinopril d/t cognitive impairment concerns
- Per neurology, BIPAP HS provided empirically for possible cognitive impairment d/t sleep apnea
- ID eval appreciated, given reported allergy to penicillin, patient was originally planned for 14-day course of ceftriaxone, however given lack of cognitive improvement, PCN challenge was attempted and passed, continued PCN-G through 10/25/24
since completed as per ID
-Follow up MRI EEG 10/28 noted no acute abn's, no sz activity noted on EEG (follow up repeat EEG in 1 mo recommended)
RLE thigh muscle cramping/stiffness
-lidocaine patches
-scheduled tylenol and bengay-like cream switched to PRN w/ improvement in pain
-out of bed to chair
-cont PT/OT
RUE edema
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
Complicated with Superficial Thrombosis noted on RUE US 10/15/24
RUE PICC removed and LUE PICC placed
cont supportive care superficial thrombosis RUE w/ pain control, ice, and elevation- swelling since improved/resolved
-Hematology eval appreciated, continue Lovenox 40 mg QPM as DVT ppx
-Repeat RUE ultrasound 10/23/24 with similar results noted prior study 10/15
B/L Lower Extremity Edema
Hypoalbuminemia
-Venous Duplex neg for DVT lower ext's
-since improved resolved
-TEDs knee high ordered
Diarrhea, Abdominal Pain and Nausea Resolved
Mild fluid right inguinal canal -- postsurgical change more likely versus unlikely incarcerated/strangulated hernia, no significant pain at this time -- seen on CT Imaging
Constipation
- Stool studies unremarkable
- Surgery eval appreciated no need for intervention
- Initially had diarrhea since resolved, developed constipation; AXR suggests moderate amount of stool within the rectum
- Miralax and Senokot-S, given suppository with some improvement noted, fleet enema given 10/14
- Milk and Molasses Enema given 10/17 with good response noted
- Constipation resolved at this time
Gross Hematuria
Urinary Retention
-resolved at this time
Hypothyroidism
- Initial elevated TSH low T4 improved since increased Synthroid to current 150 mcg
- repeat TFTs in 1 month
Acute Hypoxic Respiratory Insufficiency- Resolved
Chest Congestion
Likely LLL Pneumonia
Small Right Pleural Effusion on AXR from 10/09/24
Nocturnal O2 Desaturation (see nocturnal O2 saturation report from 10/06/24 morning)
History of Recent Pneumonia on CT Neck (treated outpatient with PCP in late August 2024 to early September 2024)
Former Smoker
-Weaned off oxygen supplementation
-Doxycycline completed
-ID eval appreciated ceftriaxone switched to PCN challenge as above
-Atrovent PRN (has not required)
-CT Abdomen/Pelvis from 10/07/24 showed bibasilar opacification -- most likely representing subsegmental atelectasis as well as tiny bilateral pleural effusions, left greater than right
-Recurrence of Hypoxia on 10/20/24 morning, confirmed with ABG
-Repeat CXR with low lung volumes
-EKG unremarkable, troponins negative, proBNP unremarkable
-Appreciate pulmonary
-Hypoxia likely from underlying bibasilar atelectasis from profound deconditioning and weakness causing VQ mismatch and hypoxemia. BiPAP has been started.
-Incentive Spirometer
-Encourage ambulation
-Outpt follow up for PFTs
-Mucinex
-since weaned off stable respiratory status on room air.
Persistent neck swelling/enlarged tonsils since 09/01/24, (recently treated with 30 day course of Fluconazole)
Recent Tonsillar Hypertrophy
Recent Thrush
-Follows Dr. Anna Hicks (ENT) outpt
-EBV serology panel significant for prior infection with no apparent reactivation.
Right Upper Lobe Pulmonary Nodule -- indeterminate PET scan
- follows Dr. Rider outpatient
- 1.6cm KADEN nodule see on multiple recent images. Mildly FDG-avid without significant delayed uptake.
- Covered with abx ceftriaxone / doxycycline since completed
- May benefit from biopsy for further evaluation if no improvement / resolution with antibiotics.
- Appreciate pulmonary
Acute Kidney Injury
- IV fluids with Normal Saline IV Fluids 70 cc/hr as per nephrology
- Continue to monitor renal function given patient is on Acyclovir --- continue IV Fluids while on IV antiviral
- Reduce IV fluids rate to 50 cc/hr given swelling in the extremities
- CT Abdomen Pelvis 10/07/24 with no stone or obstructive process
-resolved
Hyponatremia
- 50 ounce PO fluid restriction per day
Hypokalemia
Hypomagnesemia
- monitor and replete as necessary
Hypertension
-Episode Severe Hypotension 77/55 noted 10/29 asymptomatic sitting up in chair, developed after participating w/ PT/OT, resolved with IVF bolus 500 cc, Antihypertensive regimen reduced Amlodipine and Lisinopril to Daily instead of BID, blood
pressure control since improved
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
-Prior Blood pressure measurements were limited by Superficial Thrombosis RUE and PICC LUE, calf measurements likely falsely elevated
-LUE PICC since removed with completion IV abx antiviral, resumed bp measurements w/ LUE
Acquired von Willebrand's Disease (started at age 49 y/o)
MGUS/Multiple Myeloma
On monthly IVIG, Darzalex
- Stable. Patient maintained on IVIG monthly - last injection was 09/29/24.
- Hematology eval appreciated Acquired von Willebrand disease fully controlled at this time, IVIG Darzalex not indicated at this time, cont outpt follow up w/ Dr Potts next month Nov 2024, ok to resume treatment after discharge
Vitamin D Deficiency
-cont supplementation
Low normal B12 level
-cont supplementation
Coronary Artery Disease
Simple bilateral renal cysts
Appendicoliths
PT/OT/ PMR eval appreciated Acute Rehab
Speech/Diet: Regular Diet with Thin Liquids
DVT Prophylaxis: Lovenox
Code Status: Full Code
Medically stable for discharge, awaiting placement
Discussed with patient and patient's daughter Jacqueline
Anticipated Discharge: 24 - 48 hours
Subjective/Interval History
-
Date of Service: November 01, 2024
Patient was seen and examined. He denied any new symptoms.
Objective Data
-
Labs:
Laboratory Results
11/01/24 11/01/24
07:18 07:19
WBC 6.6
Hgb 10.3 L
Hct 29.6 L
Plt Count 206
Sodium Pending
Potassium Pending
Chloride Pending
Carbon Dioxide Pending
BUN Pending
Creatinine Pending
Glucose Pending
Calcium Pending
Vital Signs:
Vital Signs
Temp Pulse Resp BP Pulse Ox
98.5 F 77 16 116/63 98
11/01/24 07:38 11/01/24 07:38 11/01/24 07:38 11/01/24 07:38 11/01/24 07:38
I&O
10/31/24 11/01/24 11/02/24
06:59 06:59 06:59
Intake Total 1380 / 1380 900 / 900
Output Total 1375 / 1375
Balance 5 5 900 / 900
[2024-11-01] MEDS: NORVASC 5 MG PO (08:24)
[2024-11-01] MEDS: VITAMIN D3 (cholecalciferol) 25 MCG PO (08:24)
[2024-11-01] MEDS: VITAMIN B-12 1000 MCG PO (08:25)
[2024-11-01] MEDS: KLOR-CON 20 MEQ PO ×2 (08:25→20:24)
[2024-11-01] MEDS: VITAMIN B1 100 MG PO ×2 (08:25→20:24)
[2024-11-01] MEDS: ZESTRIL 5 MG PO (08:26)
[2024-11-01] MEDS: SENOKOT-S 1 TABLET PO ×2 (08:35→20:24)
[2024-11-01 08:39] LABS: Blood Urea Nitrogen 15 mg/dl (9-20); Calcium 8.9 mg/dl (8.4-10.2); Carbon Dioxide 26 mmol/L (22-30); Chloride 108 mmol/L (98-107); Estimated Creatinine Clearance 76 ml/min; Glucose 98 mg/dl (70-99); Magnesium 2.0 mg/dl (1.6-2.3); Potassium 4.0 mmol/L (3.5-5.1); Sodium 136 mmol/L (135-145); eGFR > 60.00
--- NOTE | 2024-11-01 12:26 | CM ---
Addendum entered by Oneyda Garcia RN 11/01/24 15:38:
CM spoke with the patient's daughter at the bedside. Daughter agreeable to SNF referrals being sent to area SNFs. Referrals with [facility] sent. Precert will be required.
Original Note:
Reviewed the chart notes and spoke with the patient's daughter at the bedside. Called insurance for P2P information. Forwarded to medical data entry clerk for review. P2P can call ([phone]), but [facility] does not do Medicare appeals anymore.
Explained to daughter acute rehab was denied, sub acute appropriate per insurance. Information provided to the patient's daughter to do an appeal on behalf of the patient. Attempted to discuss SNFs with the patient's daughter, but she is not
interested in SNF, wants [facility]. CM continues to be available to patient/family and is monitoring medical plan for needs at discharge.
Plan: Discharge plans will depend on whether family can have denial overturned via an appeal.
[2024-11-01] MEDS: BenGay-Like 1 APPLIC TOPICAL (14:07)
[2024-11-01] MEDS: LOVENOX 40 MG SC (17:34)
[2024-11-01] MEDS: TYLENOL 650 MG PO (20:25)
[2024-11-01] MEDS: CARDURA 2 MG PO (20:59)
[2024-11-02] MEDS: SYNTHROID 150 MCG PO (05:37)
[2024-11-02 06:00] VITALS: BMI 27.3
[2024-11-02 07:18] LABS: Hematocrit 28.0 % (39.0-52.0); Hemoglobin 9.5 g/dL (13.0-18.0); Mean Corp Hgb Conc. 33.9 g/dL (33.0-37.0); Mean Corpuscular Volume 104.1 fL (80.0-94.0); Platelet Count 200 10^3/uL (130-400); Red Cell Dist. Width 17.9 % (11.5-14.5)
[2024-11-02 07:47] LABS: Blood Urea Nitrogen 13 mg/dl (9-20); Calcium 8.7 mg/dl (8.4-10.2); Carbon Dioxide 26 mmol/L (22-30); Chloride 109 mmol/L (98-107); Estimated Creatinine Clearance 68 ml/min; Glucose 99 mg/dl (70-99); Magnesium 1.9 mg/dl (1.6-2.3); Potassium 3.8 mmol/L (3.5-5.1); Sodium 138 mmol/L (135-145); eGFR > 60.00
[2024-11-02 07:59] VITALS: BP 112/67
[2024-11-02] MEDS: VITAMIN B1 100 MG PO ×2 (09:05→19:29)
[2024-11-02] MEDS: ZESTRIL 5 MG PO (09:05)
[2024-11-02] MEDS: VITAMIN B-12 1000 MCG PO (09:06)
[2024-11-02] MEDS: SENOKOT-S 1 TABLET PO ×2 (09:06→19:28)
[2024-11-02] MEDS: NORVASC 5 MG PO (09:06)
[2024-11-02] MEDS: KLOR-CON 20 MEQ PO ×2 (09:06→19:28)
[2024-11-02] MEDS: VITAMIN D3 (cholecalciferol) 25 MCG PO (09:06)
[2024-11-02 15:25] VITALS: BP 103/65
[2024-11-02] MEDS: LOVENOX 40 MG SC (17:01)
--- NOTE | 2024-11-02 20:05 | W.PN.HOSP.TC ---
Today's Communication/Plan
-
Awaiting SNF placement
Assessment / Plan
Assessment / Plan
Physical Exam
General: Not in acute distress, appears comfortable at this time
HEENT: Thick neck. Not tender, no induration, erythema, or palpable masses
Respiratory: CTAB
Cardiac: S1/S2 and Regular Rhythm
GI: Soft, Nontender, Distended, Normal Bowel Sounds. Obese
Musculoskeletal: No Cyanosis, No edema
Neuro: AAO x 3 conversant coherent significant memory issues noted
Psych: calm cooperative
Assessment/Plan
79M hypothyroidism, HTN, acquired von Willebrand's disease, p/w generalized weakness AMS. Patient was in his usual state of good health until about 3-4 weeks prior to presentation. He became weak/fatigued. He was still able to complete his ADLs
until 24-48 hours prior presentation when his symptoms markedly worsened. Patient followed by M[facility] Mims for vWF, receives monthly IVIG (last dose 09/29). Patient also developed fullness/swelling in throat several weeks prior. Evaluated
and treated by outpt ENT Dr. Hicks. CT scan showed tonsillar hypertrophy but was otherwise unremarkable. Briefly treated for possible thrush, stopped when fungal smear returned neg. Over the 48 hours prior to presentation, patient remained
seated at home and has not left his chair. He reported shaking chills. Family noted swelling in legs L > R. Some confusion noted night prior, family ultimately convinced patient to come to ED when he was too weak to get up on his own.
Weakness / Ataxia / Confusion
Acute Toxic Metabolic Encephalopathy Likely Secondary to Encephalitis and Possibly From Pneumonia
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
Likely immunosuppressed from Daratumumab and Dex
Cognitive Impairment
- CT head in ED unremarkable.
- MRI brain with suspected encephalitis, later repeat MRI brain showed improvement
- ID eval appreciated
- IR performed LP on 10/06/24 -- high protein, low glucose
- Completed Acyclovir 21 day course through 10/25/24 as per ID
- CMV neg
- EBV serology panel significant for prior infection with no apparent reactivation.
- HIV negative
- Syphilis screen : Positive. RPR 1:256. CSF VDRL negative.
- Appreciate neurology started on Keppra d/t highly epileptogenic focus Rt hemisphere noted on initial EEG, later EEG noted significant improvement, dose Keppra subsequently reduced d/t cognitive impairment concerns.
- 10/27 Unclear if Keppra remains necessary at this time, subsequently discontinued monitoring off, maintain sz precautions (Mental status since improved)
- Briefly required seroquel for agitation since discontinued, no longer needed
- Persistent cognitive impairment, psychiatry evaluation appreciated unlikely pseudodementia/depression
- Repeat CT head 10/17 appreciated no acute abnormalities
- Multivitamin and Thiamine supplementations started. B12 supplementation added with low normal level 380 10/26
- Metoprolol replaced with Lisinopril d/t cognitive impairment concerns
- Per neurology, BIPAP HS provided empirically for possible cognitive impairment d/t sleep apnea
- ID eval appreciated, given reported allergy to penicillin, patient was originally planned for 14-day course of ceftriaxone, however given lack of cognitive improvement, PCN challenge was attempted and passed, continued PCN-G through 10/25/24
since completed as per ID
-Follow up MRI EEG 10/28 noted no acute abn's, no sz activity noted on EEG (follow up repeat EEG in 1 mo recommended)
RLE thigh muscle cramping/stiffness
-lidocaine patches
-scheduled tylenol and bengay-like cream switched to PRN w/ improvement in pain
-out of bed to chair
-cont PT/OT
RUE edema
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
Complicated with Superficial Thrombosis noted on RUE US 10/15/24
RUE PICC removed and LUE PICC placed
cont supportive care superficial thrombosis RUE w/ pain control, ice, and elevation- swelling since improved/resolved
-Hematology eval appreciated, continue Lovenox 40 mg QPM as DVT ppx
-Repeat RUE ultrasound 10/23/24 with similar results noted prior study 10/15
B/L Lower Extremity Edema
Hypoalbuminemia
-Venous Duplex neg for DVT lower ext's
-since improved resolved
-TEDs knee high ordered
Diarrhea, Abdominal Pain and Nausea Resolved
Mild fluid right inguinal canal -- postsurgical change more likely versus unlikely incarcerated/strangulated hernia, no significant pain at this time -- seen on CT Imaging
Constipation
- Stool studies unremarkable
- Surgery eval appreciated no need for intervention
- Initially had diarrhea since resolved, developed constipation; AXR suggests moderate amount of stool within the rectum
- Miralax and Senokot-S, given suppository with some improvement noted, fleet enema given 10/14
- Milk and Molasses Enema given 10/17 with good response noted
- Constipation resolved at this time
Gross Hematuria
Urinary Retention
-resolved at this time
Hypothyroidism
- Initial elevated TSH low T4 improved since increased Synthroid to current 150 mcg
- repeat TFTs in 1 month
Acute Hypoxic Respiratory Insufficiency- Resolved
Chest Congestion
Likely LLL Pneumonia
Small Right Pleural Effusion on AXR from 10/09/24
Nocturnal O2 Desaturation (see nocturnal O2 saturation report from 10/06/24 morning)
History of Recent Pneumonia on CT Neck (treated outpatient with PCP in late August 2024 to early September 2024)
Former Smoker
-Weaned off oxygen supplementation
-Doxycycline completed
-ID eval appreciated ceftriaxone switched to PCN challenge as above
-Atrovent PRN (has not required)
-CT Abdomen/Pelvis from 10/07/24 showed bibasilar opacification -- most likely representing subsegmental atelectasis as well as tiny bilateral pleural effusions, left greater than right
-Recurrence of Hypoxia on 10/20/24 morning, confirmed with ABG
-Repeat CXR with low lung volumes
-EKG unremarkable, troponins negative, proBNP unremarkable
-Appreciate pulmonary
-Hypoxia likely from underlying bibasilar atelectasis from profound deconditioning and weakness causing VQ mismatch and hypoxemia. BiPAP has been started.
-Incentive Spirometer
-Encourage ambulation
-Outpt follow up for PFTs
-Mucinex
-since weaned off stable respiratory status on room air.
Persistent neck swelling/enlarged tonsils since 09/01/24, (recently treated with 30 day course of Fluconazole)
Recent Tonsillar Hypertrophy
Recent Thrush
-Follows Dr. Anna Hicks (ENT) outpt
-EBV serology panel significant for prior infection with no apparent reactivation.
Right Upper Lobe Pulmonary Nodule -- indeterminate PET scan
- follows Dr. Rider outpatient
- 1.6cm KADEN nodule see on multiple recent images. Mildly FDG-avid without significant delayed uptake.
- Covered with abx ceftriaxone / doxycycline since completed
- May benefit from biopsy for further evaluation if no improvement / resolution with antibiotics.
- Appreciate pulmonary
Acute Kidney Injury
- IV fluids with Normal Saline IV Fluids 70 cc/hr as per nephrology
- Continue to monitor renal function given patient is on Acyclovir --- continue IV Fluids while on IV antiviral
- Reduce IV fluids rate to 50 cc/hr given swelling in the extremities
- CT Abdomen Pelvis 10/07/24 with no stone or obstructive process
-resolved
Hyponatremia
- 50 ounce PO fluid restriction per day
Hypokalemia
Hypomagnesemia
- monitor and replete as necessary
Hypertension
-Episode Severe Hypotension 77/55 noted 10/29 asymptomatic sitting up in chair, developed after participating w/ PT/OT, resolved with IVF bolus 500 cc, Antihypertensive regimen reduced Amlodipine and Lisinopril to Daily instead of BID, blood
pressure control since improved
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
-Prior Blood pressure measurements were limited by Superficial Thrombosis RUE and PICC LUE, calf measurements likely falsely elevated
-LUE PICC since removed with completion IV abx antiviral, resumed bp measurements w/ LUE
Acquired von Willebrand's Disease (started at age 49 y/o)
MGUS/Multiple Myeloma
On monthly IVIG, Darzalex
- Stable. Patient maintained on IVIG monthly - last injection was 09/29/24.
- Hematology eval appreciated Acquired von Willebrand disease fully controlled at this time, IVIG Darzalex not indicated at this time, cont outpt follow up w/ Dr Potts next month Nov 2024, ok to resume treatment after discharge
Vitamin D Deficiency
-cont supplementation
Low normal B12 level
-cont supplementation
Coronary Artery Disease
Simple bilateral renal cysts
Appendicoliths
PT/OT/ PMR eval appreciated Acute Rehab
Speech/Diet: Regular Diet with Thin Liquids
DVT Prophylaxis: Lovenox
Code Status: Full Code
Medically stable for discharge, awaiting placement
Discussed with patient and patient's daughter Jacqueline
Anticipated Discharge: 24 - 48 hours
Subjective/Interval History
-
Date of Service: November 02, 2024
Patient was seen and examined. No new symptoms.
Objective Data
-
Vital Signs:
Vital Signs
Temp Pulse Resp BP Pulse Ox
98.0 F 84 16 103/65 98
11/02/24 15:25 11/02/24 15:25 11/02/24 15:25 11/02/24 15:25 11/02/24 15:25
I&O
11/01/24 11/02/24 11/03/24
06:59 06:59 06:59
Intake Total 900 / 900 720 / 720 720 / 720
Balance 900 / 900 720 / 720 720 / 720
[2024-11-02] MEDS: CARDURA PO (21:12)
[2024-11-02 22:33] VITALS: PULSE 2
[2024-11-02 23:40] VITALS: BP 112/62
[2024-11-03] MEDS: SYNTHROID 150 MCG PO (04:27)
[2024-11-03 05:17] VITALS: BMI 27.3
[2024-11-03 07:32] LABS: Hematocrit 29.3 % (39.0-52.0); Hemoglobin 9.9 g/dL (13.0-18.0); Mean Corp Hgb Conc. 33.8 g/dL (33.0-37.0); Mean Corpuscular Volume 103.9 fL (80.0-94.0); Platelet Count 203 10^3/uL (130-400); Red Cell Dist. Width 17.4 % (11.5-14.5)
[2024-11-03 07:37] VITALS: BP 129/75
[2024-11-03 07:39] LABS: Blood Urea Nitrogen 12 mg/dl (9-20); Calcium 9.3 mg/dl (8.4-10.2); Carbon Dioxide 26 mmol/L (22-30); Chloride 110 mmol/L (98-107); Estimated Creatinine Clearance 76 ml/min; Glucose 97 mg/dl (70-99); Magnesium 1.9 mg/dl (1.6-2.3); Potassium 4.4 mmol/L (3.5-5.1); Sodium 140 mmol/L (135-145); eGFR > 60.00
--- NOTE | 2024-11-03 07:39 | W.PN.HOSP.TC ---
Today's Communication/Plan
-
Awaiting placement
Assessment / Plan
Assessment / Plan
Physical Exam
General: Not in acute distress, appears comfortable at this time
HEENT: Thick neck. Not tender, no induration, erythema, or palpable masses
Respiratory: CTAB
Cardiac: S1/S2 and Regular Rhythm
GI: Soft, Nontender, Distended, Normal Bowel Sounds. Obese
Musculoskeletal: No Cyanosis, No edema
Neuro: AAO x 3 conversant coherent significant memory issues noted
Psych: calm cooperative
Assessment/Plan
79M hypothyroidism, HTN, acquired von Willebrand's disease, p/w generalized weakness AMS. Patient was in his usual state of good health until about 3-4 weeks prior to presentation. He became weak/fatigued. He was still able to complete his ADLs
until 24-48 hours prior presentation when his symptoms markedly worsened. Patient followed by Mony Mims for vWF, receives monthly IVIG (last dose 09/29). Patient also developed fullness/swelling in throat several weeks prior. Evaluated
and treated by outpt ENT Dr. Hicks. CT scan showed tonsillar hypertrophy but was otherwise unremarkable. Briefly treated for possible thrush, stopped when fungal smear returned neg. Over the 48 hours prior to presentation, patient remained
seated at home and has not left his chair. He reported shaking chills. Family noted swelling in legs L > R. Some confusion noted night prior, family ultimately convinced patient to come to ED when he was too weak to get up on his own.
Weakness / Ataxia / Confusion
Acute Toxic Metabolic Encephalopathy Likely Secondary to Encephalitis and Possibly From Pneumonia
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
Likely immunosuppressed from Daratumumab and Dex
Cognitive Impairment
- CT head in ED unremarkable.
- MRI brain with suspected encephalitis, later repeat MRI brain showed improvement
- ID eval appreciated
- IR performed LP on 10/06/24 -- high protein, low glucose
- Completed Acyclovir 21 day course through 10/25/24 as per ID
- CMV neg
- EBV serology panel significant for prior infection with no apparent reactivation.
- HIV negative
- Syphilis screen : Positive. RPR 1:256. CSF VDRL negative.
- Appreciate neurology started on Keppra d/t highly epileptogenic focus Rt hemisphere noted on initial EEG, later EEG noted significant improvement, dose Keppra subsequently reduced d/t cognitive impairment concerns.
- 10/27 Unclear if Keppra remains necessary at this time, subsequently discontinued monitoring off, maintain sz precautions (Mental status since improved)
- Briefly required seroquel for agitation since discontinued, no longer needed
- Persistent cognitive impairment, psychiatry evaluation appreciated unlikely pseudodementia/depression
- Repeat CT head 10/17 appreciated no acute abnormalities
- Multivitamin and Thiamine supplementations started. B12 supplementation added with low normal level 380 10/26
- Metoprolol replaced with Lisinopril d/t cognitive impairment concerns
- Per neurology, BIPAP HS provided empirically for possible cognitive impairment d/t sleep apnea
- ID eval appreciated, given reported allergy to penicillin, patient was originally planned for 14-day course of ceftriaxone, however given lack of cognitive improvement, PCN challenge was attempted and passed, continued PCN-G through 10/25/24
since completed as per ID
-Follow up MRI EEG 10/28 noted no acute abn's, no sz activity noted on EEG (follow up repeat EEG in 1 mo recommended)
RLE thigh muscle cramping/stiffness
-lidocaine patches
-scheduled tylenol and bengay-like cream switched to PRN w/ improvement in pain
-out of bed to chair
-cont PT/OT
-Repeat RLE ultrasound showed no DVT
RUE edema
RUE PICC placed for planned jail IV abx antiviral
Complicated with Superficial Thrombosis noted on RUE US 10/15/24
RUE PICC removed and LUE PICC placed
cont supportive care superficial thrombosis RUE w/ pain control, ice, and elevation- swelling since improved/resolved
-Hematology eval appreciated, continue Lovenox 40 mg QPM as DVT ppx
-Repeat RUE ultrasound 10/23/24 with similar results noted prior study 10/15
-Repeat RUE ultrasound 11/03/24 showed improvement of nonocclusive right basilic vein thrombosis
B/L Lower Extremity Edema
Hypoalbuminemia
-Venous Duplex neg for DVT lower ext's
-since improved resolved
-TEDs knee high ordered
Diarrhea, Abdominal Pain and Nausea Resolved
Mild fluid right inguinal canal -- postsurgical change more likely versus unlikely incarcerated/strangulated hernia, no significant pain at this time -- seen on CT Imaging
Constipation
- Stool studies unremarkable
- Surgery eval appreciated no need for intervention
- Initially had diarrhea since resolved, developed constipation; AXR suggests moderate amount of stool within the rectum
- Miralax and Senokot-S, given suppository with some improvement noted, fleet enema given 10/14
- Milk and Molasses Enema given 10/17 with good response noted
- Constipation resolved at this time
Gross Hematuria
Urinary Retention
-resolved at this time
Hypothyroidism
- Initial elevated TSH low T4 improved since increased Synthroid to current 150 mcg
- repeat TFTs in 1 month
Acute Hypoxic Respiratory Insufficiency- Resolved
Chest Congestion
Likely LLL Pneumonia
Small Right Pleural Effusion on AXR from 10/09/24
Nocturnal O2 Desaturation (see nocturnal O2 saturation report from 10/06/24 morning)
History of Recent Pneumonia on CT Neck (treated outpatient with PCP in late August 2024 to early September 2024)
Former Smoker
-Weaned off oxygen supplementation
-Doxycycline completed
-ID eval appreciated ceftriaxone switched to PCN challenge as above
-Atrovent PRN (has not required)
-CT Abdomen/Pelvis from 10/07/24 showed bibasilar opacification -- most likely representing subsegmental atelectasis as well as tiny bilateral pleural effusions, left greater than right
-Recurrence of Hypoxia on 10/20/24 morning, confirmed with ABG
-Repeat CXR with low lung volumes
-EKG unremarkable, troponins negative, proBNP unremarkable
-Appreciate pulmonary
-Hypoxia likely from underlying bibasilar atelectasis from profound deconditioning and weakness causing VQ mismatch and hypoxemia. BiPAP was given.
-Incentive Spirometer
-Encourage ambulation
-Outpt follow up for PFTs
-Mucinex
-since weaned off stable respiratory status on room air.
Persistent neck swelling/enlarged tonsils since 09/01/24, (recently treated with 30 day course of Fluconazole)
Recent Tonsillar Hypertrophy
Recent Thrush
-Follows Dr. Anna Hicks (ENT) outpt
-EBV serology panel significant for prior infection with no apparent reactivation.
Right Upper Lobe Pulmonary Nodule -- indeterminate PET scan
- follows Dr. Rider outpatient
- 1.6cm KADEN nodule see on multiple recent images. Mildly FDG-avid without significant delayed uptake.
- Covered with abx ceftriaxone / doxycycline since completed
- May benefit from biopsy for further evaluation if no improvement / resolution with antibiotics.
- Appreciate pulmonary
Acute Kidney Injury
- IV fluids with Normal Saline IV Fluids 70 cc/hr as per nephrology
- Continue to monitor renal function given patient is on Acyclovir --- continue IV Fluids while on IV antiviral
- Reduce IV fluids rate to 50 cc/hr given swelling in the extremities
- CT Abdomen Pelvis 10/07/24 with no stone or obstructive process
-resolved
Hyponatremia
- 50 ounce PO fluid restriction per day
Hypokalemia
Hypomagnesemia
- monitor and replete as necessary
Hypertension
-Episode Severe Hypotension 77/55 noted 10/29 asymptomatic sitting up in chair, developed after participating w/ PT/OT, resolved with IVF bolus 500 cc, Antihypertensive regimen reduced Amlodipine and Lisinopril to Daily instead of BID, blood
pressure control since improved
-home Toprol XL switched to Lisinopril d/t possible [employer]C effects/cognitive impairment/influence with BB
-Prior Blood pressure measurements were limited by Superficial Thrombosis RUE and PICC LUE, calf measurements likely falsely elevated
-LUE PICC since removed with completion IV abx antiviral, resumed bp measurements w/ LUE
Acquired von Willebrand's Disease (started at age 49 y/o)
MGUS/Multiple Myeloma
On monthly IVIG, Darzalex
- Stable. Patient maintained on IVIG monthly - last injection was 09/29/24.
- Hematology eval appreciated Acquired von Willebrand disease fully controlled at this time, IVIG Darzalex not indicated at this time, cont outpt follow up w/ Dr Potts next month Nov 2024, ok to resume treatment after discharge
Vitamin D Deficiency
-cont supplementation
Low normal B12 level
-cont supplementation
Coronary Artery Disease
Simple bilateral renal cysts
Appendicoliths
PT/OT/ PMR eval appreciated Acute Rehab
Speech/Diet: Regular Diet with Thin Liquids
DVT Prophylaxis: Lovenox
Code Status: Full Code
Medically stable for discharge, awaiting placement
Discussed with patient and patient's daughter Jacqueline
Anticipated Discharge: > 48 hours
Subjective/Interval History
-
Date of Service: November 03, 2024
Patient was seen and examined. He was sitting in the chair comfortably.
Objective Data
-
Labs:
Laboratory Results
11/03/24
07:04
WBC 6.1
Hgb 9.9 L
Hct 29.3 L
Plt Count 203
Sodium 140
Potassium 4.4
Chloride 110 H
Carbon Dioxide 26
BUN 12
Creatinine 0.8
Glucose 97
Calcium 9.3
Vital Signs:
Vital Signs
Temp Pulse Resp BP Pulse Ox
98.2 F 79 16 112/62 96
11/02/24 23:40 11/02/24 23:40 11/02/24 23:40 11/02/24 23:40 07/29/25 23:40
I&O
11/02/24 11/03/24 11/04/24
06:59 06:59 06:59
Intake Total 720 / 720 840 / 840
Balance 720 / 720 840 / 840
[2024-11-03] MEDS: VITAMIN B-12 1000 MCG PO (08:00)
[2024-11-03] MEDS: KLOR-CON 20 MEQ PO ×2 (08:00→21:47)
[2024-11-03] MEDS: VITAMIN B1 100 MG PO ×2 (08:00→21:47)
[2024-11-03] MEDS: NORVASC 5 MG PO (08:00)
[2024-11-03] MEDS: SENOKOT-S 1 TABLET PO ×2 (08:00→21:47)
[2024-11-03] MEDS: VITAMIN D3 (cholecalciferol) 25 MCG PO (08:00)
[2024-11-03] MEDS: ZESTRIL 5 MG PO (08:01)
--- NOTE | 2024-11-03 09:42 | CM ---
Addendum entered by Oneyda Garcia RN 11/03/24 15:51:
Attempted to confirm appeal with insurance company. Unfortunately CM was told system unavailable and could try back in 2-3 hours.
Addendum entered by Oneyda Garcia RN 11/03/24 15:26:
CM attempted to start auth for SNF for tomorrow. Daughter not willing to accept SNF at this time. Patient's daughter has filed an appeal on behalf of the patient for acute rehab today.
Addendum entered by Oneyda Garcia RN 11/03/24 13:39:
Provided to the patient's daughter the names and printout of from the [email or web address] website with each facility's ratings. Precert will be required.
Original Note:
Reviewed the chart notes and spoke with the patient's daughter at the bedside. Reviewed SNF acceptances, as well as, denials. Daughter not accepting of the facilities willing to take. Additional referrals sent. Patient's daughter is considering
appealing the acute rehab denial. [facility] admissions would not consider patient due to an outstanding auto insurance claim. Daughter reached out to [employer] auto insurance. Per [employer], case was closed in 2020. CM continues to be available to
patient/family and is monitoring medical plan for needs at discharge.
Plan: Discharge to SNF/rehab once bed secured and auth received.
[2024-11-03 12:13] VITALS: BP 107/55; PULSE 84; O2SAT 98
[2024-11-03 15:13] VITALS: BP 112/60
[2024-11-03] MEDS: LOVENOX 40 MG SC (17:01)
[2024-11-03] MEDS: CARDURA 2 MG PO (21:47)
[2024-11-03 22:01] VITALS: PULSE 2; PULSE 86
[2024-11-03 23:40] VITALS: BP 128/73
[2024-11-04] VITALS (9 sets, daily range): BP systolic 94–142; BP diastolic 52–77; PULSE 2–82; BMI 27.0
[2024-11-04] MEDS: SYNTHROID 150 MCG PO (06:04)
[2024-11-04 08:00] LABS: Hematocrit 29.0 % (39.0-52.0); Hemoglobin 9.8 g/dL (13.0-18.0); Mean Corp Hgb Conc. 33.8 g/dL (33.0-37.0); Mean Corpuscular Volume 104.3 fL (80.0-94.0); Platelet Count 193 10^3/uL (130-400); Red Cell Dist. Width 17.1 % (11.5-14.5)
[2024-11-04 08:11] LABS: Blood Urea Nitrogen 9 mg/dl (9-20); Calcium 8.8 mg/dl (8.4-10.2); Carbon Dioxide 25 mmol/L (22-30); Chloride 108 mmol/L (98-107); Estimated Creatinine Clearance 76 ml/min; Glucose 97 mg/dl (70-99); Magnesium 1.8 mg/dl (1.6-2.3); Potassium 3.7 mmol/L (3.5-5.1); Sodium 139 mmol/L (135-145); eGFR > 60.00
[2024-11-04] MEDS: VITAMIN D3 (cholecalciferol) 25 MCG PO (08:47)
[2024-11-04] MEDS: VITAMIN B-12 1000 MCG PO (08:47)
[2024-11-04] MEDS: ZESTRIL 5 MG PO (08:48)
[2024-11-04] MEDS: KLOR-CON 20 MEQ PO ×2 (08:48→21:18)
[2024-11-04] MEDS: VITAMIN B1 100 MG PO ×2 (08:48→21:18)
[2024-11-04] MEDS: NORVASC 5 MG PO (08:48)
[2024-11-04] MEDS: SENOKOT-S 1 TABLET PO ×2 (08:48→21:18)
--- NOTE | 2024-11-04 10:21 | CM ---
Case Management received a phone call from [facility], .
As requested latest progress note and therapy notes faxed @ [phone] this morning; PM&R notes also faxed.
[2024-11-04] MEDS: LOVENOX 40 MG SC (17:19)
--- NOTE | 2024-11-04 19:40 | W.PN.HOSP.TC ---
Today's Communication/Plan
-
Awaiting placement
Assessment / Plan
Assessment / Plan
Physical Exam
General: Not in acute distress, appears comfortable at this time
HEENT: Thick neck. Not tender, no induration, erythema, or palpable masses
Respiratory: CTAB
Cardiac: S1/S2 and Regular Rhythm
GI: Soft, Nontender, Distended, Normal Bowel Sounds. Obese
Musculoskeletal: No Cyanosis, No edema
Neuro: AAO x 3 conversant coherent significant memory issues noted
Psych: calm cooperative
Assessment/Plan
79M hypothyroidism, HTN, acquired von Willebrand's disease, p/w generalized weakness AMS. Patient was in his usual state of good health until about 3-4 weeks prior to presentation. He became weak/fatigued. He was still able to complete his ADLs
until 24-48 hours prior presentation when his symptoms markedly worsened. Patient followed by Mony Mims for vWF, receives monthly IVIG (last dose 09/29). Patient also developed fullness/swelling in throat several weeks prior. Evaluated
and treated by outpt ENT Dr. Hicks. CT scan showed tonsillar hypertrophy but was otherwise unremarkable. Briefly treated for possible thrush, stopped when fungal smear returned neg. Over the 48 hours prior to presentation, patient remained
seated at home and has not left his chair. He reported shaking chills. Family noted swelling in legs L > R. Some confusion noted night prior, family ultimately convinced patient to come to ED when he was too weak to get up on his own.
Weakness / Ataxia / Confusion
Acute Toxic Metabolic Encephalopathy Likely Secondary to Encephalitis and Possibly From Pneumonia
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
Likely immunosuppressed from Daratumumab and Dex
Cognitive Impairment
- CT head in ED unremarkable.
- MRI brain with suspected encephalitis, later repeat MRI brain showed improvement
- ID eval appreciated
- IR performed LP on 10/06/24 -- high protein, low glucose
- Completed Acyclovir 21 day course through 10/25/24 as per ID
- CMV neg
- EBV serology panel significant for prior infection with no apparent reactivation.
- HIV negative
- Syphilis screen : Positive. RPR 1:256. CSF VDRL negative.
- Appreciate neurology started on Keppra d/t highly epileptogenic focus Rt hemisphere noted on initial EEG, later EEG noted significant improvement, dose Keppra subsequently reduced d/t cognitive impairment concerns.
- 10/27 Unclear if Keppra remains necessary at this time, subsequently discontinued monitoring off, maintain sz precautions (Mental status since improved) -- I confirmed via [place] Text communication on 11/03/[address] Zafar that Keppra does not need to be restarted or continued in this case
- Briefly required seroquel for agitation since discontinued, no longer needed
- Persistent cognitive impairment, psychiatry evaluation appreciated unlikely pseudodementia/depression
- Repeat CT head 10/17 appreciated no acute abnormalities
- Multivitamin and Thiamine supplementations started. B12 supplementation added with low normal level 380 10/26
- Metoprolol replaced with Lisinopril d/t cognitive impairment concerns
- Per neurology, BIPAP HS provided empirically for possible cognitive impairment d/t sleep apnea
- ID eval appreciated, given reported allergy to penicillin, patient was originally planned for 14-day course of ceftriaxone, however given lack of cognitive improvement, PCN challenge was attempted and passed, continued PCN-
G through 10/25/24 since completed as per ID
- Follow up MRI EEG 10/28 noted no acute abn's, no sz activity noted on EEG (follow up repeat EEG in 1 mo recommended)
RLE thigh muscle cramping/stiffness
-lidocaine patches
-scheduled tylenol and bengay-like cream switched to PRN w/ improvement in pain
-out of bed to chair
-cont PT/OT
-Repeat RLE ultrasound showed no DVT
RUE edema
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
Complicated with Superficial Thrombosis noted on RUE US 10/15/24
RUE PICC removed and LUE PICC placed
cont supportive care superficial thrombosis RUE w/ pain control, ice, and elevation- swelling since improved/resolved
-Hematology eval appreciated, continue Lovenox 40 mg QPM as DVT ppx
-Repeat RUE ultrasound 10/23/24 with similar results noted prior study 10/15
-Repeat RUE ultrasound 11/03/24 showed improvement of nonocclusive right basilic vein thrombosis
B/L Lower Extremity Edema
Hypoalbuminemia
-Venous Duplex neg for DVT lower ext's
-since improved resolved
-TEDs knee high ordered
Diarrhea, Abdominal Pain and Nausea Resolved
Mild fluid right inguinal canal -- postsurgical change more likely versus unlikely incarcerated/strangulated hernia, no significant pain at this time -- seen on CT Imaging
Constipation
- Stool studies unremarkable
- Surgery eval appreciated no need for intervention
- Initially had diarrhea since resolved, developed constipation; AXR suggests moderate amount of stool within the rectum
- Miralax and Senokot-S, given suppository with some improvement noted, fleet enema given 10/14
- Milk and Molasses Enema given 10/17 with good response noted
- Constipation resolved at this time
Gross Hematuria
Urinary Retention
-resolved at this time
Hypothyroidism
- Initial elevated TSH low T4 improved since increased Synthroid to current 150 mcg
- repeat TFTs in ~1 month
Acute Hypoxic Respiratory Insufficiency- Resolved
Chest Congestion
Likely LLL Pneumonia
Small Right Pleural Effusion on AXR from 10/09/24
Nocturnal O2 Desaturation (see nocturnal O2 saturation report from 10/06/24 morning)
History of Recent Pneumonia on CT Neck (treated outpatient with PCP in late August 2024 to early September 2024)
Former Smoker
-Weaned off oxygen supplementation
-Doxycycline completed
-ID eval appreciated ceftriaxone switched to PCN challenge as above
-Atrovent PRN (has not required)
-CT Abdomen/Pelvis from 10/07/24 showed bibasilar opacification -- most likely representing subsegmental atelectasis as well as tiny bilateral pleural effusions, left greater than right
-Recurrence of Hypoxia on 10/20/24 morning, confirmed with ABG
-Repeat CXR with low lung volumes
-EKG unremarkable, troponins negative, proBNP unremarkable
-Appreciate pulmonary
-Hypoxia likely from underlying bibasilar atelectasis from profound deconditioning and weakness causing VQ mismatch and hypoxemia. BiPAP was given.
-Incentive Spirometer
-Encourage ambulation
-Outpt follow up for PFTs
-Mucinex
-since weaned off stable respiratory status on room air.
Persistent neck swelling/enlarged tonsils since 09/01/24, (recently treated with 30 day course of Fluconazole)
Recent Tonsillar Hypertrophy
Recent Thrush
-Follows Dr. Anna Hicks (ENT) outpt
-EBV serology panel significant for prior infection with no apparent reactivation.
Right Upper Lobe Pulmonary Nodule -- indeterminate PET scan
- follows Dr. Rider outpatient
- 1.6cm KADEN nodule see on multiple recent images. Mildly FDG-avid without significant delayed uptake.
- Covered with abx ceftriaxone / doxycycline since completed
- May benefit from biopsy for further evaluation if no improvement / resolution with antibiotics.
- Appreciate pulmonary
Acute Kidney Injury
- IV fluids with Normal Saline IV Fluids 70 cc/hr as per nephrology
- Continue to monitor renal function given patient is on Acyclovir --- continue IV Fluids while on IV antiviral
- Reduce IV fluids rate to 50 cc/hr given swelling in the extremities
- CT Abdomen Pelvis 10/07/24 with no stone or obstructive process
-resolved
Hyponatremia
- 50 ounce PO fluid restriction per day
Hypokalemia
Hypomagnesemia
- monitor and replete as necessary
Hypertension
-Episode Severe Hypotension 77/55 noted 10/29 asymptomatic sitting up in chair, developed after participating w/ PT/OT, resolved with IVF bolus 500 cc, Antihypertensive regimen reduced Amlodipine and Lisinopril to Daily instead of BID, blood
pressure control since improved
-home Toprol XL switched to Lisinopril d/t possible BUSINESS MGR effects/cognitive impairment/influence with BB
-Prior Blood pressure measurements were limited by Superficial Thrombosis RUE and PICC LUE, calf measurements likely falsely elevated
-LUE PICC since removed with completion IV abx antiviral, resumed bp measurements w/ LUE
Acquired von Willebrand's Disease (started at age 49 y/o)
MGUS/Multiple Myeloma
On monthly IVIG, Darzalex
- Stable. Patient maintained on IVIG monthly - last injection was 09/29/24.
- Hematology eval appreciated Acquired von Willebrand disease fully controlled at this time, IVIG Darzalex not indicated at this time, cont outpt follow up w/ Dr Potts next month Nov 2024, ok to resume treatment after discharge
Vitamin D Deficiency
-cont supplementation
Low normal B12 level
-cont supplementation
Coronary Artery Disease
Simple bilateral renal cysts
Appendicoliths
PT/OT/ PMR eval appreciated Acute Rehab
Speech/Diet: Regular Diet with Thin Liquids
DVT Prophylaxis: Lovenox
Code Status: Full Code
Medically stable for discharge, awaiting placement
Discussed with patient and patient's daughter Jacqueline
Anticipated Discharge: > 48 hours
Subjective/Interval History
-
Date of Service: November 04, 2024
Patient was seen and examined. No new symptoms or complaints.
Objective Data
-
Labs:
Laboratory Results
11/04/24
07:01
WBC 5.7
Hgb 9.8 L
Hct 29.0 L
Plt Count 193
Sodium 139
Potassium 3.7
Chloride 108 H
Carbon Dioxide 25
BUN 9
Creatinine 0.8
Glucose 97
Calcium 8.8
Vital Signs:
Vital Signs
Temp Pulse Resp BP Pulse Ox
98.8 F 82 18 106/58 97
11/04/24 15:42 11/04/24 15:42 11/04/24 15:42 11/04/24 15:42 11/04/24 15:42
I&O
11/03/24 11/04/24 11/05/24
06:59 06:59 06:59
Intake Total 840 / 840 1140 / 1140 900 / 900
Balance 840 / 840 1140 / 1140 900 / 900
[2024-11-04] MEDS: CARDURA PO (21:24)
[2024-11-05] VITALS (7 sets, daily range): BP systolic 111–129; BP diastolic 60–78; PULSE 2–80; BMI 27.0
[2024-11-05] MEDS: SYNTHROID 150 MCG PO (05:47)
[2024-11-05 07:32] LABS: Hematocrit 27.7 % (39.0-52.0); Hemoglobin 9.7 g/dL (13.0-18.0); Mean Corp Hgb Conc. 35.0 g/dL (33.0-37.0); Mean Corpuscular Volume 101.1 fL (80.0-94.0); Platelet Count 192 10^3/uL (130-400); Red Cell Dist. Width 17.0 % (11.5-14.5)
[2024-11-05 08:29] LABS: Blood Urea Nitrogen 12 mg/dl (9-20); Calcium 8.8 mg/dl (8.4-10.2); Carbon Dioxide 25 mmol/L (22-30); Chloride 108 mmol/L (98-107); Estimated Creatinine Clearance 87 ml/min; Glucose 93 mg/dl (70-99); Magnesium 1.8 mg/dl (1.6-2.3); Potassium 4.2 mmol/L (3.5-5.1); Sodium 137 mmol/L (135-145); eGFR > 60.00
[2024-11-05] MEDS: VITAMIN B-12 1000 MCG PO (08:30)
[2024-11-05] MEDS: VITAMIN D3 (cholecalciferol) 25 MCG PO (08:31)
[2024-11-05] MEDS: THERAGRAN 1 TABLET PO (08:31)
[2024-11-05] MEDS: NORVASC 5 MG PO (08:31)
[2024-11-05] MEDS: ZESTRIL 5 MG PO (08:31)
[2024-11-05] MEDS: KLOR-CON PO ×2 (08:32→08:36)
[2024-11-05] MEDS: VITAMIN B1 100 MG PO (08:32)
[2024-11-05] MEDS: SENOKOT-S PO (08:34)
--- NOTE | 2024-11-05 13:06 | CM ---
Reviewed the chart notes and spoke with Melissa with [employer]. Patient approved for [facility] 5 days; 11/05-11/10; NRD 11/10 [phone]); Auth # [id number]. CM updated patient and daughter Jacqueline at the bedside. IMM reviewed. CM continues to be available
to patient/family and is monitoring medical plan for needs at discharge.
Plan: Discharge to [facility].
--- NOTE | 2024-11-05 14:34 | W.PN.HOSP.TC ---
Today's Communication/Plan
-
Discharge today
Assessment / Plan
Assessment / Plan
Physical Exam
General: Not in acute distress, appears comfortable at this time
HEENT: Thick neck. Not tender, no induration, erythema, or palpable masses
Respiratory: CTAB
Cardiac: S1/S2 and Regular Rhythm
GI: Soft, Nontender, Distended, Normal Bowel Sounds. Obese
Musculoskeletal: No Cyanosis, No edema
Neuro: AAO x 3 conversant coherent significant memory issues noted
Psych: calm cooperative
Assessment/Plan
79M hypothyroidism, HTN, acquired von Willebrand's disease, p/w generalized weakness AMS. Patient was in his usual state of good health until about 3-4 weeks prior to presentation. He became weak/fatigued. He was still able to complete his ADLs
until 24-48 hours prior presentation when his symptoms markedly worsened. Patient followed by Mony Mims for vWF, receives monthly IVIG (last dose 09/29). Patient also developed fullness/swelling in throat several weeks prior. Evaluated
and treated by outpt ENT Dr. Hicks. CT scan showed tonsillar hypertrophy but was otherwise unremarkable. Briefly treated for possible thrush, stopped when fungal smear returned neg. Over the 48 hours prior to presentation, patient remained
seated at home and has not left his chair. He reported shaking chills. Family noted swelling in legs L > R. Some confusion noted night prior, family ultimately convinced patient to come to ED when he was too weak to get up on his own.
Weakness / Ataxia / Confusion
Acute Toxic Metabolic Encephalopathy Likely Secondary to Encephalitis and Possibly From Pneumonia
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
Likely immunosuppressed from Daratumumab and Dex
Cognitive Impairment
- CT head in ED unremarkable.
- MRI brain with suspected encephalitis, later repeat MRI brain showed improvement
- ID eval appreciated
- IR performed LP on 10/06/24 -- high protein, low glucose
- Completed Acyclovir 21 day course through 10/25/24 as per ID
- CMV neg
- EBV serology panel significant for prior infection with no apparent reactivation.
- HIV negative
- Syphilis screen : Positive. RPR 1:256. CSF VDRL negative.
- Appreciate neurology started on Keppra d/t highly epileptogenic focus Rt hemisphere noted on initial EEG, later EEG noted significant improvement, dose Keppra subsequently reduced d/t cognitive impairment concerns.
- 10/27 Unclear if Keppra remains necessary at this time, subsequently discontinued monitoring off, maintain sz precautions (Mental status since improved) -- I confirmed via [employer] communication on 11/03/[address] Zafar that Keppra does not need to be restarted or continued in this case
- Briefly required seroquel for agitation since discontinued, no longer needed
- Persistent cognitive impairment, psychiatry evaluation appreciated unlikely pseudodementia/depression
- Repeat CT head 10/17 appreciated no acute abnormalities
- Multivitamin and Thiamine supplementations started. B12 supplementation added with low normal level 380 10/26
- Metoprolol replaced with Lisinopril d/t cognitive impairment concerns
- Per neurology, BIPAP/CPAP HS provided empirically for possible cognitive impairment d/t sleep apnea
- ID eval appreciated, given reported allergy to penicillin, patient was originally planned for 14-day course of ceftriaxone, however given lack of cognitive improvement, PCN challenge was attempted and passed, continued PCN-
G through 10/25/24 since completed as per ID
- Trend Syphilis RPR titer in 3 months after completion of treatment until at least 4 fold decrease in titer.
- Follow-up with Dr. Rossi of ID outpatient
- Follow up MRI EEG 10/28 noted no acute abn's, no sz activity noted on EEG (follow up repeat EEG in 1 mo recommended)
- Follow-up with neurology outpatient
RLE thigh muscle cramping/stiffness
-lidocaine patches
-scheduled tylenol and bengay-like cream switched to PRN w/ improvement in pain
-out of bed to chair
-cont PT/OT
-Repeat RLE ultrasound showed no DVT
-If RLE pain persists, consider further evaluation with x-ray or CT Imaging
RUE edema
Complicated with Superficial Thrombosis noted on RUE US 10/15/24
RUE PICC removed and LUE PICC placed which was later removed
-cont supportive care superficial thrombosis RUE w/ pain control, ice, and elevation- swelling since improved/resolved
-Hematology eval appreciated, continue Lovenox 40 mg QPM as DVT ppx for 6 weeks
-Repeat RUE ultrasound 10/23/24 with similar results noted prior study 10/15
-Repeat RUE ultrasound 11/03/24 showed improvement of nonocclusive right basilic vein thrombosis
-Will need repeat RUE ultrasound outpatient for monitoring the RUE thrombus
B/L Lower Extremity Edema
Hypoalbuminemia
-Venous Duplex neg for DVT lower ext's
-since improved resolved
-TEDs knee high ordered
Diarrhea, Abdominal Pain and Nausea Resolved
Mild fluid right inguinal canal -- postsurgical change more likely versus unlikely incarcerated/strangulated hernia, no significant pain at this time -- seen on CT Imaging
Constipation
- Stool studies unremarkable
- Surgery eval appreciated no need for intervention
- Initially had diarrhea since resolved, developed constipation; AXR suggests moderate amount of stool within the rectum
- Miralax and Senokot-S, given suppository with some improvement noted, fleet enema given 10/14
- Milk and Molasses Enema given 10/17 with good response noted
- Constipation resolved at this time
Gross Hematuria
Urinary Retention
-resolved at this time
-Recheck UA with urine protein studies outpatient
Hypothyroidism
- Initial elevated TSH low T4 improved since increased Synthroid to current 150 mcg
- Recheck TSH and Free T4 in 1-2 weeks
Acute Hypoxic Respiratory Insufficiency- Resolved
Chest Congestion
Likely LLL Pneumonia
Small Right Pleural Effusion on AXR from 10/09/24. Then B/L Pleural Effusions.
Nocturnal O2 Desaturation (see nocturnal O2 saturation report from 10/06/24 morning)
History of Recent Pneumonia on CT Neck (treated outpatient with PCP in late August 2024 to early September 2024)
Former Smoker
-Weaned off oxygen supplementation
-Doxycycline completed
-ID eval appreciated ceftriaxone switched to PCN challenge as above
-Atrovent PRN (has not required)
-CT Abdomen/Pelvis from 10/07/24 showed bibasilar opacification -- most likely representing subsegmental atelectasis as well as tiny bilateral pleural effusions, left greater than right
-Recurrence of Hypoxia on 10/20/24 morning, confirmed with ABG
-Repeat CXR with low lung volumes
-EKG unremarkable, troponins negative, proBNP unremarkable
-Appreciate pulmonary
-Hypoxia likely from underlying bibasilar atelectasis from profound deconditioning and weakness causing VQ mismatch and hypoxemia. BiPAP was given.
-Incentive Spirometer
-Encourage ambulation
-Outpt follow up for PFTs
-Mucinex was previously given
-since weaned off stable respiratory status on room air.
-Will need outpatient pulmonary evaluation in [facility] pulmonary office with Dr. Rider; it has been recommend to get outpatient sleep evaluation/PSG testing as indicated
Persistent neck swelling/enlarged tonsils since 09/01/24, (recently treated with 30 day course of Fluconazole)
Recent Tonsillar Hypertrophy
Recent Thrush
-Follows Dr. Anna Hicks (ENT) outpt
-EBV serology panel significant for prior infection with no apparent reactivation.
Right Upper Lobe Pulmonary Nodule -- indeterminate PET scan
- follows Dr. Rider outpatient
- 1.6cm KADEN nodule see on multiple recent images. Mildly FDG-avid without significant delayed uptake.
- Covered with abx ceftriaxone / doxycycline since completed
- May benefit from biopsy for further evaluation if no improvement / resolution with antibiotics.
- Appreciate pulmonary
Acute Kidney Injury
- IV fluids with Normal Saline IV Fluids 70 cc/hr was given as per nephrology
- Continue to monitor renal function given patient is on Acyclovir --- continue IV Fluids while on IV antiviral
- Reduce IV fluids rate to 50 cc/hr given swelling in the extremities
- CT Abdomen Pelvis 10/07/24 with no stone or obstructive process
- Resolved
Hyponatremia - RESOLVED
- 50 ounce PO fluid restriction per day
Hypokalemia
Hypomagnesemia
-Recheck Magnesium outpatient
Hypertension
-Episode Severe Hypotension 77/55 noted 10/29 asymptomatic sitting up in chair, developed after participating w/ PT/OT, resolved with IVF bolus 500 cc, Antihypertensive regimen reduced Amlodipine and Lisinopril to Daily instead of BID, blood
pressure control since improved
-home Toprol XL switched to Lisinopril d/t possible NORMALIZER effects/cognitive impairment/influence with BB
-Prior Blood pressure measurements were limited by Superficial Thrombosis RUE and PICC LUE, calf measurements likely falsely elevated
-LUE PICC since removed with completion IV abx antiviral, resumed bp measurements w/ LUE
Acquired von Willebrand's Disease (started at age 49 y/o)
MGUS/Multiple Myeloma
On monthly IVIG, Darzalex
- Stable. Patient maintained on IVIG monthly - last injection was 09/29/24.
- Hematology evaluation appreciated Acquired von Willebrand disease fully controlled at this time, IVIG Darzalex not indicated at this time, cont outpt follow up w/ Dr Potts next month Nov 2024, ok to resume treatment
after discharge
Vitamin D Deficiency
-cont supplementation
-Recheck Vitamin D levels (it was low at 18.8 on 10/16/24)
Low normal B12 level
-cont supplementation
-Recheck Vitamin B12 levels with methylmalonic acid levels in 1-2 weeks
Coronary Artery Disease
-Recheck full lipid panel in 1 to 2 weeks
Hypoalbuminemia
-Check CMP and serum Albumin levels in 1 to 2 weeks
Simple bilateral renal cysts
Appendicoliths
Chronic microvascular white matter ischemic disease on CT Head
1.7 x 0.8 x 1.5 cm right simple appearing popliteal/Fish's cyst
Large bilateral pericardial fat pads on chest x-ray
Mild bilateral perinephric stranding, unchanged, on CT Imaging
Small bilateral renal cysts
Enlarged prostate gland
Fluid-filled right inguinal hernia
-Follow-up with Dr. Gavin Craven of surgery
PT/OT/ PMR eval appreciated Acute Rehab
Speech/Diet: Regular Diet with Thin Liquids
DVT Prophylaxis: Lovenox
Code Status: Full Code
More than 30 minutes spent in discharge including
Final examination of the patient
Summarizing hospital stay
Instructions for continuing care to all relevant caregivers
Preparation of discharge records, prescriptions, and referral forms
Total time spent (in minutes): 39
Anticipated Discharge: Today
Subjective/Interval History
-
Date of Service: November 05, 2024
Patient was seen and examined. He denied any new symptoms or complaints.
Objective Data
-
Labs:
Laboratory Results
11/05/24
07:24
WBC 5.7
Hgb 9.7 L
Hct 27.7 L
Plt Count 192
Sodium 137
Potassium 4.2
Chloride 108 H
Carbon Dioxide 25
BUN 12
Creatinine 0.7
Glucose 93
Calcium 8.8
Vital Signs:
Vital Signs
Temp Pulse Resp BP Pulse Ox
98.2 F 81 16 128/69 97
11/05/24 11:19 11/05/24 11:19 11/05/24 11:19 11/05/24 11:19 11/05/24 11:19
I&O
11/04/24 11/05/24 11/06/24
06:59 06:59 06:59
Intake Total 1140 / 1140 1140 / 1140
Balance 1140 / 1140 1140 / 1140
--- NOTE | 2024-11-05 15:37 | W.DCSUMMARY ---
Discharge Summary
Discharge Data
Date of Admission: 10/03/24
Date of Discharge: 11/05/24
Total time spent discharging patient (in min): 39
-
Pending Results: Yes
Additional Pending Results:
Final results from Microbiology
Hospital Course
79 year old male with past medical history of HTN, GERD, hypothyroidism who is followed for history of IgG kappa monoclonal gammopathy diagnosed in 2006 and acquired von Willebrand disorder, autoimmune (acquired) von Willebrands, type IIB, in the
setting of MGUS (sees Dr. Potts -- does not Multiple Myeloma but is on myeloma-type treatment to minimize the autoimmune phenomena) who presented to the [facility] ED with weakness and ataxia. Hematology and neurology were consulted. Patient had
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 Patient was started on Acyclovir. There was hernia on patient's abdominal imaging and surgery said nothing to do at the moment. Patient was also placed on
treatment for Syphilis (Syphilis screen was positive) and antibiotics for pneumonia. HIV was negative. Nephrology was consulted given his significant hyponatremia and received 3% saline. He was also started on intravenous fluids while on Acyclovir
for acute kidney injury. Patient was started on Keppra for seizure prophylaxis. Patient had anemia and thrombocytopenia which improved. Patient also had some hematuria for which urology was consulted and no inpatient interventions were warranted
from their standpoint. Given patient's high TSH, his thyroid medication was increased. Patient had extensive testing by infectious disease physician. Psychiatry was also consulted. Patient was placed on bowel regimen. Right upper extremity PICC line
was placed at one point and he developed a superficial venous thrombosis for which PICC was removed and placed on the other upper extremity. Hematology recommended Lovenox 40 mg subcutaneous daily as DVT prophylaxis. Gastroenterology was consulted
for abdominal distension and since patient was tolerating diet and having bowel movements, no interventions were recommended from their standpoint. Patient had worsening mental status, but repeat MRI Brain showed improvement. Patient's Keppra was
reduced and beta chiara stopped, and BiPAP started with some improvement in mental status. Pulmonary was also consulted and mentioned that patient has underlying bibasilar atelectasis from profound deconditioning and weakness causing ventilation
perfusion mismatch and hypoxemia. Patient's Keppra was stopped with approval to stop it by neurology and his mental status improved dramatically. Patient was stable for discharge to acute rehab.
Discharge Plan
-
Patient Disposition: Acute Rehab Facility
Discharge Diagnosis/Procedures: Weakness / Ataxia / Confusion
Acute Toxic Metabolic Encephalopathy Likely Secondary to Encephalitis and Possibly From Pneumonia
HSV-1 Encephalitis
Likely immunosuppressed from Daratumumab and Dex
Cognitive Impairment
Right lower extremity thigh muscle cramping/stiffness
Right Upper Extremity (RUE) edema
Complicated with Superficial Thrombosis noted on RUE US 10/15/24
RUE PICC removed and LUE PICC placed which was later removed
Bilateral Lower Extremity Edema
Hypoalbuminemia
Diarrhea, Abdominal Pain and Nausea Resolved
Mild fluid right inguinal canal -- postsurgical change more likely versus unlikely incarcerated/strangulated hernia, no significant pain at this time -- seen on CT Imaging
Constipation
Gross Hematuria
Urinary Retention
Hypothyroidism
Acute Hypoxic Respiratory Insufficiency- Resolved
Chest Congestion
Likely LLL Pneumonia
Small Right Pleural Effusion on AXR from 10/09/24. Then B/L Pleural Effusions.
Nocturnal O2 Desaturation (see nocturnal O2 saturation report from 10/06/24 morning)
History of Recent Pneumonia on CT Neck (treated outpatient with PCP in late August 2024 to early September 2024)
Former Smoker
Persistent neck swelling/enlarged tonsils since 09/01/24, (recently treated with 30 day course of Fluconazole)
Recent Tonsillar Hypertrophy
Recent Thrush
Right Upper Lobe Pulmonary Nodule -- indeterminate PET scan
Acute Kidney Injury
Hyponatremia - RESOLVED
Hypokalemia
Hypomagnesemia
Hypertension
Acquired von Willebrand's Disease (started at age 49 y/o)
MGUS/Multiple Myeloma
-On monthly IVIG, Darzalex
Vitamin D Deficiency
Low normal B12 level
Coronary Artery Disease
Hypoalbuminemia
Simple bilateral renal cysts
Appendicoliths
Chronic microvascular white matter ischemic disease on CT Head
1.7 x 0.8 x 1.5 cm right simple appearing popliteal/Fish's cyst
Large bilateral pericardial fat pads on chest x-ray
Mild bilateral perinephric stranding, unchanged, on CT Imaging
Small bilateral renal cysts
Enlarged prostate gland
Fluid-filled right inguinal hernia
Condition: Fair
Diet: Regular and Restrict fluids to 48 oz
Activity: With assistance, As tolerated and With Walker
Driving Restrictions: Not until seen by your Dr
Bathing Restrictions: None
Blood Work: CBC (with differential), CMP, Serum Albumin, Magnesium, Phosphorus and Urinalysis with urine protein with primary care provider in 1-2 weeks of discharge. Recheck TSH and Free T4 in 2 weeks. Check Vitamin D levels in 2 weeks. Check
Vitamin B12 level and Methylmalonic Acid level in 2 weeks. Check lipid panel in 1-2 weeks.
Other Services: PT and OT
Activity Restrictions/Additional Instructions:
BIPAP/CPAP HS was provided empirically for possible cognitive impairment due to possible sleep apnea.
Continue Incentive Spirometer
Encourage ambulation
Trend Syphilis RPR titer in 3 months after completion of treatment (treatment was given in hospitalization in Summer 2024) until at least 4 fold decrease in titer.
If right lower extremity pain persists, consider further evaluation with x-ray or CT or MRI Imaging outpatient.
Continue SC Lovenox 40 mg QPM as DVT prophylaxis for 6 weeks total -- first dose was on 10/16/24.
Patient will need repeat right upper extremity ultrasound outpatient for monitoring the right upper extremity thrombus.
Patient will need outpatient pulmonary evaluation in [facility] pulmonary office with Dr. Rider; it has been recommend to get outpatient sleep evaluation/PSG testing as indicated
Continue outpatient follow up with Dr Potts in November 2024, okay to resume Dr. Potts treatment after discharge
Referrals:
Freddy Rider MD [Active, Pulmonary Medicine] - in one to two weeks
Referral Note: Hospitalization Follow-Up
Thaddeus Zafar MD [Active, Neurology] - in one to two months
Referral Note: HSV-1 Encephalitis follow-up
Gavin Craven MD [Active, Surgical] - in one to two months
Referral Note: Inguinal hernia follow-up
Beronica Cantu DO [Family Provider, Family Practice] - in one week
Anna Hicks MD [Active, Otology] - in two to four weeks
Referral Note: Hospitalization Follow-Up
Melani Rossi MD [Active, Infectious Diseases]
Referral Note: Follow-up in 2.5 months.
Prescriptions:
New
potassium chloride 20 mEq Packet
20 meq PO BID Qty: 30 0RF
enoxaparin 40 mg/0.4 mL Syringe
40 mg SC QPM Qty: 4 0RF
Rx Instructions:
Continue through 11/27/24
cyanocobalamin (vitamin B-12) [Vitamin B-12] 1,000 mcg Tablet
1,000 mcg PO DAILY Qty: 30 0RF
levothyroxine 150 mcg Tablet
150 mcg PO DAILY @ 0600 Qty: 30 0RF
thiamine mononitrate (vit B1) 100 mg Tablet
100 mg PO BID Qty: 60 0RF
lisinopril 5 mg Tablet
5 mg PO DAILY Qty: 30 0RF
cholecalciferol (vitamin D3) 25 mcg (1,000 unit) Tablet
25 mcg PO DAILY Qty: 30 0RF
sennosides-docusate sodium 8.6-50 mg Tablet
1 tab PO BID Qty: 60 0RF
Continued
amlodipine 5 mg tablet
5 mg PO DAILY
therapeutic multivitamin Tablet
1 tab PO DAILY
doxazosin 2 mg Tablet
2 mg PO HS
Ivig
1 dose SC MONTHLY
Held
pantoprazole [Protonix] 40 mg Tablet,Delayed Release (Dr/Ec)
40 mg PO DAILY
Hold Instructions: Resume on 04/13/25. Needs re-evaluation by primary care provider regarding whether or not this medication needs to be resumed.
Discontinued
levothyroxine [Synthroid] 125 mcg Tablet
125 mcg PO DAILY
metoprolol succinate [Toprol XL] 25 mg Tablet Extended Release 24 Hr
25 mg PO DAILY
zolpidem [Ambien] 10 mg Tablet
10 mg PO HSPRN PRN (Reason: sleep)
Discharge Orders:
Discharge Patient (As Directed); Ordered 11/05/24
Ordered By: Rafiq Weber
Discharge Date and Time
Discharge Date/Time: 11/05/24 16:53
Print Language: WELSH
== END 2024-11-05 16:53 | DRG 97 ==
LOC: 2 NORTH 20:55
PROVIDERS: Internal Medicine; Internal Medicine Nephrology; Radiology Vascular & Interventional Radiology; ADMITTING PHYSICIAN Hospitalist; ATTENDING PHYSICIAN Hospitalist; CONSULT PHYSICIAN Internal Medicine; CONSULT PHYSICIAN Internal Medicine Gastroenterology; CONSULT PHYSICIAN Internal Medicine Infectious Disease; CONSULT PHYSICIAN Physical Medicine & Rehabilitation; CONSULT PHYSICIAN Psychiatry & Neurology Clinical Neurophysiology; CONSULT PHYSICIAN Psychiatry & Neurology Psychiatry; CONSULT PHYSICIAN Specialist; CONSULT PHYSICIAN Surgery; EMERGENCY PHYSICIAN Emergency Medicine; FAMILY PHYSICIAN Family Medicine; OTHER PHYSICIAN Internal Medicine Hematology & Oncology
PROC: 009U3ZX Drainage of Spinal Canal, Percutaneous Approach, Diagnostic (ICD-10-PCS; 2024-10-06)
PROC: 02HV33Z Insertion of Infusion Device into Superior Vena Cava, Percutaneous Approach (ICD-10-PCS; 2024-10-13)
PROC: 5A09357 Assistance with Respiratory Ventilation, Less than 24 Consecutive Hours, Continuous Positive Airway Pressure (ICD-10-PCS; 2024-10-25)
DX: B00.4 Herpesviral encephalitis (principal); J18.9 Pneumonia, unspecified organism; J96.01 Acute respiratory failure with hypoxia; D68.021 Von Willebrand disease, type 2B; E87.1 Hypo-osmolality and hyponatremia; N17.9 Acute kidney failure, unspecified; E03.9 Hypothyroidism, unspecified; G92.8 Other toxic encephalopathy; I10 Essential (primary) hypertension; D47.2 Monoclonal gammopathy; K40.91 Unilateral inguinal hernia, without obstruction or gangrene, recurrent; E66.9 Obesity, unspecified; E78.5 Hyperlipidemia, unspecified; R91.1 Solitary pulmonary nodule; D69.6 Thrombocytopenia, unspecified; K21.9 Gastro-esophageal reflux disease without esophagitis; I25.10 Atherosclerotic heart disease of native coronary artery without angina pectoris; R31.0 Gross hematuria; N40.1 Benign prostatic hyperplasia with lower urinary tract symptoms; R35.0 Frequency of micturition; R33.8 Other retention of urine; K59.00 Constipation, unspecified; E55.9 Vitamin D deficiency, unspecified; Z11.52 Encounter for screening for COVID-19; Z68.29 Body mass index [BMI] 29.0-29.9, adult; Z79.899 Other long term (current) drug therapy; Z86.718 Personal history of other venous thrombosis and embolism; Z87.891 Personal history of nicotine dependence; Z87.01 Personal history of pneumonia (recurrent)
CPT/HCPCS: 36600; 62328; 70450; 70551; 70553; 71045; 71046; 71275; 74019; 74176; 74177; 80048; 80053; 80061; 80177; 81003; 81015; 82040; 82140; 82306; 82533; 82570; 82607; 82728; 82746; 82805; 82945; 83036; 83516; 83540; 83550; 83735; 83880; 83930; 83935; 84100; 84156; 84157; 84300; 84439; 84443; 84484; 84550; 85025; 85027; 85240; 85245; 85246; 85247; 85379; 85610; 85730; 86038; 86160; 86592; 86593; 86663; 86664; 86665; 86780; 86788; 87015; 87040; 87045; 87046; 87070; 87086; 87102; 87205; 87206; 87324; 87327; 87389; 87427; 87449; 87483; 87497; 87502; 87798; 87811; 87899; 89051; 89055; 92507; 92523; 92526; 92610; 93005; 93306; 93970; 93971; 94640; 94660; 94762; 95816; 97110; 97116; 97163; 97167; 97530; 97535; 99285; A9575; Q9967

== ENCOUNTER → 2024-11-29 11:26 | Outpatient (REF) | payer OTHER, SELFPAY | LOC: MRI 3T 11:26 | PROVIDERS: ATTENDING PHYSICIAN Family Medicine | DX: R51.9 Headache, unspecified (principal); B00.4 Herpesviral encephalitis; Z91.89 Other specified personal risk factors, not elsewhere classified | CPT/HCPCS: 70553; A9575 ==

== ENCOUNTER → 2024-12-31 12:24 | Outpatient (REF) | payer OTHER, SELFPAY ==
[2024-12-31 13:12] VITALS: BP 160/81; BP_SYST 78
[2024-12-31 13:46] LABS: Hematocrit 39.6 % (39.0-52.0); Hemoglobin 13.5 g/dL (13.0-18.0); Mean Corp Hgb Conc. 34.1 g/dL (33.0-37.0); Mean Corpuscular Volume 96.1 fL (80.0-94.0); Platelet Count 171 10^3/uL (130-400); Red Cell Dist. Width 12.7 % (11.5-14.5)
[2024-12-31 13:53] LABS: INR 0.94; PT 12.9 Sec (11.4-14.6)
[2024-12-31 15:10] VITALS: BP 169/97; BP_SYST 86
[2024-12-31 15:59] LABS: CSF Color Colorless; CSF Tube # Clarity Clear; Red Cell Count/CSF 6 mm^3; White Blood Cell Count/CSF 2 mm^3 (0-5)
== END ==
LOC: RADI 12:24
PROVIDERS: ATTENDING PHYSICIAN Internal Medicine Infectious Disease; FAMILY PHYSICIAN Family Medicine; OTHER PHYSICIAN Physician Assistant
DX: A52.3 Neurosyphilis, unspecified (principal); B00.89 Other herpesviral infection
CPT/HCPCS: 36415; 62328; 82945; 84157; 85027; 85610; 87483; 89051